=== PATIENT | male | born 1950 | race Caucasian/White ===

== ENCOUNTER 2017-06-27 17:39 | Emergency (ER) | payer MEDICARE, MEDICAID ==
[2017-06-27 18:46] LABS: #Basophils 0.1 thou/uL (0.0-0.2); #Eosinphils 0.2 thou/uL (0.0-0.7); #Lymphocytes 1.9 thou/uL (1.20-3.40); #Monocytes 0.7 thou/uL (0.11-0.59); #Neutrophils 3.7 thou/uL (1.40-6.50); %Basophils 0.8 % (0.0-1.0); %Eosinophils 2.8 % (0.0-10.0); %Lymphocytes 28.7 % (21.0-51.0); %Monocytes 10.8 % (0.0-10.0); %Neutrophils 56.8 % (42.0-75.0); Hemoglobin 15.3 g/dL (14.0-18.0); Mean Corpuscular HGB CONC 33.8 g/dL (32.0-36.0); Mean Corpuscular Hemoglobin 33.2 pg (27.0-31.0); Mean Corpuscular Volume 98.1 fl (80.0-94.0); Mean Platelet Volume 6.4 fL (7.4-10.4); Platelet Count 265 thou/uL (130-400); RBC Distribution Width 12.5 % (11.5-14.5); Red Blood Cell (RBC) Count 4.62 mill/uL (4.70-6.10); White Blood Cell (WBC) Count 6.5 thou/uL (4.8-10.8)
[2017-06-27 19:13] LABS: CKMB 1.6 ng/mL (0-6.6); Troponin I Less than 0.010 ng/mL (< 0.028)
[2017-06-27 19:14] LABS: ALT (SGPT) 22 U/L (8-55); AST (SGOT) 34 U/L (5-34); Albumin 4.3 g/dL (3.4-4.8); Alkaline Phosphatase 82 U/L (40-150); Anion Gap 18 mmol/L (10-20); BUN (Urea Nitrogen) 15 mg/dL (8.4-25.7); Bilirubin, Total 0.6 mg/dL (0.2-1.2); CK (CPK) 100 U/L (30-200); Calc. Creatinine Clearance 0 mL/min (70-130); Calcium 9.7 mg/dL (7.8-10.44); Carbon Dioxide 20 mmol/L (23-31); Chloride 105 mmol/L (98-107); Estimated GFR-MDRD 88; Globulin 3.9 g/dL (2.4-3.5); Glucose 88 mg/dL (80-115); Lipase 31 U/L (8-78); Potassium 4.5 mmol/L (3.5-5.1); Protein, Total 8.2 g/dL (5.8-8.1); Sodium 138 mmol/L (136-145)
--- NOTE | 2017-06-27 20:17 | RAD ---
PA AND LATERAL VIEWS OF CHEST 06/27/17 HISTORY: Chest pain. FINDINGS: Comparison made to exam of 10/21/13. The heart size is normal. The lungs are expanded. No focal areas of consolidation, pneumothorax or p leural effusions are seen. There are mild degenerative changes of the spine. IMPRESSION: No radiographic evidence of acute cardiopulmonary process. POS: [facility]
[2017-06-27] MEDS ORDERED: Water For Inject, Bacteriostat 30 ML ONE (20:37)
[2017-06-27] MEDS ORDERED: methylPREDNISolone Sod Succ/PF 125 MG/2 ML VIAL ONE (20:37)
[2017-06-27 22:04] LABS: Troponin I Less than 0.010 ng/mL (< 0.028)
--- NOTE | 2017-07-16 22:41 | EKG ---
Test Reason : Blood Pressure : / mmHG Vent. Rate : 067 BPM Atrial Rate : 067 BPM P-R Int : 154 ms QRS Dur : 086 ms QT Int : 402 ms P-R-T Axes : -20 054 044 degrees QTc Int : 424 ms Normal sinus rhythm Possible Lateral infarct , age undetermined Abnormal ECG Confirmed by JOHNNY EVANS ([id number]), sound editor JOAN SANTIAGO ([id number]) on 07/16/2017 10:40:48 PM Referred By: Confirmed By:JOHNNY EVANS
== END 2017-06-28 00:18 | disposition home or self-care (01) ==
LOC: ERS 17:39
DX: J44.1 Chronic obstructive pulmonary disease with (acute) exacerbation (principal); I25.2 Old myocardial infarction; E78.5 Hyperlipidemia, unspecified; I11.0 Hypertensive heart disease with heart failure; I50.9 Heart failure, unspecified; K21.9 Gastro-esophageal reflux disease without esophagitis; M19.90 Unspecified osteoarthritis, unspecified site; F41.9 Anxiety disorder, unspecified; F17.290 Nicotine dependence, other tobacco product, uncomplicated; Z71.6 Tobacco abuse counseling; Z86.73 Personal history of transient ischemic attack (TIA), and cerebral infarction without residual deficits; Z79.82 Long term (current) use of aspirin; Z79.02 Long term (current) use of antithrombotics/antiplatelets; Z79.899 Other long term (current) drug therapy
CPT/HCPCS: 36415; 71046; 80053; 82550; 82553; 83690; 83880; 84484; 85025; 93005; 96374; 99406; J2930; J7620

== ENCOUNTER 2017-07-20 16:51 | Emergency (ER) | payer MEDICARE, MEDICAID ==
--- NOTE | 2017-07-20 17:25 | CT ---
CT HEAD NONCONTRAST 07/20/17 HISTORY: Altered mental status. COMPARISON: 11/18/16. FINDINGS: There is no evidence of acute intracranial hemorrhage or infarct. The ventricles appear normal in siz e, shape, and position. There is no mass effect or shift of midline structures. The visualized parana masoud sinuses remain well aerated. IMPRESSION: No acute intracranial abnormalities are demonstrated on noncontrast CT head. [facility] 1703 hours. Code CR POS: [facility]
[2017-07-20 17:38] LABS: #Eosinphils 0.2 thou/uL (0.0-0.7); #Lymphocytes 1.6 thou/uL (1.20-3.40); #Monocytes 0.7 thou/uL (0.11-0.59); #Neutrophils 3.6 thou/uL (1.40-6.50); %Basophils 0.8 % (0.0-1.0); %Eosinophils 2.6 % (0.0-10.0); %Lymphocytes 26.5 % (21.0-51.0); %Monocytes 11.7 % (0.0-10.0); %Neutrophils 58.3 % (42.0-75.0); Hemoglobin 15.4 g/dL (14.0-18.0); Mean Corpuscular HGB CONC 34.4 g/dL (32.0-36.0); Mean Corpuscular Hemoglobin 33.7 pg (27.0-31.0); Mean Platelet Volume 6.6 fL (7.4-10.4); Platelet Count 283 thou/uL (130-400); RBC Distribution Width 12.8 % (11.5-14.5); Red Blood Cell (RBC) Count 4.55 mill/uL (4.70-6.10); White Blood Cell (WBC) Count 6.2 thou/uL (4.8-10.8)
[2017-07-20 17:45] LABS: INR-International Normal Ratio 1.1; PTT 27.5 SEC (22.9-36.1); Prothrombin Time 13.9 SEC (12.0-14.7)
[2017-07-20 18:01] LABS: ALT (SGPT) 17 U/L (8-55); AST (SGOT) 17 U/L (5-34); Albumin 4.2 g/dL (3.4-4.8); Alkaline Phosphatase 87 U/L (40-150); Anion Gap 13 mmol/L (10-20); BUN (Urea Nitrogen) 15 mg/dL (8.4-25.7); Bilirubin, Total 0.6 mg/dL (0.2-1.2); CK (CPK) 85 U/L (30-200); Calc. Creatinine Clearance 0 mL/min (70-130); Calcium 9.5 mg/dL (7.8-10.44); Carbon Dioxide 25 mmol/L (23-31); Chloride 103 mmol/L (98-107); Estimated GFR-MDRD 73; Globulin 3.2 g/dL (2.4-3.5); Glucose 93 mg/dL (80-115); Potassium 4.5 mmol/L (3.5-5.1); Protein, Total 7.4 g/dL (5.8-8.1); Sodium 136 mmol/L (136-145)
[2017-07-20 18:04] LABS: CKMB 1.6 ng/mL (0-6.6); Troponin I Less than 0.010 ng/mL (< 0.028)
--- NOTE | 2017-07-20 18:10 | CT ---
CT ANGIO OF HEAD AND NECK AND CT PERFUSION STUDY PERFORMED WITH INTRAVENOUS CONTRAST ENHANCEMENT WITH 3D RECONSTRUCTIONS: 07/20/17 HISTORY: Left sided tingling in arm and leg. Slurred speech. History of TIA. COMPARISON: CT done earlier today as well as a CT of the chest performed 07/11/13. There is some right apical pleural and parenchymal scarring which has a slightly nodular appearance b ut is felt to be fairly stable as compared to the prior exam. Thyroid gland is normal in appearance. There is no significant jugular chain adenopathy. Focal cord r egion appears unremarkable. Parapharyngeal spaces are clear. Parotid and submandibular gland regions appear unremarkable. Angiographic portion of this examination yielded a good study. There is a separate origin of the left common carotid artery from the aortic arch. The vertebral arteries are codominant. The origin of the right vertebral artery is obscured by overlying venous contamination. There could be some mild narro wing near the origin. There is some calcification seen in both vertebral arteries and the right verte bral becomes small as it forms the basilar artery. On the right side, there is moderate plaque formation of the origin of the internal carotid artery bu t I see no signs of any significant stenosis. The left shows mild calcified plaque formation again wi thout any significant stenosis. CT ANGIO OF BRAIN PERFORMED WITH INTRAVENOUS CONTRAST WITH 3D RECONSTRUCTIONS: The anterior and middle cerebral arteries and their branches appear symmetric. I do not see any signs of any intraluminal thrombus. No aneurysm or vascular malformation. CT PERFUSION STUDY: No signs of ischemia or stroke. IMPRESSION: 1. Moderate plaque formation at the origin of both internal carotid arteries, more prominent on the right. 2. No ischemia or infarct seen on perfusion sequence. 3. Findings telephoned to Dr. oCnnor at 1750 hours. POS: [facility]
--- NOTE | 2017-07-21 14:57 | CT ---
CT ANGIO OF HEAD AND NECK AND CT PERFUSION STUDY PERFORMED WITH INTRAVENOUS CONTRAST ENHANCEMENT WITH 3D RECONSTRUCTIONS: 07/20/17 HISTORY: Left sided tingling in arm and leg. Slurred speech. History of TIA. COMPARISON: CT done earlier today as well as a CT of the chest performed 07/11/13. There is some right apical pleural and parenchymal scarring which has a slightly nodular appearance b ut is felt to be fairly stable as compared to the prior exam. Thyroid gland is normal in appearance. There is no significant jugular chain adenopathy. Focal cord r egion appears unremarkable. Parapharyngeal spaces are clear. Parotid and submandibular gland regions appear unremarkable. Angiographic portion of this examination yielded a good study. There is a separate origin of the left common carotid artery from the aortic arch. The vertebral arteries are codominant. The origin of the right vertebral artery is obscured by overlying venous contamination. There could be some mild narro wing near the origin. There is some calcification seen in both vertebral arteries and the right verte bral becomes small as it forms the basilar artery. On the right side, there is moderate plaque formation of the origin of the internal carotid artery bu t I see no signs of any significant stenosis. The left shows mild calcified plaque formation again wi thout any significant stenosis. CT ANGIO OF BRAIN PERFORMED WITH INTRAVENOUS CONTRAST WITH 3D RECONSTRUCTIONS: The anterior and middle cerebral arteries and their branches appear symmetric. I do not see any signs of any intraluminal thrombus. No aneurysm or vascular malformation. CT PERFUSION STUDY: No signs of ischemia or stroke. IMPRESSION: 1. Moderate plaque formation at the origin of both internal carotid arteries, more prominent on the right. 2.No ischemia or infarct seen on perfusion sequence. Findings telephoned to Dr. Connor at 1750 hours.
== END 2017-07-20 19:20 | disposition home or self-care (01) ==
LOC: ERS 16:51
DX: R53.1 Weakness (principal); I25.2 Old myocardial infarction; E78.5 Hyperlipidemia, unspecified; Z86.73 Personal history of transient ischemic attack (TIA), and cerebral infarction without residual deficits; K21.9 Gastro-esophageal reflux disease without esophagitis; I11.0 Hypertensive heart disease with heart failure; I50.9 Heart failure, unspecified; F41.9 Anxiety disorder, unspecified; F17.210 Nicotine dependence, cigarettes, uncomplicated; Z79.899 Other long term (current) drug therapy
CPT/HCPCS: 0042T; 70450; 70496; 70498; 80053; 82550; 82553; 83880; 84484; 85025; 85610; 85730; 93005; 94760; 99285

== ENCOUNTER 2017-11-01 22:53 | Emergency (ER) | payer MEDICARE, MEDICAID ==
[~2017-11-01 22:53] MED LIST: ISOVUE-370 76%-LOCM 1 ML ONE
--- NOTE | 2017-11-01 23:09 | CT ---
CT OF THE BRAIN WITHOUT CONTRAST 11/01/17 HISTORY: Left sided weakness. COMPARISON: CT brain 07/20/17. FINDINGS: No acute territorial infarct or hemorrhage. No midline shift or mass effect. Ventricular size and ext ra-axial CSF spaces are normal. Prior left maxillary sinus fracture with plate and screw fixation. The paranasal sinuses and mastoids otherwise clear. IMPRESSION: No acute intracranial abnormality. Code CR - Dr. Marc, 11 p.m. POS: [facility]
[2017-11-01 23:20] LABS: #Basophils 0.1 thou/uL (0.0-0.2); #Eosinphils 0.1 thou/uL (0.0-0.7); #Lymphocytes 1.5 thou/uL (1.20-3.40); #Monocytes 0.6 thou/uL (0.11-0.59); #Neutrophils 3.4 thou/uL (1.40-6.50); %Basophils 0.9 % (0.0-1.0); %Lymphocytes 26.5 % (21.0-51.0); %Monocytes 10.7 % (0.0-10.0); %Neutrophils 59.8 % (42.0-75.0); Hemoglobin 13.5 g/dL (14.0-18.0); Mean Corpuscular HGB CONC 34.4 g/dL (32.0-36.0); Mean Corpuscular Hemoglobin 33.2 pg (27.0-31.0); Mean Corpuscular Volume 96.7 fl (80.0-94.0); Mean Platelet Volume 6.5 fL (7.4-10.4); Platelet Count 238 thou/uL (130-400); RBC Distribution Width 11.9 % (11.5-14.5); Red Blood Cell (RBC) Count 4.05 mill/uL (4.70-6.10); White Blood Cell (WBC) Count 5.7 thou/uL (4.8-10.8)
[2017-11-01 23:27] LABS: INR-International Normal Ratio 1.1; PTT 27.1 SEC (22.9-36.1); Prothrombin Time 14.7 SEC (12.0-14.7)
[2017-11-01 23:36] LABS: CKMB 1.1 ng/mL (0-6.6); Troponin I Less than 0.010 ng/mL (< 0.028)
[2017-11-01 23:37] LABS: ALT (SGPT) 17 U/L (8-55); AST (SGOT) 15 U/L (5-34); Albumin 3.7 g/dL (3.4-4.8); Alkaline Phosphatase 76 U/L (40-150); Anion Gap 5 mmol/L (10-20); BUN (Urea Nitrogen) 13 mg/dL (8.4-25.7); Bilirubin, Total 0.3 mg/dL (0.2-1.2); Calc. Creatinine Clearance 0 mL/min (70-130); Calcium 8.7 mg/dL (7.8-10.44); Carbon Dioxide 27 mmol/L (23-31); Chloride 107 mmol/L (98-107); Estimated GFR-MDRD 74; Globulin 2.5 g/dL (2.4-3.5); Glucose 97 mg/dL (80-115); Potassium 3.9 mmol/L (3.5-5.1); Protein, Total 6.2 g/dL (5.8-8.1); Sodium 135 mmol/L (136-145)
--- NOTE | 2017-11-02 10:08 | CT ---
PRELIMINARY REPORT/[facility]/EMERGENTY AFTER-HOURS PROCEDURE Addendum created by Mesfin Gilliam MD on 11/02/2017 12:48 AM Central Time ([place] & [place]) THIS REPORT CONT AINS FINDINGS THAT MAY BE CRITICAL TO PATIENT CARE. The findings were verbally communicated via telep melody conference with Dr. Rodrigues at 12:47 AM CDT on 11/02/2017. The findings were acknowledged and und erstood. Initial Report created on 11/02/2017 12:36 AM Central Time ([place] & [place]) CT Angiography Head With Intravenous Contrast CLINICAL HISTORY: 67 years old, male; Signs and symptoms; Weakness; Patient HX: stroke alert last seen normal 2230, pt complains of left sided weakness TECHNIQUE: Axial computed tomographic angiography images of the head with intravenous contrast using CT angiogra phy protocol. MIP reconstructed images were created and reviewed. COMPARISON: No relevant prior studies available. FINDINGS: Right internal carotid artery: No acute findings. Intracranial segment is patent with no significant stenosis. No aneurysm. Right anterior cerebral artery: Unremarkable. No occlusion or significant stenosis. No aneurysm. Right middle cerebral artery: Unremarkable. No occlusion or significant stenosis. No aneurysm. Right posterior cerebral artery: Unremarkable. No occlusion or significant stenosis. No aneurysm. Right vertebral artery: Unremarkable as visualized. Left internal carotid artery: No acute findings. Intracranial segment is patent with no significant s tenosis. No aneurysm. Left anterior cerebral artery: Unremarkable. No occlusion or significant stenosis. No aneurysm. Left middle cerebral artery: Unremarkable. No occlusion or significant stenosis. No aneurysm. Left posterior cerebral artery: Unremarkable. No occlusion or significant stenosis. No aneurysm. Left vertebral artery: Unremarkable as visualized. Basilar artery: Unremarkable. No occlusion or significant stenosis. No aneurysm. IMPRESSION: No evidence of focal high-grade stenosis or intraluminal filling defect. CT Angiography Neck With Intravenous Contrast CLINICAL HISTORY: 67 years old, male; Signs and symptoms; Weakness; Patient HX: stroke alert last seen normal 2230, pt complains of left sided weakness TECHNIQUE: Axial computed tomographic angiography images of the neck with intravenous contrast using CT angiogra phy protocol. COMPARISON: No relevant prior studies available. FINDINGS: VASCULATURE: Right common carotid artery: Unremarkable. No significant stenosis. No dissection or occlusion. Right internal carotid artery: Atherosclerotic plaque in the right carotid bulb with less than 50% st enosis. No dissection or occlusion. Right external carotid artery: Unremarkable. No occlusion. Right vertebral artery: Unremarkable. No significant stenosis. No dissection or occlusion. Left common carotid artery: Unremarkable. No significant stenosis. No dissection or occlusion. Left internal carotid artery: Atherosclerotic plaque in the left carotid bulb with less than 50% sten osis. No dissection or occlusion. Left external carotid artery: Unremarkable. No occlusion. Left vertebral artery: Unremarkable. No significant stenosis. No dissection or occlusion. Other vasculature: Atherosclerotic calcification of the aorta. NECK: Bones/joints: Degenerative changes in the spine. No acute fracture. No dislocation. Soft tissues: Unremarkable as visualized. No mass. CAROTID STENOSIS REFERENCE USING NASCET CRITERIA: % ICA stenosis = (1 - narrowest ICA diameter/diameter of distal cervical ICA) x 100. Mild - <50% stenosis. Moderate - 50-69% stenosis. Severe - 70-94% stenosis. Near occlusion - 95-99% stenosis. Occluded - 100% stenosis. IMPRESSION: No evidence of focal high-grade stenosis or intraluminal filling defect. Thank you for allowing us to participate in the care of your patient. Dictated and Authenticated by: Mesfin Gilliam MD 11/02/2017 12:36 AM Central Time ([place] & [place]) FINAL REPORT CTA CAROTIDS: Final report. Preliminary exam was performed by [facility]. Two-D and 3D reconstructed images were performed on an independent 3D work station after administrati on of IV contrast. I concur with the dictation from [facility]. Some atherosclerotic plaque is seen in the right and left proximal ICAs resulting in approximately 50% right ICA and approximately 40-50% left ICA st enosis. More distally, the internal carotid arteries are patent. No evidence of significant intracr anial occlusion seen. ANGELA, MCA, and BELT BACK OPERATOR vessels are patent. There does appear to be some atheroscle rotic plaque focally in the distal vertebral arteries. IMPRESSION: 1. Moderate bilateral ICA origin stenosis without evidence of significant intracranial occlusive dis ease seen. 2. Areas of nodular spiculated density seen in the right upper lobe. This may represent possible ri ght upper lobe lesion. Correlate with dedicated CT chest for further characterization and followup. POS: [facility]
--- NOTE | 2017-11-05 15:23 | EKG ---
Test Reason : Blood Pressure : / mmHG Vent. Rate : 085 BPM Atrial Rate : 085 BPM P-R Int : 148 ms QRS Dur : 084 ms QT Int : 372 ms P-R-T Axes : 002 071 056 degrees QTc Int : 442 ms Normal sinus rhythm Possible Lateral infarct , age undetermined Abnormal ECG Confirmed by XAVIER SEN, BARRON Kearney ([id number]), video effects editor ESTEFANIA VELASCO ([id number]) on 11/05/2017 3:22:49 PM Referred By: Confirmed By:BARRON PARK MD
== END 2017-11-02 | disposition home or self-care (01) ==
LOC: ERS 22:53
DX: R07.9 Chest pain, unspecified (principal); R53.1 Weakness; I25.2 Old myocardial infarction; E78.5 Hyperlipidemia, unspecified; I11.0 Hypertensive heart disease with heart failure; I50.9 Heart failure, unspecified; K21.9 Gastro-esophageal reflux disease without esophagitis; J44.9 Chronic obstructive pulmonary disease, unspecified; F41.9 Anxiety disorder, unspecified; F17.290 Nicotine dependence, other tobacco product, uncomplicated; Z79.899 Other long term (current) drug therapy; Z79.82 Long term (current) use of aspirin; Z86.73 Personal history of transient ischemic attack (TIA), and cerebral infarction without residual deficits
CPT/HCPCS: 36416; 70450; 70496; 70498; 80053; 82553; 84484; 85025; 85610; 85730; 93005; 94760

== ENCOUNTER 2018-04-08 14:57 | Emergency (ER) | payer MEDICARE, MEDICAID ==
--- NOTE | 2018-04-08 15:28 | RAD ---
CHEST 1 VIEW: HISTORY: Pain. COMPARISON: 03/02/2017. FINDINGS: Atherosclerosis of the aorta. Normal cardiac silhouette. Pulmonary vessels and hilum are normal. C ostophrenic angles are clear. NO masses or consolidation. No pneumothorax or osseous abnormalities. IMPRESSION: 1. No acute cardiopulmonary process. 2. Atherosclerosis. POS: [facility]
[2018-04-08 15:31] LABS: #Basophils 0.1 thou/uL (0.0-0.2); #Eosinphils 0.2 thou/uL (0.0-0.7); #Lymphocytes 1.7 thou/uL (1.20-3.40); #Monocytes 0.7 thou/uL (0.11-0.59); #Neutrophils 2.7 thou/uL (1.40-6.50); %Basophils 1.4 % (0.0-1.0); %Eosinophils 3.2 % (0.0-10.0); %Lymphocytes 31.5 % (21.0-51.0); %Monocytes 12.4 % (0.0-10.0); %Neutrophils 51.5 % (42.0-75.0); Hemoglobin 15.4 g/dL (14.0-18.0); Mean Corpuscular HGB CONC 33.5 g/dL (32.0-36.0); Mean Corpuscular Hemoglobin 32.4 pg (27.0-31.0); Mean Corpuscular Volume 96.7 fL (78.0-98.0); Mean Platelet Volume 6.4 fL (7.4-10.4); Platelet Count 278 thou/uL (130-400); RBC Distribution Width 12.1 % (11.5-14.5); Red Blood Cell (RBC) Count 4.76 mill/uL (4.70-6.10); White Blood Cell (WBC) Count 5.2 thou/uL (4.8-10.8)
[2018-04-08 15:54] LABS: ALT (SGPT) 14 U/L (8-55); AST (SGOT) 16 U/L (5-34); Albumin 4.4 g/dL (3.4-4.8); Alkaline Phosphatase 77 U/L (40-150); Anion Gap 13 mmol/L (10-20); BUN (Urea Nitrogen) 12 mg/dL (8.4-25.7); Bilirubin, Total 0.7 mg/dL (0.2-1.2); CK (CPK) 74 U/L (30-200); Calc. Creatinine Clearance 0 mL/min (70-130); Calcium 9.5 mg/dL (7.8-10.44); Carbon Dioxide 24 mmol/L (23-31); Chloride 102 mmol/L (98-107); Estimated GFR-MDRD 76; Globulin 3.3 g/dL (2.4-3.5); Glucose 113 mg/dL (80-115); Potassium 4.3 mmol/L (3.5-5.1); Protein, Total 7.7 g/dL (5.8-8.1); Sodium 135 mmol/L (136-145)
[2018-04-08 15:59] LABS: CKMB 1.2 ng/mL (0-6.6); Troponin I Less than 0.010 ng/mL (< 0.028)
[2018-04-08] MEDS ORDERED: methylPREDNISolone Sod Succ/PF 125 MG/2 ML VIAL ONE (16:00)
== END 2018-04-08 17:18 | disposition home or self-care (01) ==
LOC: ERS 14:57
DX: J44.1 Chronic obstructive pulmonary disease with (acute) exacerbation (principal); I25.2 Old myocardial infarction; E78.5 Hyperlipidemia, unspecified; Z86.73 Personal history of transient ischemic attack (TIA), and cerebral infarction without residual deficits; K21.9 Gastro-esophageal reflux disease without esophagitis; I11.0 Hypertensive heart disease with heart failure; I50.9 Heart failure, unspecified; F41.9 Anxiety disorder, unspecified; F17.210 Nicotine dependence, cigarettes, uncomplicated; Z79.899 Other long term (current) drug therapy; Z79.82 Long term (current) use of aspirin
CPT/HCPCS: 71045; 80053; 82553; 83880; 84484; 85025; 87804; 93005; 94640; 96374; J2930; J7620

== ENCOUNTER 2018-04-09 00:14 | Emergency (ER) | payer MEDICARE, MEDICAID ==
[2018-04-09 01:13] LABS: #Lymphocytes 0.5 thou/uL (1.20-3.40); %Eosinophils 0.3 % (0.0-10.0); %Lymphocytes 10.8 % (21.0-51.0); %Monocytes 0.7 % (0.0-10.0); %Neutrophils 88.2 % (42.0-75.0); Hemoglobin 14.5 g/dL (14.0-18.0); Mean Corpuscular HGB CONC 33.6 g/dL (32.0-36.0); Mean Corpuscular Hemoglobin 32.5 pg (27.0-31.0); Mean Corpuscular Volume 96.6 fL (78.0-98.0); Mean Platelet Volume 6.5 fL (7.4-10.4); Platelet Count 279 thou/uL (130-400); Red Blood Cell (RBC) Count 4.46 mill/uL (4.70-6.10); White Blood Cell (WBC) Count 4.5 thou/uL (4.8-10.8)
[2018-04-09 01:32] LABS: ALT (SGPT) 15 U/L (8-55); AST (SGOT) 15 U/L (5-34); Albumin 4.4 g/dL (3.4-4.8); Alkaline Phosphatase 69 U/L (40-150); Anion Gap 15 mmol/L (10-20); BUN (Urea Nitrogen) 17 mg/dL (8.4-25.7); Bilirubin, Total 0.4 mg/dL (0.2-1.2); Calc. Creatinine Clearance 0 mL/min (70-130); Calcium 9.9 mg/dL (7.8-10.44); Carbon Dioxide 23 mmol/L (23-31); Chloride 104 mmol/L (98-107); Estimated GFR-MDRD 71; Globulin 3.4 g/dL (2.4-3.5); Glucose 175 mg/dL (80-115); Lipase 29 U/L (8-78); Magnesium 2.4 mg/dL (1.6-2.6); Potassium 4.7 mmol/L (3.5-5.1); Protein, Total 7.8 g/dL (5.8-8.1); Sodium 137 mmol/L (136-145)
[2018-04-09 01:35] LABS: Troponin I Less than 0.010 ng/mL (< 0.028)
== END 2018-04-09 02:22 | disposition home or self-care (01) ==
LOC: ERS 00:14
DX: R00.2 Palpitations (principal); E78.5 Hyperlipidemia, unspecified; I25.2 Old myocardial infarction; I11.0 Hypertensive heart disease with heart failure; I50.9 Heart failure, unspecified; J44.9 Chronic obstructive pulmonary disease, unspecified; F41.9 Anxiety disorder, unspecified; F17.210 Nicotine dependence, cigarettes, uncomplicated; Z79.82 Long term (current) use of aspirin; Z79.899 Other long term (current) drug therapy
CPT/HCPCS: 36415; 80053; 82553; 83690; 83735; 84484; 85025; 93005

== ENCOUNTER 2018-04-16 19:19 | Emergency (ER) | payer MEDICARE, MEDICAID ==
[2018-04-16 20:14] LABS: #Basophils 0.1 thou/uL (0.0-0.2); #Eosinphils 0.2 thou/uL (0.0-0.7); #Lymphocytes 2.3 thou/uL (1.20-3.40); #Monocytes 0.8 thou/uL (0.11-0.59); #Neutrophils 6.1 thou/uL (1.40-6.50); %Basophils 0.9 % (0.0-1.0); %Eosinophils 2.5 % (0.0-10.0); %Lymphocytes 24.4 % (21.0-51.0); %Neutrophils 64.2 % (42.0-75.0); Hemoglobin 15.2 g/dL (14.0-18.0); Mean Corpuscular Hemoglobin 32.9 pg (27.0-31.0); Mean Platelet Volume 6.4 fL (7.4-10.4); Platelet Count 284 thou/uL (130-400); RBC Distribution Width 12.4 % (11.5-14.5); Red Blood Cell (RBC) Count 4.62 mill/uL (4.70-6.10); White Blood Cell (WBC) Count 9.5 thou/uL (4.8-10.8)
--- NOTE | 2018-04-16 20:25 | RAD ---
CHEST ONE VIEW: History: Dyspnea. Comparison: 04-08-18 FINDINGS: Cardiac silhouette is magnified by projection. Calcified granulomata are consistent with healed granu lomatous disease. Mediastinum is midline with aortic calcification. No lobar consolidation or evidenc e of pneumothorax. IMPRESSION: Atherosclerosis. No active cardiopulmonary abnormalities are otherwise demonstrated. POS: [facility]
[2018-04-16 20:32] LABS: ALT (SGPT) 14 U/L (8-55); AST (SGOT) 16 U/L (5-34); Albumin 4.2 g/dL (3.4-4.8); Alkaline Phosphatase 69 U/L (40-150); Anion Gap 13 mmol/L (10-20); BUN (Urea Nitrogen) 18 mg/dL (8.4-25.7); Bilirubin, Total 0.3 mg/dL (0.2-1.2); Calc. Creatinine Clearance 0 mL/min (70-130); Calcium 9.4 mg/dL (7.8-10.44); Carbon Dioxide 25 mmol/L (23-31); Chloride 104 mmol/L (98-107); Estimated GFR-MDRD 79; Globulin 3.3 g/dL (2.4-3.5); Glucose 100 mg/dL (80-115); Potassium 4.1 mmol/L (3.5-5.1); Protein, Total 7.5 g/dL (5.8-8.1); Sodium 138 mmol/L (136-145)
[2018-04-16 20:36] LABS: CKMB 1.4 ng/mL (0-6.6); Troponin I Less than 0.010 ng/mL (< 0.028)
[2018-04-16] MEDS ORDERED: Dexamethasone 10 MG/ML VIAL ONE (20:51)
--- NOTE | 2018-04-22 23:07 | EKG ---
Test Reason : Blood Pressure : / mmHG Vent. Rate : 065 BPM Atrial Rate : 065 BPM P-R Int : 154 ms QRS Dur : 092 ms QT Int : 402 ms P-R-T Axes : 093 066 048 degrees QTc Int : 418 ms Normal sinus rhythm Normal ECG Confirmed by ALEKSANDR JOSEPH ([id number]), primer expeditor and drier JOAN SANTIAGO ([id number]) on 04/22/2018 11:07:01 PM Referred By: Confirmed By:ALEKSANDR JOSEPH
== END 2018-04-16 21:01 | disposition home or self-care (01) ==
LOC: ERS 19:19
DX: I11.0 Hypertensive heart disease with heart failure (principal); I50.9 Heart failure, unspecified; R05 Cough; E78.5 Hyperlipidemia, unspecified; F41.9 Anxiety disorder, unspecified; K21.9 Gastro-esophageal reflux disease without esophagitis; J44.9 Chronic obstructive pulmonary disease, unspecified; Z86.73 Personal history of transient ischemic attack (TIA), and cerebral infarction without residual deficits; Z87.891 Personal history of nicotine dependence; Z79.82 Long term (current) use of aspirin
CPT/HCPCS: 71045; 80053; 82553; 84484; 85025; 85379; 93005; 96374; J1100

== ENCOUNTER 2018-07-21 16:26 | Emergency (ER) | payer MEDICARE, MEDICAID ==
[2018-07-21 16:40] LABS: #Basophils 0.1 thou/uL (0.0-0.2); #Eosinphils 0.1 thou/uL (0.0-0.7); #Lymphocytes 1.9 thou/uL (1.20-3.40); #Monocytes 0.6 thou/uL (0.11-0.59); #Neutrophils 3.6 thou/uL (1.40-6.50); %Eosinophils 2.1 % (0.0-10.0); %Lymphocytes 30.3 % (21.0-51.0); %Monocytes 9.6 % (0.0-10.0); %Neutrophils 57.1 % (42.0-75.0); Mean Corpuscular HGB CONC 33.2 g/dL (32.0-36.0); Mean Corpuscular Hemoglobin 32.2 pg (27.0-31.0); Mean Corpuscular Volume 97.1 fL (78.0-98.0); Mean Platelet Volume 6.5 fL (7.4-10.4); Platelet Count 256 thou/uL (130-400); RBC Distribution Width 11.9 % (11.5-14.5); Red Blood Cell (RBC) Count 4.36 mill/uL (4.70-6.10); White Blood Cell (WBC) Count 6.3 thou/uL (4.8-10.8)
--- NOTE | 2018-07-21 16:45 | CT ---
NONCONTRAST CT HEAD: Date: 07/21/18 HISTORY: Level I stroke alert. Left-sided weakness. COMPARISON: 11/01/17. FINDINGS: There is no evidence of a hemorrhage, acute infarction, mass effect, or midline shift. Ventricular sy stem is normal in size, shape, and position. Postsurgical changes of the inferior left orbital rim and anterior wall left maxillary antrum are aga in noted. No calvarial fracture is seen. Visualized paranasal sinuses and mastoid air cells are clear . Vascular calcifications again seen in the carotid siphons and distal vertebral arteries. IMPRESSION: No acute intracranial abnormality is demonstrated. Above findings discussed with Dr. Neri in the emergency department on 07/21/18 at 1636 hours. CODE CR. POS: [facility]
[2018-07-21 16:48] LABS: INR-International Normal Ratio 1.1
[2018-07-21 16:57] LABS: ALT (SGPT) 15 U/L (8-55); AST (SGOT) 16 U/L (5-34); Alkaline Phosphatase 72 U/L (40-150); Anion Gap 14 mmol/L (10-20); BUN (Urea Nitrogen) 11 mg/dL (8.4-25.7); Bilirubin, Total 0.4 mg/dL (0.2-1.2); CK (CPK) 142 U/L (30-200); Calc. Creatinine Clearance 0 mL/min (70-130); Calcium 8.8 mg/dL (7.8-10.44); Carbon Dioxide 20 mmol/L (23-31); Chloride 106 mmol/L (98-107); Estimated GFR-MDRD 72; Globulin 2.7 g/dL (2.4-3.5); Glucose 120 mg/dL (80-115); Potassium 3.9 mmol/L (3.5-5.1); Protein, Total 6.7 g/dL (5.8-8.1); Sodium 136 mmol/L (136-145)
== END 2018-07-21 17:50 | disposition left against medical advice (07) ==
LOC: ERS 16:26
DX: G45.9 Transient cerebral ischemic attack, unspecified (principal); R20.2 Paresthesia of skin; R53.1 Weakness; E78.5 Hyperlipidemia, unspecified; F17.210 Nicotine dependence, cigarettes, uncomplicated; K21.9 Gastro-esophageal reflux disease without esophagitis; Z86.73 Personal history of transient ischemic attack (TIA), and cerebral infarction without residual deficits; Z79.899 Other long term (current) drug therapy; Z79.82 Long term (current) use of aspirin
CPT/HCPCS: 36416; 70450; 80053; 82550; 84484; 85025; 85610; 85730; 93005; 94760

== ENCOUNTER 2018-10-08 17:47 | Observation (INO) | payer MEDICARE, MEDICAID ==
[2018-10-08 18:10] LABS: #Eosinphils 0.1 thou/uL (0.0-0.7); #Lymphocytes 1.8 thou/uL (1.20-3.40); #Monocytes 0.6 thou/uL (0.11-0.59); #Neutrophils 4.1 thou/uL (1.40-6.50); %Basophils 0.5 % (0.0-1.0); %Lymphocytes 27.1 % (21.0-51.0); %Monocytes 8.6 % (0.0-10.0); %Neutrophils 62.8 % (42.0-75.0); Hemoglobin 14.4 g/dL (14.0-18.0); Mean Corpuscular HGB CONC 34.6 g/dL (32.0-36.0); Mean Corpuscular Hemoglobin 32.8 pg (27.0-31.0); Mean Corpuscular Volume 94.8 fL (78.0-98.0); Mean Platelet Volume 6.4 fL (7.4-10.4); Platelet Count 273 thou/uL (130-400); Red Blood Cell (RBC) Count 4.39 mill/uL (4.70-6.10); White Blood Cell (WBC) Count 6.5 thou/uL (4.8-10.8)
[2018-10-08 18:25] LABS: ALT (SGPT) 14 U/L (8-55); AST (SGOT) 17 U/L (5-34); Albumin 4.2 g/dL (3.4-4.8); Alkaline Phosphatase 87 U/L (40-150); Anion Gap 14 mmol/L (10-20); BUN (Urea Nitrogen) 14 mg/dL (8.4-25.7); Bilirubin, Total 0.5 mg/dL (0.2-1.2); CK (CPK) 85 U/L (30-200); Calc. Creatinine Clearance 0 mL/min (70-130); Calcium 9.6 mg/dL (7.8-10.44); Carbon Dioxide 23 mmol/L (23-31); Chloride 105 mmol/L (98-107); Estimated GFR-MDRD 78; Globulin 3.1 g/dL (2.4-3.5); Glucose 96 mg/dL (80-115); Protein, Total 7.3 g/dL (5.8-8.1); Sodium 138 mmol/L (136-145)
--- NOTE | 2018-10-08 18:35 | RAD ---
PORTABLE AP CHEST X-RAY 10/08/18 HISTORY: Chest pain. COMPARISON: 04/16/18. FINDINGS: The cardiac silhouette and pulmonary vasculature are within normal limits. The lungs remain clear. Va scular calcifications seen in the thoracic aorta. There has been no interval change from prior study. IMPRESSION: No acute cardiopulmonary process. POS: [facility]
[2018-10-08] MEDS ORDERED: Fentanyl 100 MCG/2 ML VIAL ONE (18:41)
[2018-10-08] MEDS ORDERED: Nitroglycerin 2% Ointment 1 INCH/1 GM Packet ONE (18:41)
[2018-10-08] MEDS ORDERED: Ondansetron ODT 4 MG TAB SL PRN (19:38)
[2018-10-08] MEDS ORDERED: Acetaminophen 325 MG TAB PO PRN ×2 (19:38→21:11)
[2018-10-08] MEDS ORDERED: Ondansetron PF 4 MG/2 ML Vial IVP PRN (19:38)
[2018-10-08 19:41] VITALS: BMI 29.6
[2018-10-08] MEDS ORDERED: Acetaminophen/Codeine 30-300mg Tablet PO PRN (21:08)
[2018-10-08] MEDS ORDERED: Nitroglycerin 0.4 MG TAB (25 Tab Bottle) SL PRN (21:11)
[2018-10-08] MEDS ORDERED: Amlodipine 10 MG TAB PO SCH (21:15)
[2018-10-08] MEDS ORDERED: Zolpidem Tartrate 5 MG TAB PO SCH (21:15)
[2018-10-08] MEDS ORDERED: Metoprolol Tartrate 50 MG TAB PO SCH (21:15)
[2018-10-08] MEDS ORDERED: Atorvastatin Calcium 20 MG TAB PO SCH (21:15)
[2018-10-08 21:27] LABS: Troponin I Less than 0.010 ng/mL (< 0.028)
[2018-10-09 01:20] LABS: Troponin I Less than 0.010 ng/mL (< 0.028)
[2018-10-09] MEDS ORDERED: Stress 600 With Zinc 1 TAB PO SCH (09:00)
[2018-10-09] MEDS ORDERED: Clopidogrel Bisulfate 75 MG TAB PO SCH (09:00)
[2018-10-09] MEDS ORDERED: Metoprolol Tartrate 50 MG TAB PO SCH (09:00)
--- NOTE | 2018-10-09 10:23 | NM ---
CARDIAC SPECT: HISTORY: A 68-year-old male with chest pain, coronary artery disease, stroke, COPD, hypertension, dy slipidemia, and smoker. TECHNIQUE: A myocardial perfusion scan is performed using the single-isotope 1-day protocol with Technetium 99m sestamibi. Eleven mCi were injected intravenously for the rest exam followed by 33 mCi for the stres s study. Pharmacologic stress with LexiScan was monitored and interpreted by Verna Angel, nurse practi tioner. FINDINGS: Fairly homogeneous tracer distribution is seen in the myocardial segments on stress and rest images w ithout fixed or reversible defects. GATED SPECT LVEF: 74%. WALL MOTION EXAM: Normal. IMPRESSION: Normal myocardial perfusion scan. POS: [facility]
[2018-10-09 15:59] VITALS: BP 163/80; TEMP 98.2
[2018-10-09] MEDS ORDERED: Regadenoson 0.4 MG/5 ML SYRINGE ONE (17:47)
[2018-10-09] MEDS ORDERED: Zolpidem Tartrate 5 MG TAB PO SCH (21:00)
[2018-10-09] MEDS ORDERED: Atorvastatin Calcium 20 MG TAB PO SCH (21:00)
[2018-10-09] MEDS ORDERED: Aspirin 325 MG TAB PO SCH (21:00)
[2018-10-09] MEDS ORDERED: Amlodipine 10 MG TAB PO SCH (21:00)
--- NOTE | 2018-10-10 07:15 | HP ---
CHIEF COMPLAINT: Chest pain. HISTORY OF PRESENT ILLNESS: Mr. Lopes is a 68-year-old male with past medical history of hypertension, hyperlipidemia, came because of chest pain which woke him up. He says it is more like a pressure in the retrosternal area and nonradiating, associated with some shortness of breath and lightheadedness. No diaphoresis. No nausea or vomiting. The patient took full dose aspirin and nitroglycerin at home and drove to the hospital. He also tried some antacid without relief. The patient was evaluated in the ER and given nitroglycerin which did not relieve his symptoms much. He is being admitted for further evaluation and management. PAST MEDICAL HISTORY: 1. Hypertension. 2. Hyperlipidemia. 3. Chronic back pain. 4. Anxiety disorder. 5. Insomnia. 6. Gastroesophageal reflux disease. 7. COPD. 8. History of hepatitis C. PAST SURGICAL HISTORY: Nothing significant. CURRENT MEDICATIONS: The patient is on: 1. Tylenol #3 p.r.n. 2. Amitriptyline 75 mg daily. 3. Amlodipine 10 mg daily. 4. Aspirin 325 mg daily. 5. Lipitor 20 mg daily. 6. Symbicort 160/4.5 two puffs q.i.d. 7. DuoNeb t.i.d. p.r.n. 8. Vitamin D 2000 units daily. 9. Plavix 75 mg daily. 10. Metoprolol 50 b.i.d. 11. Multivitamin daily. 12. Protonix 40 mg daily. 13. Ambien 5 mg at bedtime p.r.n. 14. Lunesta 3 mg at bedtime. ALLERGIES: DOXYCYCLINE. FAMILY HISTORY: Nothing contributory. SOCIAL HISTORY: He lives with his family. Smokes one pack a day. REVIEW OF SYSTEMS: Unremarkable except for chest pain. PHYSICAL EXAMINATION: GENERAL: The patient is alert, awake, oriented x3. VITAL SIGNS: Temp 98, pulse 74, respirations 20, blood pressure 140/70. HEENT: Head is normocephalic and atraumatic. Pupils are equal and reactive. Nasopharynx is pale and dry. Hard and soft palate, no lesions. SKIN: Turgor decreased. NECK: Supple. No JVD. LUNGS: Bilateral air entry. No rales or rhonchi. HEART: S1 and S2 regular. ABDOMEN: Soft. No distention. No tenderness. Normal bowel sounds. CENTRAL NERVOUS SYSTEM: No focal deficit. LABORATORY DATA: CBC shows WBC 6.5, hemoglobin 14, hematocrit 41, platelets 273. Metabolic panel; sodium 138, potassium 4, chloride 108, carbon dioxide 23, creatinine 0.9, glucose 96. Troponin I less than 0.010. EKG shows normal sinus rhythm, no acute ST-T changes seen. Chest x-ray negative. ASSESSMENT: 1. Chest pain, rule out myocardial infarction. 2. Hypertension. 3. Hyperlipidemia. 4. Chronic back pain. 5. Insomnia. PLAN: 1. Vital signs q.4 hours. 2. Activity as tolerated. 3. Allergies: Doxycycline. 4. Hep-Lock. 5. Troponin I q.8 hours x2. 6. Will obtain adenosine Cardiolite stress test. 7. We will continue his home medications. 8. Aspirin daily. Job ID: [id number]
== END 2018-10-09 18:27 | disposition home or self-care (01) ==
LOC: ERS 17:47 → 2SW 19:28
PROVIDERS: ADMIT Internal Medicine; ATTEND Internal Medicine
DX: R07.2 Precordial pain (principal); I10 Essential (primary) hypertension; E78.5 Hyperlipidemia, unspecified; G89.29 Other chronic pain; M54.9 Dorsalgia, unspecified; F41.9 Anxiety disorder, unspecified; G47.00 Insomnia, unspecified; K21.9 Gastro-esophageal reflux disease without esophagitis; J44.9 Chronic obstructive pulmonary disease, unspecified; F17.210 Nicotine dependence, cigarettes, uncomplicated; Z79.51 Long term (current) use of inhaled steroids; Z79.02 Long term (current) use of antithrombotics/antiplatelets; Z79.82 Long term (current) use of aspirin; Z79.899 Other long term (current) drug therapy; Z88.5 Allergy status to narcotic agent; Z88.1 Allergy status to other antibiotic agents
CPT/HCPCS: 71045; 78452; 80053; 82550; 84484 ×3; 85025; 93005; 93017; 94640 ×2; 94760; 96374; 99285; A9500; G0378 ×3; 36415; J2785; J3010; J7620

== ENCOUNTER 2019-02-26 22:08 | Emergency (ER) | payer MEDICARE, MEDICAID ==
[2019-02-26 22:31] LABS: #Eosinphils 0.2 thou/uL (0.0-0.7); #Monocytes 0.5 thou/uL (0.11-0.59); #Neutrophils 2.9 thou/uL (1.40-6.50); %Basophils 0.6 % (0.0-1.0); %Eosinophils 3.2 % (0.0-10.0); %Lymphocytes 35.7 % (21.0-51.0); %Monocytes 8.5 % (0.0-10.0); Hemoglobin 15.4 g/dL (14.0-18.0); Mean Corpuscular Hemoglobin 32.8 pg (27.0-31.0); Mean Corpuscular Volume 93.8 fL (78.0-98.0); Mean Platelet Volume 6.6 fL (7.4-10.4); Platelet Count 251 thou/uL (130-400); RBC Distribution Width 12.5 % (11.5-14.5); White Blood Cell (WBC) Count 5.6 thou/uL (4.8-10.8)
--- NOTE | 2019-02-26 22:51 | RAD ---
RADIOGRAPH CHEST 1 VIEW: DATE: 02/26/2019 HISTORY: 68-year-old male with acute chest pain FINDINGS: There are no airspace densities, pulmonary edema, pneumothorax, or cardiomegaly. The lateral costophr enic angles are sharp. IMPRESSION: No acute cardiopulmonary findings.
[2019-02-26 22:54] LABS: ALT (SGPT) 23 U/L (8-55); AST (SGOT) 19 U/L (5-34); Albumin 4.4 g/dL (3.4-4.8); Alkaline Phosphatase 87 U/L (40-150); Anion Gap 14 mmol/L (10-20); BUN (Urea Nitrogen) 15 mg/dL (8.4-25.7); Bilirubin, Total 0.3 mg/dL (0.2-1.2); CK (CPK) 61 U/L (30-200); Calc. Creatinine Clearance 0 mL/min (70-130); Calcium 9.3 mg/dL (7.8-10.44); Carbon Dioxide 25 mmol/L (23-31); Chloride 105 mmol/L (98-107); Estimated GFR-MDRD 70; Globulin 3.4 g/dL (2.4-3.5); Glucose 103 mg/dL (80-115); Lipase 43 U/L (8-78); Potassium 4.3 mmol/L (3.5-5.1); Protein, Total 7.8 g/dL (5.8-8.1); Sodium 140 mmol/L (136-145)
[2019-02-27] MEDS ORDERED: Orphenadrine Citrate 60 MG/2 ML VIAL IM SCH (00:15)
--- NOTE | 2019-03-03 12:31 | EKG ---
Test Reason : Blood Pressure : / mmHG Vent. Rate : 082 BPM Atrial Rate : 082 BPM P-R Int : 158 ms QRS Dur : 084 ms QT Int : 364 ms P-R-T Axes : 065 069 060 degrees QTc Int : 425 ms Normal sinus rhythm Normal ECG Confirmed by CATHIE BETANCOURT M.D. ([id number]), editorial assistant ESTEFANIA VELASCO ([id number]) on 03/03/2019 12:30:57 PM Referred By: Confirmed By:CATHIE BETANCOURT M.D.
== END 2019-02-27 00:42 | disposition left against medical advice (07) ==
LOC: ERS 22:08
DX: R07.9 Chest pain, unspecified (principal); R20.0 Anesthesia of skin; I11.0 Hypertensive heart disease with heart failure; I50.9 Heart failure, unspecified; E78.5 Hyperlipidemia, unspecified; E78.00 Pure hypercholesterolemia, unspecified; F41.9 Anxiety disorder, unspecified; I25.2 Old myocardial infarction; J44.9 Chronic obstructive pulmonary disease, unspecified; K21.9 Gastro-esophageal reflux disease without esophagitis; M19.90 Unspecified osteoarthritis, unspecified site; I45.81 Long QT syndrome; F17.290 Nicotine dependence, other tobacco product, uncomplicated; Z86.73 Personal history of transient ischemic attack (TIA), and cerebral infarction without residual deficits; Z71.6 Tobacco abuse counseling; Z86.19 Personal history of other infectious and parasitic diseases; Z79.82 Long term (current) use of aspirin; Z79.899 Other long term (current) drug therapy
CPT/HCPCS: 71045; 80053; 82550; 83690; 84484; 85025; 93005; J2360

== ENCOUNTER 2019-05-26 20:56 | Observation (INO) | payer MEDICARE, MEDICAID ==
[2019-05-26 21:21] LABS: #Basophils 0.1 thou/uL (0.0-0.2); #Eosinphils 0.2 thou/uL (0.0-0.7); #Lymphocytes 1.7 thou/uL (1.20-3.40); #Monocytes 0.7 thou/uL (0.11-0.59); #Neutrophils 3.8 thou/uL (1.40-6.50); %Basophils 1.3 % (0.0-1.0); %Eosinophils 3.2 % (0.0-10.0); %Lymphocytes 26.3 % (21.0-51.0); %Monocytes 10.4 % (0.0-10.0); %Neutrophils 58.8 % (42.0-75.0); Hemoglobin 16.1 g/dL (14.0-18.0); Mean Corpuscular HGB CONC 34.8 g/dL (32.0-36.0); Mean Corpuscular Hemoglobin 33.1 pg (27.0-31.0); Mean Corpuscular Volume 95.2 fL (78.0-98.0); Mean Platelet Volume 6.8 fL (7.4-10.4); Platelet Count 287 thou/uL (130-400); RBC Distribution Width 12.1 % (11.5-14.5); Red Blood Cell (RBC) Count 4.86 mill/uL (4.70-6.10); White Blood Cell (WBC) Count 6.5 thou/uL (4.8-10.8)
--- NOTE | 2019-05-26 21:22 | CT ---
CT head noncontrast HISTORY: Altered mental status. Left-sided numbness. COMPARISON: 07/21/2018. FINDINGS: There is no evidence of acute intracranial hemorrhage or infarct. The ventricles appear nor mal in size, shape and position. There is no mass effect or shift of midline structures. Visualized paranasal sinuses remain well-aerated. IMPRESSION: No acute intracranial abnormalities are demonstrated. Findings were called to Dr. Giles in the emergency department at 2116 hours. Code CR.
[2019-05-26 21:27] LABS: INR-International Normal Ratio 0.9; PTT 26.8 SEC (22.9-36.1); Prothrombin Time 12.6 SEC (12.0-14.7)
[2019-05-26 21:32] LABS: ALT (SGPT) 22 U/L (8-55); AST (SGOT) 25 U/L (5-34); Albumin 4.3 g/dL (3.4-4.8); Alkaline Phosphatase 97 U/L (40-110); Anion Gap 16 mmol/L (10-20); BUN (Urea Nitrogen) 12 mg/dL (8.4-25.7); Bilirubin, Total 0.4 mg/dL (0.2-1.2); Calc. Creatinine Clearance 0 mL/min (70-130); Carbon Dioxide 20 mmol/L (23-31); Chloride 106 mmol/L (98-107); Estimated GFR-MDRD 76; Globulin 3.5 g/dL (2.4-3.5); Glucose 101 mg/dL (80-115); Potassium 4.5 mmol/L (3.5-5.1); Protein, Total 7.8 g/dL (5.8-8.1); Sodium 137 mmol/L (136-145)
--- NOTE | 2019-05-26 22:29 | RAD ---
Chest one view HISTORY: Chest pain. COMPARISON: 02/26/2019. FINDINGS: Cardiac silhouette is magnified by projection. Pulmonary vasculature is unremarkable. Media stinum is midline with aortic calcification. No lobar consolidation or evidence of pneumothorax. security monitor leads overlie the chest. IMPRESSION: Atherosclerosis. No active cardiopulmonary abnormalities are otherwise demonstrated.
[2019-05-26] MEDS ORDERED: Aspirin Chewable 81 MG TAB ONE (22:30)
[2019-05-27 01:19] LABS: Troponin I Less than 0.010 ng/mL (< 0.028)
[2019-05-27 06:16] LABS: Troponin I 0.015 ng/mL (< 0.028)
[2019-05-27] MEDS ORDERED: Ondansetron PF 4 MG/2 ML Vial IVP PRN (06:51)
[2019-05-27] MEDS ORDERED: Ondansetron ODT 4 MG TAB PO PRN (06:51)
[2019-05-27] MEDS ORDERED: Sodium Chloride 0.9% 1,000 ML IV SCH (07:00)
[2019-05-27 09:37] VITALS: BMI 30.2
--- NOTE | 2019-05-27 12:08 | MRI ---
EXAM: MRI of the brain without contrast HISTORY: Slurred speech COMPARISON: 11/19/2016 TECHNIQUE: Multiplanar multisequence MR images were obtained of the brain without IV contrast. FINDINGS: The brain demonstrates normal signal intensity on all obtained sequences. No restricted diffusion. No hydronephrosis. No extra-axial fluid collection or intracranial hemorrhage. The expected flow voids are present. Corpus callosum, pituitary, and craniocervical junction are within normal limits. The calvarium and overlying soft tissues are unremarkable. Mucosal thickening seen in the right maxillary sinus. The other paranasal sinuses and mastoid air jackie ls are well aerated. IMPRESSION: No evidence of acute intracranial abnormality.
[2019-05-27] MEDS ORDERED: Acetaminophen/Codeine 30-300mg Tablet PO PRN (14:19)
[2019-05-27] MEDS ORDERED: Nitroglycerin 0.4 MG TAB (25 Tab Bottle) SL PRN (14:29)
[2019-05-27] MEDS: Metoprolol Tartrate 50 MG TAB PO SCH (20:39)
[2019-05-27] MEDS ORDERED: Amlodipine 10 MG TAB PO SCH (21:00)
[2019-05-27] MEDS ORDERED: Zolpidem Tartrate 5 MG TAB PO SCH (21:00)
[2019-05-27] MEDS ORDERED: Atorvastatin Calcium 20 MG TAB PO SCH (21:00)
[2019-05-27] MEDS ORDERED: Aspirin 325 MG TAB PO SCH (21:00)
--- NOTE | 2019-05-28 07:57 | HP ---
CHIEF COMPLAINT: Left-sided numbness, weakness, and chest tightness. HISTORY OF PRESENT ILLNESS: Mr. Lopes is a 69-year-old male with past medical history of hypertension, hyperlipidemia, and history of TIA, came because of these symptoms started yesterday. The patient says the chest pain is retrosternal tightness. No real pain. Not associated with any shortness of breath. He has some dizziness and feeling numbness in the left side with weakness on the left side, able to ambulate. Because of these weakness, he decided to come to the hospital. In the ER, the patient was evaluated, and the patient was found to have some kind of weakness on the left side in arm and leg. CT scan of the brain was done which was unremarkable. Initial cardiac enzymes are normal, so the patient admits no further evaluation and management. PAST MEDICAL HISTORY: 1. Hypertension. 2. Hyperlipidemia. 3. Anxiety disorder. 4. Chronic pain. 5. History of hepatitis C. 6. COPD. 7. Gastroesophageal reflux disease. 8. Insomnia. PAST SURGICAL HISTORY: Nothing significant. CURRENT MEDICATIONS: The patient is on, 1. Tylenol No.3 one q.i.d. p.r.n. 2. Amitriptyline 75 mg nightly. 3. Amlodipine 10 mg daily. 4. Aspirin 325 mg daily. 5. Lipitor 20 mg daily. 6. Vitamin D 2000 units daily. 7. Plavix 75 mg daily. 8. Lunesta 3 mg nightly. 9. DuoNeb q.i.d. p.r.n. 10. Metoprolol 50 b.i.d. 11. Multivitamin daily. 12. Nitroglycerin p.r.n. 13. Protonix 40 mg daily. ALLERGIES: DOXYCYCLINE. FAMILY HISTORY: Nothing contributory. SOCIAL HISTORY: He lives with family. No history of alcohol intake. Smokes one pack a day. REVIEW OF SYSTEMS: CARDIOVASCULAR: Has chest tightness. No shortness of breath. RESPIRATORY: No fever or cough. GASTROINTESTINAL: No nausea, vomiting, or abdominal pain. CENTRAL NERVOUS SYSTEM: The patient has dizziness as well as left-sided weakness. PHYSICAL EXAMINATION: GENERAL: The patient is alert, awake, and oriented x3. VITAL SIGNS: Temperature 98, pulse 75, respiratory rate 20, blood pressure 120/90. HEENT: Head is normocephalic and atraumatic. Pupils are equal and reactive. Nasopharynx is pale and dry. NECK: Supple. No JVD. LUNGS: Bilateral air entry present. No rales. No rhonchi. HEART: S1 and S2, regular. No murmur. ABDOMEN: Soft. No distention. No tenderness. Normal bowel sounds. RECTAL: Deferred. CENTRAL NERVOUS SYSTEM: The patient is alert, awake, and oriented x3. Motor system, power 5/5 in right upper and lower extremities, 4/5 in left upper and lower extremities. Deep tendon is 2+ bilaterally. Plantars downgoing. Sensory is grossly intact. LABORATORY DATA: CBC shows WBC 6.5 hemoglobin 16, hematocrit 46, and platelets 287. Prothrombin time 12, INR 0.9. Metabolic panel; sodium 137, potassium 4.2, chloride 106, CO2 of 20, BUN 12, creatinine 0.9, glucose 101. Troponin less than 0.010. DIAGNOSTIC STUDIES: Chest x-ray negative. CT scan of the brain unremarkable. EKG shows normal sinus rhythm, no acute ST-T changes seen. ASSESSMENT: 1. Left-sided numbness, weakness, rule out cerebrovascular accident. 2. Chest tightness, rule out myocardial infarction. 3. Dizziness. 4. Hypertension. 5. Hyperlipidemia. 6. Chronic obstructive pulmonary disease. 7. Chronic pain. 8. Anxiety disorder. PLAN: 1. Vital signs q.4 hours. 2. Activity as tolerated. 3. Allergies: Doxycycline. 4. Hep-Lock. 5. Diet, cardiac. 6. Troponin I q.6 hours x2. 7. Continue home medications. 8. MRI of the brain. 9. Neurology consult. Job ID: [id number]
[2019-05-28] MEDS ORDERED: Clopidogrel Bisulfate 75 MG TAB PO SCH (09:00)
[2019-05-28] MEDS ORDERED: Stress 600 With Zinc 1 TAB PO SCH (09:00)
[2019-05-28] MEDS: Metoprolol Tartrate 50 MG TAB PO SCH (09:32)
[2019-05-28 15:32] VITALS: BP 124/80; TEMP 97.5
--- NOTE | 2019-05-29 13:54 | DIS ---
DATE OF ADMISSION: 05/26/2019 DATE OF DISCHARGE: 05/28/2019 ADMITTING DIAGNOSES: 1. Left-sided numbness, weakness, rule out cerebrovascular accident. 2. Chest tightness, rule out myocardial infarction. 3. Dizziness. 4. Hypertension. 5. Hyperlipidemia. 6. Chronic obstructive pulmonary disease. 7. Chronic pain. 8. Anxiety disorder. FINAL DIAGNOSES: 1. Left-sided numbness, resolved. No evidence of cerebrovascular accident. MRI of the brain was negative. Chest x-ray, no evidence of acute myocardial infarction. 2. Hypertension. 3. Anxiety disorder. 4. Chronic pain. 5. Hyperlipidemia. 6. Chronic obstructive pulmonary disease. 7. Dizziness, resolved. BRIEF SUMMARY OF HOSPITAL COURSE: Mr. Lopes is a 69-year-old male admitted because of dizziness and some numbness on the left side. The patient admitted to rule out CVA. He also had some chest tightness, admitted to rule out myocardial infarction. MRI of the brain was done. It was unremarkable. The patient did not have any more chest pain in the hospital. Cardiac enzymes were within normal. His dizziness also resolved with medications. In view of improvement, the patient is being discharged. DISCHARGE PHYSICAL EXAMINATION: VITAL SIGNS: At the time of discharge, he was stable, his vital signs stable. LUNGS: Clear. HEART: Sounds regular. ABDOMEN: Soft and nontender. Bowel sounds present. DISCHARGE MEDICATIONS: Include 1. Lipitor 20 mg at bedtime. 2. Aspirin 325 mg daily. 3. Metoprolol 50 b.i.d. 4. Nitroglycerin p.r.n. 5. Amlodipine 10 mg daily. 6. Plavix 75 mg daily. 7. DuoNeb q.i.d. p.r.n. 8. Amitriptyline 75 mg at bedtime. 9. Protonix 40 mg daily. 10. Tylenol with Codeine b.i.d. p.r.n. 11. Lunesta 3 mg at bedtime. 12. Vitamin D 2000 units daily. 13. Multivitamin daily. The patient will come for followup in next week. Job ID: [id number]
== END 2019-05-28 17:24 | disposition home or self-care (01) ==
LOC: ERS 20:56 → ERHOLD 22:35 → 2SW 05-27 06:35
PROVIDERS: ADMIT Internal Medicine; ATTEND Internal Medicine
DX: R20.0 Anesthesia of skin (principal); R07.9 Chest pain, unspecified; R42 Dizziness and giddiness; R53.1 Weakness; I10 Essential (primary) hypertension; F41.9 Anxiety disorder, unspecified; G89.29 Other chronic pain; E78.5 Hyperlipidemia, unspecified; K21.9 Gastro-esophageal reflux disease without esophagitis; G47.00 Insomnia, unspecified; J44.9 Chronic obstructive pulmonary disease, unspecified; Z79.02 Long term (current) use of antithrombotics/antiplatelets; Z79.82 Long term (current) use of aspirin; Z79.899 Other long term (current) drug therapy; Z86.19 Personal history of other infectious and parasitic diseases; Z86.73 Personal history of transient ischemic attack (TIA), and cerebral infarction without residual deficits; Z88.1 Allergy status to other antibiotic agents; Z88.5 Allergy status to narcotic agent
CPT/HCPCS: 36415; 70450; 70551; 71045; 80053; 82550; 83880; 84484; 85025; 85610; 85730; 93005; G0378

== ENCOUNTER 2019-10-02 16:16 | Inpatient (IN) | payer MEDICARE, MEDICAID ==
[2019-10-02 16:47] LABS: #Basophils 0.1 thou/uL (0.0-0.2); #Eosinphils 0.1 thou/uL (0.0-0.7); #Lymphocytes 1.4 thou/uL (1.20-3.40); #Monocytes 0.6 thou/uL (0.11-0.59); #Neutrophils 4.4 thou/uL (1.40-6.50); %Eosinophils 1.9 % (0.0-10.0); %Lymphocytes 21.5 % (21.0-51.0); %Monocytes 8.5 % (0.0-10.0); %Neutrophils 67.1 % (42.0-75.0); Mean Corpuscular HGB CONC 33.3 g/dL (32.0-36.0); Mean Corpuscular Hemoglobin 32.1 pg (27.0-31.0); Mean Corpuscular Volume 96.7 fL (78.0-98.0); Mean Platelet Volume 6.6 fL (7.4-10.4); Platelet Count 276 thou/uL (130-400); RBC Distribution Width 12.3 % (11.5-14.5); Red Blood Cell (RBC) Count 4.97 mill/uL (4.70-6.10); White Blood Cell (WBC) Count 6.6 thou/uL (4.8-10.8)
--- NOTE | 2019-10-02 16:58 | RAD ---
PORTABLE CHEST: 10/02/19 PROVIDED CLINICAL HISTORY: Shortness of breath and chest tightness. FINDINGS: Comparison 05/26/19. Cardiac and mediastinal silhouette is unchanged in appearance. Vascular calcification involves the ao rtic arch. No focal consolidation, pleural fluid, or pneumothorax apparent. IMPRESSION: No evidence for an acute cardiopulmonary process. POS: BOY
[2019-10-02 17:16] LABS: ALT (SGPT) 17 U/L (8-55); AST (SGOT) 15 U/L (5-34); Albumin 4.5 g/dL (3.4-4.8); Alkaline Phosphatase 92 U/L (40-110); Anion Gap 14 mmol/L (10-20); BUN (Urea Nitrogen) 11 mg/dL (8.4-25.7); Bilirubin, Total 0.6 mg/dL (0.2-1.2); Calc. Creatinine Clearance 0 mL/min (70-130); Calcium 9.7 mg/dL (7.8-10.44); Carbon Dioxide 24 mmol/L (23-31); Chloride 102 mmol/L (98-107); Estimated GFR-MDRD 68; Globulin 3.4 g/dL (2.4-3.5); Glucose 98 mg/dL (80-115); Potassium 4.2 mmol/L (3.5-5.1); Protein, Total 7.9 g/dL (5.8-8.1); Sodium 136 mmol/L (136-145)
--- NOTE | 2019-10-02 17:58 | CT ---
CT BRAIN 10/02/19 PROVIDED CLINICAL HISTORY: Tingling in hands and feet. FINDINGS: Comparison 05/26/19. The ventricular system appears normal in size and morphology. There is no evidence for intracranial h emorrhage or mass effect. The extracranial soft tissues and osseous structures demonstrate an unremar kable CT appearance. IMPRESSION: No evidence for intracranial hemorrhage or mass effect. POS: BOY
[2019-10-02] MEDS ORDERED: Guaifenesin DM 100-10/5 ML UDCUP PO PRN (19:55)
[2019-10-02] MEDS ORDERED: Acetaminophen 325 MG TAB PO PRN (19:55)
[2019-10-02] MEDS ORDERED: Aspirin 325 mg Enteric Coated Tablet PO SCH (20:15)
[2019-10-02] MEDS ORDERED: Aspirin 325 MG TAB PO SCH (20:15)
--- NOTE | 2019-10-02 20:16 | PDOC.HHP ---
Hospitalist HPI - History of Present Illness Chest Pain History of Present Illness: PCP: Dr. Adan The patient is a 69/m with PMH significant for [place] (1999), HTN, HLD, CHF, CVA ( 2012, tpa) w/ left sided weakness, COPD, that presents to the ER for the above complaint. The patient reports developing chest pain about 2 weeks ago. Describes as generalized, across the chest, aching/dull, 3/10, exacerbated with exertion, relieved with rest. Reports that over the past 2-3 days, the pain has become more frequent and intense. He is unable to perform chores around the house, such as standing on a step stool to paint. He says that he develops chest pain, becomes fatigued and sob within a few minutes of painting. Denies any light headedness, nausea or vomiting. Denies focal weakness. To relieve his symptoms, he lays down in bed. Also reports having intermittent heart palpitations and SOB when he lays down to sleep, particularly when he lays on his left side. This has forced him to sleep on his back, which is difficult because of his osteoarthritis. Denies recent weight gain, PND or swelling to lower extremities. Reports mild wheezing, stating that he is "always wheezing." Reports chronic, non productive cough. Denies fever or chills. He had cardiac catheterization in [address] Cartwright, denies any stents and has not followed up with cardiology since 2012. ED Course: EKG NSR with no ST or T wave changes trop < 0.010 BNP 10.8 CXR negative for acute cardiopulmonary process CMP and CBC unremarkable Patient took his ASA 324mg and plavix this morning. Hospitalist ROS - Review of Systems Constitutional: denies: fever, chills, sweats Eyes: denies: pain, vision change, conjunctivae inflammation, eyelid inflammation, redness, other ENT: denies: ear pain, ear discharge, nose pain, nose discharge, nose congestion , mouth pain, mouth swelling, throat pain, throat swelling, other Respiratory: reports: cough (chronic), dry, shortness of breath, SOB with excertion, wheezing (mild, chronic). denies: hemoptysis Cardiovascular: reports: chest pain, palpitations. denies: orthopnea, paroxysmal noc. 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-) Living Situation: With Family Occupation: lives in [place] with brother, disabled Activity level: independent ambulation - Exam General Appearance: NAD, awake alert Eye: anicteric sclera ENT: normocephalic atraumatic, moist mucosa Neck: supple, no JVD, no thyromegaly Heart: RRR, no murmur, no gallops, no rubs, normal peripheral pulses Respiratory: CTAB, no wheezes, no rales, no tachypnea, rhonchi Gastrointestinal: soft, non-tender, normal bowel sounds, no guarding, no rigidity Extremities: no cyanosis Extremities - other findings: trace edema BLE Skin: no rashes Neurological: no new deficit Psychiatric: normal affect, A&O x 3 Hospitalist Results - Labs Result Diagrams: 10/02/19 16:41 10/02/19 16:41 Lab results: WBC 6.6 thou/uL (4.8-10.8) 10/02/19 16:41 Hgb 16.0 g/dL (14.0-18.0) 10/02/19 16:41 Hct 48.0 % (42.0-52.0) 10/02/19 16:41 MCV 96.7 fL (78.0-98.0) 10/02/19 16:41 Plt Count 276 thou/uL (130-400) 10/02/19 16:41 Neutrophils % 67.1 % (42.0-75.0) 10/02/19 16:41 Sodium 136 mmol/L (136-145) 10/02/19 16:41 Potassium 4.2 mmol/L (3.5-5.1) 10/02/19 16:41 Chloride 102 mmol/L (98-107) 10/02/19 16:41 Carbon Dioxide 24 mmol/L (23-31) 10/02/19 16:41 BUN 11 mg/dL (8.4-25.7) 10/02/19 16:41 Creatinine 1.08 mg/dL (0.7-1.3) 10/02/19 16:41 Glucose 98 mg/dL (80-115) 10/02/19 16:41 Calcium 9.7 mg/dL (7.8-10.44) 10/02/19 16:41 Total Bilirubin 0.6 mg/dL (0.2-1.2) 10/02/19 16:41 AST 15 U/L (5-34) 10/02/19 16:41 ALT 17 U/L (8-55) 10/02/19 16:41 Alkaline Phosphatase 92 U/L (40-110) 10/02/19 16:41 Troponin I Less than 0.010 ng/mL (< 0.028) 10/02/19 16:41 B-Natriuretic Peptide 10.8 pg/mL (0-100) 10/02/19 16:41 Serum Total Protein 7.9 g/dL (5.8-8.1) 10/02/19 16:41 Albumin 4.5 g/dL (3.4-4.8) 10/02/19 16:41 - EKG Interpretation EKG: NSR, no ST elevations - Radiology Interpretation Chest x-ray Status: report reviewed by me CT scan - head Status: report reviewed by me Hospitalist H&P A/P - Problem (1) Chest pain Code(s): R07.9 - CHEST PAIN, UNSPECIFIED Status: Acute Assessment and Plan: Admit to telemetry, observation status Expected length of stay less than 2 midnights Extensive cardiovascular history, HEART SCORE 6 EKG NSR, trop negative, BNP unremarkable Trend troponins NM pharm cardiac stress test Consult Cardiology npo after midnight Continue ASA and plavix Nitro-paste Restart home med antihypertensives Check TSH and mag, FLP, UDS Recheck BMP and CBC in am (2) HTN (hypertension) Code(s): I10 - ESSENTIAL (PRIMARY) HYPERTENSION Status: Chronic Assessment and Plan: VS stable Restart Metroprolol tartrate 50mg BID Restart Amlodipine 10mg daily (3) HLD (hyperlipidemia) Code(s): E78.5 - HYPERLIPIDEMIA, UNSPECIFIED Status: Chronic Assessment and Plan: Restart atorvastatin 20mg q hs Check FLP (4) Tobacco abuse Code(s): Z72.0 - TOBACCO USE Status: Chronic Assessment and Plan: Smokes 2-3 cigars daily Unwilling to quit Counseling for tobacco cessation (5) GERD (gastroesophageal reflux disease) Code(s): K21.9 - GASTRO-ESOPHAGEAL REFLUX DISEASE WITHOUT ESOPHAGITIS Status: Chronic Assessment and Plan: Restart protonix 40mg q hs home medication (6) COPD (chronic obstructive pulmonary disease) Status: Chronic Assessment and Plan: stable at this time DuoNebs prn - Plan Plan: consult walking program SCDs DVT prophylaxis Protonix GI prophylaxis Full Code HIREN Lopes at [phone] Asher
[2019-10-02 20:51] LABS: Troponin I Less than 0.010 ng/mL (< 0.028)
[2019-10-02] MEDS ORDERED: Famotidine/PF 20 mg/2ml Vial SLOW IVP SCH (21:00)
[2019-10-02] MEDS ORDERED: Famotidine 20 MG TAB PO SCH (21:00)
[2019-10-02 23:05] VITALS: BMI 29.7
[2019-10-02 23:39] LABS: Troponin I 0.017 ng/mL (< 0.028)
[2019-10-02] MEDS: Atorvastatin Calcium 20 MG TAB PO SCH (23:40)
[2019-10-02] MEDS: Zolpidem Tartrate 5 MG TAB PO SCH (23:40)
[2019-10-02] MEDS: Metoprolol Tartrate 50 MG TAB PO SCH (23:40)
[2019-10-02] MEDS: Amlodipine 10 MG TAB PO SCH (23:40)
[2019-10-02] MEDS: Sodium Chloride 0.9% 1,000 ML IV SCH (23:47)
[2019-10-02] MEDS: Nitroglycerin 2% Ointment 1 INCH/1 GM Packet TOP SCH (23:50)
[2019-10-03] MEDS: Nitroglycerin 0.4 MG TAB (25 Tab Bottle) PO PRN ×3 (01:09→01:26)
[2019-10-03 01:31] LABS: Barbiturates Screen Not Detected (NotDetected); Medtox Reader # READER 1; Methadone Not Detected (NotDetected); Tricyclic Screen Detected (NotDetected)
[2019-10-03 01:32] LABS: Amphetamine Not Detected (NotDetected); Benzodiazepine Screen Not Detected (NotDetected); Cocaine Metabolite Screen Not Detected (NotDetected); Medtox Control Line Valid? VALID (VALID); Methamphetamine Not Detected (NotDetected); Opiate Screen Not Detected (NotDetected); Oxycodone Screen Not Detected (NotDetected); Phencyclidine (PCP) Not Detected (NotDetected); THC/Cannabinoid Screen Not Detected (NotDetected)
[2019-10-03 05:36] LABS: #Basophils 0.1 thou/uL (0.0-0.2); #Eosinphils 0.2 thou/uL (0.0-0.7); #Lymphocytes 2.2 thou/uL (1.20-3.40); #Monocytes 0.8 thou/uL (0.11-0.59); #Neutrophils 3.4 thou/uL (1.40-6.50); %Eosinophils 2.7 % (0.0-10.0); %Lymphocytes 32.6 % (21.0-51.0); %Monocytes 11.4 % (0.0-10.0); %Neutrophils 52.2 % (42.0-75.0); Hemoglobin 14.2 g/dL (14.0-18.0); Mean Corpuscular HGB CONC 33.8 g/dL (32.0-36.0); Mean Corpuscular Hemoglobin 32.7 pg (27.0-31.0); Mean Corpuscular Volume 96.5 fL (78.0-98.0); Mean Platelet Volume 6.9 fL (7.4-10.4); Platelet Count 264 thou/uL (130-400); RBC Distribution Width 11.9 % (11.5-14.5); Red Blood Cell (RBC) Count 4.35 mill/uL (4.70-6.10); White Blood Cell (WBC) Count 6.6 thou/uL (4.8-10.8)
[2019-10-03 06:00] LABS: Anion Gap 12 mmol/L (10-20); BUN (Urea Nitrogen) 12 mg/dL (8.4-25.7); Calc. Creatinine Clearance 211 mL/min (70-130); Calcium 9.1 mg/dL (7.8-10.44); Carbon Dioxide 27 mmol/L (23-31); Chloride 104 mmol/L (98-107); Cholesterol 131 mg/dl (< 200 Desired); Estimated GFR-MDRD 71; Glucose 88 mg/dL (80-115); HDL Cholesterol 26 mg/dL (>60 Neg Risk); LDL Cholesterol, Calculated 49 mg/dL; Potassium 4.3 mmol/L (3.5-5.1); Sodium 139 mmol/L (136-145); Triglycerides 279 mg/dL (Less than 150)
[2019-10-03] MEDS: Nitroglycerin 2% Ointment 1 INCH/1 GM Packet TOP SCH ×3 (07:53→21:24)
[2019-10-03] MEDS ORDERED: Aspirin 325 MG TAB PO SCH (09:00)
[2019-10-03] MEDS ORDERED: Clopidogrel Bisulfate 75 MG TAB PO SCH (09:00)
[2019-10-03 09:45] LABS: Troponin I Less than 0.010 ng/mL (< 0.028)
[2019-10-03] MEDS: Clopidogrel Bisulfate 75 MG TAB PO SCH (10:41)
[2019-10-03] MEDS: Aspirin 325 mg Enteric Coated Tablet PO SCH (10:41)
[2019-10-03] MEDS: Metoprolol Tartrate 50 MG TAB PO SCH ×2 (10:41→21:24)
--- NOTE | 2019-10-03 11:00 | NM ---
EXAM: NM Cardiac Stress W EF WF PROVIDED CLINICAL HISTORY: Chest pain COMPARISON: None FINDINGS: There is normal uptake and excretion of radiotracer throughout the left ventricular myocardium on the stress acquisition. No reversible defects are seen between the stress and resting acquisitions. Gated images demonstrate normal ventricular wall motion and wall thickening. Calculated left ventricu lar ejection fraction is 74%. There is elevation of the transient ischemic dilatation ratio which is 1.25 with normal being 1.22 or less. IMPRESSION: 1. Normal myocardial perfusion study without evidence of a reversible defect seen to suggest ischemia . 2. Elevation of the transient ischemic dilatation ratio which is 1.25. 3. Normal LVEF of 74%
[2019-10-03] MEDS ORDERED: Regadenoson 0.4 MG/5 ML SYRINGE ONE (11:33)
[2019-10-03] MEDS ORDERED: Communication Order-Pharmacy FS SCH (12:15)
--- NOTE | 2019-10-03 14:16 | PDOC.HOSPP ---
- Subjective Encounter Date: 10/03/19 Encounter Time: 14:14 Subjective: Mr. Lopes was seen today in follow-up of chest pain. He says he continues to have a little pressure in his chest. It is a little better than before. - Objective Vital Signs & Weight: Vital Signs (12 hours) Temp Pulse Resp BP BP BP BP 10/03/19 11:24 97.5 F L 65 16 113/74 10/03/19 10:21 91/64 113/74 119/68 10/03/19 07:54 10/03/19 07:52 98.3 F 66 20 112/71 10/03/19 04:08 97.8 F 67 16 112/64 Pulse Ox 10/03/19 11:24 96 10/03/19 10:21 10/03/19 07:54 97 10/03/19 07:52 98 10/03/19 04:08 97 Weight Weight 220 lb 1.6 oz I&O: 10/02/19 10/03/19 10/04/19 06:59 06:59 06:59 Intake Total 240 525 Output Total 500 400 Balance -260 125 Result Diagrams: 10/03/19 04:52 10/03/19 04:52 Hospitalist ROS - Medication Medications: Active Medications Generic Name Dose Route Start Last Admin Trade Name Freq PRN Reason Stop Dose Admin Amitriptyline HCl 75 mg 10/02/19 21:00 10/02/19 23:39 Elavil PO 75 mg HS MANDO Administration Amlodipine Besylate 10 mg 10/02/19 21:00 10/02/19 23:40 Norvasc PO 10 mg HS MANDO Administration Aspirin 325 mg 10/03/19 09:00 10/03/19 10:41 Ecotrin PO 325 mg DAILY MANDO Administration Atorvastatin Calcium 20 mg 10/02/19 21:00 10/02/19 23:40 Lipitor PO 20 mg HS MANDO Administration Clopidogrel Bisulfate 75 mg 10/03/19 09:00 10/03/19 10:41 Plavix PO 75 mg DAILY MANDO Administration Sodium Chloride 1,000 mls @ 75 mls/hr 10/02/19 23:59 10/02/19 23:47 Normal Saline 0.9% IV 1,000 mls .[id number] MANDO Administration Metoprolol Tartrate 50 mg 10/02/19 21:00 10/03/19 10:41 Lopressor PO 50 mg BID MANDO Administration Nitroglycerin 0.5 inch 10/02/19 22:00 10/03/19 07:53 Nitro-Bid 2% Ointment TOP Not Given Q8HR MANDO Nitroglycerin 0.4 mg 10/02/19 19:53 10/03/19 01:26 Nitrostat PO 0.4 mg Q5MIN PRN Administration Chest Pain Pantoprazole Sodium 40 mg 10/02/19 21:00 10/02/19 23:40 Protonix PO 40 mg HS MANDO Administration Zolpidem Tartrate 5 mg 10/02/19 21:00 10/02/19 23:40 Ambien PO 5 mg HS MANDO Administration - Exam Eye: PERRL Heart: RRR, no murmur, no gallops, no rubs, normal peripheral pulses Respiratory: CTAB, no wheezes, no rales, no ronchi, normal chest expansion Gastrointestinal: soft, non-tender, non-distended, normal bowel sounds, no palpable masses Extremities: no cyanosis, no clubbing, no edema Hosp A/P (1) Unstable angina Status: Acute (2) COPD (chronic obstructive pulmonary disease) Status: Chronic (3) HLD (hyperlipidemia) Code(s): E78.5 - HYPERLIPIDEMIA, UNSPECIFIED Status: Chronic (4) HTN (hypertension) Code(s): I10 - ESSENTIAL (PRIMARY) HYPERTENSION Status: Chronic (5) Tobacco abuse Code(s): Z72.0 - TOBACCO USE Status: Chronic - Plan * Unstable Angina- patient's chest p[ain has improved, but still present. His stress test was negative, however, he has significant risk factors for CAD, and the description of his pain is concerning. He has been evaluated by Cardiology and the plan is for cardiac cath tomorrow. * HTN- blood pressure is low normal * COPD- stable * Tobacco abuse- discussed the need to stop * further recommendation depend on cath findings
--- NOTE | 2019-10-03 14:42 | EKG ---
Test Reason : STAT Blood Pressure : / mmHG Vent. Rate : 081 BPM Atrial Rate : 081 BPM P-R Int : 158 ms QRS Dur : 082 ms QT Int : 380 ms P-R-T Axes : 041 066 058 degrees QTc Int : 441 ms Normal sinus rhythm Septal infarct , age undetermined cannot be excluded Abnormal ECG Confirmed by PILO WASHINGTON ([id number]) on 10/03/2019 2:42:38 PM Referred By: LÁZARO Confirmed By:PILO WASHINGTON
[2019-10-03] MEDS: Sodium Chloride 0.9% 1,000 ML IV SCH (15:41)
--- NOTE | 2019-10-03 19:17 | CON ---
DATE OF CONSULTATION: 10/03/2019 INDICATION FOR CONSULTATION: A 69-year-old patient with complaints of chest pain. He also has a history of coronary artery disease. He underwent cardiac catheterization in [address] Cartwright. At that time, he was felt to have noncardiac chest pain. He had minimal coronary artery disease. However, the following is what was noted; left main was 20%, left anterior descending artery was 20%, in the proximal mid areas, diagonal was 50% stenosis, left circumflex was 30% stenosis, right coronary artery was 20% to 30%. Ejection fraction at that time was 50% to 55%. He also has a long history of COPD. He says he has a history of in the past of tuberculosis and has been having increasing problems with chest discomfort and fatigue with increasing his heart rate. He says he has tachycardia with minimal exertion. He also has significant COPD and significant expiratory wheezing. He has had inhalers, which he only uses on a p.r.n. basis. He smoked cigarettes for many years, stopped about 3 years ago, but now continues to smoke cigars. He presented to the hospital saying he was lightheaded, dizzy, having increased heart rate and chest pain. Sometimes he has had the pain radiated to both arms. He also had some peripheral neuropathy involving the lower extremities. At this time, he does not have any significant chest pain. His EKG was unremarkable. His cardiac enzymes are negative for myocardial infarction. He did undergo stress test this morning, which showed no evidence of reversible ischemia. However, TID ratio was slightly elevated at 1.25, which would not be significantly unusual for a nuclear study of this sort. However, he is concerned that he may have a problem with his heart and since he has known coronary artery disease and slight elevation of his mild transient ischemic dilatation based on his symptoms, his history, and known coronary artery disease, it may be best to proceed with cardiac catheterization to rule out evidence of underlying significant coronary artery disease. PAST MEDICAL HISTORY: Significant for COPD, coronary artery disease. He has a history of TB apparently. He has emphysema according to him. He also has a history of myocardial infarction he said in 1999, but did not have any indication of why he had an IA with minimal coronary artery disease. He has a history of hypercholesterolemia. He also had a possible CVA in 2012. He has some left-sided weakness. He has gastroesophageal reflux disease. He has a history of hepatitis C. He has osteoarthritis. He has had a cholecystectomy. He has had bilateral cataract surgery with removals. He has had a tonsillectomy. He has had one of the testicles removed due to some type of cyst. He also has anxiety. He has insomnia. FAMILY HISTORY: Unremarkable for any early coronary artery disease. SOCIAL HISTORY: He lives with one of his brothers. He has occasional alcohol use. He continues to smoke cigars and just stopped smoking a couple of years ago. REVIEW OF SYSTEMS: He mainly complained of the discomfort and peripheral neuropathy as noted above. He has had no significant nausea, vomiting, or diarrhea. He has some shortness of breath and uses inhaler when necessary. He complained of the lightheadedness, but he denied any nausea or vomiting. He denied any urinary complaints. He has had no seizures or syncope. ALLERGIES: HE IS ALLERGIC TO DOXYCYCLINE AND HE SAYS HE IS ALLERGIC TO MORPHINE. MEDICATIONS: Include; 1. Amlodipine 10 mg a day. 2. Aspirin 325 mg a day. 3. Nitroglycerin p.r.n. 4. Atorvastatin 20 mg a day. 5. Metoprolol 50 mg b.i.d. 6. Amitriptyline 100 mg, actually he is taking 75 mg once a day. 7. Tylenol with codeine 300/30 one tablet b.i.d. 8. Eszopiclone 3 mg once at night. 9. Plavix 75 mg a day. 10. Pantoprazole 40 mg once a day. 11. Vitamin D3. 12. Vitamin B complex once a day. PHYSICAL EXAMINATION: GENERAL: Reveals a middle-aged gentleman, who is in no acute distress at this time. He is actually pain-free when I saw him. HEENT: Shows the head to be normocephalic and atraumatic. Carotid pulses are present. I did not hear any significant bruits. CHEST: Had diffuse coarse wheezing throughout all lung kim. CARDIOVASCULAR: Reveals a regular rate and rhythm. I did not hear any significant murmurs, heaves, thrills, bruits, or rubs. ABDOMEN: Shows mild obesity with positive bowel sounds. No organomegaly or masses are noted. Femoral pulses are present. Pedal pulses are present. He has mild varicose veins, but these do not appear to be significant. SKIN: Warm and dry. NEUROLOGICAL: He appears to be grossly intact. I do not see any gross focal motor deficits. LABORATORY DATA: Shows a WBC of 6.4, hemoglobin was 14, hematocrit was 42, platelet count was 261,000. His BNP was only 10.8. Sodium was 139, potassium 4.3, BUN was 12, creatinine 1.04. Blood sugar was 88. His triglycerides were 279, LDL was 49. Cardiac enzymes negative for myocardial infarction. The stress test did show elevation of the TID ratio of 1.5 with normal ejection fraction. No evidence of ischemia. His EKG shows decreased R-wave progression in V1 and V2, but otherwise no significant abnormalities were noted. IMPRESSION: 1. Elderly gentleman with known coronary artery disease, who continues to have episodes of chest pain, sometimes radiating to the arm with elevated TID ratio. Given his history with the elevated TID ratio despite no evidence of reversible ischemia, but a history of coronary artery disease, especially involving left main stenosis in the past, it probably would be best served by undergoing a repeat cardiac catheterization as a definitive tool to evaluate his coronary artery status. 2. History of chronic obstructive pulmonary disease with emphysema and also bronchitis in the past with some history of possible tuberculosis. I believe he has been seen by Dr. Tenorio in the past and should he need to have further evaluation from a pulmonary standpoint, then he would be able to discuss this with Dr. Tenorio. 3. History of continued tobacco abuse. I have suggested he stop smoking altogether. 4. History of hypertension. This is under relatively good control at this time. 5. Dyslipidemia. He will continue taking his present medications. I will discuss with him about cardiac catheterization to see whether or not we can perform this today or either tomorrow, so hopefully he can expedite his discharge from the hospital. Thank you very much for the consultation and further recommendations will depend on the results of the cardiac catheterization. Job ID: [id number]
[2019-10-03] MEDS: Zolpidem Tartrate 5 MG TAB PO SCH (21:24)
[2019-10-03] MEDS: Amlodipine 10 MG TAB PO SCH (21:24)
[2019-10-03] MEDS: Atorvastatin Calcium 20 MG TAB PO SCH (21:24)
[2019-10-04] MEDS: Nitroglycerin 2% Ointment 1 INCH/1 GM Packet TOP SCH ×3 (05:22→21:38)
[2019-10-04] MEDS: Clopidogrel Bisulfate 75 MG TAB PO SCH (05:22)
[2019-10-04] MEDS: Metoprolol Tartrate 50 MG TAB PO SCH ×2 (05:22→21:31)
[2019-10-04] MEDS: Aspirin 325 mg Enteric Coated Tablet PO SCH (05:23)
[2019-10-04] MEDS: Sodium Chloride 0.9% 1,000 ML IV SCH ×3 (06:29→21:39)
[2019-10-04] MEDS ORDERED: Iopamidol 370 76% 50 ML VIAL FS ONE (08:47)
[2019-10-04] MEDS ORDERED: Iopamidol 370 76% 100 ML VIAL ONE (08:47)
[2019-10-04] MEDS ORDERED: Nitroglycerin 100MG/250ML BOT 250 ML ONE (09:34)
[2019-10-04] MEDS ORDERED: Verapamil 5 MG/2 ML VIAL ONE (09:34)
[2019-10-04] MEDS ORDERED: Heparin 10,000 UNITS/1 ML VIAL ONE (09:34)
[2019-10-04] MEDS ORDERED: Nitroglycerin 0.4 MG TAB (25 Tab Bottle) SL PRN (11:14)
[2019-10-04] MEDS ORDERED: Sodium Chloride 0.9% 200 ML IV PRN (11:14)
[2019-10-04] MEDS ORDERED: Acetaminophen/Codeine 30-300mg Tablet PO PRN ×2 (11:14)
--- NOTE | 2019-10-04 14:48 | CON ---
DATE OF CONSULTATION: HISTORY OF PRESENT ILLNESS: A 69-year-old gentleman who has been seen before in the office. He has a longstanding history of tobacco abuse. In fact, he was still smoking until recently, states he is now smoking 3 cigars a day, presented with intermittent chest pain of several weeks' duration. He tells me his primary care physician has moved to [place] now. Prior to the chest pain 2 weeks ago, he was walking up to a block he said without getting markedly short of breath. HOME MEDICATIONS: Include: 1. Tylenol No. 3. 2. Norvasc 10. 3. Amitriptyline 75. 4. Aspirin. 5. Plavix 75. 6. Lipitor 20. 7. Lopressor 50 twice a day. 8. Combivent inhaler. 9. Protonix. 10. Nitroglycerin. ALLERGIES: HE HAS ALLERGY TO DOXYCYCLINE AND MORPHINE. PAST MEDICAL HISTORY: Otherwise, pertinent for COPD, coronary artery disease, hypertension, and anxiety. PAST SURGICAL HISTORY: His previous surgeries otherwise included previous catheterization facial surgery, tonsils, cholecystectomy, prostate surgery, and cataract surgery. SOCIAL HISTORY: As noted. Drinks occasionally. Former drug abuser. He is a construction electrician. Denies any asbestos exposure. PHYSICAL EXAMINATION: VITAL SIGNS: Temperature 97, pulse 72, respirations 17, saturations are 93% on room air, blood pressure 130/87. CHEST: Decreased breath sounds. Prolonged expiration. Minimal wheezing. CARDIAC: Normal S1 and S2. No gallops. ABDOMEN: No masses. DIAGNOSTIC STUDIES: His chest x-ray on admission shows mild hyperinflation. I do not see any acute infiltrates or masses. LABORATORY DATA: White count 6, H and H 14 and 42, platelet count is normal. Chemistry was unremarkable. ASSESSMENT: 1. Status post cardiac catheterization with apparently significant coronary artery disease. Please review cardiology note. 2. Chronic obstructive pulmonary disease. 3. Tobacco abuse. 4. Anxiety. PLAN: We will schedule neb treatment, Claire has been added will hopefully try and wean as soon as possible. We will follow while in the hospital. Consultation note, 70 minutes, 50% direct patient care. Job ID: [id number]
--- NOTE | 2019-10-04 16:24 | PDOC.HOSPP ---
- Subjective Encounter Date: 10/04/19 Encounter Time: 16:20 Subjective: Mr. Lopes was seen today in follow-up of CAD and unstable angina. He does not have any new complaints. - Objective Vital Signs & Weight: Vital Signs (12 hours) Temp Pulse Resp BP BP Pulse Ox 10/04/19 14:23 78 16 97 10/04/19 10:50 97.9 F 72 17 138/87 93 L 10/04/19 08:07 97.6 F 67 18 112/73 96 Weight Weight 217 lb I&O: 10/03/19 10/04/19 10/05/19 06:59 06:59 06:59 Intake Total 240 2624 300 Output Total 500 1490 555 Balance -260 1134 -255 Result Diagrams: 10/03/19 04:52 10/03/19 04:52 Hospitalist ROS - Medication Medications: Active Medications Generic Name Dose Route Start Last Admin Trade Name Freq PRN Reason Stop Dose Admin Albuterol/Ipratropium 3 ml 10/04/19 19:00 10/04/19 14:23 Duoneb NEB 3 ml [id number] MANDO Administration Amitriptyline HCl 75 mg 10/02/19 21:00 10/03/19 21:24 Elavil PO 75 mg HS MANDO Administration Amlodipine Besylate 10 mg 10/02/19 21:00 10/03/19 21:24 Norvasc PO 10 mg HS MANDO Administration Aspirin 325 mg 10/03/19 09:00 10/04/19 05:23 Ecotrin PO 325 mg DAILY MANDO Administration Atorvastatin Calcium 20 mg 10/02/19 21:00 10/03/19 21:24 Lipitor PO 20 mg HS MANDO Administration Sodium Chloride 1,000 mls @ 75 mls/hr 10/02/19 23:59 10/04/19 08:09 Normal Saline 0.9% IV 1,000 mls .[id number] MANDO Administration Metoprolol Tartrate 50 mg 10/02/19 21:00 10/04/19 05:22 Lopressor PO 50 mg BID MANDO Administration Nitroglycerin 0.5 inch 10/02/19 22:00 10/04/19 05:22 Nitro-Bid 2% Ointment TOP Not Given Q8HR MANDO Nitroglycerin 0.4 mg 10/02/19 19:53 10/03/19 01:26 Nitrostat PO 0.4 mg Q5MIN PRN Administration Chest Pain Pantoprazole Sodium 40 mg 10/02/19 21:00 10/03/19 21:24 Protonix PO 40 mg HS MANDO Administration Zolpidem Tartrate 5 mg 10/02/19 21:00 10/03/19 21:24 Ambien PO 5 mg HS MANDO Administration - Exam Eye: PERRL Heart: RRR, no murmur, no gallops, no rubs, normal peripheral pulses Respiratory: no wheezes, no rales, no ronchi, wheezes (+ bilateral wheezing) Gastrointestinal: soft, non-tender, non-distended, normal bowel sounds, no palpable masses Extremities: no cyanosis, no clubbing, no edema Hosp A/P (1) Unstable angina Status: Acute (2) COPD (chronic obstructive pulmonary disease) Status: Chronic (3) HLD (hyperlipidemia) Code(s): E78.5 - HYPERLIPIDEMIA, UNSPECIFIED Status: Chronic (4) HTN (hypertension) Code(s): I10 - ESSENTIAL (PRIMARY) HYPERTENSION Status: Chronic (5) Tobacco abuse Code(s): Z72.0 - TOBACCO USE Status: Chronic - Plan * Unstable Angina-he is s/p cardiac cath. He was found to have significant multi -vessel CAD, including the LAD. He will be evaluated by CV Surgery for CABG * HTN- blood pressure is low normal * COPD- stable- Pulmonary following * Tobacco abuse- discussed tobacco abuse, plus medication options to help him quit. He is interested i the nicotrol inhaler
[2019-10-04] MEDS: Mometasone 200 MCG/Formoterol 5 MCG 120 PUFF INHALER INH SCH (19:05)
--- NOTE | 2019-10-04 20:06 | CON ---
DATE OF CONSULTATION: HISTORY OF PRESENT ILLNESS: This is a 69-year-old gentleman who noticed for the last week or 2 could not do any of his housework because he could not breathe and he would feel like his chest had a squeezing pressure as well as his heart racing. He previously had cardiac catheterization, but did not have significant coronary disease. He was admitted to the hospital, where his chest x-ray shows some diaphragmatic flattening, consistent with COPD. His laboratory values included a triglyceride of 279 and cholesterol of 131, and normal troponin levels. His BNP was not elevated. Hemoglobin was 14 g. He underwent a nuclear stress test, which showed normal myocardial perfusion with no reversible defects, normal left ventricular systolic function. However, his TDI was elevated at 1.25 with normal being 1.22 or less. Because of his history of mild coronary disease, his compelling symptoms in his TDI abnormality, he underwent cardiac catheterization today by Dr. Mix, where he was found to have a proximal circumflex stenosis in the 80% to 90% range. His left main was difficult to visualize, however, she felt that there was at least a 50% stenosis here and his right coronary artery had diffuse [id number] plaquing. Cardiac echo has not been done. PAST MEDICAL HISTORY: Significant for hypertension and dyslipidemia, both of which have been treated. He also has a history of COPD and has seen Dr. Tenorio in the past. He has a history of hepatitis C, treated with interferon, followed by Dr. Marquez, but not in several years. PAST SURGICAL HISTORY: Includes: 1. Cholecystectomy. 2. Cataracts. 3. Tonsillectomy. 4. Prostate surgery by Dr. Pantoja. SOCIAL HISTORY: The patient lives with his brother currently. He has a history of smoking heavily in the last 2 years. He has weaned himself off cigarettes and smokes cigars. REVIEW OF SYSTEMS: Most significant for the dyspnea and chest tightness. He also has arthritic pains in his knees. He also carries a diagnosis of reflux with occasional heartburn. PHYSICAL EXAMINATION: GENERAL: He is an alert and cooperative gentleman, in no distress, although he does say he is short of breath with talking. VITAL SIGNS: His height is 5 feet 11 inches. His weight is 217 pounds. His blood pressure has been running 110 to 140 recently with a heart rate in the 70s. NECK: No carotid bruits. LUNGS: He has no wheezes at this time. CARDIAC: Rhythm is regular with no murmurs. ABDOMEN: Obese and nontender. I did not appreciate an aneurysm. EXTREMITIES: He has strong posterior tibial pulses bilaterally with no peripheral edema. NEUROLOGIC: Not remarkable. ASSESSMENT AND PLAN: At this time, the patient has some left main, difficult to quantify with a high-grade circumflex lesion and symptoms suggestive of angina. He also has symptoms of dyspnea that may be related to pulmonary disease, and I think pulmonary function by Dr. Tenorio would be helpful to give us an idea of the severity of this and the risk of coronary artery bypass grafting based on his pulmonary function. I will also obtain an echo. We will stop his Plavix in anticipation that surgical intervention may be considered in the next couple of weeks. Job ID: [id number]
[2019-10-04] MEDS: Amlodipine 10 MG TAB PO SCH (21:32)
[2019-10-04] MEDS: Zolpidem Tartrate 5 MG TAB PO SCH (21:32)
[2019-10-04] MEDS: Atorvastatin Calcium 20 MG TAB PO SCH (21:32)
--- NOTE | 2019-10-04 21:50 | PDOC.CPN ---
- Subjective Date: 10/04/19 Time: 09:00 - Review of Systems General: reports: fever/chills, night sweats Respiratory: reports: shortness of breath Cardiovascular: reports: chest pain Gastrointestinal: reports: nausea, vomiting, abd pain Musculoskeletal: reports: swelling Neurological: reports: syncope - Objective Allergies/Adverse Reactions: Allergies Allergy/AdvReac Type Severity Reaction Status Date / Time doxycycline Allergy Mild Verified 09/07/19 22:31 morphine AdvReac Intermediate Verified 10/02/19 22:53 Visit Medications: Current Medications Acetaminophen (Tylenol) 650 mg PO Q4H PRN PRN Reason: Headache/Fever/Mild Pain (1-3) Acetaminophen/Codeine Phosphate (Tylenol #3) 1 tab PO Q4H PRN PRN Reason: Mild Pain (1-3) Acetaminophen/Codeine Phosphate (Tylenol #3) 2 tab PO Q4H PRN PRN Reason: Moderate Pain (4-6) Albuterol/Ipratropium (Duoneb) 3 ml NEB [id number] [facility] Last Admin: 10/04/19 19:04 Dose: 3 ml Amitriptyline HCl (Elavil) 75 mg PO HS [facility] Last Admin: 10/04/19 21:31 Dose: 75 mg Amlodipine Besylate (Norvasc) 10 mg PO HS [facility] Last Admin: 10/04/19 21:32 Dose: 10 mg Aspirin (Ecotrin) 81 mg PO DAILY [facility] Atorvastatin Calcium (Lipitor) 20 mg PO HS [facility] Last Admin: 10/04/19 21:32 Dose: 20 mg Guaifenesin/Dextromethorphan (Robitussin Dm) 15 ml PO Q4H PRN PRN Reason: Cough Sodium Chloride (Normal Saline 0.9%) 1,000 mls @ 75 mls/hr IV .[id number] [facility] Last Admin: 10/04/19 21:39 Dose: 1,000 mls Sodium Chloride (Normal Saline 0.9%) 200 mls @ 0 mls/hr IV PRN PRN PRN Reason: SBP < 90 Metoprolol Tartrate (Lopressor) 50 mg PO BID [facility] Last Admin: 10/04/19 21:31 Dose: 50 mg Mometasone Furoate/Formoterol Fumar (Dulera 200 Mcg/5 Mcg Inhaler) 2 puff INH BID-RT [facility] Last Admin: 10/04/19 19:05 Dose: 2 puff Nitroglycerin (Nitro-Bid 2% Ointment) 0.5 inch TOP Q8HR [facility] Last Admin: 10/04/19 21:38 Dose: Not Given Nitroglycerin (Nitrostat) 0.4 mg PO Q5MIN PRN PRN Reason: Chest Pain Last Admin: 10/03/19 01:26 Dose: 0.4 mg Nitroglycerin (Nitrostat) 0.4 mg SL Q5MIN PRN PRN Reason: Chest Pain Pantoprazole Sodium (Protonix) 40 mg PO [facility] Last Admin: 10/04/19 21:31 Dose: 40 mg Sodium Chloride (Flush - Normal Saline) 10 ml IVF PRN PRN PRN Reason: Saline Flush Zolpidem Tartrate (Ambien) 5 mg PO [facility] Last Admin: 10/04/19 21:32 Dose: 5 mg Vital Signs & Weight: Vital Signs Temp Pulse Resp BP Pulse Ox 10/04/19 19:04 70 14 96 10/04/19 15:50 98.2 F 71 21 H 107/57 L 95 10/04/19 14:23 78 16 97 10/04/19 10:50 97.9 F 72 17 138/87 93 L Weight 217 lb - Quality Measures CV meds: Beta Stacie: Yes, Statin: Yes - Physical Exam HEENT: normocephaly Neck: no JVD/HJR Cardiac: no murmur, regular rate, regular rhythm Lungs: wheezes Neuro: grossly intact Abdomen: unremarkable Extremities: no edema Musculoskeletal: normal range of motion - Labs Result Diagrams: 10/03/19 04:52 10/03/19 04:52 Troponin/CKMB Troponin I Less than 0.010 ng/mL (< 0.028) 10/03/19 04:52 - Telemetry Sinus rhythms and dysrhythmias: sinus rhythm - Assessment/Plan Assessment/Plan: 1. Chest pain, elevated TID, no ischemia on stress test. Hx. of CAD. Plan for cardiac cath today. 2. COPD. Still wheezing. Long hx. of tobacco abuse. 3. CAD. Cath several years ago with mild VAD. Cath today to re-evaluate..
[2019-10-05] MEDS: Nitroglycerin 2% Ointment 1 INCH/1 GM Packet TOP SCH ×3 (05:13→23:11)
[2019-10-05] MEDS: Mometasone 200 MCG/Formoterol 5 MCG 120 PUFF INHALER INH SCH ×2 (06:51→18:32)
[2019-10-05] MEDS: Aspirin 81 mg Enteric Coated Tablet PO SCH (08:16)
[2019-10-05] MEDS: Metoprolol Tartrate 50 MG TAB PO SCH (08:16)
--- NOTE | 2019-10-05 10:13 | PRG ---
DATE OF SERVICE: 10/05/2019 SUBJECTIVE: This morning, he said he is better. He is less short of breath. OBJECTIVE: VITAL SIGNS: Temperature 97, pulse 60, respirations 20, saturations are 98% on room air, and blood pressure 138/80. CHEST: Decreased breath sounds, no wheezing. CARDIAC: Normal S1 and S2. No gallops. ABDOMEN: No masses. ASSESSMENT: 1. Chronic obstructive pulmonary disease, stable. 2. Coronary artery disease. PLAN: I reviewed my office records. He was seen about five years ago. At that time, his pulmonary function test showed mild disease. Unfortunately, because of the recent for coronavirus infection, unable to get a PFT. We will discuss with Dr. Selby. Job ID: [id number]
--- NOTE | 2019-10-05 12:39 | PDOC.CPN ---
- Subjective Date: 10/05/19 Time: 08:30 Interval history: The pt seen and examined. No overnight events. No cardiac complaints. - Objective Allergies/Adverse Reactions: Allergies Allergy/AdvReac Type Severity Reaction Status Date / Time doxycycline Allergy Mild Verified 09/07/19 22:31 morphine AdvReac Intermediate Verified 10/02/19 22:53 Visit Medications: Current Medications Acetaminophen (Tylenol) 650 mg PO Q4H PRN PRN Reason: Headache/Fever/Mild Pain (1-3) Acetaminophen/Codeine Phosphate (Tylenol #3) 1 tab PO Q4H PRN PRN Reason: Mild Pain (1-3) Acetaminophen/Codeine Phosphate (Tylenol #3) 2 tab PO Q4H PRN PRN Reason: Moderate Pain (4-6) Albuterol/Ipratropium (Duoneb) 3 ml NEB [id number] [facility] Last Admin: 10/05/19 06:50 Dose: 3 ml Amitriptyline HCl (Elavil) 75 mg PO HS [facility] Last Admin: 10/04/19 21:31 Dose: 75 mg Amlodipine Besylate (Norvasc) 10 mg PO HS [facility] Last Admin: 10/04/19 21:32 Dose: 10 mg Aspirin (Ecotrin) 81 mg PO DAILY [facility] Last Admin: 10/05/19 08:16 Dose: 81 mg Atorvastatin Calcium (Lipitor) 20 mg PO HS [facility] Last Admin: 10/04/19 21:32 Dose: 20 mg Guaifenesin/Dextromethorphan (Robitussin Dm) 15 ml PO Q4H PRN PRN Reason: Cough Sodium Chloride (Normal Saline 0.9%) 1,000 mls @ 75 mls/hr IV .[id number] [facility] Last Admin: 10/04/19 21:39 Dose: 1,000 mls Sodium Chloride (Normal Saline 0.9%) 200 mls @ 0 mls/hr IV PRN PRN PRN Reason: SBP < 90 Metoprolol Tartrate (Lopressor) 50 mg PO BID [facility] Last Admin: 10/05/19 08:16 Dose: 50 mg Mometasone Furoate/Formoterol Fumar (Dulera 200 Mcg/5 Mcg Inhaler) 2 puff INH BID-RT [facility] Last Admin: 10/05/19 06:51 Dose: 2 puff Nitroglycerin (Nitro-Bid 2% Ointment) 0.5 inch TOP Q8HR [facility] Last Admin: 10/05/19 05:13 Dose: Not Given Nitroglycerin (Nitrostat) 0.4 mg SL Q5MIN PRN PRN Reason: Chest Pain Pantoprazole Sodium (Protonix) 40 mg PO [facility] Last Admin: 10/04/19 21:31 Dose: 40 mg Sodium Chloride (Flush - Normal Saline) 10 ml IVF PRN PRN PRN Reason: Saline Flush Zolpidem Tartrate (Ambien) 5 mg PO [facility] Last Admin: 10/04/19 21:32 Dose: 5 mg Vital Signs & Weight: Vital Signs Temp Pulse Resp BP BP Pulse Ox 10/05/19 11:58 98.2 F 73 18 146/79 H 98 10/05/19 07:28 97.8 F 76 20 135/80 96 10/05/19 06:50 71 16 94 L 10/05/19 03:47 97.9 F 73 23 H 122/73 96 10/05/19 01:02 71 14 93 L Weight 223 lb 9.6 oz - Quality Measures CV meds: Beta Stacie: Yes, MARGUERITE/ARB: Yes, Statin: Yes - Physical Exam General: alert & oriented x3 HEENT: mucus membranes moist Neck: supple neck Cardiac: regular rate and rhythm, S1/S2 Lungs: decreased breath sounds, wheezes Neuro: cranial nerve 2-12 intact Abdomen: unremarkable - Labs Result Diagrams: 10/03/19 04:52 10/03/19 04:52 Troponin/CKMB Troponin I Less than 0.010 ng/mL (< 0.028) 10/03/19 04:52 - Telemetry Sinus rhythms and dysrhythmias: sinus rhythm - Assessment/Plan Assessment/Plan: 1. CAD with s/p LHC on 10/04/2019 with 50% stenosis in LMCA, 30% in mid LAD, and 90% in prox Lx Cx - Plavix is on hold by Dr Selby; 2. COPD - stable with RA; Long hx. of tobacco abuse. Unable to have PFT due to COVID 19 pandemics; Managed by Dr Tenorio 3. HTN - stable; will change BBlocker to Coreg 12.5mg BID from Metoprolol 50mg BID due to hx of COPD; Will stop Norvasc 10mg qd and change to Losartan 50mg qd (may increase to total 100mg/day) for hx of CAD and grade I dd; 4. HLD - on Statin 5. Tobacco abuse - the pt is willing to start smoking cessation MAR reviewed * Echo on 10/05/2019 with EF 55-60 %, grade I dd, mod LAE, mild MR and TR Pt. seen and eval. by me. I agre with the A/P by the [employer]AM[employer]. Appreciate input from Dr. Selby and Jona. Chest: expiratory wheezing, RRR, No edema. Plan for CABG next week probably. sade
--- NOTE | 2019-10-05 13:43 | PRG ---
DATE OF SERVICE: 10/05/2019 SUBJECTIVE: A 69-year-old male with coronary artery disease, congestive heart failure, hypertension, and COPD, presented to the hospital with chest discomfort on September. The patient was evaluated by Cardiology, Dr. Mix. Cardiac catheterization was performed on September that showed multivessel coronary artery disease. The patient is currently being evaluated for coronary artery bypass grafting. His echocardiogram showed ejection fraction of 60% to 65% with grade 1 of 3 diastolic dysfunction. At this time, the patient denies any chest pain, palpitations, nausea, or vomiting. REVIEW OF SYSTEMS: As discussed above. CURRENT MEDICATIONS: Reviewed. The patient is on, 1. IV fluids. 2. Nitroglycerin patch. 3. Amitriptyline. 4. Amlodipine. 5. Aspirin. 6. Lipitor. 7. Carvedilol. 8. DuoNebs. 9. Losartan. 10. Protonix. Telemetry monitoring by my review showed sinus rhythm. PHYSICAL EXAMINATION: VITAL SIGNS: Temperature 98.2, pulse 73, blood pressure 146/79, and O2 saturation 98% on room air. GENERAL: A 69-year-old male, in no apparent distress. LUNGS: Clear to auscultation bilaterally. HEART: S1 and S2 present. Regular. ABDOMEN: Soft. Bowel sounds present. EXTREMITIES: No edema or calf tenderness. LABORATORY FINDINGS: CBC on 02 October showed WBC 6.6 with hemoglobin 14.2 with sodium of 139 and creatinine 1.04. Troponins negative. Fasting lipid showed triglycerides 279, cholesterol 131, LDL of 49, HDL of 26, and TSH 1.5. Echocardiogram as discussed above. IMPRESSION: 1. Chest discomfort/unstable angina. 2. Multivessel coronary artery disease. 3. Chronic obstructive pulmonary disease. 4. Hypertension. 5. Dyslipidemia. 6. Tobacco dependence. 7. Gastroesophageal reflux disease. 8. Chronic kidney disease, stage 2. 9. Obesity with a BMI of 31.2. PLAN: Plavix has been discontinued. We will continue aspirin. We will discontinue IV fluids. We will continue nitroglycerin patch. The patient is currently being evaluated for coronary artery bypass grafting. Bedside PFTs will be obtained. We will continue beta-blockers and statins. Continue nebulizer treatment. Losartan was started today. We will check labs in a.m. Job ID: [id number]
[2019-10-05] MEDS: Carvedilol 6.25 MG TAB PO SCH (16:19)
[2019-10-05] MEDS: Zolpidem Tartrate 5 MG TAB PO SCH (21:38)
[2019-10-05] MEDS: Atorvastatin Calcium 20 MG TAB PO SCH (21:39)
[2019-10-05] MEDS: Losartan 25 MG TAB PO SCH (21:39)
[2019-10-06] MEDS: Nitroglycerin 2% Ointment 1 INCH/1 GM Packet TOP SCH ×3 (05:40→20:53)
[2019-10-06 05:41] LABS: #Basophils 0.1 thou/uL (0.0-0.2); #Eosinphils 0.3 thou/uL (0.0-0.7); #Lymphocytes 1.4 thou/uL (1.20-3.40); #Monocytes 0.5 thou/uL (0.11-0.59); #Neutrophils 4.3 thou/uL (1.40-6.50); %Basophils 1.2 % (0.0-1.0); %Eosinophils 4.1 % (0.0-10.0); %Lymphocytes 21.5 % (21.0-51.0); %Monocytes 7.5 % (0.0-10.0); %Neutrophils 65.6 % (42.0-75.0); Hemoglobin 14.3 g/dL (14.0-18.0); Mean Corpuscular HGB CONC 32.7 g/dL (32.0-36.0); Mean Corpuscular Hemoglobin 31.5 pg (27.0-31.0); Mean Corpuscular Volume 96.3 fL (78.0-98.0); Mean Platelet Volume 7.1 fL (7.4-10.4); Platelet Count 248 thou/uL (130-400); RBC Distribution Width 11.9 % (11.5-14.5); Red Blood Cell (RBC) Count 4.54 mill/uL (4.70-6.10); White Blood Cell (WBC) Count 6.5 thou/uL (4.8-10.8)
[2019-10-06 05:58] LABS: Anion Gap 14 mmol/L (10-20); BUN (Urea Nitrogen) 12 mg/dL (8.4-25.7); Calc. Creatinine Clearance 114 mL/min (70-130); Calcium 9.5 mg/dL (7.8-10.44); Carbon Dioxide 24 mmol/L (23-31); Chloride 105 mmol/L (98-107); Estimated GFR-MDRD 85; Glucose 150 mg/dL (80-115); Magnesium 2.1 mg/dL (1.6-2.6); Potassium 3.9 mmol/L (3.5-5.1); Sodium 139 mmol/L (136-145)
[2019-10-06] MEDS: Mometasone 200 MCG/Formoterol 5 MCG 120 PUFF INHALER INH SCH ×2 (06:40→18:42)
[2019-10-06] MEDS: Carvedilol 6.25 MG TAB PO SCH ×2 (08:27→16:48)
[2019-10-06] MEDS: Aspirin 81 mg Enteric Coated Tablet PO SCH (08:27)
--- NOTE | 2019-10-06 13:46 | PDOC.HOSPP ---
- Subjective Encounter Date: 10/06/19 Encounter Time: 13:30 Subjective: Patient seen and examined for CAD. No new CP. No new complaints. No overnight events - Objective Vital Signs & Weight: Vital Signs (12 hours) Temp Pulse Resp BP BP BP Pulse Ox 10/06/19 12:29 72 12 10/06/19 11:28 98.1 F 84 12 122/73 96 10/06/19 08:27 127/75 10/06/19 07:20 97.7 F 86 18 127/75 96 10/06/19 06:40 76 12 10/06/19 04:00 97.7 F 81 16 131/74 94 L Weight Weight 220 lb 3.2 oz I&O: 10/05/19 10/06/19 10/07/19 06:59 06:59 06:59 Intake Total 300 1963 Output Total 1010 9831 Balance -710 -262 Result Diagrams: 10/06/19 05:00 10/06/19 05:00 EKG Reviewed by me: Yes (Tele SR) Hospitalist ROS - Review of Systems Respiratory: denies: cough, dry, shortness of breath, hemoptysis, SOB with excertion, pleuritic pain, sputum, wheezing, other Gastrointestinal: denies: nausea, vomiting, abdominal pain, diarrhea, constipation, melena, hematochezia, other - Medication Medications: Active Medications Generic Name Dose Route Start Last Admin Trade Name Freq PRN Reason Stop Dose Admin Albuterol/Ipratropium 3 ml 10/04/19 19:00 10/06/19 12:29 Duoneb NEB 3 ml [id number] MANDO Administration Amitriptyline HCl 75 mg 10/02/19 21:00 10/05/19 21:38 Elavil PO 75 mg HS MANDO Administration Aspirin 81 mg 10/05/19 09:00 10/06/19 08:27 Ecotrin PO 81 mg DAILY MANDO Administration Atorvastatin Calcium 20 mg 10/02/19 21:00 10/05/19 21:39 Lipitor PO 20 mg HS MANDO Administration Carvedilol 12.5 mg 10/05/19 17:00 10/06/19 08:27 Coreg PO 12.5 mg BID-WM MANDO Administration Losartan Potassium 50 mg 10/05/19 21:00 10/05/19 21:39 Cozaar PO 50 mg HS MANDO Administration Mometasone Furoate/Formoterol Fumar 2 puff 10/04/19 18:30 10/06/19 06:40 Dulera 200 Mcg/5 Mcg Inhaler INH 2 puff BID-RT MANDO Administration Pantoprazole Sodium 40 mg 10/02/19 21:00 10/05/19 21:39 Protonix PO 40 mg HS MANDO Administration Zolpidem Tartrate 5 mg 10/02/19 21:00 10/05/19 21:38 Ambien PO 5 mg HS MANDO Administration - Exam General Appearance: NAD Heart: RRR, no gallops Respiratory: no wheezes, no ronchi Gastrointestinal: soft, non-tender, normal bowel sounds Extremities: no cyanosis Neurological: no new deficit Hosp A/P - Plan DVT proph w/SCDs 1. Chest discomfort/unstable angina. 2. Multivessel coronary artery disease. 3. Chronic obstructive pulmonary disease. 4. Hypertension. 5. Dyslipidemia. 6. Tobacco dependence. Counselled. 7. Gastroesophageal reflux disease. 8. Chronic kidney disease, stage 2. 9. Obesity with a BMI of 31.2. 10. Chronic diastolic HF PLAN: Cont ASA NTG dose increased Cont Coreg/Losartan Cont Statins Cardio/CV following Cont Nebs
--- NOTE | 2019-10-06 14:02 | PRG ---
DATE OF SERVICE: 10/06/2019 SUBJECTIVE: The patient is doing well. He is awaiting bypass surgery on Tuesday or Tuesday. OBJECTIVE: VITAL SIGNS: Temperature 98.1, pulse 72, respirations 12, O2 saturation 96% on room air, and blood pressure 122/73. HEENT: Clear. NECK: No adenopathy or JVD. LUNGS: No wheezing or rhonchi. CARDIAC: S1 and S2. Regular. ABDOMEN: Soft. EXTREMITIES: No edema. LABORATORY DATA: White blood cell count 6.5, hematocrit 43.7, and platelet count 248. Sodium 139, potassium 3.9, BUN 12, creatinine 0.8, and glucose 150. ASSESSMENT: 1. Stable chronic obstructive pulmonary disease. 2. Coronary artery disease. PLAN: We will follow perioperatively after his bypass surgery next week. Dr. Tenorio will recheck the patient on Tuesday. Job ID: [id number]
[2019-10-06] MEDS: Zolpidem Tartrate 5 MG TAB PO SCH (20:53)
[2019-10-06] MEDS: Losartan 25 MG TAB PO SCH (20:53)
[2019-10-06] MEDS: Atorvastatin Calcium 20 MG TAB PO SCH (20:53)
[2019-10-07] MEDS: Nitroglycerin 2% Ointment 1 INCH/1 GM Packet TOP SCH ×3 (05:39→23:05)
[2019-10-07] MEDS: Mometasone 200 MCG/Formoterol 5 MCG 120 PUFF INHALER INH SCH ×2 (06:57→20:05)
[2019-10-07] MEDS: Aspirin 81 mg Enteric Coated Tablet PO SCH (09:08)
[2019-10-07] MEDS: Carvedilol 6.25 MG TAB PO SCH ×2 (09:08→17:44)
--- NOTE | 2019-10-07 14:52 | PDOC.HOSPP ---
- Subjective Encounter Date: 10/07/19 Encounter Time: 14:15 Subjective: Patient seen and examined for CP. Feeling better. Some lightheadedness intermittently. No new complaints. No overnight events - Objective Vital Signs & Weight: Vital Signs (12 hours) Temp Pulse Resp BP Pulse Ox 10/07/19 12:21 72 12 10/07/19 08:00 97.9 F 77 17 110/59 L 94 L 10/07/19 06:57 76 12 10/07/19 03:12 97.8 F 71 17 126/65 94 L Weight Weight 220 lb 1.6 oz I&O: 10/06/19 10/07/19 10/08/19 06:59 06:59 06:59 Intake Total 1963 1999 Output Total 2224 2099 Balance -262 -100 Result Diagrams: 10/06/19 05:00 10/06/19 05:00 EKG Reviewed by me: Yes (Tele SR) Hospitalist ROS - Review of Systems Respiratory: denies: cough, dry, shortness of breath, hemoptysis, SOB with excertion, pleuritic pain, sputum, wheezing, other Gastrointestinal: denies: nausea, vomiting, abdominal pain, diarrhea, constipation, melena, hematochezia, other - Medication Medications: Active Medications Generic Name Dose Route Start Last Admin Trade Name Freq PRN Reason Stop Dose Admin Albuterol/Ipratropium 3 ml 10/04/19 19:00 10/07/19 12:21 Duoneb NEB 3 ml [id number] MANDO Administration Amitriptyline HCl 75 mg 10/02/19 21:00 10/06/19 20:53 Elavil PO 75 mg HS MANDO Administration Aspirin 81 mg 10/05/19 09:00 10/07/19 09:08 Ecotrin PO 81 mg DAILY MANDO Administration Atorvastatin Calcium 20 mg 10/02/19 21:00 10/06/19 20:53 Lipitor PO 20 mg HS MANDO Administration Carvedilol 12.5 mg 10/05/19 17:00 10/07/19 09:08 Coreg PO 12.5 mg BID-WM MANDO Administration Losartan Potassium 50 mg 10/05/19 21:00 10/06/19 20:53 Cozaar PO 50 mg HS MANDO Administration Mometasone Furoate/Formoterol Fumar 2 puff 10/04/19 18:30 10/07/19 06:57 Dulera 200 Mcg/5 Mcg Inhaler INH 2 puff BID-RT MANDO Administration Nitroglycerin 1 inch 10/06/19 14:00 10/07/19 05:39 Nitro-Bid 2% Ointment TOP 1 inch Q8HR MANDO Administration Pantoprazole Sodium 40 mg 10/02/19 21:00 10/06/19 20:53 Protonix PO 40 mg HS MANDO Administration Sodium Chloride 10 ml 10/02/19 19:53 10/06/19 20:53 Flush - Normal Saline IVF 10 ml PRN PRN Administration Saline Flush Zolpidem Tartrate 5 mg 10/02/19 21:00 10/06/19 20:53 Ambien PO 5 mg HS MANDO Administration - Exam General Appearance: NAD Heart: no gallops, no rubs Respiratory: no wheezes, no rales Gastrointestinal: non-tender, non-distended, normal bowel sounds Extremities: no cyanosis Neurological: no new deficit Hosp A/P - Plan DVT proph w/SCDs 1. CP/unstable angina. 2. Multivessel CAD 3. COPD. 4. Hypertension. 5. Dyslipidemia. 6. Tobacco dependence. 7. GERD. 8. CKD 2. 9. Obesity with a BMI of 31.2. 10. Chronic diastolic HF PLAN: Cont ASA/Coreg/Losartan/Statins Cont NTG paste Cont Nebs Cont to monitor
[2019-10-07] MEDS: Losartan 25 MG TAB PO SCH (19:49)
[2019-10-07] MEDS: Atorvastatin Calcium 20 MG TAB PO SCH (19:49)
[2019-10-07] MEDS: Zolpidem Tartrate 5 MG TAB PO SCH (19:49)
[2019-10-08] MEDS: Nitroglycerin 2% Ointment 1 INCH/1 GM Packet TOP SCH ×2 (04:34→15:14)
[2019-10-08] MEDS: Mometasone 200 MCG/Formoterol 5 MCG 120 PUFF INHALER INH SCH (07:05)
[2019-10-08] MEDS: Aspirin 81 mg Enteric Coated Tablet PO SCH (08:42)
[2019-10-08] MEDS: Carvedilol 6.25 MG TAB PO SCH (08:42)
--- NOTE | 2019-10-08 10:09 | PRG ---
DATE OF SERVICE: 10/08/2019 SUBJECTIVE: This morning, he is better, less short of breath. OBJECTIVE: VITAL SIGNS: Temperature 98, pulse 108, blood pressure 129/93, sats 90% on room air. CHEST: No wheezing or crackles. CARDIAC: Normal S1, S2. No gallops. ABDOMEN: No masses. His pulmonary function test shows only mild COPD. ASSESSMENT: 1. Coronary artery disease. 2. Mild chronic obstructive pulmonary disease. 3. Former smoker. The patient tolerated general anesthesia. Continue present treatment. DISPOSITION: As per Cardiology. Job ID: [id number]
[2019-10-08 12:18] VITALS: BP 123/77; TEMP 98
--- NOTE | 2019-10-08 14:01 | PDOC.CPN ---
- Subjective Date: 10/08/19 Time: 14:01 Interval history: The pt seen and examined. No overnight events. No cardiac complaints. - Objective Allergies/Adverse Reactions: Allergies Allergy/AdvReac Type Severity Reaction Status Date / Time doxycycline Allergy Mild Verified 09/07/19 22:31 morphine AdvReac Intermediate Verified 10/02/19 22:53 Visit Medications: Current Medications Acetaminophen (Tylenol) 650 mg PO Q4H PRN PRN Reason: Headache/Fever/Mild Pain (1-3) Acetaminophen/Codeine Phosphate (Tylenol #3) 1 tab PO Q4H PRN PRN Reason: Mild Pain (1-3) Acetaminophen/Codeine Phosphate (Tylenol #3) 2 tab PO Q4H PRN PRN Reason: Moderate Pain (4-6) Albuterol/Ipratropium (Duoneb) 3 ml NEB [id number] [facility] Last Admin: 10/08/19 13:12 Dose: 3 ml Albuterol/Ipratropium (Duoneb) 3 ml NEB [id number] PRN PRN Reason: SOB &/or Wheezing Amitriptyline HCl (Elavil) 75 mg PO [facility] Last Admin: 10/07/19 19:49 Dose: 75 mg Aspirin (Ecotrin) 81 mg PO DAILY [facility] Last Admin: 10/08/19 08:42 Dose: 81 mg Atorvastatin Calcium (Lipitor) 20 mg PO [facility] Last Admin: 10/07/19 19:49 Dose: 20 mg Carvedilol (Coreg) 12.5 mg PO BID-[facility] Last Admin: 10/08/19 08:42 Dose: 12.5 mg Guaifenesin/Dextromethorphan (Robitussin Dm) 15 ml PO Q4H PRN PRN Reason: Cough Sodium Chloride (Normal Saline 0.9%) 200 mls @ 0 mls/hr IV PRN PRN PRN Reason: SBP < 90 Isosorbide Mononitrate (Imdur) 30 mg PO DAILY [facility] Losartan Potassium (Cozaar) 25 mg PO DAILY [facility] Mometasone Furoate/Formoterol Fumar (Dulera 200 Mcg/5 Mcg Inhaler) 2 puff INH BID-RT [facility] Last Admin: 10/08/19 07:05 Dose: 2 puff Nitroglycerin (Nitrostat) 0.4 mg SL Q5MIN PRN PRN Reason: Chest Pain Nitroglycerin (Nitro-Bid 2% Ointment) 1 inch TOP Q8HR [facility] Last Admin: 10/08/19 04:34 Dose: Not Given Pantoprazole Sodium (Protonix) 40 mg PO [facility] Last Admin: 10/07/19 19:49 Dose: 40 mg Sodium Chloride (Flush - Normal Saline) 10 ml IVF PRN PRN PRN Reason: Saline Flush Last Admin: 10/06/19 20:53 Dose: 10 ml Zolpidem Tartrate (Ambien) 5 mg PO [facility] Last Admin: 10/07/19 19:49 Dose: 5 mg Vital Signs & Weight: Vital Signs Temp Pulse Resp BP BP BP BP 10/08/19 13:12 80 16 10/08/19 11:30 98.0 F 78 16 123/77 10/08/19 08:42 129/93 H 10/08/19 08:15 10/08/19 08:14 98.2 F 92 16 129/93 H 10/08/19 07:48 98.2 F 92 16 129/93 H 10/08/19 07:05 10/08/19 07:04 83 16 10/08/19 03:42 98.3 F 87 16 147/78 H Pulse Ox 10/08/19 13:12 95 10/08/19 11:30 93 L 10/08/19 08:42 10/08/19 08:15 97 10/08/19 08:14 97 10/08/19 07:48 97 10/08/19 07:05 94 L 10/08/19 07:04 94 L 10/08/19 03:42 94 L Weight 222 lb 3.2 oz - Quality Measures CV meds: Beta Stacie: Yes, MARGUERITE/ARB: Yes, Statin: Yes - Physical Exam General: alert & oriented x3 HEENT: mucus membranes moist Neck: supple neck Cardiac: regular rate and rhythm, S1/S2 Lungs: clear to auscultation Neuro: cranial nerve 2-12 intact Extremities: no cyanosis, no edema Musculoskeletal: no pain - Labs Result Diagrams: 10/06/19 05:00 10/06/19 05:00 Troponin/CKMB Troponin I Less than 0.010 ng/mL (< 0.028) 10/03/19 04:52 - Telemetry Sinus rhythms and dysrhythmias: sinus rhythm - Assessment/Plan Assessment/Plan: 1. CAD with s/p C on 10/04/2019 with 50% stenosis in LMCA, 30% in mid LAD, and 90% in prox Lx Cx - Plavix is on hold by Dr Selby; plan for CABG on Tuesday. Will be on Imdur 30mg qd 2. COPD - stable with RA; Long hx. of tobacco abuse. Unable to have PFT due to COVID 19 pandemics; Managed by Dr Tenorio 3. HTN - stable; on Coreg 12.5mg BID and Losartan 50mg qd which will be decreased to 25mg qd and will start Imdur 30mg qd for BP and CP management 4. HLD - on Statin 5. Tobacco abuse - the pt is willing to start smoking cessation MAR reviewed * Echo on 10/05/2019 with EF 55-60 %, grade I dd, mod LAE, mild MR and TR * From Cardiac standpoint, the pt is stable to d/c home. Plan for CABG on Tuesday by Dr Selby. Pt. seen and eval. by me. I agree with the A/P by the DRIVER MANAGER. He is stable for d/c and CABG can be arranged as an outpt per dr. Selby's schedule.. Chest; expiratory wheezing. RRR. No edema.
--- NOTE | 2019-10-08 17:52 | DIS ---
DATE OF ADMISSION: 10/03/2019 DATE OF DISCHARGE: 10/08/2019 DISCHARGE DISPOSITION: Home. FOLLOWUP: 1. The patient will follow up with primary care physician, Dr. Adan in 1 week. 2. The patient will undergo coronary artery bypass grafting on September,. DISCHARGE MEDICATIONS: 1. Aspirin 81 mg daily. 2. Carvedilol 12.5 mg b.i.d. 3. Imdur 30 mg daily. 4. Losartan 25 mg daily. 5. Protonix 40 mg daily. 6. Sublingual nitroglycerin as needed. 7. Combivent as needed. 8. Multivitamin 1 tablet daily. 9. Eszopiclone 3 mg at bedtime. 10. Vitamin D3 2000 units daily. 11. Lipitor 20 mg at bedtime. 12. Elavil 75 mg at bedtime. 13. Tylenol No. 3 as needed. The patient was seen on the day of discharge. Denies any new complaints. No chest pain, shortness of breath, or palpitations reported. INPATIENT PULPWOOD CONTRACTOR: Cardiology, Dr. Mix. Pulmonary, Dr. Tenorio. Cardiovascular, Dr. Selby. INPATIENT PROCEDURES: 1. On September,, the patient underwent cardiac catheterization that showed multivessel disease. He had 50% stenosis in the left main coronary artery, 30% in the mid LAD, 90% in the proximal circumflex. The RCA had diffuse plaque. 2. Echocardiogram showed ejection fraction of 60% to 65% with grade 1 of 3 diastolic dysfunction, mild mitral regurgitation, mild tricuspid regurgitation. 3. CT scan of the brain on admission was negative for acute findings. BRIEF HOSPITAL COURSE: The patient is a 69-year-old male with coronary artery disease, congestive heart failure, COPD, and hypertension, presented to the emergency room with chest discomfort on September,. Please refer to the history and physical for further details. The patient was admitted to the hospital with a diagnosis of chest discomfort consistent with unstable angina. He underwent cardiac catheterization as discussed above. Plavix has been discontinued. He was evaluated by Cardiovascular as well as Pulmonary, Dr. Tenorio due to history of COPD. He will undergo coronary artery bypass grafting on 09 October. His medications have been optimized. He has been cleared by Cardiology for discharge. FINAL DIAGNOSES: 1. Chest discomfort/unstable angina. 2. Multivessel coronary artery disease. 3. Chronic obstructive pulmonary disease. 4. Hypertension. 5. Dyslipidemia. 6. Tobacco dependence. The patient was counseled. 7. Gastroesophageal reflux disease. 8. Chronic kidney disease, stage 2. 9. Obesity with BMI 31. 10. Chronic diastolic heart failure. 11. Mild tricuspid regurgitation. SIGNIFICANT LABORATORY DATA: 1. Fasting lipid showed triglyceride 279 with cholesterol 131, LDL of 49, HDL 26. 2. TSH was 1.5. 3. Troponins were negative. Job ID: [id number]
[2019-10-09] MEDS ORDERED: Losartan 25 MG TAB PO SCH (09:00)
== END 2019-10-08 15:55 | disposition home or self-care (01) | DRG 287 ==
LOC: ERS 16:16 → 2SE 18:56 → OBSVTOIN 10-03 13:31 → 2NO 10-03 20:10
PROVIDERS: ADMIT Internal Medicine; ATTEND Internal Medicine
PROC: 4A023N7 Measurement of Cardiac Sampling and Pressure, Left Heart, Percutaneous Approach (ICD-10-PCS; principal; 2019-10-04)
PROC: B205YZZ Plain Radiography of Left Heart using Other Contrast (ICD-10-PCS; 2019-10-04)
DX: I25.110 Atherosclerotic heart disease of native coronary artery with unstable angina pectoris (principal); I69.354 Hemiplegia and hemiparesis following cerebral infarction affecting left non-dominant side; I50.32 Chronic diastolic (congestive) heart failure; I13.0 Hypertensive heart and chronic kidney disease with heart failure and stage 1 through stage 4 chronic kidney disease, or unspecified chronic kidney disease; F17.210 Nicotine dependence, cigarettes, uncomplicated; K21.9 Gastro-esophageal reflux disease without esophagitis; J43.9 Emphysema, unspecified; M19.90 Unspecified osteoarthritis, unspecified site; E78.5 Hyperlipidemia, unspecified; E78.00 Pure hypercholesterolemia, unspecified; F41.9 Anxiety disorder, unspecified; N18.2 Chronic kidney disease, stage 2 (mild); I07.1 Rheumatic tricuspid insufficiency; E66.9 Obesity, unspecified; Z68.32 Body mass index [BMI] 32.0-32.9, adult; I25.2 Old myocardial infarction; Z90.49 Acquired absence of other specified parts of digestive tract
CPT/HCPCS: 36415; 70450; 71045; 78452; 80048; 80053; 80061; 80306; 83735; 83880; 84443; 84484; 85025; 93005; 93010; 93017; 93306; 93458; 94010; 94640; 94760; A9500; C1769; J1644; J2785; J7620; Q9967

== ENCOUNTER 2019-10-10 05:52 | Inpatient (IN) | payer MEDICARE, MEDICAID ==
[2019-10-10] MEDS ORDERED: Albumin 5% 0 ML ONE (06:31)
[2019-10-10] MEDS ORDERED: Heparin 10,000 UNITS/1 ML VIAL 30,000 UNITS in Sodium Chloride 0.9% 1,000 ML FS SCH (07:00)
[2019-10-10] MEDS ORDERED: Fentanyl 250 MCG/5 ML VIAL ONE (07:31)
[2019-10-10] MEDS ORDERED: Midazolam HCl 5 mg/5 ml Vial ONE (07:31)
[2019-10-10] MEDS ORDERED: Phenylephrine 10 MG/ML VIAL ONE (09:15)
[2019-10-10] MEDS ORDERED: PHENYLEPHRINE-NS 100 MCG/ML 10 ML SYRINGE ONE ×2 (09:15→09:53)
[2019-10-10] MEDS ORDERED: Magnesium Sulfate 1 GM/2 ML VIAL ONE (09:53)
[2019-10-10] MEDS ORDERED: EPHEDRINE 25 MG/5 ML SYRINGE ONE (09:53)
[2019-10-10] MEDS ORDERED: Lidocaine 2% PF 5 ML VIAL ONE (09:53)
[2019-10-10] MEDS ORDERED: Heparin 30,000 units/30 ml VIAL ONE (09:53)
[2019-10-10] MEDS ORDERED: Sodium Bicarb 50 MEQ/50 ML Abboject 8.4% SYRINGE ONE (09:53)
[2019-10-10] MEDS ORDERED: Thrombin 5000 UNITS/5 ML VIAL ONE (09:53)
[2019-10-10] MEDS ORDERED: Calcium Chloride 1 GM/10 ML Abboject SYRINGE ONE (09:53)
[2019-10-10] MEDS ORDERED: Vecuronium 10 MG VIAL ONE (09:53)
[2019-10-10] MEDS ORDERED: Norepinephrine 4 MG/4 ML VIAL ONE (09:53)
[2019-10-10] MEDS ORDERED: Rocuronium Bromide 10 MG/ML (10ML VIAL) ONE (09:53)
[2019-10-10] MEDS ORDERED: Aminocaproic Acid 5 GM/20 ML VIAL ONE (09:53)
[2019-10-10] MEDS ORDERED: Cardioplegic Soln 1,000 ML BAG ONE (09:53)
[2019-10-10] MEDS ORDERED: Papaverine 60 MG/2 ML VIAL ONE (09:53)
[2019-10-10] MEDS ORDERED: Protamine Sulfate 50 MG/5 ML VIAL ONE (09:53)
[2019-10-10] MEDS ORDERED: Heparin 5,000 UNITS/ML VIAL ONE (09:53)
[2019-10-10] MEDS ORDERED: PROPOFOL 200 MG/20 ML VIAL ONE (09:53)
[2019-10-10] MEDS ORDERED: Potassium Chloride 60 MEQ/30 ML VIAL ONE (09:53)
[2019-10-10] MEDS ORDERED: Norepinephrine 8 MG/0.9% NS 250 ML IVPB PRN (11:59)
[2019-10-10] MEDS ORDERED: Guaifenesin DM 100-10/5 ML UDCUP PO PRN (11:59)
[2019-10-10] MEDS ORDERED: Fentanyl 100 MCG/2 ML VIAL SLOW IVP PRN (11:59)
[2019-10-10] MEDS ORDERED: niCARdipine 25 MG in Sodium Chloride 0.9% 250 ML 250 ML IVPB PRN (11:59)
[2019-10-10] MEDS ORDERED: Bisacodyl 5 MG TAB PO PRN (11:59)
[2019-10-10] MEDS ORDERED: Promethazine HCl 25 MG/ML VIAL IM PRN (11:59)
[2019-10-10] MEDS ORDERED: Post-Op Insulin Drip Protocol IVPB ONE (11:59)
[2019-10-10] MEDS ORDERED: Potassium Chloride 20 MEQ/100 ML PREMIX BAG IVPB PRN (11:59)
[2019-10-10] MEDS ORDERED: hydrALAZINE 20 MG/ML VIAL SLOW IVP PRN (11:59)
[2019-10-10] MEDS ORDERED: Nitroglycerin 50 MG/250 ML BOT 250 ML IVPB PRN (11:59)
[2019-10-10] MEDS ORDERED: Acetaminophen 325 MG TAB PO PRN (11:59)
[2019-10-10] MEDS ORDERED: Hetastarch 6% 500 ML 500 ML IVPB PRN (11:59)
[2019-10-10] MEDS ORDERED: Mag-Al 1200 mg/1200 mg/30 ML UDCUP PO PRN (11:59)
[2019-10-10] MEDS ORDERED: HYDROcodone/Acetaminophen 5/325 mg Tablet PO PRN (11:59)
[2019-10-10] MEDS ORDERED: Ondansetron PF 4 MG/2 ML Vial IVP PRN (11:59)
[2019-10-10] MEDS ORDERED: Morphine 2 MG/ML SYRINGE SLOW IVP PRN (11:59)
[2019-10-10] MEDS ORDERED: Bisacodyl 10 MG SUPP PR PRN (11:59)
[2019-10-10] MEDS ORDERED: DOPamine 400 MG/D5W 250 ML 250 ML IVPB PRN (11:59)
[2019-10-10] MEDS ORDERED: Magnesium 2 GM/50 ML 2 GM in Premix Bag 1 BAG IVPB SCH (12:00)
[2019-10-10] MEDS ORDERED: Dextrose 50% Abboject 50 ML SYRINGE SLOW IVP PRN (12:22)
[2019-10-10] MEDS ORDERED: Insulin Regular 300 UNITS/3 ML VIAL SC PRN (12:22)
[2019-10-10] MEDS ORDERED: Dextrose 5% in Water 1,000 ML IV PRN (12:22)
[2019-10-10] MEDS ORDERED: HUMULIN R 100 UNITS in Sodium Chloride 0.9% 100 ML IVPB SCH (12:22)
[2019-10-10] MEDS: Lactated Ringer's 1,000 ML IV SCH (12:26)
[2019-10-10] MEDS: Fentanyl 100 MCG/2 ML VIAL SLOW IVP PRN ×2 (12:37→20:52)
[2019-10-10] MEDS: Ketorolac Tromethamine 30 MG/ML VIAL IVP SCH ×3 (12:40→23:16)
--- NOTE | 2019-10-10 12:45 | RAD ---
EXAM: CHEST ONE VIEW HISTORY: Post open heart surgery. COMPARISON: 10/02/2019 FINDINGS: Interval postsurgical changes related to CABG are now seen. Endotracheal tube is noted in place with the tip overlying the T4 vertebral body and above the level of the nanda. Right subclavian central venous catheter is noted in place with tip overlying the region of the cavoatrial junction. Mediastin al drain and left-sided thoracostomy tube are noted in place. There is mild increase in pulmonary vasculature. No pneumothorax or pleural effusion is seen. Mild atelectasis left lung base. No parench ymal consolidation is seen. No other interval change. IMPRESSION: 1. Postsurgical changes related to CABG with lines and tubes in place as described above. 2. Pulmonary vascular congestion.
[2019-10-10 12:46] LABS: #Eosinphils 0.1 thou/uL (0.0-0.7); #Lymphocytes 1.1 thou/uL (1.20-3.40); #Monocytes 0.7 thou/uL (0.11-0.59); #Neutrophils 13.9 thou/uL (1.40-6.50); %Basophils 0.2 % (0.0-1.0); %Eosinophils 0.7 % (0.0-10.0); %Lymphocytes 7.1 % (21.0-51.0); %Monocytes 4.3 % (0.0-10.0); %Neutrophils 87.7 % (42.0-75.0); Mean Corpuscular HGB CONC 33.1 g/dL (32.0-36.0); Mean Corpuscular Hemoglobin 32.3 pg (27.0-31.0); Mean Corpuscular Volume 97.6 fL (78.0-98.0); Mean Platelet Volume 7.1 fL (7.4-10.4); Platelet Count 214 thou/uL (130-400); Red Blood Cell (RBC) Count 4.33 mill/uL (4.70-6.10); White Blood Cell (WBC) Count 15.8 thou/uL (4.8-10.8)
--- NOTE | 2019-10-10 12:51 | OP ---
DATE OF PROCEDURE: 10/10/2019 PREOPERATIVE DIAGNOSIS: Coronary artery disease. POSTOPERATIVE DIAGNOSIS: Coronary artery disease with some bladder neck contracture. PROCEDURES PERFORMED: Ureteroscopy with placement of Hamilton catheter and then coronary artery bypass graft x3, left internal mammary artery large vessel to a 2 mm LAD, saphenous vein good quality to a 1.5 mm distal OM and a 1.5 to 2 mm proximal PDA. GRAIN TRIMMER: Azalia. TRANSFUSION: None. DESCRIPTION OF PROCEDURE: After adequate anesthesia had been obtained, attempts of placement of the Hamilton catheter were unsuccessful. Urologist was contacted. However, the patient was requiring significant vasopressor support, and after a good bit, it was felt that we needed to proceed, and at that point, I placed a flexible cystoscope into the urethra and advanced it. The patient had some scarring, narrowing, and tortuosity of the proximal urethra. The scope was inserted into the bladder, and a wire was placed, and then a Councill tip catheter was placed. Following this, there was clear urine. The patient was then prepped and draped, and after this, the left greater saphenous vein was harvested using an endovascular technique by Dr. Vieyra while I performed a median sternotomy. Left internal mammary artery was harvested entering the left pleura apically. Mammary was divided after heparinization, treated with papaverine. The thymus gland was in the way of visualizing the aorta and this was then removed, allowing the mammary to just run over the medial aspect of the lung. Aorta and right atrium were cannulated, and cardiopulmonary bypass was begun. Vessels were inspected for grafting, the aorta was crossclamped, and a liter of cold blood cardioplegia was given through the aortic root. There may have been some mild aortic insufficiency in the valve. The distal anastomosis was then completed, following which the cross-clamp was removed and 2 proximal anastomoses were performed on the aortic root. These were marked with rings, and after inspection of distal anastomosis, the patient was weaned from cardiopulmonary bypass. Cannula was removed and protamine was given systemically. Following repairing of the aortic cannulation site with an additional 4-0 Prolene suture, mediastinal and left pleural drains were placed. The sternum was reapproximated with combination of #7 wire and zip ties x3 with vancomycin paste and platelet rich blood placed in the sternal edges. Subcutaneous tissue and skin were closed in layers, and the patient is to be taken to the ICU in guarded condition. Job ID: [id number]
[2019-10-10 12:52] LABS: INR-International Normal Ratio 1.2; Prothrombin Time 15.5 SEC (12.0-14.7)
[2019-10-10 13:03] LABS: Anion Gap 10 mmol/L (10-20); BUN (Urea Nitrogen) 17 mg/dL (8.4-25.7); Calc. Creatinine Clearance 120 mL/min (70-130); Calcium 7.8 mg/dL (7.8-10.44); Carbon Dioxide 24 mmol/L (23-31); Chloride 110 mmol/L (98-107); Estimated GFR-MDRD Greater than 90; Glucose 167 mg/dL (80-115); Potassium 5.1 mmol/L (3.5-5.1); Sodium 139 mmol/L (136-145)
[2019-10-10 13:17] LABS: Base Excess (BEa) -6.5 mEq/L (-2.0 to +3.0); CO2 Tension 49.7 mmHg (35.0-45.0); Calcium, Ionized 1.09 mmol/L (1.12-1.30); Carboxyhemoglobin (COHb) 1.8 gm% (0.0-3.0); Hemoglobin (Hb) 13.6 g/dL (14.0-18.0); O2 Tension (PaO2) 87.5 mmHg (> 80.0)
[2019-10-10 13:46] LABS: pH, Arterial 7.24 (7.35-7.45)
[2019-10-10 13:47] LABS: ALV-art Gradient 206.875 (0-20); Puncture Site ALINE
[2019-10-10] MEDS ORDERED: Sodium Bicarb 50 MEQ/50 ML Abboject 8.4% SYRINGE IVP SCH (14:15)
--- NOTE | 2019-10-10 14:16 | PRG ---
DATE OF SERVICE: 10/10/2019 SUBJECTIVE: Status post CABG. The patient is well known to me, recently discharged from the hospital. Coronary artery disease. His PFT showed mild COPD. He is a former smoker. He did get better on inhaled bronchodilator therapy. OBJECTIVE: VITAL SIGNS: Pulse 71, blood pressure 118/71, sats 100%, respiratory rate 18. GENERAL: Postop, he is complaining of pain. He remains intubated. CHEST: Decreased breath sounds. No wheezing. CARDIAC: Normal S1, S2. No gallops. ABDOMEN: No masses. DATA: X-ray is normal. Labs unremarkable. IMPRESSION: 1. Status post coronary artery bypass grafting. 2. Mild chronic obstructive pulmonary disease. PLAN: Continue neb treatments, wean per protocol, will follow early ambulation. Job ID: [id number]
[2019-10-10] MEDS: CEFAZOLIN 2 GM in Premix Bag 1 BAG IVPB SCH ×2 (14:29→21:12)
[2019-10-10] MEDS ORDERED: Norepinephrine 8 MG in Dextrose 5% in Water 242 ML IVPB PRN (14:30)
[2019-10-10 17:29] LABS: Hemoglobin 12.7 g/dL (14.0-18.0)
[2019-10-10 17:49] LABS: Potassium 4.1 mmol/L (3.5-5.1)
[2019-10-10] MEDS ORDERED: Famotidine/PF 20 mg/2ml Vial SLOW IVP SCH (21:00)
[2019-10-10] MEDS ORDERED: Amitriptyline HCl 100 MG TAB PO SCH (21:00)
[2019-10-10] MEDS: Atorvastatin Calcium 20 MG TAB PO SCH (21:00)
[2019-10-11] MEDS: Fentanyl 100 MCG/2 ML VIAL SLOW IVP PRN ×5 (01:59→20:20)
[2019-10-11] MEDS: Lactated Ringer's 1,000 ML IV SCH (02:02)
[2019-10-11 05:03] LABS: #Lymphocytes 1.4 thou/uL (1.20-3.40); #Neutrophils 6.9 thou/uL (1.40-6.50); %Basophils 0.5 % (0.0-1.0); %Eosinophils 0.2 % (0.0-10.0); %Monocytes 10.6 % (0.0-10.0); %Neutrophils 73.8 % (42.0-75.0); Hemoglobin 11.9 g/dL (14.0-18.0); Mean Corpuscular HGB CONC 33.1 g/dL (32.0-36.0); Mean Corpuscular Hemoglobin 32.3 pg (27.0-31.0); Mean Corpuscular Volume 97.5 fL (78.0-98.0); Mean Platelet Volume 7.1 fL (7.4-10.4); Platelet Count 186 thou/uL (130-400); Red Blood Cell (RBC) Count 3.68 mill/uL (4.70-6.10); White Blood Cell (WBC) Count 9.4 thou/uL (4.8-10.8)
[2019-10-11] MEDS: CEFAZOLIN 2 GM in Premix Bag 1 BAG IVPB SCH (05:19)
[2019-10-11] MEDS: Ketorolac Tromethamine 30 MG/ML VIAL IVP SCH ×4 (05:19→23:36)
[2019-10-11 05:26] LABS: Anion Gap 11 mmol/L (10-20); BUN (Urea Nitrogen) 15 mg/dL (8.4-25.7); Calc. Creatinine Clearance 141 mL/min (70-130); Calcium 7.7 mg/dL (7.8-10.44); Carbon Dioxide 23 mmol/L (23-31); Chloride 108 mmol/L (98-107); Estimated GFR-MDRD Greater than 90; Glucose 97 mg/dL (80-115); Potassium 3.8 mmol/L (3.5-5.1); Sodium 138 mmol/L (136-145)
[2019-10-11 05:31] VITALS: BMI 29.8
--- NOTE | 2019-10-11 06:59 | EKG ---
Test Reason : POST CABG Blood Pressure : / mmHG Vent. Rate : 078 BPM Atrial Rate : 078 BPM P-R Int : 168 ms QRS Dur : 088 ms QT Int : 400 ms P-R-T Axes : 056 078 066 degrees QTc Int : 456 ms Normal sinus rhythm Normal ECG When compared with ECG of 03-OCT-2019 01:18, Criteria for Septal infarct are no longer Present Confirmed by DR. Juan Antonio GALICIA ([id number]) on 10/11/2019 6:58:41 AM Referred By: MALATHI Confirmed By:DR. Juan Antonio GALICIA
[2019-10-11] MEDS ORDERED: Mag-Al 1200 mg/1200 mg/30 ML UDCUP PO PRN (07:47)
[2019-10-11] MEDS ORDERED: Bisacodyl 10 MG SUPP PR PRN (07:47)
[2019-10-11] MEDS ORDERED: Zolpidem Tartrate 5 MG TAB PO PRN (07:47)
[2019-10-11] MEDS ORDERED: Bisacodyl 5 MG TAB PO PRN (07:47)
[2019-10-11] MEDS ORDERED: Mineral Oil ENEMA PR PRN (07:47)
[2019-10-11] MEDS ORDERED: Guaifenesin DM 100-10/5 ML UDCUP PO PRN (07:47)
[2019-10-11] MEDS ORDERED: Nitroglycerin 0.4 MG TAB (25 Tab Bottle) SL PRN (07:47)
[2019-10-11] MEDS ORDERED: Acetaminophen 325 MG TAB PO PRN (07:47)
--- NOTE | 2019-10-11 07:52 | RAD ---
PORTABLE CHEST: DATE: 10/11/2019. PROVIDED CLINICAL HISTORY: Post open heart. FINDINGS: Comparison 10/10/2019. Interval extubation. Pulmonary vasculature is now within normal limits. Adolfo tional significant interval change with respect to the prior examination is not apparent. IMPRESSION: As above. POS: BOY
--- NOTE | 2019-10-11 08:09 | PRG ---
DATE OF SERVICE: 10/11/2019 Overnight, he was extubated. He has remained stable with a heart rate of about 95, a blood pressure of 120. Urine output has been good. Chest tube total is about 550 cc and thin fluid. Complains only of a midsternal chest pain. Laboratory values were adequate. Lungs are clear to auscultation. Plan at this time is to transfer to the floor and begin low-dose beta alexandra. Job ID: [id number] [facility]
[2019-10-11] MEDS: Metoprolol Tartrate 25 MG TAB PO SCH ×2 (08:24→20:21)
[2019-10-11] MEDS: HYDROcodone/Acetaminophen 5/325 mg Tablet PO PRN ×2 (08:26→19:34)
[2019-10-11] MEDS: Famotidine 20 MG TAB PO SCH ×2 (08:26→20:21)
[2019-10-11] MEDS: Aspirin 325 mg Enteric Coated Tablet PO SCH (08:28)
--- NOTE | 2019-10-11 08:41 | PDOC.CPN ---
- Subjective Date: 10/11/19 Time: 08:30 Interval history: The pt seen and examined. No overnight events. No cardiac complaints. He was already up to chair this AM without any cardiac complaints. - Objective Allergies/Adverse Reactions: Allergies Allergy/AdvReac Type Severity Reaction Status Date / Time doxycycline Allergy Mild itching Verified 10/09/19 09:58 and burning morphine AdvReac Intermediate tachycardia, Verified 10/09/19 09:58 redness to injection site Visit Medications: Current Medications Acetaminophen (Tylenol) 650 mg PO Q6H PRN PRN Reason: Headache/Fever or Pain Hydrocodone Bitart/Acetaminophen ([place] 5/325) 1 tab PO Q4H PRN PRN Reason: Moderate Pain (4-6) Hydrocodone Bitart/Acetaminophen ([place] 5/325) 2 tab PO Q4H PRN PRN Reason: Severe Pain (7-10) Last Admin: 10/11/19 08:26 Dose: 2 tab Al Hydroxide/Mg Hydroxide (Maalox) 30 ml PO Q4H PRN PRN Reason: Indigestion Albuterol/Ipratropium (Duoneb) 3 ml NEB [id number] PRN PRN Reason: Respiratory Distress Aspirin (Ecotrin) 325 mg PO DAILY [facility] Last Admin: 10/11/19 08:28 Dose: 325 mg Atorvastatin Calcium (Lipitor) 20 mg PO HS [facility] Last Admin: 10/10/19 21:00 Dose: 20 mg Bisacodyl (Dulcolax) 10 mg PO Q12H PRN PRN Reason: Constipation Bisacodyl (Dulcolax) 10 mg MD Q12H PRN PRN Reason: Constipation Famotidine (Pepcid) 20 mg PO BID [facility] Last Admin: 10/11/19 08:26 Dose: 20 mg Fentanyl (Sublimaze) 50 mcg SLOW IVP Q2H PRN PRN Reason: Severe Pain (7-10) Stop: 10/12/19 11:52 Last Admin: 10/11/19 01:59 Dose: 50 mcg Furosemide (Lasix) 40 mg PO DAILY [facility] Guaifenesin/Dextromethorphan (Robitussin Dm) 15 ml PO Q4H PRN PRN Reason: Cough Ketorolac Tromethamine (Toradol) 15 mg IVP Q6HR [facility] Stop: 04/25/20 12:01 Last Admin: 10/11/19 05:19 Dose: 15 mg Metoprolol Tartrate (Lopressor) 12.5 mg PO BID [facility] Last Admin: 10/11/19 08:24 Dose: 12.5 mg Mineral Oil (Fleet Mineral Oil) 133 ml MD DAILYPRN PRN PRN Reason: Constipation Mometasone Furoate/Formoterol Fumar (Dulera 200 Mcg/5 Mcg Inhaler) 2 puff INH BID-RT [facility] Nitroglycerin (Nitrostat) 0.4 mg SL Q5MIN PRN PRN Reason: Chest Pain Ondansetron HCl (Zofran) 4 mg IVP Q6H PRN PRN Reason: Nausea/Vomiting Pneumococcal 13-Valent Conj Vacc (Prevnar) 0.5 ml IM .ONCE ONE Stop: 10/11/19 09:01 Last Admin: 10/11/19 08:28 Dose: Not Given Potassium Chloride (Klor-Con 10) 10 meq PO QAM-WM [facility] Zolpidem Tartrate (Ambien) 5 mg PO HSPRN PRN PRN Reason: Insomnia Vital Signs & Weight: Vital Signs Temp Pulse Resp Pulse Ox 10/11/19 07:19 92 21 H 99 10/11/19 05:00 99 F 10/11/19 04:00 99 10/11/19 01:00 99.1 F 10/10/19 23:34 95 10/10/19 23:24 91 L 10/10/19 23:15 98 20 95 10/10/19 22:00 98.5 F Weight 220 lb 7.396 oz - Physical Exam General: alert & oriented x3 HEENT: mucus membranes moist Neck: supple neck Cardiac: regular rate and rhythm, S1/S2 Lungs: decreased breath sounds, wheezes Neuro: cranial nerve 2-12 intact Abdomen: unremarkable - Labs Result Diagrams: 10/11/19 04:00 10/11/19 04:00 - Telemetry Sinus rhythms and dysrhythmias: sinus rhythm - Assessment/Plan Assessment/Plan: 1. CAD with s/p CABG on 10/10/2019 with AWHL-LAD, SVG- distal OM and SVG-prox PAD - On Metoprolol 12.5mg BID, ASA 325mg qd, and Lipitor 2. HTN - stable 3. COPD 4. HLD - on Statin 5. Tobacco abuse - per the pt, he quit since last admission MAR reviewed Pt. seen and eval. by me. I agre with the A/P by the BUYER LIAISON. He is wheezing but this is chronic. On the admission last week the nebulizer treatments help. Pulmonology saw at that time. Resume neb. treatments as needed. He does not complain of SOB this AM. RRR, No edema. bilateral wheezing. Chest tubes still in. Continue present treatment. sade
[2019-10-11] MEDS ORDERED: Polyethylene Glycol 3350 17 GM Packet PO SCH (09:00)
[2019-10-11] MEDS ORDERED: Aspirin 325 MG TAB PO SCH (09:00)
[2019-10-11] MEDS ORDERED: Prevnar 13-Val Conj/PF 0.5 ML SYRINGE IM ONE (09:00)
--- NOTE | 2019-10-11 09:06 | PRG ---
DATE OF SERVICE: 10/11/2019 SUBJECTIVE: Aden Lopes is extubated, doing well. Less pain, less shortness of breath. OBJECTIVE: VITAL SIGNS: Temperature 99, respiratory rate 16 pulse 76, blood pressure 120/86. CHEST: Minimal rhonchi. CARDIAC: Normal S1, S2. No gallop. ABDOMEN: No masses. LABORATORY DATA: Unremarkable. Lytes are normal. X-ray shows no acute infiltrates. IMPRESSION: Chronic obstructive pulmonary disease status post coronary artery bypass graft. PLAN: Continue present treatment, PT, supportive care. We will follow. Job ID: [id number] [facility]
[2019-10-11] MEDS: Sodium Chloride 0.9% 10 ML ONE ×2 (11:03→15:19)
[2019-10-11] MEDS ORDERED: Sodium Chloride 0.9% 10 ML ONE (17:56)
[2019-10-11] MEDS: Mometasone 200 MCG/Formoterol 5 MCG 120 PUFF INHALER INH SCH (18:23)
[2019-10-11] MEDS: Atorvastatin Calcium 20 MG TAB PO SCH (20:21)
[2019-10-12] MEDS: Fentanyl 100 MCG/2 ML VIAL SLOW IVP PRN ×2 (02:19→08:08)
[2019-10-12] MEDS: Ketorolac Tromethamine 30 MG/ML VIAL IVP SCH ×3 (05:37→18:14)
[2019-10-12] MEDS: HYDROcodone/Acetaminophen 5/325 mg Tablet PO PRN ×2 (05:38→16:19)
[2019-10-12] MEDS: Mometasone 200 MCG/Formoterol 5 MCG 120 PUFF INHALER INH SCH ×2 (07:07→18:29)
[2019-10-12] MEDS: Potassium Chloride 10 MEQ TAB PO SCH (08:14)
[2019-10-12] MEDS: Famotidine 20 MG TAB PO SCH ×2 (08:14→21:20)
[2019-10-12] MEDS: Furosemide 40 MG TAB PO SCH (08:14)
[2019-10-12] MEDS: Aspirin 325 mg Enteric Coated Tablet PO SCH (08:14)
[2019-10-12] MEDS: Carvedilol 6.25 MG TAB PO SCH ×2 (08:14→16:20)
--- NOTE | 2019-10-12 10:16 | PRG ---
DATE OF SERVICE: 10/12/2019 SUBJECTIVE: This morning, he is doing well except for some weakness. No shortness of breath. No cough. No chest pain. OBJECTIVE: VITAL SIGNS: Temperature 98, pulse 99, saturations 90% on room air, blood pressure 113/73. CHEST: No wheezing or crackles. CARDIAC: Normal S1 and S2. No gallops. ABDOMEN: No mass. Abdomen is soft. ASSESSMENT AND PLAN: 1. Chronic obstructive pulmonary disease, stable. 2. Status post coronary artery bypass graft, stable. 3. Disposition as per Surgery. Continue PT. Supportive Care. We will follow. Job ID: [id number]
--- NOTE | 2019-10-12 12:44 | PDOC.CPN ---
- Subjective Date: 10/12/19 Time: 08:30 Interval history: The pt seen and examined. No overnight events. No cardiac complaints. He has walked around the floor without any cardiac complaints yesterday. - Objective Allergies/Adverse Reactions: Allergies Allergy/AdvReac Type Severity Reaction Status Date / Time doxycycline Allergy Mild itching Verified 10/09/19 09:58 and burning morphine AdvReac Intermediate tachycardia, Verified 10/09/19 09:58 redness to injection site Visit Medications: Current Medications Acetaminophen (Tylenol) 650 mg PO Q6H PRN PRN Reason: Headache/Fever or Pain Hydrocodone Bitart/Acetaminophen ([place] 5/325) 1 tab PO Q4H PRN PRN Reason: Moderate Pain (4-6) Hydrocodone Bitart/Acetaminophen ([place] 5/325) 2 tab PO Q4H PRN PRN Reason: Severe Pain (7-10) Last Admin: 10/12/19 05:38 Dose: 2 tab Al Hydroxide/Mg Hydroxide (Maalox) 30 ml PO Q4H PRN PRN Reason: Indigestion Albuterol/Ipratropium (Duoneb) 3 ml NEB [id number] PRN PRN Reason: Respiratory Distress Aspirin (Ecotrin) 325 mg PO DAILY [facility] Last Admin: 10/12/19 08:14 Dose: 325 mg Atorvastatin Calcium (Lipitor) 20 mg PO [facility] Last Admin: 10/11/19 20:21 Dose: 20 mg Bisacodyl (Dulcolax) 10 mg PO Q12H PRN PRN Reason: Constipation Bisacodyl (Dulcolax) 10 mg NC Q12H PRN PRN Reason: Constipation Carvedilol (Coreg) 6.25 mg PO BID-[facility] Last Admin: 10/12/19 08:14 Dose: 6.25 mg Famotidine (Pepcid) 20 mg PO BID [facility] Last Admin: 10/12/19 08:14 Dose: 20 mg Furosemide (Lasix) 40 mg PO DAILY [facility] Last Admin: 10/12/19 08:14 Dose: 40 mg Guaifenesin/Dextromethorphan (Robitussin Dm) 15 ml PO Q4H PRN PRN Reason: Cough Ketorolac Tromethamine (Toradol) 15 mg IVP Q6HR [facility] Stop: 10/13/19 12:01 Last Admin: 10/12/19 12:19 Dose: 15 mg Mineral Oil (Fleet Mineral Oil) 133 ml NC DAILYPRN PRN PRN Reason: Constipation Mometasone Furoate/Formoterol Fumar (Dulera 200 Mcg/5 Mcg Inhaler) 2 puff INH BID-RT [facility] Last Admin: 10/12/19 07:07 Dose: 2 puff Nitroglycerin (Nitrostat) 0.4 mg SL Q5MIN PRN PRN Reason: Chest Pain Ondansetron HCl (Zofran) 4 mg IVP Q6H PRN PRN Reason: Nausea/Vomiting Potassium Chloride (Klor-Con 10) 10 meq PO QAM-WM [facility] Last Admin: 10/12/19 08:14 Dose: 10 meq Zolpidem Tartrate (Ambien) 5 mg PO HSPRN PRN PRN Reason: Insomnia Last Admin: 10/11/19 20:21 Dose: 5 mg Vital Signs & Weight: Vital Signs Temp Pulse Pulse Pulse Resp BP BP 10/12/19 12:07 84 85 119/70 113/69 10/12/19 08:36 95 91 131/73 113/73 10/12/19 07:30 98.2 F 99 18 10/12/19 07:07 99 16 10/12/19 03:13 98.3 F 99 22 H BP Pulse Ox Pulse Ox Pulse Ox 10/12/19 12:07 96 96 10/12/19 08:36 96 93 L 10/12/19 07:30 122/80 93 L 10/12/19 07:07 10/12/19 03:13 142/78 H 91 L Weight 223 lb 8 oz - Physical Exam General: alert & oriented x3 HEENT: mucus membranes moist Neck: supple neck Cardiac: regular rate and rhythm, S1/S2 Lungs: wheezes Abdomen: unremarkable Extremities: no edema Musculoskeletal: normal range of motion - Labs Result Diagrams: 10/11/19 04:00 10/11/19 04:00 - Telemetry Sinus rhythms and dysrhythmias: sinus rhythm - Assessment/Plan Assessment/Plan: 1. CAD with s/p CABG on 10/10/2019 with WAHL-LAD, SVG- distal OM and SVG-prox PAD - On Coreg 6.25mg BID, ASA 325mg qd, and Lipitor 2. HTN - stable 3. COPD 4. HLD - on Statin 5. Tobacco abuse - per the pt, he quit since last admission MAR
[2019-10-12] MEDS: Atorvastatin Calcium 20 MG TAB PO SCH (21:20)
[2019-10-13] MEDS: Ketorolac Tromethamine 30 MG/ML VIAL IVP SCH ×3 (00:33→12:00)
[2019-10-13] MEDS: Mometasone 200 MCG/Formoterol 5 MCG 120 PUFF INHALER INH SCH ×2 (06:50→19:05)
[2019-10-13] MEDS: Potassium Chloride 10 MEQ TAB PO SCH (09:00)
[2019-10-13] MEDS: Furosemide 40 MG TAB PO SCH (09:00)
[2019-10-13] MEDS: Carvedilol 6.25 MG TAB PO SCH ×2 (09:00→16:27)
[2019-10-13] MEDS: HYDROcodone/Acetaminophen 5/325 mg Tablet PO PRN ×3 (09:02→20:10)
[2019-10-13] MEDS: Aspirin 325 mg Enteric Coated Tablet PO SCH (09:02)
[2019-10-13] MEDS: Famotidine 20 MG TAB PO SCH ×2 (09:02→20:10)
[2019-10-13] MEDS: Losartan 25 MG TAB PO SCH (09:07)
[2019-10-13] MEDS ORDERED: Carvedilol 6.25 MG TAB PO SCH ×3 (09:30→17:00)
--- NOTE | 2019-10-13 11:48 | PRG ---
DATE OF SERVICE: 10/13/2019 SUBJECTIVE: A 69-year-old gentleman. This morning, he is awake, alert, and responsive. No distress. OBJECTIVE: VITAL SIGNS: Temperature is 97, pulse , respiratory rate 18, saturations on room air, and blood pressure 119/72. CHEST: No wheezing or crackles. CARDIAC: Normal S1 and S2. No gallops. ABDOMEN: No masses. ASSESSMENT: Chronic obstructive pulmonary disease, status post coronary artery bypass grafting, stable. PLAN: Pulmonary silver, hopefully disposition in the next 48 hours to home. Continue Claire. Job ID: [id number]
--- NOTE | 2019-10-13 13:59 | PDOC.CPN ---
- Subjective Date: 10/13/19 Time: 14:01 Interval history: The pt seen and examined. No overnight events. No cardiac complaints. - Objective Allergies/Adverse Reactions: Allergies Allergy/AdvReac Type Severity Reaction Status Date / Time doxycycline Allergy Mild itching Verified 10/09/19 09:58 and burning morphine AdvReac Intermediate tachycardia, Verified 10/09/19 09:58 redness to injection site Visit Medications: Current Medications Acetaminophen (Tylenol) 650 mg PO Q6H PRN PRN Reason: Headache/Fever or Pain Hydrocodone Bitart/Acetaminophen ([place] 5/325) 1 tab PO Q4H PRN PRN Reason: Moderate Pain (4-6) Hydrocodone Bitart/Acetaminophen ([place] 5/325) 2 tab PO Q4H PRN PRN Reason: Severe Pain (7-10) Last Admin: 10/13/19 09:02 Dose: 2 tab Al Hydroxide/Mg Hydroxide (Maalox) 30 ml PO Q4H PRN PRN Reason: Indigestion Albuterol/Ipratropium (Duoneb) 3 ml NEB [id number] PRN PRN Reason: Respiratory Distress Aspirin (Ecotrin) 325 mg PO DAILY [facility] Last Admin: 10/13/19 09:02 Dose: 325 mg Atorvastatin Calcium (Lipitor) 20 mg PO [facility] Last Admin: 10/12/19 21:20 Dose: 20 mg Bisacodyl (Dulcolax) 10 mg PO Q12H PRN PRN Reason: Constipation Bisacodyl (Dulcolax) 10 mg WA Q12H PRN PRN Reason: Constipation [facility] Famotidine (Pepcid) 20 mg PO BID [facility] Last Admin: 10/13/19 09:02 Dose: 20 mg Furosemide (Lasix) 40 mg PO DAILY [facility] Last Admin: 10/13/19 09:00 Dose: 40 mg Guaifenesin/Dextromethorphan (Robitussin Dm) 15 ml PO Q4H PRN PRN Reason: Cough Losartan Potassium (Cozaar) 25 mg PO DAILY [facility] Last Admin: 10/13/19 09:07 Dose: 25 mg Mineral Oil (Fleet Mineral Oil) 133 ml WA DAILYPRN PRN PRN Reason: Constipation Mometasone Furoate/Formoterol Fumar (Dulera 200 Mcg/5 Mcg Inhaler) 2 puff INH BID-RT [facility] Last Admin: 10/13/19 06:50 Dose: 2 puff Nitroglycerin (Nitrostat) 0.4 mg SL Q5MIN PRN PRN Reason: Chest Pain Ondansetron HCl (Zofran) 4 mg IVP Q6H PRN PRN Reason: Nausea/Vomiting Potassium Chloride (Klor-Con 10) 10 meq PO QAM-WM [facility] Last Admin: 10/13/19 09:00 Dose: 10 meq Zolpidem Tartrate (Ambien) 5 mg PO HSPRN PRN PRN Reason: Insomnia Last Admin: 10/11/19 20:21 Dose: 5 mg Vital Signs & Weight: Vital Signs Temp Pulse Pulse Pulse Resp BP BP 10/13/19 11:55 97.9 F 82 16 10/13/19 11:13 97 77 137/74 10/13/19 09:46 132/76 10/13/19 09:00 119/72 10/13/19 07:10 97.9 F 84 18 10/13/19 06:50 87 16 10/13/19 04:00 97.8 F 87 18 BP BP Pulse Ox Pulse Ox Pulse Ox 10/13/19 11:55 118/72 94 L 10/13/19 11:13 123/68 97 95 10/13/19 09:46 10/13/19 09:00 10/13/19 07:10 119/72 94 L 10/13/19 06:50 10/13/19 04:00 156/88 H 94 L Weight 229 lb 6.4 oz - Physical Exam General: alert & oriented x3 HEENT: mucus membranes moist Neck: supple neck Cardiac: regular rate and rhythm, S1/S2 Lungs: clear to auscultation Neuro: cranial nerve 2-12 intact - Labs Result Diagrams: 10/11/19 04:00 10/11/19 04:00 - Telemetry Sinus rhythms and dysrhythmias: sinus rhythm - Assessment/Plan Assessment/Plan: 1. CAD with s/p CABG on 10/10/2019 with WAHL-LAD, SVG- distal OM and SVG-prox PAD - On Coreg 12.5mg BID, Losartan 25mg qd, ASA 325mg qd, and Lipitor 2. HTN - stable 3. COPD - stable with RA 4. HLD - on Statin 5. Tobacco abuse - per the pt, he quit since last admission MAR reviewed Pt.doing well postop.No complaints.Ambulating without problems.I agree with the A/P by the [facility] [employer] ADVISOR.Chest:late expiratory wheezes.RRR.No edema.
[2019-10-13] MEDS: Atorvastatin Calcium 20 MG TAB PO SCH (20:10)
[2019-10-14] MEDS: HYDROcodone/Acetaminophen 5/325 mg Tablet PO PRN ×2 (03:00→09:04)
[2019-10-14] MEDS: Mometasone 200 MCG/Formoterol 5 MCG 120 PUFF INHALER INH SCH (06:59)
[2019-10-14] MEDS: Potassium Chloride 10 MEQ TAB PO SCH (09:03)
[2019-10-14] MEDS: Carvedilol 6.25 MG TAB PO SCH (09:03)
[2019-10-14] MEDS: Losartan 25 MG TAB PO SCH (09:03)
[2019-10-14] MEDS: Aspirin 325 mg Enteric Coated Tablet PO SCH (09:04)
[2019-10-14] MEDS: Furosemide 40 MG TAB PO SCH (09:04)
[2019-10-14] MEDS: Famotidine 20 MG TAB PO SCH (09:04)
--- NOTE | 2019-10-14 12:00 | PRG ---
DATE OF SERVICE: 10/14/2019 SUBJECTIVE: This morning, he desires to go home. He denies any shortness of breath, coughing, or wheezing. OBJECTIVE: VITAL SIGNS: Temperature is 97, pulse room air, blood pressure 130/76. CHEST: No wheezing, crackles. CARDIAC: Normal S1, S2. No gallops. ABDOMEN: No mass. ASSESSMENT: Chronic obstructive pulmonary disease, stable, coronary artery disease, coronary artery bypass grafting. He has a Combivent inhaler at home which he will use. He will call me in the office at any time he needs additional medication. Job ID: [id number]
[2019-10-14 13:14] VITALS: BP 124/80; TEMP 97.7
--- NOTE | 2019-10-14 14:47 | PDOC.CPN ---
- Subjective Date: 10/14/19 Time: 14:48 Interval history: The pt seen and examined. No overnight events. No cardiac complaints. - Objective Allergies/Adverse Reactions: Allergies Allergy/AdvReac Type Severity Reaction Status Date / Time doxycycline Allergy Mild itching Verified 10/09/19 09:58 and burning morphine AdvReac Intermediate tachycardia, Verified 10/09/19 09:58 redness to injection site Vital Signs & Weight: Vital Signs Temp Pulse Resp BP BP Pulse Ox 10/14/19 11:37 97.7 F 81 16 124/80 95 10/14/19 07:55 97.8 F 79 16 130/76 96 10/14/19 06:59 86 16 10/14/19 03:01 97.7 F 87 20 134/84 97 Weight 230 lb 12.8 oz - Physical Exam General: alert & oriented x3 HEENT: mucus membranes moist Neck: supple neck Cardiac: regular rate and rhythm, S1/S2 Lungs: clear to auscultation Neuro: cranial nerve 2-12 intact Extremities: no cyanosis Musculoskeletal: normal range of motion - Labs Result Diagrams: 10/11/19 04:00 10/11/19 04:00 - Telemetry Sinus rhythms and dysrhythmias: sinus rhythm - Assessment/Plan Assessment/Plan: 1. CAD with s/p CABG on 10/10/2019 with WAHL-LAD, SVG- distal OM and SVG-prox PAD - On Coreg 12.5mg BID, Losartan 25mg qd, ASA 325mg qd, and Lipitor 2. HTN - stable 3. COPD - stable with RA 4. HLD - on Statin 5. Tobacco abuse - per the pt, he quit since last admission MAR reviewed * The pt will f/u with Dr Mix' office in 2 wks.
--- NOTE | 2019-10-15 07:46 | DIS ---
DATE OF ADMISSION: 10/10/2019 DATE OF DISCHARGE: 10/14/2019 HOSPITAL COURSE: The patient was admitted following a recent hospitalization with cardiac catheterization to be admitted for coronary artery bypass grafting, which was carried out on 10/09. He underwent 3-vessel grafting to the LAD, OM, and PDA. He also underwent cystoscopy for placement of a [place] catheter. Postoperatively, he did well and will be discharged home on his admitting medicines, except for his long-acting nitroglycerin, which has been stopped. He will receive a prescription for [place] and discharge and followup instructions have been given. Job ID: [id number]
== END 2019-10-14 14:10 | disposition home or self-care (01) | DRG 236 ==
LOC: SURG A 06:00 → CCU 09:40 → 2NO 10-11 10:13
PROVIDERS: ADMIT Thoracic Surgery (Cardiothoracic Vascular Surgery); ATTEND Thoracic Surgery (Cardiothoracic Vascular Surgery)
PROC: 02100Z9 Bypass Coronary Artery, One Artery from Left Internal Mammary, Open Approach (ICD-10-PCS; principal; 2019-10-10)
PROC: 021109W Bypass Coronary Artery, Two Arteries from Aorta with Autologous Venous Tissue, Open Approach (ICD-10-PCS; 2019-10-10)
PROC: 06BQ4ZZ Excision of Left Saphenous Vein, Percutaneous Endoscopic Approach (ICD-10-PCS; 2019-10-10)
PROC: 0T9D8ZZ Drainage of Urethra, Via Natural or Artificial Opening Endoscopic (ICD-10-PCS; 2019-10-10)
PROC: 5A1221Z Performance of Cardiac Output, Continuous (ICD-10-PCS; 2019-10-10)
DX: I25.110 Atherosclerotic heart disease of native coronary artery with unstable angina pectoris (principal); N13.8 Other obstructive and reflux uropathy; K21.9 Gastro-esophageal reflux disease without esophagitis; J44.9 Chronic obstructive pulmonary disease, unspecified; E78.5 Hyperlipidemia, unspecified; I11.0 Hypertensive heart disease with heart failure; I50.9 Heart failure, unspecified; B19.20 Unspecified viral hepatitis C without hepatic coma; M06.9 Rheumatoid arthritis, unspecified; N40.1 Benign prostatic hyperplasia with lower urinary tract symptoms; M19.90 Unspecified osteoarthritis, unspecified site; Z86.73 Personal history of transient ischemic attack (TIA), and cerebral infarction without residual deficits; I25.2 Old myocardial infarction; Z87.891 Personal history of nicotine dependence; Z90.49 Acquired absence of other specified parts of digestive tract; Z98.42 Cataract extraction status, left eye; Z98.41 Cataract extraction status, right eye
CPT/HCPCS: 36415; 36416; 36430; 71045; 80048; 82805; 85025; 85610; 85730; 86850; 86900; 86901; 93005; 93010; 93798; 94002; 94150; 94640; J0690; J1642; J1644; J1815; J1885; J2001; J2250; J2370; J2440; J2704; J2720; J3010; J3370; J3475; J3480; J3490; J7070; J7620; P9045; S0017; S0028

== ENCOUNTER 2019-11-11 22:27 | Emergency (ER) | payer MEDICARE, MEDICAID ==
[2019-11-11 22:48] LABS: #Basophils 0.1 thou/uL (0.0-0.2); #Eosinphils 0.9 thou/uL (0.0-0.7); #Lymphocytes 1.8 thou/uL (1.20-3.40); #Monocytes 0.6 thou/uL (0.11-0.59); #Neutrophils 4.3 thou/uL (1.40-6.50); %Eosinophils 11.6 % (0.0-10.0); %Lymphocytes 23.6 % (21.0-51.0); %Neutrophils 55.8 % (42.0-75.0); Hemoglobin 13.5 g/dL (14.0-18.0); Mean Corpuscular HGB CONC 32.8 g/dL (32.0-36.0); Mean Corpuscular Volume 94.5 fL (78.0-98.0); Mean Platelet Volume 6.4 fL (7.4-10.4); Platelet Count 343 thou/uL (130-400); RBC Distribution Width 12.9 % (11.5-14.5); Red Blood Cell (RBC) Count 4.36 mill/uL (4.70-6.10); White Blood Cell (WBC) Count 7.7 thou/uL (4.8-10.8)
[2019-11-11 23:10] LABS: ALT (SGPT) 12 U/L (8-55); AST (SGOT) 15 U/L (5-34); Albumin 4.2 g/dL (3.4-4.8); Alkaline Phosphatase 116 U/L (40-110); Anion Gap 14 mmol/L (10-20); BUN (Urea Nitrogen) 12 mg/dL (8.4-25.7); Bilirubin, Total 0.5 mg/dL (0.2-1.2); Calc. Creatinine Clearance 0 mL/min (70-130); Calcium 9.1 mg/dL (7.8-10.44); Carbon Dioxide 23 mmol/L (23-31); Chloride 104 mmol/L (98-107); Estimated GFR-MDRD 73; Globulin 3.3 g/dL (2.4-3.5); Glucose 108 mg/dL (80-115); Potassium 4.3 mmol/L (3.5-5.1); Protein, Total 7.5 g/dL (5.8-8.1); Sodium 137 mmol/L (136-145)
[2019-11-12] MEDS ORDERED: Ketorolac Tromethamine 30 MG/ML VIAL ONE (02:00)
--- NOTE | 2019-11-12 08:08 | RAD ---
CHEST 1 VIEW: HISTORY: Chest pain. COMPARISON: Radiograph 10/11/2019. FINDINGS: Multiple midline sternotomy wires. There is scarring throughout the lungs. No pneumothorax. No eff usion. No confluent airspace consolidation. IMPRESSION: Chronic findings. No acute intrathoracic abnormality. POS: HOME
== END 2019-11-12 02:47 | disposition home or self-care (01) ==
LOC: ERS 22:27
DX: R07.9 Chest pain, unspecified (principal); R06.2 Wheezing; I25.10 Atherosclerotic heart disease of native coronary artery without angina pectoris; E78.5 Hyperlipidemia, unspecified; E78.00 Pure hypercholesterolemia, unspecified; M19.90 Unspecified osteoarthritis, unspecified site; J44.9 Chronic obstructive pulmonary disease, unspecified; I10 Essential (primary) hypertension; F17.290 Nicotine dependence, other tobacco product, uncomplicated
CPT/HCPCS: 36415; 71045; 80053; 84484; 85025; 93005; 96374; J1885; J7620

== ENCOUNTER 2020-01-10 04:30 | Observation (INO) | payer MEDICARE, MEDICAID, OTHER ==
[2020-01-10 04:48] LABS: #Basophils 0.1 thou/uL (0.0-0.2); #Eosinphils 0.2 thou/uL (0.0-0.7); #Lymphocytes 1.8 thou/uL (1.20-3.40); #Monocytes 0.6 thou/uL (0.11-0.59); #Neutrophils 4.5 thou/uL (1.40-6.50); %Eosinophils 3.1 % (0.0-10.0); %Lymphocytes 24.8 % (21.0-51.0); %Monocytes 8.3 % (0.0-10.0); %Neutrophils 62.9 % (42.0-75.0); Hemoglobin 13.6 g/dL (14.0-18.0); Mean Corpuscular HGB CONC 31.3 g/dL (32.0-36.0); Mean Corpuscular Hemoglobin 28.1 pg (27.0-31.0); Mean Corpuscular Volume 89.5 fL (78.0-98.0); Mean Platelet Volume 6.6 fL (7.4-10.4); Platelet Count 321 thou/uL (130-400); RBC Distribution Width 15.8 % (11.5-14.5); Red Blood Cell (RBC) Count 4.85 mill/uL (4.70-6.10); White Blood Cell (WBC) Count 7.1 thou/uL (4.8-10.8)
[2020-01-10] MEDS ORDERED: Fentanyl 100 MCG/2 ML VIAL ONE (04:52)
[2020-01-10] MEDS ORDERED: Ondansetron PF 4 MG/2 ML Vial ONE (04:52)
[2020-01-10 05:12] LABS: ALT (SGPT) 15 U/L (8-55); AST (SGOT) 15 U/L (5-34); Albumin 4.2 g/dL (3.4-4.8); Alkaline Phosphatase 86 U/L (40-110); Anion Gap 12 mmol/L (10-20); BUN (Urea Nitrogen) 17 mg/dL (8.4-25.7); Bilirubin, Total 0.3 mg/dL (0.2-1.2); Calc. Creatinine Clearance 0 mL/min (70-130); Calcium 9.2 mg/dL (7.8-10.44); Carbon Dioxide 26 mmol/L (23-31); Chloride 103 mmol/L (98-107); Estimated GFR-MDRD 62; Globulin 3.4 g/dL (2.4-3.5); Glucose 128 mg/dL (80-115); Potassium 3.9 mmol/L (3.5-5.1); Protein, Total 7.6 g/dL (5.8-8.1); Sodium 137 mmol/L (136-145)
[2020-01-10] MEDS ORDERED: Nitroglycerin 50 MG/250 ML BOT 250 ML ONE (05:14)
[2020-01-10] MEDS ORDERED: Nitroglycerin 2% Ointment 1 INCH/1 GM Packet ONE (06:57)
--- NOTE | 2020-01-10 07:39 | RAD ---
EXAM: Single view of the chest HISTORY: Chest pain COMPARISON: 11/11/2019 FINDINGS: Single view of the chest shows a normal sized cardiomediastinal silhouette. The patient is status post sternotomy. There is no evidence of consolidation, mass, or pleural effusion. The bones are unremarkable IMPRESSION: No evidence of acute cardiopulmonary disease
[2020-01-10 08:05] LABS: Troponin I 0.013 ng/mL (< 0.028)
[2020-01-10] MEDS ORDERED: Senokot S 8.6-50 MG TAB PO PRN (11:25)
[2020-01-10] MEDS ORDERED: Guaifenesin DM 100-10/5 ML UDCUP PO PRN (11:25)
[2020-01-10] MEDS ORDERED: Bisacodyl 10 MG SUPP PR PRN (11:25)
[2020-01-10] MEDS ORDERED: Acetaminophen 325 MG TAB PO PRN (11:25)
[2020-01-10] MEDS ORDERED: Calcium Carbonate 500 MG ChewTAB PO PRN (11:25)
[2020-01-10] MEDS ORDERED: Ondansetron PF 4 MG/2 ML Vial IVP PRN (11:25)
[2020-01-10 14:17] VITALS: BMI 30.4
--- NOTE | 2020-01-10 15:49 | HP ---
REASON FOR ADMISSION: Hypertensive urgency with chest pain. HISTORY OF PRESENT ILLNESS: The patient gives history of waking up around 3:00 in the morning with complaints of chest tightness. He checked his blood pressure and systolic pressure was more than 190. He also developed some tingling sensation all over. He has had off and on some sharp pain in his left side of his chest, which would last for a few seconds and would go away. The patient finally took 3 sublingual nitroglycerins and got some relief. He finally called EMS. He also took a tablet of clonidine, which he takes on a p.r.n. basis if his blood pressure is more than 160 at home. The patient states he is compliant with his medications, but not so much with diet as such. He has had recent CABG done on 09 of October for three-vessel disease by Dr. Selby. No complaints of cough or expectoration. No complaints of fever or exposure to COVID. There are no complaints of generalized body aches as such. 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 CURRENT MEDICATIONS: The patient states he takes, 1. Atorvastatin 20 mg p.o. at bedtime. 2. Aspirin 81 mg p.o. daily. 3. Losartan 50 mg p.o. daily. 4. Pantoprazole 40 mg daily. 5. Amitriptyline 75 mg p.o. at bedtime. 6. Atorvastatin 20 mg p.o. at bedtime. 7. Clonidine 0.1 mg p.o. twice daily p.r.n. for systolic blood pressure more than 160. 8. Metoprolol tartrate 100 mg twice daily. 9. Norvasc 5 mg daily. ALLERGIES: DOXYCYCLINE, MORPHINE. PERSONAL HISTORY: The patient continues to smoke 2 to 3 cigars a day. Does not abuse alcohol or drugs. Lives with his brother. He ambulates by himself. FAMILY HISTORY: Both parents at the age of 83. Mother had history of lymphoma and congestive heart failure. Father had history of dementia. CODE STATUS: Full. Power of attorney lawyer is his brother. REVIEW OF SYSTEMS: CONSTITUTIONAL: Negative for weight loss or gain, ability to conduct usual activities. SKIN: Negative for rash, itching. EYES: Negative for double vision, pain. ENT/MOUTH: Negative for nose bleeding, neck stiffness, pain, tenderness. CARDIOVASCULAR: Negative for palpitations, dyspnea on exertion, orthopnea. RESPIRATORY: Negative for shortness of breath, wheezing, cough, hemoptysis, fever or night sweats. GASTROINTESTINAL: Negative for poor appetite, abdominal pain, heartburn, nausea, vomiting, constipation, or diarrhea. GENITOURINARY: Negative for urgency, frequency, dysuria, nocturia. MUSCULOSKELETAL: Negative for pain, swelling. NEUROLOGIC/PSYCHIATRIC: Negative for anxiety, depression. ALLERGY/IMMUNOLOGIC: Negative for skin rash, bleeding tendency. PHYSICAL EXAMINATION: GENERAL: The patient is a 69-year-old male, who is currently not in any acute distress. VITAL SIGNS: Blood pressure 136/90, pulse 74 per minute, respiratory rate 16 per minute, temperature 98.3 degrees Fahrenheit, saturating 96% on room air. NECK: Supple. No elevated JVD. HEENT: Eyes; extraocular muscles intact. Pupils are reacting to light. Oral cavity, mucous membranes are dry. No exudates or congestion. CARDIOVASCULAR SYSTEM: S1 and S2 heard. Regular rhythm. RESPIRATORY SYSTEM: No wheezes or rales. There is rhonchi plus bilaterally. ABDOMEN: Soft. Bowel sounds heard. No tenderness, rigidity, or guarding. EXTREMITIES: 1+ peripheral edema. No calf tenderness. VASCULAR SYSTEM: Peripheral pulses are 1+ bilaterally. No ischemic ulcerations or gangrene. CENTRAL NERVOUS SYSTEM: No gross focal motor deficits noted. The patient is alert, awake, and oriented well. PSYCHIATRIC: The patient's mood is euthymic. No hallucinations or delusions. LABORATORY DATA: White count of 7, H and H 13 and 43, platelet count is 321, MCV is 89 with 62% neutrophils. Electrolytes are stable. BUN 17, creatinine 1.1, serum glucose 128. Liver enzymes within normal limits. Troponin I x3 is negative. Albumin is 4.2. Chest x-ray done shows no acute cardiopulmonary abnormalities. EKG done shows normal sinus rhythm at 71 beats per minute. No gross ST-T wave changes. CLINICAL IMPRESSION AND PLAN: The patient will be under observation for chest pain with hypertensive urgency at home. The patient is known to be compliant with medication, but not so much with his diet. He was counseled regarding the same. We will place him on Lasix in addition to home doses of metoprolol and Cozaar. He was also counseled with regard to complete cessation of tobacco products. We will also follow up his COVID-19 PCR results. He is currently chest pain free and hemodynamically stable. Job ID: [id number]
[2020-01-10] MEDS: Metoprolol Tartrate 100 MG TAB PO SCH (20:12)
[2020-01-10] MEDS: Famotidine 20 MG TAB PO SCH (20:12)
[2020-01-10] MEDS ORDERED: Atorvastatin Calcium 20 MG TAB PO SCH (21:00)
[2020-01-10] MEDS ORDERED: Zolpidem Tartrate 5 MG TAB PO SCH (21:00)
[2020-01-11 04:32] LABS: #Eosinphils 0.3 thou/uL (0.0-0.7); #Lymphocytes 1.4 thou/uL (1.20-3.40); #Monocytes 0.5 thou/uL (0.11-0.59); #Neutrophils 3.8 thou/uL (1.40-6.50); %Basophils 0.5 % (0.0-1.0); %Eosinophils 4.4 % (0.0-10.0); %Lymphocytes 22.8 % (21.0-51.0); %Monocytes 8.6 % (0.0-10.0); %Neutrophils 63.7 % (42.0-75.0); Hemoglobin 14.1 g/dL (14.0-18.0); Mean Corpuscular HGB CONC 32.7 g/dL (32.0-36.0); Mean Corpuscular Hemoglobin 29.8 pg (27.0-31.0); Mean Platelet Volume 6.7 fL (7.4-10.4); Platelet Count 275 thou/uL (130-400); RBC Distribution Width 15.7 % (11.5-14.5); Red Blood Cell (RBC) Count 4.74 mill/uL (4.70-6.10)
[2020-01-11 04:53] LABS: Anion Gap 13 mmol/L (10-20); BUN (Urea Nitrogen) 14 mg/dL (8.4-25.7); Calc. Creatinine Clearance 136 mL/min (70-130); Calcium 8.9 mg/dL (7.8-10.44); Carbon Dioxide 22 mmol/L (23-31); Chloride 104 mmol/L (98-107); Estimated GFR-MDRD Greater than 90; Glucose 86 mg/dL (80-115); Potassium 4.1 mmol/L (3.5-5.1); Sodium 135 mmol/L (136-145)
[2020-01-11 07:56] VITALS: TEMP 97.8
[2020-01-11] MEDS ORDERED: Potassium Chloride 10 MEQ TAB PO SCH (08:00)
[2020-01-11] MEDS ORDERED: Aspirin 81 mg Enteric Coated Tablet PO SCH (09:00)
[2020-01-11] MEDS ORDERED: Losartan 25 MG TAB PO SCH (09:00)
[2020-01-11] MEDS ORDERED: Furosemide 40 MG TAB PO SCH (09:00)
[2020-01-11] MEDS: Famotidine 20 MG TAB PO SCH (09:11)
[2020-01-11] MEDS: Enoxaparin Sodium 40 MG/0.4 ML SYRINGE SC SCH ×2 (09:11→10:23)
[2020-01-11] MEDS: Metoprolol Tartrate 100 MG TAB PO SCH (09:18)
[2020-01-11 11:46] LABS: SARS-CoV-2 MS2 Positive; SARS-CoV-2 N Gene Negative; SARS-CoV-2 S Gene Negative; SARS-CoV-2 by NAA Not Detected (NotDetected); SARS-CoV-2 orf1ab Negative
[2020-01-11 12:08] VITALS: BP 140/84
--- NOTE | 2020-01-11 17:15 | DIS ---
DATE OF ADMISSION: 01/10/2020 DATE OF DISCHARGE: 01/11/2020 DISCHARGE DISPOSITION: Home. PRIMARY DISCHARGE DIAGNOSES: Chest pain, which is noncardiac; hypertensive urgency, resolved. SECONDARY DISCHARGE DIAGNOSES: History of coronary artery bypass grafting for three-vessel disease done on 10/10/2019, chronic obstructive pulmonary disease, hypertension, tobacco abuse, dyslipidemia, history of cerebrovascular accident with no residual paralysis. PROCEDURES DONE DURING HOSPITALIZATION: Chest x-ray done showed no acute cardiopulmonary disease. H and H 14 and 43, platelet count 275, white count of 6, MCV 91. Troponin x3 negative. BUN 14, creatinine 0.7. COVID-19 PCR was negative. DISCHARGE PLAN: The patient will check his blood pressure and pulse twice daily and record for 10 days to follow up with Dr. Coffman, his primary care physician. DISCHARGE MEDICATIONS: 1. Elavil 75 mg p.o. at bedtime. 2. Tylenol No.3 twice daily p.r.n. 3. Norvasc 5 mg daily. 4. Atorvastatin 20 mg p.o. at bedtime. 5. Vitamin D3 2000 units p.o. daily. 6. Vitamin B12 2500 mcg p.o. daily. 7. Cozaar 50 mg daily. 8. Protonix 40 mg p.o. at bedtime. 9. Aspirin 81 mg p.o. daily. 10. Lasix 40 mg p.o. daily. 11. K-Dur 10 mEq p.o. daily. 12. Metoprolol 50 mg twice daily. ALLERGIES: DOXYCYCLINE AND MORPHINE. BRIEF COURSE DURING HOSPITALIZATION: The patient initially got admitted with complaints of shortness of breath. He checked his blood pressure at home and his systolic blood pressure was more than 160. The patient was initially placed on nitroglycerin drip in ER. His nitroglycerin was tapered and discontinued in the ER itself. The patient said he was compliant with medications, but not so much with diet. He was counseled with regard to medication compliance and dietary compliance. He has had CABG done for three-vessel disease in September of this year. The patient remained hemodynamically stable. The patient was on metoprolol 100 mg twice daily, which was escalated from last 2 weeks. On telemetry, he was found to get bradycardic with heart rates dropping into 40s. In view of this, he has been asked to take metoprolol at 50 mg twice daily. Lasix 40 mg daily and K-Dur were added to his medication regimen. His hypertension is currently stable. He has remained hemodynamically stable ambulating and eating well prior to discharge. Please note I have seen and examined the patient on the day of discharge. Job ID: [id number]
== END 2020-01-11 12:48 | disposition home or self-care (01) ==
LOC: ERS 04:30 → ERHOLD 05:48 → INTOOBSV 05:48 → 2NO 14:32
PROVIDERS: ADMIT Family Medicine; ATTEND Family Medicine
DX: R07.89 Other chest pain (principal); I16.0 Hypertensive urgency; I10 Essential (primary) hypertension; I25.10 Atherosclerotic heart disease of native coronary artery without angina pectoris; J44.9 Chronic obstructive pulmonary disease, unspecified; F17.210 Nicotine dependence, cigarettes, uncomplicated; F17.290 Nicotine dependence, other tobacco product, uncomplicated; E78.5 Hyperlipidemia, unspecified; I25.2 Old myocardial infarction; K21.9 Gastro-esophageal reflux disease without esophagitis; R06.02 Shortness of breath; Z20.828 Contact with and (suspected) exposure to other viral communicable diseases; Z86.73 Personal history of transient ischemic attack (TIA), and cerebral infarction without residual deficits; Z79.82 Long term (current) use of aspirin; Z79.899 Other long term (current) drug therapy; Z88.1 Allergy status to other antibiotic agents; Z88.5 Allergy status to narcotic agent; Z95.1 Presence of aortocoronary bypass graft
CPT/HCPCS: 71045; 80048; 80053; 84484 ×2; 85025 ×2; 93005; 96365; 96366; 96375; 99285; G0378 ×3; U0003; 36415; 87635; J1650; J2405; J3010

== ENCOUNTER 2020-02-19 23:09 | Observation (INO) | payer MEDICARE, MEDICAID, OTHER ==
[~2020-02-19 23:09] MED LIST changes: -ISOVUE-370 76%-LOCM 1 ML ONE; +Iopamidol-370 76% 500 ML 1 ML ONE
--- NOTE | 2020-02-19 23:24 | CT ---
Exam: Head CT without contrast HISTORY: Stroke. Level 1. Left-sided deficit. Tingling. Worsening weakness. History of a left-sided w eakness. COMPARISON: 10/02/2019 FINDINGS: Hemorrhage: No intraparenchymal hemorrhage or extra-axial hematoma. Brain parenchyma: Cortical celeste-white matter differentiation is preserved. No mass effect or midline shift. Basilar cisterns are patent. Ventricular system: Ventricles and sulci are patent and symmetric. Calvarium: Intact. Sinuses and mastoid air cells: Adequate aeration of the sinuses. Previous internal fixation of a left maxillary fracture. IMPRESSION: 1. No acute intracranial process. 2. Results of study discussed with Dr. Du 02/19/2020 at 11:21 PM Code CR
[2020-02-19 23:34] LABS: #Basophils 0.1 thou/uL (0.0-0.2); #Eosinphils 0.2 thou/uL (0.0-0.7); #Lymphocytes 1.7 thou/uL (1.20-3.40); #Monocytes 0.6 thou/uL (0.11-0.59); #Neutrophils 4.5 thou/uL (1.40-6.50); %Basophils 1.1 % (0.0-1.0); %Eosinophils 2.4 % (0.0-10.0); %Lymphocytes 23.5 % (21.0-51.0); %Monocytes 8.4 % (0.0-10.0); %Neutrophils 64.6 % (42.0-75.0); Hemoglobin 15.1 g/dL (14.0-18.0); Mean Corpuscular HGB CONC 34.6 g/dL (32.0-36.0); Mean Corpuscular Volume 89.5 fL (78.0-98.0); Mean Platelet Volume 6.8 fL (7.4-10.4); Platelet Count 270 thou/uL (130-400); RBC Distribution Width 17.4 % (11.5-14.5); Red Blood Cell (RBC) Count 4.89 mill/uL (4.70-6.10)
[2020-02-19 23:41] LABS: INR-International Normal Ratio 1.1; PTT 28.7 sec (22.9-36.1); Prothrombin Time 13.9 sec (12.0-14.7)
[2020-02-19 23:46] LABS: ALT (SGPT) 13 U/L (8-55); AST (SGOT) 16 U/L (5-34); Albumin 4.3 g/dL (3.4-4.8); Alkaline Phosphatase 90 U/L (40-110); Anion Gap 17 mmol/L (10-20); BUN (Urea Nitrogen) 21 mg/dL (8.4-25.7); Bilirubin, Total 0.4 mg/dL (0.2-1.2); CK (CPK) 78 U/L (30-200); Calc. Creatinine Clearance 0 mL/min (70-130); Calcium 9.2 mg/dL (7.8-10.44); Carbon Dioxide 20 mmol/L (23-31); Chloride 105 mmol/L (98-107); Estimated GFR-MDRD 60; Globulin 3.2 g/dL (2.4-3.5); Glucose 102 mg/dL (80-115); Potassium 3.8 mmol/L (3.5-5.1); Protein, Total 7.5 g/dL (5.8-8.1); Sodium 138 mmol/L (136-145)
--- NOTE | 2020-02-20 00:37 | PDOC.HHP ---
Hospitalist HPI - History of Present Illness Left sided weakness History of Present Illness: PCP: Dr. Coffman The patient is a 69-year-old male with a past medical history significant for CVA (received TPA 2012 with left-sided residual deficit), CABG x3 (09/2019), CHF , COPD, HTN, HLD that presents to the ER for the above complaint. The patient reports having "numbness and tingling all over" for the past 24 hours. Reports this evening that his symptoms localized and intensified to the left side of his body at approximately 1930. States that his left leg began to feel "very heavy" and he had tingling on the left side of his face. His zrghdl-gd-yzu, who lives with him, noted slurring of speech. He denies any headache, vision changes, fever or neck stiffness. Denies any recent trauma or falls. Denies any associated chest pain, heart palpitations, lower extremity swelling. Denies shortness of breath or wheezing. Denies abdominal pain, nausea, vomiting , change in stools. Denies any urinary symptoms. He had a lofxkq-ml-gzw drive him to the ER in a personal vehicle. ED Course: On arrival, the patient presented with a normal blood pressure, normal pulse, normal respirations, afebrile. Patient NIH score 5. CT brain and CTA neck and head negative for any acute process. CMP and CBC unremarkable. Patient symptoms began to improve spontaneously. Therefore he was not a TPA candidate. VITAL SIGNS TueFeb 19, 2020 23:12 ANNIE Duran Victoria BP: 147/82, Pulse: 77, Resp: 20, Temp: 97.9 (Oral), Pain: 0, O2 sat: 97 on ( Room Air), Time: 02/19/2020 23:12. VITAL SIGNS TueFeb 19, 2020 23:54 ANNIE Burns Julia BP: 144/74, Pulse: 77, Resp: 20, Pain: 0, O2 sat: 96 on (Room Air), Time: 2019 23:54. Medication administration: None Hospitalist ROS - Review of Systems Constitutional: denies: fever, chills Respiratory: denies: cough, shortness of breath, hemoptysis Cardiovascular: denies: chest pain, palpitations, edema, light headedness Gastrointestinal: denies: nausea, vomiting, abdominal pain, diarrhea, constipation, melena, hematochezia Genitourinary: denies: dysuria, frequency Neurological: reports: weakness (Left-sided), numbness (Left-sided), change in speech. denies: confusion All other systems reviewed; all pertinent +/- noted in HPI/Subj - Medication Medications: cloNIDine HCl TueFeb 19, 2020 23:42 ANNIE Burns Julia tablet : Strength - 0.1 mg : ORAL Patient Dose: 0.1 mg Oral 2 times a day.for systolic >160. nitroglycerin sublingual TueFeb 19, 2020 23:42 ANNIE Burns Julia TABLET, SUBLINGUAL : Strength - 0.4 mg : SUBLINGUAL Patient Dose: 1 tab(s) Sublingual As Needed. atorvastatin TueFeb 19, 2020 23:42 ANNIE Burns Julia TABLET : Strength - 20 mg : ORAL Patient Dose: 20 mg Oral once a day (at bedtime). amitriptyline oral TueFeb 19, 2020 23:42 ANNIE Burns Julia TABLET : Strength - 100 mg : ORAL Patient Dose: 75 mg Oral once a day (at bedtime). eszopiclone TueFeb 19, 2020 23:42 ANNIE Burns Julia tablet : Strength - 3 mg : ORAL Patient Dose: 1 tab(s) Oral once a day (at bedtime). pantoprazole oral TueFeb 19, 2020 23:42 ANNIE Burns Julia tablet,delayed release (DR/EC) : Strength - 40 mg : ORAL Patient Dose: 1 tab(s) Oral once a day (at bedtime). losartan TueFeb 19, 2020 23:42 ANNIE Burns Julia tablet : Strength - 25 mg : ORAL Patient Dose: 50 mg Oral once a day. aspirin oral TueFeb 19, 2020 23:42 ANNIE Burns Julia tablet : Strength - 81 mg : ORAL Patient Dose: 81 mg Oral once a day. amLODIPine TueFeb 19, 2020 23:42 ANNIE Burns Julia tablet : Strength - 5 mg : ORAL Patient Dose: 5 mg Oral once a day (in the morning). metoprolol tartrate oral TueFeb 19, 2020 23:42 ANNEI Burns Julia tablet : Strength - 100 mg : ORAL Patient Dose: 100 mg Oral 2 times a day (before meals). acetaminophen-codeine TueFeb 19, 2020 23:42 ANNIE Burns Julia tablet : Strength - 300 mg-30 mg : ORAL Patient Dose: 1 tab(s) Oral every 12 hours PRN. Vitamin D3 TueFeb 19, 2020 23:43 ANNIE Burns Julia tablet : Strength - 5,000 unit : ORAL Patient Dose: 5000 units Oral once a day. Vitamin B-12 sublingual TueFeb 19, 2020 23:43 ANNIE Burns Julia tablet, sublingual : Strength - 2,500 mcg : SUBLINGUAL Patient Dose: 1 tab(s) Oral once a day Allergies: doxycycline hyclate, morphine (bulk) Hospitalist History - Past Medical History Source: patient, RN notes reviewed Hepatobiliary: reports: Hep A/B/C (Hep C) Musculoskeletal: reports: Osteoarthritis Other Medical History: MEDICAL HISTORY cardiac history, myocardial infarction, history of hyperlipidemia, CEREBELLAR INFARCTION-TIA, Notes: PT RECIEVED TPA IN 2012, , congestive heart failure, gastroesophageal reflux disease, Hepatitis C, treated "that's under control, I think.", , osteoarthritis, Past medical history includes neurological disease, ischemic cerebral vascular accident 02/2013, chronic obstructive pulmonary disease, cardiac history,long QT syndrome, medical history includes history of hypertension. MALE SURGICAL HISTORY HEART CATH, facial reconstruction 1999, Surgical history of tonsillectomy, Surgical history of cholecystectomy. testicle X1, prostate. Cataract surgery, bilaterally, CABG. PSYCHIATRIC HISTORY No previous psychiatric history. SOCIAL HISTORY Patient drinks socially, twice a month, Patient currently uses tobacco, smokes 3 cigars per day. Patient drinks socially, once a month, Patient currently uses tobacco, Smokes cigars, 2-3a day, Patient drinks socially, once a month, Patient is a former drug user, abused heroin, Drug history notes: "BACK IN 1960- 1970S",. FAMILY HISTORY Family history is non-contributory to this case. Family history is non- contributory to this case. - Past Surgical History Past Surgical History: reports: Cholecystectomy, Cataract Removal (bilateral), Tonsillectomy, Other (Heart cath [address] Cartwright Testicle removed secondary to cyst Prostate) - Social History Smoking Status: Current some day smoker (1/2 ppd) Alcohol: reports: Occassional Drugs: reports: Other (MJ and heroin in 1960s-1970s) Occupation: lives in [place] with brother, disabled - Exam General Appearance: NAD, awake alert Eye: PERRL, anicteric sclera ENT: normocephalic atraumatic, dry oral mucosa Neck: supple, symmetric Heart: RRR, no murmur, no gallops, no rubs, normal peripheral pulses Respiratory: CTAB, no wheezes, no rales, no ronchi, normal chest expansion, no tachypnea Gastrointestinal: soft, non-tender, normal bowel sounds, no bruit, no guarding, no rigidity, distended Extremities: no cyanosis, no edema Skin: no rashes Neurological: cranial nerve grossly intact Neurological - other findings: LUE/LLE numbness - baseline per patient; NIH 0, GCS 15 Musculoskeletal: normal tone, normal strength Psychiatric: normal affect, A&O x 3 Hospitalist Results - Labs Result Diagrams: 02/19/20 23:23 02/19/20 23:23 Lab results: WBC 7.0 thou/uL (4.8-10.8) 02/19/20 23:23 Hgb 15.1 g/dL (14.0-18.0) 02/19/20 23:23 Hct 43.7 % (42.0-52.0) 02/19/20 23:23 MCV 89.5 fL (78.0-98.0) 02/19/20 23:23 Plt Count 270 thou/uL (130-400) 02/19/20 23:23 Neutrophils % 64.6 % (42.0-75.0) 02/19/20 23:23 Sodium 138 mmol/L (136-145) 02/19/20 23:23 Potassium 3.8 mmol/L (3.5-5.1) 02/19/20 23:23 Chloride 105 mmol/L (98-107) 02/19/20 23:23 Carbon Dioxide 20 mmol/L (23-31) L 02/19/20 23:23 BUN 21 mg/dL (8.4-25.7) 02/19/20 23:23 Creatinine 1.21 mg/dL (0.7-1.3) 02/19/20 23:23 Glucose 102 mg/dL (80-115) 02/19/20 23:23 Calcium 9.2 mg/dL (7.8-10.44) 02/19/20 23:23 Total Bilirubin 0.4 mg/dL (0.2-1.2) 02/19/20 23:23 AST 16 U/L (5-34) 02/19/20 23:23 ALT 13 U/L (8-55) 02/19/20 23:23 Alkaline Phosphatase 90 U/L (40-110) 02/19/20 23:23 Creatine Kinase 78 U/L (30-200) 02/19/20 23:23 Troponin I Less than 0.010 ng/mL (< 0.028) 02/19/20 23:23 Serum Total Protein 7.5 g/dL (5.8-8.1) 02/19/20 23:23 Albumin 4.3 g/dL (3.4-4.8) 02/19/20 23:23 - Radiology Interpretation CT scan - head Status: report reviewed by me Other Status: report reviewed by me Additional Comment: CTA head and neck Hospitalist H&P A/P - Problem (1) TIA (transient ischemic attack) Code(s): G45.9 - TRANSIENT CEREBRAL ISCHEMIC ATTACK, UNSPECIFIED Status: Acute Assessment and Plan: Admit to stroke floor, observation status. Expected length of stay less than 2 midnights. Patient presented stable vital signs, NIH 5 (left-sided deficits). CT brain and CTA head/neck negative for acute process. Symptoms improved spontaneously, not a candidate for TPA. We will order MRI brain. Patient had recent echocardiogram in September 2019. Consult neurology and physical therapy. Give full dose aspirin. Check TSH and UA and get baseline CXR. Permissive hypertension and neuro checks. (2) S/P CABG x 3 Code(s): Z95.1 - PRESENCE OF AORTOCORONARY BYPASS GRAFT Status: Chronic Assessment and Plan: Had CABG with Dr. Selby in September 2019. Patient reports at that time his home dose of Plavix was discontinued. And he was started on a baby aspirin. (3) CHF (congestive heart failure) Code(s): I50.9 - HEART FAILURE, UNSPECIFIED Status: Chronic Assessment and Plan: Stable. Echocardiogram in September 2019 showed EF 55 to 60% with 1/3 diastolic dysfunction. We will restart patient's metoprolol home meds. (4) COPD (chronic obstructive pulmonary disease) Status: Chronic Assessment and Plan: Stable. Patient reports taking Combivent at home. Will restart home medication when reconciled by nursing. - Plan Plan: Consult PT. SCDs for DVT prophylaxis. Protonix for GI prophylaxis. Full code. Young ARAMBULA is his brother, Tone Lopes at [phone] Benavidez.
[2020-02-20] MEDS ORDERED: hydrALAZINE 20 MG/ML VIAL SLOW IVP PRN (01:37)
[2020-02-20] MEDS ORDERED: Labetalol HCl 100 MG/20 ML VIAL SLOW IVP PRN (01:37)
[2020-02-20] MEDS ORDERED: Acetaminophen 650 MG Suppository PR PRN (01:38)
[2020-02-20] MEDS ORDERED: Ondansetron PF 4 MG/2 ML Vial IVP PRN (01:38)
[2020-02-20] MEDS ORDERED: Ondansetron ODT 4 MG TAB PO PRN (01:38)
[2020-02-20] MEDS ORDERED: Calcium Carbonate 500 MG ChewTAB PO PRN (01:38)
[2020-02-20] MEDS ORDERED: Acetaminophen 325 MG TAB PO PRN (01:38)
[2020-02-20] MEDS ORDERED: Senokot S 8.6-50 MG TAB PO PRN (01:38)
[2020-02-20] MEDS ORDERED: Aspirin 325 mg Enteric Coated Tablet PO SCH (01:45)
[2020-02-20 02:00] LABS: Bacteria/HPF None Seen HPF (None Seen); Bilirubin Negative (Negative); Blood, Urine Negative (Negative); Clarity Clear (Clear); Glucose, Urine (Dipstick) Normal (Negative); Ketone, Urine Negative (Negative); Leukocyte Negative Leu/uL (Negative); Nitrite Negative (Negative); Protein, Urine (Dipstick) Negative (Neg-Trace); RBC/HPF None Seen HPF (0-3); Squamous Epithelial None Seen HPF (0-3); Urobilinogen Normal mg/dL (Less than 2); WBC/HPF 0-3 HPF (0-3); pH, Urine 6.5 (5.0-9.0)
[2020-02-20 02:45] VITALS: BMI 29.6
[2020-02-20 05:07] LABS: #Basophils 0.1 thou/uL (0.0-0.2); #Eosinphils 0.2 thou/uL (0.0-0.7); #Lymphocytes 1.5 thou/uL (1.20-3.40); #Monocytes 0.4 thou/uL (0.11-0.59); #Neutrophils 2.9 thou/uL (1.40-6.50); %Basophils 1.3 % (0.0-1.0); %Eosinophils 3.2 % (0.0-10.0); %Lymphocytes 29.9 % (21.0-51.0); %Monocytes 8.5 % (0.0-10.0); %Neutrophils 57.1 % (42.0-75.0); Hemoglobin 13.8 g/dL (14.0-18.0); Mean Corpuscular Hemoglobin 29.6 pg (27.0-31.0); Mean Corpuscular Volume 89.6 fL (78.0-98.0); Platelet Count 233 thou/uL (130-400); RBC Distribution Width 17.3 % (11.5-14.5); Red Blood Cell (RBC) Count 4.67 mill/uL (4.70-6.10); White Blood Cell (WBC) Count 5.2 thou/uL (4.8-10.8)
[2020-02-20 05:18] LABS: Anion Gap 14 mmol/L (10-20); BUN (Urea Nitrogen) 18 mg/dL (8.4-25.7); Calc. Creatinine Clearance 100 mL/min (70-130); Calcium 8.5 mg/dL (7.8-10.44); Carbon Dioxide 22 mmol/L (23-31); Cardiac Risk 4.1 (Less than 4.5); Chloride 106 mmol/L (98-107); Cholesterol 114 mg/dl (< 200 Desired); Estimated GFR-MDRD 75; Glucose 127 mg/dL (80-115); HDL Cholesterol 28 mg/dL (>60 Neg Risk); LDL Cholesterol, Calculated 37 mg/dL; Potassium 3.7 mmol/L (3.5-5.1); Sodium 138 mmol/L (136-145); Triglycerides 243 mg/dL (Less than 150)
--- NOTE | 2020-02-20 07:44 | RAD ---
EXAM: CHEST ONE VIEW HISTORY: Baseline evaluation. History of COPD. Patient admitted one day ago for left-sided weakness/stroke sym ptoms. COMPARISON: 01/10/2020 FINDINGS: Postoperative changes related to CABG are again noted. Cardiac silhouette and pulmonary vasculature a re within normal limits. Linear scarring is seen in the upper lung zones bilaterally. Minimal atelectasis at the left lung base. No consolidation or pleural fluid is seen. Vascular calcifications are again seen in the thoracic aorta. No significant interval change from prior study. IMPRESSION: No acute cardiopulmonary process.
[2020-02-20] MEDS ORDERED: Nitroglycerin 0.4 MG TAB 1 EACH SL PRN (08:50)
[2020-02-20] MEDS ORDERED: Acetaminophen/Codeine 30-300mg Tablet PO PRN (08:50)
[2020-02-20] MEDS ORDERED: Multivitamin W/ Minerals 1 TAB PO SCH (09:00)
[2020-02-20] MEDS ORDERED: Cyanocobalamin (Vitamin B-12) 1,000 MCG TAB PO SCH (09:00)
[2020-02-20] MEDS ORDERED: Metoprolol Tartrate 25 MG TAB PO SCH (09:00)
[2020-02-20] MEDS ORDERED: Pantoprazole 40 MG VIAL IVP SCH (09:00)
[2020-02-20] MEDS ORDERED: Cholecalciferol 1,000 UNITS (25 MCG) TAB PO SCH (09:00)
[2020-02-20] MEDS ORDERED: Aspirin 81 mg Enteric Coated Tablet PO SCH (09:00)
--- NOTE | 2020-02-20 09:46 | MRI ---
MRI BRAIN WITHOUT CONTRAST: HISTORY: Stroke versus transient ischemic attack. Left-sided weakness. COMPARISON: CT brain from prior day. FINDINGS: On the diffusion weighted sequence there are no abnormal foci diffusion restriction. This was confir med on the ADC map. On the susceptibility weighted imaging sequence, no abnormal foci of hemorrhage. The [place] of Willi s flow voids are maintained. The dural venous sinuses are patent. No midline shift. No mass effect . Mild micro intrahepatic changes. Globes are intact. Mucosal thickening of the left sphenoid sinus. The corpus callosum is normal. The marrow signal of the calvarium and clivus is maintained. IMPRESSION: 1. No acute hemorrhage or infarct. 2. Mild chronic microangiopathic changes. POS: AH
--- NOTE | 2020-02-20 10:00 | CT ---
EXAM: CT ANGIOGRAM OF THE HEAD AND NECK INDICATION: Stroke. Left-sided weakness. COMPARISON: 10/22/2017 TECHNIQUE: CT angiogram of the head and neck are performed in the axial plane. Three-dimensional refo rmatted images are submitted for interpretation. FINDINGS: CTA OF THE HEAD WITH AND WITHOUT CONTRAST: POSTCONTRAST CT OF BRAIN: Pathologic enhancement: No pathologic enhancement the brain. Postcontrast soft tissue neck CT: Aerodigestive tract:Patent. No mucosal abnormality. Midline fatty raphae of the tongue is preserved. Epiglottis has a normal caliber. Preepiglottic fat is preserved. Sinuses: Mild mucosal thickening of the paranasal sinuses. Orbits: Bilateral ocular lens implants are appropriately located. Both globes are intact. Retrobulbar fat is preserved. Symmetric attenuation of the optic nerves and ocular rectus muscles. Salivary glands:Symmetric attenuation Thyroid gland: Appropriate attenuation Lymph nodes: No evidence of lymphadenopathy by size criteria. Paraspinal muscles: Symmetric attenuation of the sternocleidomastoid muscles. Appropriate attenuation of the paraspinal muscles. Cervical spine:Vertebral body height is maintained. No fracture. Varying degrees of central canal dorian nosis and neural foraminal narrowing due to degenerative change.. Limited evaluation by technique. Upper mediastinum and lung apices: No acute abnormality. Stable chronic changes including scarring an d pleural thickening of the lung apices. CTA OF THE NECK WITH CONTRAST: Aorta: Appropriate enhancement and luminal diameter of the visualized aortic arch Right carotid artery: Appropriate enhancement and luminal diameter the origin the carotid artery, inn ominate artery, common carotid artery, carotid bifurcation and internal carotid artery. There is atherosclerosis in the carotid bifurcation and proximal internal carotid artery. No significant steno sis based upon NASCET criteria. Left carotid: Appropriate enhancement and luminal diameter of the origin of the left carotid artery, common carotid artery, carotid bifurcation and internal carotid artery. There is atherosclerosis in the left carotid bifurcation and proximal internal carotid artery. No significant stenosis based upon NASCET criteria. Subclavian arteries:Symmetric and patent Vertebral arteries:Patent throughout their course in the neck. Dominant left vertebral artery. CTA OF THE BRAIN: Intracranial internal carotid arteries:Appropriate enhancement and luminal diameter. Anterior circulation: Appropriate enhancement and luminal diameter of the A1 segment, proximal A2 seg ments, M1 segments and proximal MCA branches. Intracranial vertebral arteries: Atherosclerosis. Short segment severe narrowing of the distal intrac ranial right vertebral artery. Limited evaluation of bilateral PICA artery origins. Posterior circulation: Basilar artery has appropriate enhancement and luminal diameter. Bilateral pos terior cerebral arteries are patent. IMPRESSION: No hemodynamically significant stenosis, occlusion or aneurysmal formation. Results study discussed with Dr. Du 02/19/2020 at 11:41 PM Code CR Transcribed Date/Time: 02/20/2020 10:00 AM
[2020-02-20 11:26] VITALS: TEMP 97.5
[2020-02-20 12:57] LABS: SARS-CoV-2 MS2 Positive; SARS-CoV-2 N Gene Negative; SARS-CoV-2 S Gene Negative; SARS-CoV-2 by NAA Not Detected (NotDetected); SARS-CoV-2 orf1ab Negative
[2020-02-20 15:18] VITALS: BP 133/70
[2020-02-20] MEDS ORDERED: Albuterol Sulfate 1.25 MG/3 ML NEB NEB SCH (21:00)
[2020-02-20] MEDS ORDERED: Atorvastatin Calcium 20 MG TAB PO SCH (21:00)
[2020-02-20] MEDS ORDERED: Atorvastatin Calcium 40 MG TAB PO SCH (21:00)
[2020-02-20] MEDS ORDERED: Zolpidem Tartrate 5 MG TAB PO SCH (21:00)
--- NOTE | 2020-02-20 22:40 | CON ---
DATE OF CONSULTATION: 02/20/2020 CONSULTING PHYSICIAN: Hospitalist Service. IMPRESSION: 1. Transient ischemic attack. 2. Aspirin failure. PLAN: 1. Add Plavix. 2. Office followup. HISTORY OF PRESENT ILLNESS: Mr. Lopes is a 69-year-old male with a past history of hypertension, prior stroke, coronary artery disease, and hyperlipidemia. He presented with a left leg more than arm weakness. His symptoms resolved spontaneously. He was taking aspirin daily as well as a statin. He had a CT angiogram and CT of the brain, both of which were normal. His MRI did not reveal any evidence of an ischemic event. His lab work was all in normal range. His cholesterol ratio was 4.1. In 2013, he had a stroke on the same side that resulted in administration of tPA. He made a good recovery other than some residual numbness and slight heaviness in the left foot. ALLERGIES: DOXYCYCLINE, MORPHINE. MEDICATIONS: List was reviewed. SOCIAL HISTORY: He drinks occasionally. He smokes half pack of cigarettes per day. FAMILY HISTORY: Noncontributory. REVIEW OF SYSTEMS: Ten-system review of systems is otherwise negative. PHYSICAL EXAMINATION: VITAL SIGNS: Blood pressure 147/82, temperature 97.8, respirations 20, and pulse 77. HEENT: Pupils are equal and reactive. Conjunctivae clear. Oropharynx clear. NECK: Supple. No lymphadenopathy. EXTREMITIES: No cyanosis or edema. SKIN: Clear. ABDOMEN: Soft and nontender. NEUROLOGIC: Showed to be alert and appropriate. His speech is fluent and clear. His cranial nerve exam showed diminished light touch on the left lower face. Motor exam showed good aviation consultant strength bilaterally. There was no fix or drift. There was no dysmetria on pbbapq-vj-lzam testing. He can walk independently. LABORATORY DATA: EKG shows a sinus rhythm. SUMMARY: This is a 69-year-old man with a past history of stroke and recurrent TIA. I would add Plavix for the intermediate card tender. I would be happy to follow up with him in the outpatient setting as well. Job ID: [id number]
--- NOTE | 2020-02-21 04:03 | DIS ---
DATE OF ADMISSION: 02/20/2020 DATE OF DISCHARGE: 02/20/2020 HOSPITAL COURSE: Mr. Lopes is a 69-year-old male with medical history of CVA (tPA in 2013 with left-sided residual deficit), CABG x3, last one in September 2019, who presented with diffuse tingling, left-sided weakness, and plantar foot burning sensation. He was diagnosed with TIA and peripheral neuropathy. The patient's symptoms resolved promptly after admission. CT brain, CTA, and MRI brain did not show any acute infarcts. He was discharged home hemodynamically stable with complaints of plantar burning sensation that are chronic. PHYSICAL EXAMINATION: VITAL SIGNS: Blood pressure 133/70, pulse 77, respiratory rate 16, oxygen saturation 96% on room air, and temperature 97.5. GENERAL: Obese, lying comfortably in bed, awake and alert. HEENT: Normocephalic and atraumatic. CARDIAC: Regular rate and rhythm. No murmurs, gallops, or rubs. LUNGS: Clear to auscultation bilaterally. No wheezing, rales, or rhonchi. GI: Soft, nontender, and nondistended. Normal bowel sounds. NEUROLOGIC: Strength 5/5 throughout upper and lower extremities, hip and knee flexion and extension, dorsiflexion, and plantar flexion. No dysphagia, dysarthria, or diplopia. MEDICATION LIST: Modified medication, atorvastatin was increased from 20 mg p.o. daily to 80 mg p.o. daily. Discontinued medications, no discontinued medications. New medications, no new medications. Continued medications; 1. Albuterol. 2. Amitriptyline. 3. Aspirin. 4. Vitamin D. 5. Vitamin B12. 6. Eszopiclone. 7. Metoprolol tartrate. 8. Nitroglycerin sublingual p.r.n. chest pain. 9. Tylenol 3. 10. Amlodipine. 11. Losartan. 12. Pantoprazole. Job ID: [id number]
== END 2020-02-20 17:02 | disposition home or self-care (01) ==
LOC: ERS 23:09 → INTOOBSV 02-20 00:48 → 2SE 02-20 00:48
PROVIDERS: ADMIT Internal Medicine; ATTEND Internal Medicine
DX: G45.9 Transient cerebral ischemic attack, unspecified (principal); G62.9 Polyneuropathy, unspecified; I69.354 Hemiplegia and hemiparesis following cerebral infarction affecting left non-dominant side; I11.0 Hypertensive heart disease with heart failure; I50.9 Heart failure, unspecified; J44.9 Chronic obstructive pulmonary disease, unspecified; E78.5 Hyperlipidemia, unspecified; I25.2 Old myocardial infarction; K21.9 Gastro-esophageal reflux disease without esophagitis; M19.90 Unspecified osteoarthritis, unspecified site; F17.210 Nicotine dependence, cigarettes, uncomplicated; F17.290 Nicotine dependence, other tobacco product, uncomplicated; F11.11 Opioid abuse, in remission; I25.10 Atherosclerotic heart disease of native coronary artery without angina pectoris; Z79.82 Long term (current) use of aspirin; Z79.899 Other long term (current) drug therapy; Z88.1 Allergy status to other antibiotic agents; Z88.5 Allergy status to narcotic agent; Z95.1 Presence of aortocoronary bypass graft; Z20.828 Contact with and (suspected) exposure to other viral communicable diseases
CPT/HCPCS: 70450; 70496; 70498; 70551; 71045; 80048; 80053; 80061; 81001; 82550; 82962; 84443; 84484; 85025 ×2; 85610; 85730; 93005; 97139 ×2; 99285; U0003; 36415; 36416; 87635; C9113; G0378; Q9967

== ENCOUNTER 2020-03-26 13:28 | Outpatient (CLI) | payer MEDICARE, MEDICAID ==
--- NOTE | 2020-03-26 15:46 | CT ---
LOW DOSE CT SCAN OF THE CHEST WITHOUT IV CONTRAST FOR LUNG CANCER SCREENIN03/26/20 HISTORY: 69-year-old male who is a current smoker and has smoked on and off since age 18. Quit smoking for abo ut 15 years and started again in 2009. Patient has a history of COPD, tuberculosis, pneumonia or bron chitis and open heart surgery. FINDINGS: Comparison is made to the CT pulmonary angiogram of 07/11/13. Nodular scarring in the right lung apex is again seen. There are scattered calcified granulomas in th e lungs bilaterally. Emphysematous changes are again seen. There is a 7 mm solid peripheral nodule in the right lower lobe and 6 mm noncalcified solid nodules i n the left upper lobe. No pleural or pericardial effusions are seen. There are vascular calcifications without evidence of a neurysmal dilatation of the thoracic aorta. There are degenerative changes of the spine. Upper abdomi nal tomograms demonstrate changes of cholecystectomy. IMPRESSION: Lung RADS category 3 - likely benign findings. RECOMMENDATION: Follow-up LDCT of the chest is recommended in six months. POS: SYLVAIN
== END 2020-03-26 13:29 | disposition home or self-care (01) ==
LOC: BICCT 13:28
PROVIDERS: ATTEND Family Medicine
DX: Z12.2 Encounter for screening for malignant neoplasm of respiratory organs (principal); F17.210 Nicotine dependence, cigarettes, uncomplicated
CPT/HCPCS: G0297

== ENCOUNTER 2020-05-13 02:07 | Inpatient (IN) | payer MEDICARE, MEDICAID ==
[2020-05-13 02:45] LABS: #Eosinphils 0.1 thou/uL (0.0-0.7); #Lymphocytes 1.7 thou/uL (1.20-3.40); #Neutrophils 5.8 thou/uL (1.40-6.50); %Basophils 0.5 % (0.0-1.0); %Eosinophils 1.6 % (0.0-10.0); %Lymphocytes 19.3 % (21.0-51.0); %Monocytes 11.4 % (0.0-10.0); %Neutrophils 67.3 % (42.0-75.0); Mean Corpuscular HGB CONC 34.7 g/dL (32.0-36.0); Mean Corpuscular Hemoglobin 32.5 pg (27.0-31.0); Mean Corpuscular Volume 93.7 fL (78.0-98.0); Mean Platelet Volume 6.4 fL (7.4-10.4); Platelet Count 260 thou/uL (130-400); RBC Distribution Width 13.2 % (11.5-14.5); White Blood Cell (WBC) Count 8.7 thou/uL (4.8-10.8)
[2020-05-13] MEDS ORDERED: Ketorolac Tromethamine 30 MG/ML VIAL ONE (02:50)
[2020-05-13 03:06] LABS: ALT (SGPT) 15 U/L (8-55); AST (SGOT) 15 U/L (5-34); Alkaline Phosphatase 85 U/L (40-110); Anion Gap 15 mmol/L (10-20); BUN (Urea Nitrogen) 19 mg/dL (8.4-25.7); Bilirubin, Total 0.8 mg/dL (0.2-1.2); Calc. Creatinine Clearance 0 mL/min (70-130); Calcium 9.1 mg/dL (7.8-10.44); Carbon Dioxide 24 mmol/L (23-31); Chloride 101 mmol/L (98-107); Estimated GFR-MDRD 60; Globulin 3.4 g/dL (2.4-3.5); Glucose 101 mg/dL (80-115); Potassium 3.8 mmol/L (3.5-5.1); Protein, Total 7.4 g/dL (5.8-8.1); Sodium 136 mmol/L (136-145)
[2020-05-13] MEDS ORDERED: cefTRIAXone\\ROCEPHIN 1 GM VIAL ONE (04:26)
[2020-05-13] MEDS ORDERED: Azithromycin 250 MG TAB ONE (04:26)
[2020-05-13] MEDS ORDERED: Dexamethasone 10 MG/ML VIAL ONE (04:28)
[2020-05-13] MEDS ORDERED: Acetaminophen 325 MG TAB PO PRN (05:11)
[2020-05-13] MEDS ORDERED: Acetaminophen 650 MG Suppository PR PRN (05:11)
[2020-05-13] MEDS ORDERED: HYDROcodone/Acetaminophen 5/325 mg Tablet PO PRN (05:11)
--- NOTE | 2020-05-13 05:30 | PDOC.HHP ---
Hospitalist HPI - History of Present Illness chest pain History of Present Illness: Case of an 69y/o male with pmhx of cva, cad s/p cabg, chf, copd htn and hld who comes to hospital due to chest pain. patient refers he was on his usual state of health until today when he started with palpitations which accompanied by chest pain 7/10 substernal nonradiating and sob for which he came to hospital for evaluation. at ED patient was evaluated initial troponin was negative and ekg was nsr. patient was going to be discharge home and began again with palpitations with heart rate in the 120s with associated sob and chest pain for which hospitalist was called for further evaluation and management. patient stat es that he was recently started on lasix due to worsening sob when sleeping down but this event was different and was precipitated by his racing heart rate. patient denies any fever chills nausea vomiting cough. his sound effects technician id Dr Mix and patient is shedule for appointment next wk to get a new 2d echo. Hospitalist ROS - Review of Systems All other systems reviewed; all pertinent +/- noted in HPI/Subj Hospitalist History - Past Medical History Hepatobiliary: reports: Hep A/B/C (Hep C) Musculoskeletal: reports: Osteoarthritis - Past Surgical History Past Surgical History: reports: Cholecystectomy, Cataract Removal (bilateral), Tonsillectomy, Other (Heart cath [address] Cartwright Testicle removed madonna monsalve to cyst Prostate) - Social History Alcohol: reports: Occassional Drugs: reports: Other (MJ and heroin in 1960s-1970s) Occupation: lives in [place] with brother, disabled - Exam General Appearance: NAD, awake alert Eye: PERRL, anicteric sclera ENT: normocephalic atraumatic, no oropharyngeal lesions Neck: supple, symmetric, no JVD Heart: RRR, no murmur, no gallops, no rubs Respiratory: CTAB, no wheezes, no rales, no ronchi Gastrointestinal: soft, non-tender, non-distended, normal bowel sounds Extremities: no cyanosis, no clubbing, no edema Neurological: cranial nerve grossly intact, normal sensation to touch, no weakness Musculoskeletal: normal tone, normal strength, no muscle wasting Psychiatric: normal affect, normal behavior, A&O x 3 Hospitalist Results - Labs Result Diagrams: 05/13/20 02:35 05/13/20 02:35 Lab results: WBC 8.7 thou/uL (4.8-10.8) 05/13/20 02:35 Hgb 14.0 g/dL (14.0-18.0) 05/13/20 02:35 Hct 40.3 % (42.0-52.0) L 05/13/20 02:35 MCV 93.7 fL (78.0-98.0) 05/13/20 02:35 Plt Count 260 thou/uL (130-400) 05/13/20 02:35 Neutrophils % 67.3 % (42.0-75.0) 05/13/20 02:35 Sodium 136 mmol/L (136-145) 05/13/20 02:35 Potassium 3.8 mmol/L (3.5-5.1) 05/13/20 02:35 Chloride 101 mmol/L (98-107) 05/13/20 02:35 Carbon Dioxide 24 mmol/L (23-31) 05/13/20 02:35 BUN 19 mg/dL (8.4-25.7) 05/13/20 02:35 Creatinine 1.20 mg/dL (0.7-1.3) 05/13/20 02:35 Glucose 101 mg/dL (80-115) 05/13/20 02:35 Calcium 9.1 mg/dL (7.8-10.44) 05/13/20 02:35 Total Bilirubin 0.8 mg/dL (0.2-1.2) 05/13/20 02:35 AST 15 U/L (5-34) 05/13/20 02:35 ALT 15 U/L (8-55) 05/13/20 02:35 Alkaline Phosphatase 85 U/L (40-110) 05/13/20 02:35 Troponin I Less than 0.010 ng/mL (< 0.028) 05/13/20 02:35 B-Natriuretic Peptide 23.2 pg/mL (0-100) 05/13/20 02:35 Serum Total Protein 7.4 g/dL (5.8-8.1) 05/13/20 02:35 Albumin 4.0 g/dL (3.4-4.8) 05/13/20 02:35 Hospitalist H&P A/P - Problem (1) Chest pain Code(s): R07.9 - CHEST PAIN, UNSPECIFIED Status: Acute (2) History of CVA (cerebrovascular accident) Code(s): Z86.73 - PRSNL HX OF TIA (TIA), AND CEREB INFRC W/O RESID DEFICITS Status: Acute (3) CHF (congestive heart failure) Code(s): I50.9 - HEART FAILURE, UNSPECIFIED Status: Chronic (4) COPD (chronic obstructive pulmonary disease) Status: Chronic (5) HLD (hyperlipidemia) Code(s): E78.5 - HYPERLIPIDEMIA, UNSPECIFIED Status: Chronic (6) HTN (hypertension) Code(s): I10 - ESSENTIAL (PRIMARY) HYPERTENSION Status: Chronic - Plan Plan: case of an 69y/o male with the stated pmhx who presents with chest pain chest pain - ekg nsr - initial troponin negative, will trend - chest pain secondary to palpitations - does have a telemetry strip with multiple pvcs complexes of 3 which could be consider ventricular tachycardia - cardiology evaluation - 2d echo - telemetry monitoring - on optimal cad medication with beta alexandra acei statin and asa cva / chf / copd / htn / hld continue home meds for chronic conditions
[2020-05-13 06:45] LABS: Troponin I 0.021 ng/mL (< 0.028)
[2020-05-13 08:31] LABS: Troponin I 0.012 ng/mL (< 0.028)
--- NOTE | 2020-05-13 08:42 | RAD ---
PORTABLE CHEST: Date: 05/13/2020 HISTORY: Chest pain. FINDINGS: Lung kim are clear. Heart and mediastinum appear normal. Postop sternotomy changes are noted. No change from prior exam of 02/20/2020. IMPRESSION: No acute finding. POS: AGW
[2020-05-13] MEDS ORDERED: Aspirin Chewable 81 MG TAB ONE (08:48)
[2020-05-13] MEDS ORDERED: Enoxaparin Sodium 40 MG/0.4 ML SYRINGE ONE (08:48)
[2020-05-13] MEDS ORDERED: Furosemide 20 MG/2 ML VIAL ONE (08:48)
[2020-05-13] MEDS ORDERED: Furosemide 40 MG TAB ONE (08:51)
[2020-05-13] MEDS ORDERED: Metoprolol Tartrate 100 MG TAB PO SCH (09:00)
[2020-05-13] MEDS ORDERED: Atorvastatin Calcium 40 MG TAB PO SCH (09:00)
[2020-05-13] MEDS: Aspirin 81 mg Enteric Coated Tablet PO SCH (09:41)
[2020-05-13] MEDS: Enoxaparin Sodium 40 MG/0.4 ML SYRINGE SC SCH (09:41)
[2020-05-13] MEDS: Furosemide 20 MG TAB PO SCH ×2 (09:42→17:25)
[2020-05-13] MEDS: Losartan 25 MG TAB PO SCH (09:42)
--- NOTE | 2020-05-13 10:56 | PDOC.HOSPP ---
- Subjective Encounter Date: 05/13/20 Encounter Time: 10:55 Subjective: Mr. Lopes was seen today in follow-up of heart palpitations and chest pain. He says he feels short of breath, and has been feeling this way a few weeks now. It is worse when laying down. - Objective Result Diagrams: 05/13/20 02:35 05/13/20 02:35 Hospitalist ROS - Medication Medications: Active Medications Generic Name Dose Route Start Last Admin Trade Name Dilip PRN Reason Stop Dose Admin Aspirin 81 mg 05/13/20 09:00 05/13/20 09:41 Aspirin 81 Mg Enteric Coated Tablet PO 81 mg DAILY MANDO Administration Enoxaparin Sodium 40 mg 05/13/20 09:00 05/13/20 09:41 Enoxaparin Sodium 40 Mg/0.4 Ml Syringe SC 40 mg 0900 MANDO Administration Furosemide 20 mg 05/13/20 09:00 05/13/20 09:42 Furosemide 20 Mg Tab PO 20 mg 0900,1400 MANDO Administration Losartan Potassium 50 mg 05/13/20 09:00 05/13/20 09:42 Losartan 25 Mg Tab PO 50 mg DAILY MANDO Administration - Exam Eye: PERRL, anicteric sclera Neck: no JVD Heart: RRR, no murmur, no gallops, no rubs, normal peripheral pulses Respiratory: CTAB, no wheezes, no rales, no ronchi, normal chest expansion, no tachypnea, normal percussion Gastrointestinal: soft, normal bowel sounds, no palpable masses, no hepatomegaly, no guarding, no rigidity, distended (+ flank dullness, and possible shifting dullness as well) Extremities: no cyanosis, no clubbing, 1+ LE edema (+ ankle edema in both lower extremities) Hosp A/P (1) Chest pain Code(s): R07.9 - CHEST PAIN, UNSPECIFIED Status: Acute (2) Palpitations Code(s): R00.2 - PALPITATIONS Status: Acute (3) COPD (chronic obstructive pulmonary disease) Status: Chronic (4) HTN (hypertension) Code(s): I10 - ESSENTIAL (PRIMARY) HYPERTENSION Status: Chronic (5) S/P CABG x 3 Code(s): Z95.1 - PRESENCE OF AORTOCORONARY BYPASS GRAFT Status: Chronic (6) Tobacco abuse Code(s): Z72.0 - TOBACCO USE Status: Chronic - Plan * Chest pain and palpitations- Etiology is unclear- will await Echo, and Cardiology caonsult has been placed * Dyspnea- the patient offers symptoms which sound like heart failure, but his BNP is normal, and he did not have JVP on exam- he had possible ascites- this could be coming from his liver. Will check an abdominal ultrasound to help evaluate * CAD- - will await Cardiology evaluation * HTN- will need to reconcile and re-start his home medications' COPD- stable- reconcile and re-start home medications *
--- NOTE | 2020-05-13 11:26 | ULT ---
US Abdomen Limited: 05/13/2020 10:52 AM CLINICAL HISTORY: Abdominal distention. Evaluate for ascites.. STUDY: Limited four-quadrant ultrasound of abdomen. COMPARISON: None. FINDINGS: No significant fluid is seen in any of the 4 quadrants of the abdomen. IMPRESSION: No significant ascites
[2020-05-13 11:37] LABS: SARS-CoV-2 MS2 Positive; SARS-CoV-2 N Gene Negative; SARS-CoV-2 S Gene Negative; SARS-CoV-2 by NAA Not Detected (NotDetected); SARS-CoV-2 orf1ab Negative
[2020-05-13 16:44] VITALS: BMI 31.2
[2020-05-13] MEDS: Metoprolol Tartrate 50 MG TAB PO SCH (22:09)
[2020-05-13] MEDS: Atorvastatin Calcium 40 MG TAB PO SCH (22:09)
--- NOTE | 2020-05-14 01:30 | CON ---
DATE OF CONSULTATION: 05/13/2020 PRIMARY CUTTING TOOL SHARPENER: Dr. Harvinder Mix. REASON FOR CONSULTATION: Palpitations and chest discomfort. HISTORY OF PRESENT ILLNESS: Mr. Lopes is a delightful 69-year-old man who came to the hospital, mostly feeling of palpitations and some vague discomfort in his chest. He has a previous history of bypass surgery. MEDICATIONS: Please see nurses' notes. REVIEW OF SYSTEMS: CONSTITUTIONAL: No significant weight gain or loss. VISION: No changes. HEARING: No changes. PULMONARY: No cough or wheezing. GASTROINTESTINAL: No nausea, vomiting, or diarrhea. He had some abdominal distention. ALLERGIES: DOXYCYCLINE AND MORPHINE. PHYSICAL EXAMINATION: GENERAL: A 69-year-old gentleman, in no distress. VITAL SIGNS: Blood pressure 112/76, pulse 90, it is regular. LUNGS: Clear. CARDIAC: Normal S1, normal S2. ABDOMEN: Obese nontender. EXTREMITIES: No clubbing or cyanosis or edema. LABORATORY DATA: Troponin level 0.021. Serology was negative. EKG is sinus rhythm. No significant arrhythmias other than some PACs. He said at home, however, his heart rate got up to 130s. ASSESSMENT: 1. Previous bypass. 2. Vague discomfort in his chest. 3. Palpitations. PLAN: 1. Monitor. 2. Stress test will be done tomorrow. Job ID: [id number]
[2020-05-14 05:51] LABS: #Lymphocytes 0.9 thou/uL (1.20-3.40); #Monocytes 0.8 thou/uL (0.11-0.59); #Neutrophils 11.1 thou/uL (1.40-6.50); %Basophils 0.1 % (0.0-1.0); %Eosinophils 0.1 % (0.0-10.0); %Lymphocytes 7.1 % (21.0-51.0); %Neutrophils 86.8 % (42.0-75.0); Hemoglobin 14.1 g/dL (14.0-18.0); Mean Corpuscular HGB CONC 33.1 g/dL (32.0-36.0); Mean Corpuscular Hemoglobin 31.5 pg (27.0-31.0); Mean Corpuscular Volume 95.4 fL (78.0-98.0); Mean Platelet Volume 6.9 fL (7.4-10.4); Platelet Count 283 thou/uL (130-400); RBC Distribution Width 13.4 % (11.5-14.5); Red Blood Cell (RBC) Count 4.48 mill/uL (4.70-6.10); White Blood Cell (WBC) Count 12.8 thou/uL (4.8-10.8)
[2020-05-14 06:18] LABS: Anion Gap 17 mmol/L (10-20); BUN (Urea Nitrogen) 17 mg/dL (8.4-25.7); Calc. Creatinine Clearance 131 mL/min (70-130); Calcium 9.6 mg/dL (7.8-10.44); Carbon Dioxide 22 mmol/L (23-31); Chloride 104 mmol/L (98-107); Estimated GFR-MDRD Greater than 90; Glucose 121 mg/dL (80-115); Magnesium 1.9 mg/dL (1.6-2.6); Potassium 4.2 mmol/L (3.5-5.1); Sodium 139 mmol/L (136-145)
[2020-05-14] MEDS: Furosemide 20 MG TAB PO SCH ×2 (10:42→14:57)
[2020-05-14] MEDS: Enoxaparin Sodium 40 MG/0.4 ML SYRINGE SC SCH (10:42)
[2020-05-14] MEDS: Metoprolol Tartrate 50 MG TAB PO SCH ×2 (10:42→21:06)
[2020-05-14] MEDS: Aspirin 81 mg Enteric Coated Tablet PO SCH (10:42)
[2020-05-14] MEDS: Losartan 25 MG TAB PO SCH (10:42)
--- NOTE | 2020-05-14 10:46 | NM ---
Radionucleotide stress and rest myocardial perfusion scan with CT attenuation correction and SPECT im aging Left ventricular wall motion evaluation and ejection fraction HISTORY: Lexiscan protocol. There is heterogeneous uptake of radiotracer throughout the left ventricu lar myocardium. No focal perfusion defect or reversibility. QGS analysis of gated SPECT images shows diminished motion of the septum, consistent with prior CABG. Ejection fraction calculated at 77%. IMPRESSION : No evidence of ischemia. Normal LVEF.
--- NOTE | 2020-05-14 12:09 | PDOC.HOSPP ---
- Subjective Encounter Date: 05/14/20 Encounter Time: 12:08 Subjective: Mr. Lopes was seen today in follow-up of dyspnea, and swelling. He says he continues to feel some tightness in his chest. He also says he had some palpitations as well. - Objective Vital Signs & Weight: Vital Signs (12 hours) Temp Pulse Resp BP Pulse Ox 05/14/20 07:53 96 05/14/20 07:26 96 05/14/20 07:12 97.6 F 73 17 121/77 96 05/14/20 04:00 97.5 F L 89 18 127/93 H 95 Weight Weight 230 lb 3.2 oz Result Diagrams: 05/14/20 04:59 05/14/20 04:59 Hospitalist ROS - Medication Medications: Active Medications Generic Name Dose Route Start Last Admin Trade Name Freq PRN Reason Stop Dose Admin Aspirin 81 mg 05/13/20 09:00 05/14/20 10:42 Aspirin 81 Mg Enteric Coated Tablet PO 81 mg DAILY MANDO Administration Atorvastatin Calcium 80 mg 05/13/20 21:00 05/13/20 22:09 Atorvastatin Calcium 40 Mg Tab PO 80 mg HS MANDO Administration Enoxaparin Sodium 40 mg 05/13/20 09:00 05/14/20 10:42 Enoxaparin Sodium 40 Mg/0.4 Ml Syringe SC 40 mg 0900 MANDO Administration Furosemide 20 mg 05/13/20 09:00 05/14/20 10:42 Furosemide 20 Mg Tab PO 20 mg 0900,1400 MANDO Administration Losartan Potassium 50 mg 05/13/20 09:00 05/14/20 10:42 Losartan 25 Mg Tab PO 50 mg DAILY MANDO Administration Metoprolol Tartrate 50 mg 05/13/20 21:00 05/14/20 10:42 Metoprolol Tartrate 50 Mg Tab PO 50 mg BID MANDO Administration - Exam Eye: PERRL, anicteric sclera Heart: RRR, no murmur, no gallops, no rubs, normal peripheral pulses Respiratory: no rales, no ronchi, wheezes Gastrointestinal: soft, non-tender, non-distended, normal bowel sounds, no palpable masses, no hepatomegaly Extremities: no cyanosis, 1+ LE edema Hosp A/P (1) Chest pain Code(s): R07.9 - CHEST PAIN, UNSPECIFIED Status: Acute (2) Palpitations Code(s): R00.2 - PALPITATIONS Status: Acute (3) COPD (chronic obstructive pulmonary disease) Status: Chronic (4) HTN (hypertension) Code(s): I10 - ESSENTIAL (PRIMARY) HYPERTENSION Status: Chronic (5) S/P CABG x 3 Code(s): Z95.1 - PRESENCE OF AORTOCORONARY BYPASS GRAFT Status: Chronic (6) Tobacco abuse Code(s): Z72.0 - TOBACCO USE Status: Chronic - Plan * Chest pain and palpitations- Etiology is unclear- will await Echo, * Stress test was negative, and his EF on the stress test was 70% * I spoke with the patient about his symptoms and recommend an out patient sleep study * HTN- will need to reconcile and re-start his home medications * COPD- He may have a mild exacerbation,stable- Will give one dose of p.o. Prednisone, and continue Duonebs
[2020-05-14] MEDS ORDERED: Albuterol Sulfate 1.25 MG/3 ML NEB NEB PRN (12:12)
[2020-05-14] MEDS ORDERED: Acetaminophen/Codeine 30-300mg Tablet PO PRN (12:12)
[2020-05-14] MEDS ORDERED: predniSONE 20 MG TAB PO SCH (12:15)
--- NOTE | 2020-05-14 20:04 | PRG ---
DATE OF SERVICE: 05/14/2020 Mr. Lopes underwent stress testing today, it is unremarkable. Echocardiogram was also noted for ejection fraction of 55% to 60%. Aortic valve is sclerotic, but not stenotic. On the monitor, there were no significant arrhythmias stable cardiac status. The patient could be discharged home tomorrow to follow up with Dr. Mix as an outpatient. Job ID: [id number]
[2020-05-14] MEDS ORDERED: Zolpidem Tartrate 5 MG TAB PO SCH (21:00)
[2020-05-14] MEDS ORDERED: Amlodipine 10 MG TAB PO SCH (21:00)
[2020-05-14] MEDS: Atorvastatin Calcium 40 MG TAB PO SCH (21:05)
[2020-05-15] MEDS ORDERED: Clopidogrel Bisulfate 75 MG TAB PO SCH (09:00)
[2020-05-15] MEDS ORDERED: Cholecalciferol 1,000 UNITS (25 MCG) TAB PO SCH (09:00)
[2020-05-15] MEDS ORDERED: Cyanocobalamin (Vitamin B-12) 1,000 MCG TAB PO SCH (09:00)
[2020-05-15] MEDS ORDERED: Multivit, Therapeutic 1 TAB PO SCH (09:00)
[2020-05-15] MEDS: Enoxaparin Sodium 40 MG/0.4 ML SYRINGE SC SCH (09:43)
[2020-05-15] MEDS: Losartan 25 MG TAB PO SCH (09:44)
[2020-05-15] MEDS: Metoprolol Tartrate 50 MG TAB PO SCH (09:44)
[2020-05-15] MEDS: Aspirin 81 mg Enteric Coated Tablet PO SCH (09:44)
[2020-05-15] MEDS: Furosemide 20 MG TAB PO SCH (09:45)
--- NOTE | 2020-05-15 11:24 | PDOC.HOSPP ---
- Subjective Encounter Date: 05/15/20 Encounter Time: 11:22 Subjective: Mr. Lopes was seen today in follow-up of hest pain. He is feeling better. - Objective Vital Signs & Weight: Vital Signs (12 hours) Temp Pulse Resp BP Pulse Ox 05/15/20 09:50 16 95 05/15/20 08:22 91 L 05/15/20 08:00 95 05/15/20 07:57 97.6 F 68 16 129/83 91 L 05/15/20 03:22 97.8 F 64 16 118/73 99 Weight Weight 230 lb 3.2 oz I&O: 05/14/20 05/15/20 05/16/20 06:59 06:59 06:59 Intake Total 480 480 Output Total 600 Balance -120 480 Result Diagrams: 05/14/20 04:59 05/14/20 04:59 Hospitalist ROS - Medication Medications: Active Medications Generic Name Dose Route Start Last Admin Trade Name Freq PRN Reason Stop Dose Admin Albuterol/Ipratropium 3 ml 05/14/20 12:26 05/14/20 17:33 Ipratropium/Albuterol Sulfate 3 Ml Neb NEB 3 ml BIDPRN PRN Administration SOB &/or Wheezing Amitriptyline HCl 75 mg 05/14/20 21:00 05/14/20 21:05 Amitriptyline Hcl 75 Mg Tab PO 75 mg HS MANDO Administration Amlodipine Besylate 10 mg 05/14/20 21:00 05/14/20 21:06 Amlodipine 10 Mg Tab PO 10 mg HS MANDO Administration Aspirin 81 mg 05/13/20 09:00 05/15/20 09:44 Aspirin 81 Mg Enteric Coated Tablet PO 81 mg DAILY MANDO Administration Atorvastatin Calcium 80 mg 05/13/20 21:00 05/14/20 21:05 Atorvastatin Calcium 40 Mg Tab PO 80 mg HS MANDO Administration Cholecalciferol 5,000 units 05/15/20 09:00 05/15/20 09:47 Cholecalciferol 1,000 Units (25 Mcg) Tab PO 5,000 units DAILY MANDO Administration Clopidogrel Bisulfate 75 mg 05/15/20 09:00 05/15/20 09:46 Clopidogrel Bisulfate 75 Mg Tab PO 75 mg DAILY MANDO Administration Cyanocobalamin 2,500 mcg 05/15/20 09:00 05/15/20 09:45 Cyanocobalamin (Vitamin B-12) 1,000 Mcg Tab PO 2,500 mcg DAILY MANDO Administration Enoxaparin Sodium 40 mg 05/13/20 09:00 05/15/20 09:43 Enoxaparin Sodium 40 Mg/0.4 Ml Syringe SC 40 mg 0900 MANDO Administration Furosemide 20 mg 05/13/20 09:00 05/15/20 09:45 Furosemide 20 Mg Tab PO 20 mg 0900,1400 MANDO Administration Losartan Potassium 50 mg 05/13/20 09:00 05/15/20 09:44 Losartan 25 Mg Tab PO 50 mg DAILY MANDO Administration Metoprolol Tartrate 50 mg 05/13/20 21:00 05/15/20 09:44 Metoprolol Tartrate 50 Mg Tab PO 50 mg BID MANDO Administration Multivitamins 1 tab 05/15/20 09:00 05/15/20 09:45 Multivit, Therapeutic 1 Tab PO 1 tab DAILY MANDO Administration Pantoprazole Sodium 40 mg 05/14/20 21:00 05/14/20 21:06 Pantoprazole 40 Mg Tab PO 40 mg HS MANDO Administration Zolpidem Tartrate 5 mg 05/14/20 21:00 05/14/20 21:06 Zolpidem Tartrate 5 Mg Tab PO 5 mg HS MANDO Administration - Exam Eye: PERRL, anicteric sclera Heart: RRR, no murmur, no gallops, no rubs, normal peripheral pulses Respiratory: wheezes Gastrointestinal: soft, non-tender, non-distended, normal bowel sounds, no palpable masses, no hepatomegaly Extremities: no cyanosis, no edema Hosp A/P (1) Chest pain Code(s): R07.9 - CHEST PAIN, UNSPECIFIED Status: Acute (2) Palpitations Code(s): R00.2 - PALPITATIONS Status: Acute (3) COPD (chronic obstructive pulmonary disease) Status: Chronic (4) HTN (hypertension) Code(s): I10 - ESSENTIAL (PRIMARY) HYPERTENSION Status: Chronic (5) S/P CABG x 3 Code(s): Z95.1 - PRESENCE OF AORTOCORONARY BYPASS GRAFT Status: Chronic (6) Tobacco abuse Code(s): Z72.0 - TOBACCO USE Status: Chronic - Plan * Chest pain and palpitations- there was no significant ectopy seen on his rhythm strips * Chest tightness may be due to COPD * Stress test and echo reviewed * stable for discharge home.
[2020-05-15 12:13] VITALS: BP 129/85; TEMP 97.9
--- NOTE | 2020-05-15 17:20 | PDOC.DS.DS ---
Provider - Provider Date of Admission: 05/13/20 04:44 Date of Discharge: 05/15/20 Admitting Provider: Cem Rm Consultations: Cardiology Primary Care Physician: Ami Coffman MD Course - Hospital Course Hospital Course: Mr. Lopes is a 69 year old old male with a history of CAD, and CABG approximately a year ago. He presented to the the ER with complaints of chest pain as well as shortness of breath and palpitations. The full details of which are outlined in the history and physical. Some of his symptoms were suggestive of congestive heart failure. He described waking up in the middle of the night short of breath. He also was complaining of lower extremity edema. Given his history of previous coronary artery disease he was brought into the hospital and was ruled out. An echocardiogram was obtained and demonstrated a normal ejection fraction. There was no evidence of any significant valvular disease. He also complained of increasing abdominal girth and for this reason an abdominal ultrasound was ordered however there was no evidence of ascites. A stress test was ordered by the game operator on-call. And it was felt that if this stress test was negative that the patient could be discharged home. The stress test did in fact come back negative. Some of the patient's symptoms were consistent with obstructive sleep apnea. He described waking up gasping for air. And also stated that he noticed sometimes that his oxygen saturations would drop at night. We discussed this and have recommended that once he is discharged that he speak with his primary care physician with regards to obtaining an outpatient sleep study. He also was noted to have some wheezing on exam and has a history of COPD and it is possible that the tightness that he was feeling in his chest was related to a mild COPD exacerbation. For this reason the patient will be sent home on azithromycin as well as a short course of prednisone. And he has been instructed to follow-up with his primary care physician in 1 to 2 weeks. Procedures: Echocardiogram Stress Test Resuscitation Status: 05/13/20 05:11 Resuscitation Status Routine Resuscitation Status: FULL: Full Resuscitation - Labs Lab Results: 05/14/20 04:59 05/14/20 04:59 Abnormal Lab Results - Last 48 hrs 05/14/20 04:59: Carbon Dioxide 22 L 05/14/20 04:59: WBC 12.8 H, RBC 4.48 L, MCH 31.5 H, MPV 6.9 L, Neutrophils % 86.8 H, Lymphocytes % 7.1 L, Neutrophils # 11.1 H, Lymphocytes # 0.9 L, Monocytes # 0.8 H - Physical Exam Vitals: Vital Signs (12 hours) Temp Pulse Resp BP Pulse Ox 05/15/20 12:12 97.9 F 63 16 129/85 96 05/15/20 09:50 16 95 05/15/20 08:22 91 L 05/15/20 08:00 95 05/15/20 07:57 97.6 F 68 16 129/83 91 L Weight Weight 230 lb 3.2 oz Physical Exam: The patient was seen and examined on the day of discharge. Problem - Problem (1) Chest pain Code(s): R07.9 - CHEST PAIN, UNSPECIFIED Status: Acute (2) Palpitations Code(s): R00.2 - PALPITATIONS Status: Acute (3) COPD (chronic obstructive pulmonary disease) Status: Chronic (4) HTN (hypertension) Code(s): I10 - ESSENTIAL (PRIMARY) HYPERTENSION Status: Chronic (5) S/P CABG x 3 Code(s): Z95.1 - PRESENCE OF AORTOCORONARY BYPASS GRAFT Status: Chronic (6) Tobacco abuse Code(s): Z72.0 - TOBACCO USE Status: Chronic Plan - Discharge Medications Prescriptions: Azithromycin 250 mg PO ASDIR #6 tablet predniSONE 20 mg PO QAM-WM #4 tab Home Medications: Medication Instructions Recorded Confirmed Type Nitroglycerin [Nitrostat] 0.4 mg SL Q5MIN PRN 05/03/13 05/13/20 History Amitriptyline HCl [Elavil] 75 mg PO HS 04/06/14 05/13/20 History Pantoprazole [Protonix] 40 mg PO HS 09/30/14 05/13/20 History Acetaminophen With Codeine 1 tablet PO BID PRN 11/05/15 05/13/20 History [Tylenol with Codeine #3] Cholecalciferol (Vitamin D3) 5,000 unit PO DAILY 08/17/16 05/13/20 History [Vitamin D3] Eszopiclone 3 mg PO HS 08/17/16 05/13/20 History Aspirin [Ecotrin Low Strength] 81 mg PO DAILY tab 10/08/19 05/13/20 Rx Amlodipine [Norvasc] 10 mg PO HS 01/10/20 05/13/20 History Cyanocobalamin (Vitamin B-12) 2,500 mcg PO DAILY 01/10/20 05/13/20 History [Vitamin B12] Losartan Potassium [Cozaar] 50 mg PO BID 01/10/20 05/13/20 History Albuterol Sulfate [Albuterol 1.25 mg NEB PRN PRN 02/20/20 05/13/20 History Sulfate Neb] Atorvastatin Calcium 80 mg PO DAILY #120 tablet 02/20/20 05/13/20 Rx Metoprolol Tartrate [Lopressor] 50 mg PO BID 02/20/20 05/13/20 History Clopidogrel Bisulfate [Plavix] 75 mg PO DAILY 05/13/20 05/13/20 History Ipratropium/Albuterol Sulfate 2 puff PO BID PRN 05/13/20 05/13/20 History [Combivent Respimat] Multivitamin,Stress Formula 1 tablet PO DAILY 05/13/20 05/13/20 History [Stress Formula] Azithromycin 250 mg PO ASDIR #6 tablet 05/15/20 Rx predniSONE 20 mg PO QAM-WM #4 tab 05/15/20 Rx Allergies: doxycycline Allergy (Mild, Verified 05/13/20 17:10) itching and burning feet burned and itched per patient morphine Adverse Reaction (Intermediate, Verified 05/13/20 17:10) tachycardia, redness to injection site 2005 gallbaldder removed-MORPHINE GIVEN- HAD TACHYCARDIA, REDNESS TO AREA. per patient - Discharge Instructions Discharge Instructions:: Recommend Out Patient Sleep study Follow-up with your Primary Care Provider in 1-2 weeks Activity:: Activity as Tolerated Nourishment:: Heart Healthy Diet - Follow up Plan Referrals: Ami Coffman MD [Primary Care Provider] - Disposition: HOME Quality - Care Measures CORE MEASURES:: N/A
== END 2020-05-15 12:25 | disposition home or self-care (01) | DRG 191 ==
LOC: ERS 02:07 → ERHOLD 04:44 → 2SE 16:38
PROVIDERS: ADMIT Internal Medicine; ATTEND Internal Medicine
DX: J44.1 Chronic obstructive pulmonary disease with (acute) exacerbation (principal); I47.1 Supraventricular tachycardia; I25.10 Atherosclerotic heart disease of native coronary artery without angina pectoris; E78.5 Hyperlipidemia, unspecified; I11.0 Hypertensive heart disease with heart failure; Z20.828 Contact with and (suspected) exposure to other viral communicable diseases; R00.2 Palpitations; M19.90 Unspecified osteoarthritis, unspecified site; I50.9 Heart failure, unspecified; G47.33 Obstructive sleep apnea (adult) (pediatric); I35.8 Other nonrheumatic aortic valve disorders; Z95.1 Presence of aortocoronary bypass graft; Z86.73 Personal history of transient ischemic attack (TIA), and cerebral infarction without residual deficits; Z90.49 Acquired absence of other specified parts of digestive tract; Z90.89 Acquired absence of other organs; Z88.1 Allergy status to other antibiotic agents
CPT/HCPCS: 36415; 71045; 76705; 78452; 80048; 80053; 83735; 83880; 84443; 84484; 85025; 87635; 93005; 93017; 93306; 94640; 94760; A9500; J0696; J1100; J1650; J1885; J1940; J7512; J7620; U0003

== ENCOUNTER 2020-07-01 17:02 | Emergency (ER) | payer MEDICARE, MEDICAID ==
--- NOTE | 2020-07-01 17:50 | RAD ---
Portable frontal chest radiograph: 07/01/2020 COMPARISON: 05/13/2020 HISTORY: Chest pain, lightheaded FINDINGS: Stable midline sternotomy wires and atherosclerotic calcification of the aortic arch. Stabl e increased linear interstitial density with pulmonary hyperinflation. No focal consolidation or alveolar edema. IMPRESSION: Stable appearance of the chest as above.
[2020-07-01 17:53] LABS: #Basophils 0.1 thou/uL (0.0-0.2); #Eosinphils 0.2 thou/uL (0.0-0.7); #Lymphocytes 1.5 thou/uL (1.20-3.40); #Monocytes 0.5 thou/uL (0.11-0.59); #Neutrophils 3.2 thou/uL (1.40-6.50); %Basophils 1.7 % (0.0-1.0); %Eosinophils 2.9 % (0.0-10.0); %Lymphocytes 27.2 % (21.0-51.0); %Monocytes 9.1 % (0.0-10.0); %Neutrophils 59.1 % (42.0-75.0); Hemoglobin 14.8 g/dL (14.0-18.0); Mean Corpuscular HGB CONC 34.5 g/dL (32.0-36.0); Mean Corpuscular Volume 95.5 fL (78.0-98.0); Mean Platelet Volume 6.9 fL (7.4-10.4); Platelet Count 277 thou/uL (130-400); RBC Distribution Width 12.5 % (11.5-14.5); Red Blood Cell (RBC) Count 4.48 mill/uL (4.70-6.10); White Blood Cell (WBC) Count 5.3 thou/uL (4.8-10.8)
[2020-07-01 18:21] LABS: ALT (SGPT) 17 U/L (8-55); AST (SGOT) 17 U/L (5-34); Albumin 4.3 g/dL (3.4-4.8); Alkaline Phosphatase 84 U/L (40-110); Anion Gap 13 mmol/L (10-20); BUN (Urea Nitrogen) 16 mg/dL (8.4-25.7); Bilirubin, Total 0.4 mg/dL (0.2-1.2); Calc. Creatinine Clearance 0 mL/min (70-130); Carbon Dioxide 26 mmol/L (23-31); Chloride 102 mmol/L (98-107); Globulin 3.1 g/dL (2.4-3.5); Glucose 108 mg/dL (80-115); Lipase 43 U/L (8-78); Potassium 4.1 mmol/L (3.5-5.1); Protein, Total 7.4 g/dL (5.8-8.1); Sodium 137 mmol/L (136-145)
[2020-07-01] MEDS ORDERED: Aspirin Chewable 81 MG TAB ONE (18:34)
[2020-07-01] MEDS ORDERED: Albuterol 200 PUFF (6.7GM INHALER) ONE (19:03)
[2020-07-01 20:23] LABS: Troponin I Less than 0.010 ng/mL (< 0.028)
[2020-07-01] MEDS ORDERED: Lidocaine Viscous Sol 2% 15 ml UD Cup ONE (22:03)
[2020-07-01] MEDS ORDERED: Mag-Al 1200 mg/1200 mg/30 ML UDCUP ONE (22:03)
--- NOTE | 2020-07-05 10:20 | EKG ---
Test Reason : CP Blood Pressure : / mmHG Vent. Rate : 065 BPM Atrial Rate : 065 BPM P-R Int : 160 ms QRS Dur : 084 ms QT Int : 392 ms P-R-T Axes : 054 064 071 degrees QTc Int : 407 ms Normal sinus rhythm Normal ECG Confirmed by TONY OBANDO ([id number]), pictures editor ESTEFANIA VELASCO ([id number]) on 07/05/2020 10:19:54 AM Referred By: Confirmed By:TONY Llanes
== END 2020-07-01 22:00 | disposition home or self-care (01) ==
LOC: ERS 17:02
DX: R07.89 Other chest pain (principal); Z79.899 Other long term (current) drug therapy; Z79.82 Long term (current) use of aspirin; I25.2 Old myocardial infarction; E78.5 Hyperlipidemia, unspecified; I50.9 Heart failure, unspecified; K21.9 Gastro-esophageal reflux disease without esophagitis; M19.90 Unspecified osteoarthritis, unspecified site; I10 Essential (primary) hypertension; F17.290 Nicotine dependence, other tobacco product, uncomplicated; F17.210 Nicotine dependence, cigarettes, uncomplicated
CPT/HCPCS: 36415; 71045; 80053; 83690; 83880; 84484; 85025; 93005; 94760

== ENCOUNTER 2020-07-07 21:42 | Observation (INO) | payer MEDICARE, MEDICAID ==
[2020-07-07 22:09] LABS: #Basophils 0.1 thou/uL (0.0-0.2); #Eosinphils 0.1 thou/uL (0.0-0.7); #Lymphocytes 1.8 thou/uL (1.20-3.40); #Monocytes 0.8 thou/uL (0.11-0.59); #Neutrophils 3.7 thou/uL (1.40-6.50); %Basophils 1.3 % (0.0-1.0); %Eosinophils 2.1 % (0.0-10.0); %Lymphocytes 27.5 % (21.0-51.0); %Monocytes 12.2 % (0.0-10.0); Hemoglobin 13.7 g/dL (14.0-18.0); Mean Corpuscular HGB CONC 35.3 g/dL (32.0-36.0); Mean Corpuscular Hemoglobin 34.1 pg (27.0-31.0); Mean Corpuscular Volume 96.5 fL (78.0-98.0); Platelet Count 240 thou/uL (130-400); RBC Distribution Width 12.4 % (11.5-14.5); Red Blood Cell (RBC) Count 4.02 mill/uL (4.70-6.10); White Blood Cell (WBC) Count 6.5 thou/uL (4.8-10.8)
[2020-07-07 22:22] LABS: PTT 27.1 sec (22.9-36.1); Prothrombin Time 13.6 sec (12.0-14.7)
[2020-07-07 22:32] LABS: ALT (SGPT) 19 U/L (8-55); AST (SGOT) 23 U/L (5-34); Alkaline Phosphatase 83 U/L (40-110); Anion Gap 13 mmol/L (10-20); BUN (Urea Nitrogen) 19 mg/dL (8.4-25.7); Bilirubin, Total 0.4 mg/dL (0.2-1.2); Calc. Creatinine Clearance 0 mL/min (70-130); Calcium 8.4 mg/dL (7.8-10.44); Carbon Dioxide 24 mmol/L (23-31); Chloride 107 mmol/L (98-107); Globulin 3.1 g/dL (2.4-3.5); Glucose 119 mg/dL (80-115); Potassium 4.1 mmol/L (3.5-5.1); Protein, Total 7.1 g/dL (5.8-8.1); Sodium 140 mmol/L (136-145)
[2020-07-07] MEDS ORDERED: Aspirin Chewable 81 MG TAB ONE (23:15)
--- NOTE | 2020-07-07 23:17 | CT ---
CT BRAIN PERFORMED WITHOUT CONTRAST ENHANCEMENT: Date: 07/07/2020 HISTORY: Stroke alert. Left arm numbness. Slurred speech. COMPARISON: 02/19/2020 exam. FINDINGS: Ventricular and cisternal system is within normal limits. There are no signs of intracerebral hemorrh age or extra-axial fluid collections. No mass lesion or mass effect. The mastoid air cells are clear. Small air fluid level seen in the right maxillary sinus and minimal mucosal changes in the left sphe noid and bilateral ethmoid air cells. IMPRESSION: No acute intracranial abnormalities. Findings telephoned to Dr. Alcantar at 2203 hours. CODE CR. POS: OFF
--- NOTE | 2020-07-07 23:22 | RAD ---
PORTABLE CHEST: Date: 07/07/2020 HISTORY: Chest pain. COMPARISON: 07/01/2020 study. FINDINGS: Heart size within normal limits. Postop sternotomy changes are seen. Chronic lung changes are present without focal infiltrates. IMPRESSION: Chronic appearing lung change. POS: OFF
--- NOTE | 2020-07-07 23:27 | CT ---
CT ANGIO OF HEAD PERFORMED WITH IV CONTRAST ENHANCEMENT AND 3D RECONSTRUCTIONS: Date: 07/07/2020 HISTORY: Left arm numbness. History of stroke. COMPARISON: 02/19/2020 examination. FINDINGS: The lung apices are clear of infiltrates. Areas of nodular scarring in the right upper lobe are a sta ble finding. Thyroid gland region is unremarkable. No significant jugular chain adenopathy. Parotid a nd submandibular glands are unremarkable. The vertebral arteries show the left to be slightly larger than the right. There is calcification in both vertebral arteries. They do both make a contribution to the basilar artery. On the right side, the right common carotid artery is unremarkable. There is dense plaque formation a t the origin of the right internal carotid artery. There is approximately 50% narrowing by NASCET cri teria at the distal end of this area of calcified plaque. External carotid artery is unremarkable. On the left side, there is less pronounced plaque of the origin of the internal carotid artery and le ss than 50% narrowing by NASCET criteria. CT ANGIO OF HEAD PERFORMED WITH IV CONTRAST ENHANCEMENT WITH 3D RECONSTRUCTIONS: The vertebrobasilar system appears unremarkable. The anterior and middle cerebral arteries and their branches also are unremarkable. IMPRESSION: Moderate calcified plaque at the origin of both internal carotid arteries. No hemodynamically signifi cant stenosis by NASCET criteria. Findings telephoned to Dr. Alcantar at 2226 hours. CODE CR. POS: OFF
--- NOTE | 2020-07-08 00:06 | PDOC.HHP ---
Hospitalist HPI - History of Present Illness chest pain, Left sided weakness History of Present Illness: PCP: Dr. Coffman The patient is a 70-year-old male with a past medical history significant for CAD/SC, CHF, multiple TIAs, CVA (TPA 2012), COPD, RA/OA, and hepatitis C that presents to the emergency department for above complaint. The patient reports the development of substernal chest pain at approximately 7:00 this evening while sitting down at home, describes the pain as pressure, constant, exa cerbated relieved by nothing. Reports that his chest pain is totally different than previous heart attacks and acid reflux episodes. Reports that he had associated dizziness, describes as "felt like I was going to pass out". Denies of the room spinning. Reports that he checked his blood pressure and it was low, reporting 97/56. Upon recheck, it was elevated 169/88. He reports that he rechecked it several times and it would alternate between high and low readings. He reports that he checked it several times, both sitting down and standing up. Reports that he then developed left sided weakness and tingling approximately 2 hours after his initial symptoms and 1 hour prior to arrival in the emergency department. He reports that the left side of his face, left upper extremity and left leg were tingling and his left arm was very weak. He reports that his brother, who lives with him, came into check up on him. When his brother tapped his left foot, to ask how he was doing, the patient felt a sharp shooting pain that lasted 1 to 2 seconds. Then, his brother drove him to the emergency department for further evaluation. Patient denies any recent trauma or falls. He denies any sudden onset of headache, changes in speech or vision. He denies any heart palpitation or swelling to his lower extremities. He has a history of COPD, denying any increased shortness of breath, cough or wheezing. No increased sputum. He denies any abdominal pain, nausea, vomiting, diarrhea. No hematochezia/melena. Denies any dysuria or hematuria. Denies any fever or illness. ED Course: VITAL SIGNS TueJul 07, 2020 22:50 ANNIE Ziegler Taylor BP: 142/82, MAP: 102, Pulse: 76, Resp: 20, Temp: 98.3 (Oral), Pain: 7, O2 sat: 97 on (Room Air), Time: 07/07/2020 22:50. VITAL SIGNS TueJul 07, 2020 22:16 ANNIE Ziegler Taylor BP: 135/78, MAP: 97, Pulse: 84, Resp: 20 (Non-Labored), Pain: 6, O2 sat: 100 on (Room Air), Time: 07/07/2020 22:16. VITAL SIGNS TueJul 07, 2020 23:11 ANNIE Ziegler Taylor BP: 111/72, MAP: 85, Pulse: 74, Resp: 18, Pain: 7, O2 sat: 97 on (Room Air), Time: 07/07/2020 23:11. Medications: aspirin oral 243 mg Oral Given 23:18 07/07/2020 Hospitalist ROS - Review of Systems All other systems reviewed; all pertinent +/- noted in HPI/Subj - Medication Medications: nitroglycerin sublingual TABLET, SUBLINGUAL : Strength - 0.4 mg : SUBLINGUAL Patient Dose: 1 tab(s) Sublingual As Needed. atorvastatin TABLET : Strength - 20 mg : ORAL Patient Dose: 80 mg Oral once a day (at bedtime). amitriptyline oral TABLET : Strength - 100 mg : ORAL Patient Dose: 75 mg Oral once a day (at bedtime). eszopiclone tablet : Strength - 3 mg : ORAL Patient Dose: 1 tab(s) Oral once a day (at bedtime). pantoprazole oral tablet,delayed release (DR/EC) : Strength - 40 mg : ORAL Patient Dose: 1 tab(s) Oral once a day (at bedtime). losartan tablet : Strength - 25 mg : ORAL Patient Dose: 50 mg Oral once a day. aspirin oral tablet : Strength - 81 mg : ORAL Patient Dose: 81 mg Oral once a day. metoprolol tartrate oral tablet : Strength - 100 mg : ORAL Patient Dose: 100 mg Oral 2 times a day (before meals). Vitamin D3 tablet : Strength - 5,000 unit : ORAL Patient Dose: 5000 units Oral once a day. Stress Formula tablet tablet : ORAL Patient Dose: 1 tab(s) Oral once a day. clopidogrel tablet : Strength - 75 mg : ORAL Patient Dose: 75 mg Oral once a day. albuterol sulfate inhalation 90 mcg : Strength - HFA AEROSOL WITH ADAPTER (GM) : INHALATION Patient Dose: 1 puff(s) INHALATION every 4 hours prn Allergies: doxycycline hyclate, morphine (bulk) Hospitalist History - Past Medical History Source: patient, RN notes reviewed Cardiac: reports: CAD, CHF, HTN, Hyperlipidemia Pulmonary: reports: COPD SWIMMING [employer]ER: reports: CVA (Status post TPA 2012), TIA (Multiple) Gastrointestinal: reports: GERD Hepatobiliary: reports: Hep A/B/C (Hep C, treated) Musculoskeletal: reports: Osteoarthritis Rheumatologic: reports: Rheumatoid arthritis - Past Surgical History Past Surgical History: reports: Cholecystectomy, CABG (X3 (10/07)), Cataract Removal (bilateral), Tonsillectomy, Other (Heart cath [address] Cartrwight Testicle removed secondary to cyst Prostate) - Family History Family History: denies: cerebrovascular accident - Social History Smoking Status: Current every day smoker Tobacco Type: cigars (2 to 3 cigars/day) Alcohol: reports: Occassional Drugs: reports: Other (MJ and heroin in 1960s-1970s) Living Situation: With Family Occupation: lives in [place] with brother, disabled Activity level: independent ambulation - Exam General Appearance: NAD, awake alert. negative: ill appearing Eye: PERRL, anicteric sclera ENT: normocephalic atraumatic Neck: supple, no lymphadenopathy Heart: RRR, no murmur, no gallops, no rubs, normal peripheral pulses Respiratory: CTAB, no wheezes, no rales, no ronchi, normal chest expansion, no tachypnea Gastrointestinal: soft, non-tender, normal bowel sounds, no guarding, no rigidity, distended Gastrointestinal - other findings: No rebound Extremities: no cyanosis, no edema Skin: no rashes Neurological: cranial nerve grossly intact, no focal deficits Musculoskeletal: normal tone, normal strength Psychiatric: normal affect, A&O x 3 Hospitalist Results - Labs Result Diagrams: 07/08/20 03:43 07/07/20 21:57 Lab results: WBC 6.5 thou/uL (4.8-10.8) 07/07/20 21:57 Hgb 13.7 g/dL (14.0-18.0) L 07/07/20 21:57 Hct 38.8 % (42.0-52.0) L 07/07/20 21:57 MCV 96.5 fL (78.0-98.0) 07/07/20 21:57 Plt Count 240 thou/uL (130-400) 07/07/20 21:57 Neutrophils % 57.0 % (42.0-75.0) 07/07/20 21:57 Sodium 140 mmol/L (136-145) 07/07/20 21:57 Potassium 4.1 mmol/L (3.5-5.1) 07/07/20 21:57 Chloride 107 mmol/L (98-107) 07/07/20 21:57 Carbon Dioxide 24 mmol/L (23-31) 07/07/20 21:57 BUN 19 mg/dL (8.4-25.7) 07/07/20 21:57 Creatinine 1.32 mg/dL (0.7-1.3) H 07/07/20 21:57 Glucose 119 mg/dL (80-115) H 07/07/20 21:57 Lactic Acid 2.4 mmol/L (0.5-2.2) H 07/07/20 22:19 Calcium 8.4 mg/dL (7.8-10.44) 07/07/20 21:57 Total Bilirubin 0.4 mg/dL (0.2-1.2) 07/07/20 21:57 AST 23 U/L (5-34) 07/07/20 21:57 ALT 19 U/L (8-55) 07/07/20 21:57 Alkaline Phosphatase 83 U/L (40-110) 07/07/20 21:57 Troponin I Less than 0.010 ng/mL (< 0.028) 07/07/20 21:57 Serum Total Protein 7.1 g/dL (5.8-8.1) 07/07/20 21:57 Albumin 4.0 g/dL (3.4-4.8) 07/07/20 21:57 - EKG Interpretation EK lead EKG interpreted by Emergency Department Physician at time of study, 12 lead EKG shows normal sinus rhythm, Rate (beats per minute): 94, Interpretation :, Conduction normal, ST segments normal, T waves normal, [place] normal, Clinical impression:, No acute findings for ischemia at this - Radiology Interpretation CT scan - head Status: report reviewed by me Additional Comment: CT brain IMPRESSION: No acute intracranial abnormalities. CTA head and neck IMPRESSION: Moderate calcified plaque at the origin of both internal carotid arteries. No hemodynamically significant stenosis by NASCET criteria. Chest x-ray Status: report reviewed by me Additional Comment: IMPRESSION: Chronic appearing lung change. Hospitalist H&P A/P - Problem (1) TIA (transient ischemic attack) Status: Acute (2) Left-sided weakness Code(s): R53.1 - WEAKNESS Status: Acute (3) Chest pain Code(s): R07.9 - CHEST PAIN, UNSPECIFIED Status: Acute (4) Elevated lactic acid level Code(s): R79.89 - OTHER SPECIFIED ABNORMAL FINDINGS OF BLOOD CHEMISTRY Status: Acute (5) CAD (coronary artery disease) Code(s): I25.10 - ATHSCL HEART DISEASE OF [place] CORONARY ARTERY W/O ANG PCTRS Status: Chronic (6) CHF (congestive heart failure) Code(s): I50.9 - HEART FAILURE, UNSPECIFIED Status: Chronic (7) COPD (chronic obstructive pulmonary disease) Status: Chronic (8) Hepatitis C Code(s): B19.20 - UNSPECIFIED VIRAL HEPATITIS C WITHOUT HEPATIC COMA Status: Chronic - Plan Plan: Patient with history CAD and CVA presents for left-sided weakness/tingling and chest pain. Admit to stroke unit, observation status. #TIA Presented NIH 8, rapidly improved - Left weaker than right side. Upon my assessment, NIH 0. CT/CTA no acute process. Order MRI brain. 05/14echocardiogram Consult neurology and PT. Continue aspirin and Plavix. Continue high intensity statin. Check TSH, FLP, mag, UA, B12/folate. Neurochecks. Permissive hypertension. Orthostatic vital signs. #Left sided weakness Likely related to problem #1. #Chest pain Unstable angina? Status post CABG x3 (10/07) EKG no ST elevations, initial troponin negative Trend troponins, check BNP. Continue aspirin and statin. #Elevated lactic acid level Initial level 2.4 Repeat LA pending Give 500 mL normal saline x1 dose #CAD Status post CABG x3 (10/07) Restart home dose metoprolol, losartan, atorvastatin, Plavix, ASA #CHF Chronic, appears stable. Recent echo dated 05/14/2020. Check BNP. #COPD Chronic, appears stable. Restart home albuterol inhaler as needed. #Hepatitis C Chronic, treated. SCDs for DVT prophylaxis. Protonix for GI prophylaxis. CODE STATUS is full code. Discussed the case with attending physician, Dr. Gonzales, who agrees with plan of care.
[2020-07-08 00:58] LABS: Troponin I Less than 0.010 ng/mL (< 0.028)
[2020-07-08] MEDS ORDERED: hydrALAZINE 20 MG/ML VIAL SLOW IVP PRN (00:58)
[2020-07-08] MEDS ORDERED: Labetalol HCl 100 MG/20 ML VIAL SLOW IVP PRN (00:58)
[2020-07-08] MEDS ORDERED: Lidocaine 2% Viscous Solution 10 ML, Aluminum & Magnesium Hydroxide 30 ML SSW SCH (01:00)
[2020-07-08] MEDS ORDERED: Calcium Carbonate 500 MG ChewTAB PO PRN (01:04)
[2020-07-08] MEDS ORDERED: Bisacodyl 5 MG TAB PO PRN (01:04)
[2020-07-08] MEDS ORDERED: Acetaminophen 325 MG TAB PO PRN (01:04)
[2020-07-08] MEDS ORDERED: Senokot S 8.6-50 MG TAB PO PRN (01:04)
[2020-07-08] MEDS ORDERED: Ondansetron ODT 4 MG TAB PO PRN (01:04)
[2020-07-08] MEDS ORDERED: Ondansetron PF 4 MG/2 ML Vial IVP PRN (01:04)
[2020-07-08] MEDS ORDERED: Sodium Chloride 0.9% 500 ML IV SCH (01:15)
[2020-07-08 01:20] LABS: Lactic Acid 1.6 mmol/L (0.5-2.2)
[2020-07-08 01:28] VITALS: BMI 30.2
[2020-07-08] MEDS ORDERED: Mag-Al 1200 mg/1200 mg/30 ML UDCUP ONE (01:48)
[2020-07-08] MEDS ORDERED: Lidocaine Viscous Sol 2% 15 ml UD Cup ONE (01:48)
[2020-07-08 02:35] LABS: Magnesium 1.7 mg/dL (1.6-2.6)
[2020-07-08 02:41] LABS: Bacteria/HPF None Seen HPF (None Seen); Bilirubin Negative (Negative); Blood, Urine Negative (Negative); Clarity Clear (Clear); Glucose, Urine (Dipstick) Normal (Negative); Ketone, Urine Negative (Negative); Leukocyte Negative Leu/uL (Negative); Nitrite Negative (Negative); Protein, Urine (Dipstick) Negative (Neg-Trace); RBC/HPF 0-3 HPF (0-3); Specific Gravity, Urine 1.038 (1.002-1.036); Squamous Epithelial None Seen HPF (0-3); WBC/HPF 0-3 HPF (0-3); pH, Urine 7.5 (5.0-9.0)
[2020-07-08 03:55] LABS: #Basophils 0.1 thou/uL (0.0-0.2); #Eosinphils 0.2 thou/uL (0.0-0.7); #Lymphocytes 1.8 thou/uL (1.20-3.40); #Monocytes 0.7 thou/uL (0.11-0.59); #Neutrophils 3.3 thou/uL (1.40-6.50); %Basophils 0.9 % (0.0-1.0); %Eosinophils 2.8 % (0.0-10.0); %Monocytes 11.3 % (0.0-10.0); Hemoglobin 13.3 g/dL (14.0-18.0); Mean Corpuscular HGB CONC 34.9 g/dL (32.0-36.0); Mean Corpuscular Hemoglobin 33.2 pg (27.0-31.0); Mean Corpuscular Volume 95.1 fL (78.0-98.0); Mean Platelet Volume 7.4 fL (7.4-10.4); Platelet Count 222 thou/uL (130-400); RBC Distribution Width 12.6 % (11.5-14.5); White Blood Cell (WBC) Count 5.9 thou/uL (4.8-10.8)
[2020-07-08 04:15] LABS: Anion Gap 15 mmol/L (10-20); BUN (Urea Nitrogen) 18 mg/dL (8.4-25.7); Calc. Creatinine Clearance 96 mL/min (70-130); Calcium 8.5 mg/dL (7.8-10.44); Carbon Dioxide 21 mmol/L (23-31); Cardiac Risk 4.6 (Less than 4.5); Chloride 109 mmol/L (98-107); Cholesterol 129 mg/dl (< 200 Desired); Glucose 89 mg/dL (80-115); HDL Cholesterol 28 mg/dL (>60 Neg Risk); LDL Cholesterol, Calculated 48 mg/dL; Potassium 3.9 mmol/L (3.5-5.1); Sodium 141 mmol/L (136-145); Triglycerides 263 mg/dL (Less than 150)
[2020-07-08 04:19] LABS: Troponin I Less than 0.010 ng/mL (< 0.028)
[2020-07-08] MEDS ORDERED: Ibuprofen 200 MG TAB ONE (05:30)
[2020-07-08] MEDS ORDERED: Ibuprofen 600 MG TAB PO SCH (05:45)
[2020-07-08] MEDS ORDERED: Clopidogrel Bisulfate 75 MG TAB PO SCH (09:00)
[2020-07-08] MEDS ORDERED: Aspirin 81 mg Enteric Coated Tablet PO SCH (09:00)
[2020-07-08] MEDS ORDERED: Aspirin Chewable 81 MG TAB ONE (10:15)
[2020-07-08] MEDS ORDERED: Clopidogrel Bisulfate 75 MG TAB ONE (10:15)
--- NOTE | 2020-07-08 10:23 | MRI ---
MRI OF [place] WITHOUT CONTRAST: HISTORY: TIA, vertigo. Bilateral arm and hand weakness has resolved. COMPARISON: MRI brain of 02/20/2020. CORRELATION: CT brain of previous day. FINDINGS: No restricted diffusion is seen. No evidence of infarct, hemorrhage, midline shift, or abnormal extr aaxial fluid collection is noted. The ventricular size is appropriate and the basilar cisterns paten t. A few foci of T2 prolongation in the periventricular white matter consistent with mild chronic sm all vessel ischemic disease are again seen. No blood products are noted on the gradient sequences. There is mucosal disease in the paranasal sinuses. IMPRESSION: No evidence of acute intracranial process. POS: AH
--- NOTE | 2020-07-08 11:42 | PDOC.HOSPP ---
- Subjective Encounter Date: 07/08/20 Encounter Time: 11:40 Subjective: was seen today in follow-up of Left sided weakness. He says his symptoms have essentially resolved. He also noted some numbness and tingling in his left arm and leg as well. He also notes chronic joint pains. He says he has been told he has " bone on bone" in his neck - Objective Vital Signs & Weight: Vital Signs (12 hours) Temp Pulse Resp BP Pulse Ox 07/08/20 08:45 98 F 75 16 117/69 93 L 07/08/20 06:55 78 18 94 L 07/08/20 01:28 98.3 F 91 20 133/91 H 96 Weight Weight 229 lb 4.492 oz Result Diagrams: 07/08/20 03:43 07/08/20 03:43 Additional Labs: Accuchecks 07/07/20 21:50 POC Glucose 132 H Hospitalist ROS - Medication Medications: Active Medications Generic Name Dose Route Start Last Admin Trade Name Freq PRN Reason Stop Dose Admin Aspirin 81 mg 07/08/20 09:00 07/08/20 10:18 Aspirin 81 Mg Enteric Coated Tablet PO 81 mg DAILY MANDO Administration Clopidogrel Bisulfate 75 mg 07/08/20 09:00 07/08/20 10:18 Clopidogrel Bisulfate 75 Mg Tab PO 75 mg DAILY MANDO Administration - Exam Eye: PERRL, anicteric sclera Heart: RRR, no murmur, no gallops, no rubs, normal peripheral pulses Respiratory: CTAB, no wheezes, no rales, no ronchi, normal chest expansion, no tachypnea Gastrointestinal: soft, non-tender, non-distended, normal bowel sounds, no palpable masses, no hepatomegaly Extremities: no cyanosis, no edema Neurological: no new deficit Musculoskeletal: normal strength, no muscle wasting Hosp A/P (1) Left-sided weakness Code(s): R53.1 - WEAKNESS Status: Acute (2) COPD (chronic obstructive pulmonary disease) Status: Chronic (3) GERD (gastroesophageal reflux disease) Code(s): K21.9 - GASTRO-ESOPHAGEAL REFLUX DISEASE WITHOUT ESOPHAGITIS Status: Chronic (4) HLD (hyperlipidemia) Code(s): E78.5 - HYPERLIPIDEMIA, UNSPECIFIED Status: Chronic (5) HTN (hypertension) Code(s): I10 - ESSENTIAL (PRIMARY) HYPERTENSION Status: Chronic (6) S/P CABG x 3 Code(s): Z95.1 - PRESENCE OF AORTOCORONARY BYPASS GRAFT Status: Chronic (7) Tobacco abuse Code(s): Z72.0 - TOBACCO USE Status: Chronic - Plan * Left sided weakness- this may be TIA or could also be consistent with a cervical radiculopathy, given the numbness in the extremities as well as the weakness. MRI of the brain was negative for CVA- will defer to Neurology * Cerebral Vascular disease- the [id number] tells me this is chronic, and has been evaluated by Dr. Selby in the past. * HTN- will trend his blood pressures, and titrate his medications as needed * CAD- this appears to be stable clinically - reconcile and re-start his home medications.
[2020-07-08 14:19] LABS: SARS-CoV-2 PCR by NAA Not Detected (NotDetected)
--- NOTE | 2020-07-08 15:53 | CON ---
NEUROLOGY CONSULTATION DATE OF CONSULTATION: 07/08/2020 REASON FOR CONSULTATION: Left-sided weakness. HISTORY OF PRESENT ILLNESS: Mr. Lopes is a 70-year-old male with medical history significant for coronary artery disease, myocardial infarction, congestive heart failure, multiple TIAs, CVA, status post tPA in 2012, COPD, and hepatitis C, presented to the emergency room with left-sided weakness associated with chest pain. Per the patient, he developed substernal pain approximately 7:00 p.m. on 07/07/2019 when he was sitting at home, which was constant and different from his previous heart attacks and associated with dizziness as if he is going to pass out. The patient denies vertigo or room spinning in front of his eyes. He also developed weakness and tingling 2 hours after the chest pain and 1 hour prior to arrival to the emergency room. Per patient, he has left-sided paresthesias, left upper extremity and lower extremity tingling with weakness per brother who lives with him. He was dragging his left foot at that time, so decided to bring him to the emergency room for further evaluation. The patient denies nausea, vomiting, abdominal pain, recent illness or recent exposure to COVID, dysuria, hematuria, fever or illness. In the emergency room, the vital signs were blood pressure was 142/82, pulse 82, respiratory rate 18. He was given aspirin and admitted for further evaluation. REVIEW OF SYSTEMS: All systems reviewed and were negative except the pertinent positives and negatives mentioned in the HPI. HOME MEDICATIONS: 1. Sublingual nitroglycerin. 2. Atorvastatin. 3. Amitriptyline. 4. Eszopiclone. 5. Pantoprazole. 6. Losartan. 7. Aspirin. 8. Metoprolol tartrate. 9. Vitamin D3. 10. Stress formula tablet. 11. Plavix. 12. Albuterol. ALLERGIES: MORPHINE, DOXYCYCLINE. PAST MEDICAL HISTORY: Coronary artery disease; congestive heart failure; hypertension; hyperlipidemia; COPD; CVA; TIA; multiple GERD; hepatitis A, B, C; osteoarthritis; rheumatoid arthritis. PAST SURGICAL HISTORY: Cholecystectomy, CABG x3, cataract removal, tonsillectomy. FAMILY HISTORY: No significant family history of stroke or seizures. SOCIAL HISTORY: The patient is a current every day smoker, cigars, 2 to 3 cigars a day. Occasional alcohol. History of heroin abuse. Lives with brother, disabled, independent ambulation. Vital Signs & Weight: Vital Signs (12 hours) Temp Pulse Resp BP Pulse Ox 07/08/20 08:45 98 F 75 16 117/69 93 L 07/08/20 06:55 78 18 94 L 07/08/20 01:28 98.3 F 91 20 133/91 H 96 Weight Weight 229 lb 4.492 oz Additional Labs: Accuchecks 07/07/20 21:50 POC Glucose 132 H Active Medications Generic Name Dose Route Start Last Admin Trade Name Dilip PRN Reason Stop Dose Admin Aspirin 81 mg 07/08/20 09:00 07/08/20 10:18 Aspirin 81 Mg Enteric Coated Tablet PO 81 mg DAILY MANDO Administration Clopidogrel Bisulfate 75 mg 07/08/20 09:00 07/08/20 10:18 Clopidogrel Bisulfate 75 Mg Tab PO 75 mg DAILY MANDO Administration PHYSICAL EXAMINATION: Eye: PERRL, anicteric sclera Heart: RRR, no murmur, no gallops, no rubs, normal peripheral pulses Respiratory: CTAB, no wheezes, no rales, no ronchi, normal chest expansion, no tachypnea Gastrointestinal: soft, non-tender, non-distended, normal bowel sounds, no palpable masses, no hepatomegaly Extremities: no cyanosis, no edema Neurological: no new deficit Musculoskeletal: normal strength, no muscle wasting NEUROLOGIC: Mental status; the patient is alert and oriented to person, place, and time. Speech is clear. Cranial nerves 2 through 12 intact. Motor, muscle tone and bulk are normal. Strength, 5/5 bilaterally. Sensory, mild decrease to light touch in the left upper and lower extremity. Cerebellar, finger-nose testing intact. Gait deferred due to the patient's safety reason. DATA REVIEWED: I reviewed the labs which were significant for mild anemia. Hemoglobin of 13.3, hematocrit of 36, and hyperglycemia of 19. EKG showed normal sinus rhythm. Radiology test including CT scan showed no acute intracranial pathology. CTA of the head and neck showed moderate calcified plaque at the origin of both internal carotid arteries. No hemodynamically significant stenosis. Lab results: WBC 6.5 thou/uL (4.8-10.8) 07/07/20 21:57 Hgb 13.7 g/dL (14.0-18.0) L 07/07/20 21:57 Hct 38.8 % (42.0-52.0) L 07/07/20 21:57 MCV 96.5 fL (78.0-98.0) 07/07/20 21:57 Plt Count 240 thou/uL (130-400) 07/07/20 21:57 Neutrophils % 57.0 % (42.0-75.0) 07/07/20 21:57 Sodium 140 mmol/L (136-145) 07/07/20 21:57 Potassium 4.1 mmol/L (3.5-5.1) 07/07/20 21:57 Chloride 107 mmol/L (98-107) 07/07/20 21:57 Carbon Dioxide 24 mmol/L (23-31) 07/07/20 21:57 BUN 19 mg/dL (8.4-25.7) 07/07/20 21:57 Creatinine 1.32 mg/dL (0.7-1.3) H 07/07/20 21:57 Glucose 119 mg/dL (80-115) H 07/07/20 21:57 Lactic Acid 2.4 mmol/L (0.5-2.2) H 07/07/20 22:19 Calcium 8.4 mg/dL (7.8-10.44) 07/07/20 21:57 Total Bilirubin 0.4 mg/dL (0.2-1.2) 07/07/20 21:57 AST 23 U/L (5-34) 07/07/20 21:57 ALT 19 U/L (8-55) 07/07/20 21:57 Alkaline Phosphatase 83 U/L (40-110) 07/07/20 21:57 Troponin I Less than 0.010 ng/mL (< 0.028) 07/07/20 21:57 Serum Total Protein 7.1 g/dL (5.8-8.1) 07/07/20 21:57 Albumin 4.0 g/dL (3.4-4.8) 07/07/20 21:57 ASSESSMENT AND PLAN: (1) Left-sided weakness Code(s): R53.1 - WEAKNESS Status: Acute (2) COPD (chronic obstructive pulmonary disease) Status: Chronic (3) GERD (gastroesophageal reflux disease) Code(s): K21.9 - GASTRO-ESOPHAGEAL REFLUX DISEASE WITHOUT ESOPHAGITIS Status: Chronic (4) HLD (hyperlipidemia) Code(s): E78.5 - HYPERLIPIDEMIA, UNSPECIFIED Status: Chronic (5) HTN (hypertension) Code(s): I10 - ESSENTIAL (PRIMARY) HYPERTENSION Status: Chronic (6) S/P CABG x 3 Code(s): Z95.1 - PRESENCE OF AORTOCORONARY BYPASS GRAFT Status: Chronic (7) Tobacco abuse Code(s): Z72.0 - TOBACCO USE Status: Chronic Mr. Aden Lopes is a 70-year-old male, who presented with left-sided weakness and paresthesias, which were almost resolved. MRI of the brain reviewed which was negative for acute intracranial pathology. The patient does have a cervical disk disease, so consider MRI of the cervical spine. Neuro checks every 4 hours. Continue aspirin and Plavix for secondary stroke prevention. Continue high-intensity statin for secondary stroke prevention. Strict control of blood pressure and blood glucose. PT/OT/Speech. Telemetry to rule out arrhythmias. CT of the head and neck reviewed, which was negative for acute hemodynamically significant stenosis. Echocardiogram on 05/14 showed normal ejection fraction with no thrombus or PFO. Continue home medications. Continue medical management per primary team. Plan discussed in detail with the patient and the nursing staff. Since the patient is back to the baseline, the cervical spine MRI can be done as outpatient if cleared by Cardiology. We will continue to follow. Thank you for the consult. Job ID: [id number] NATHAN
[2020-07-08 16:11] VITALS: BP 140/77; TEMP 97.7
--- NOTE | 2020-07-08 18:09 | CON ---
DATE OF CONSULTATION: HISTORY OF PRESENT ILLNESS: This is a 70-year-old gentleman who I have been following since coronary artery bypass grafting about a year ago. He was noted to have some carotid artery disease documented by a carotid ultrasound as well as CT angiography both in the 50% range. The patient had previous admission for left-sided numbness with no obvious motor dysfunction and no documented stroke. He presented again on this particular admission with similar symptoms of left-sided numbness. MRI of the brain was negative. CT angiogram of the neck was reviewed by me and showed a probably 50% bilateral calcified stenosis. He has multiple cardiovascular risk factors including continued smoking of about 3 cigars a day, although he has not smoked cigarettes in many years. He has hypertension, dyslipidemia as well as coronary artery disease. He has a past medical history of arthritis. He has not been significantly evaluated for arthritis of his neck and shoulder, although it was suggested by Dr. Coffman that this might be a good idea. REVIEW OF SYSTEMS: At this time, on review of systems, the patient is leading a rather inactive lifestyle by his choice. He has no chest pain, although did have some chest pain prompting admission today, although it was not typical of his previous anginal symptoms. He has dyspnea on exertion and that is his main complaint besides arthritic aches and pains. He has nocturia x2. PAST SURGICAL HISTORY: Includes: 1. CABG. 2. Cystoscopy. 3. Prostate surgery. 4. Tonsillectomy. 5. Cataracts. 6. Cholecystectomy. PHYSICAL EXAMINATION: GENERAL: Today, he is a tall gentleman, in no distress. VITAL SIGNS: Blood pressure 140/90 and heart rate 70. NECK: No carotid bruits. LUNGS: Clear to auscultation. CARDIAC: Regular rate and rhythm. No murmurs. Sternum stable with one prominent zip tie. ABDOMEN: Soft and nontender. EXTREMITIES: No edema. PLAN: At this time, the patient is stable with asymptomatic carotid disease and will follow up with a yearly visits. Otherwise, he is on a good medical regimen. I have encouraged him again to get on a regular walking program, although this has not been successful in the past and he does not seem much more interested at this time. Job ID: [id number]
--- NOTE | 2020-07-08 19:11 | DIS ---
DATE OF ADMISSION: 07/07/2020 DATE OF DISCHARGE: 07/08/2020 DISCHARGE DISPOSITION: Home. DISCHARGE DIAGNOSES: 1. Left-sided weakness. 2. Possible cervical radiculopathy. 3. Hypertension. 4. Tobacco abuse. 5. Coronary artery disease. 6. History of transient ischemic attack. 7. History of cerebrovascular accident. 8. Hepatitis C. 9. Chronic obstructive pulmonary disease. DISCHARGE MEDICATIONS: Include; 1. Albuterol nebs p.r.n. 2. Combivent inhaler 2 puffs b.i.d. p.r.n. 3. Cozaar 100 mg p.o. daily. 4. Eszopiclone 3 mg p.o. at bedtime. 5. Lopressor 50 mg p.o. b.i.d. 6. Nitrostat 0.4 sublingual q.5 minutes as needed. 7. Amlodipine 10 mg daily. 8. Plavix 75 mg p.o. daily. 9. Protonix 40 mg p.o. daily. 10. Multivitamin one tablet p.o. daily. 11. Vitamin D3 of 5000 units p.o. daily. 12. Atorvastatin 80 mg daily. 13. Aspirin 81 mg daily. IMAGING: Done during the hospital stay, he had a CT scan of the brain, which was negative for any acute intracranial abnormalities. He also had an MRI of the brain showing no evidence of any intracranial process. CT angiogram of the neck and wiyot of [place], which was significant for some moderate calcified plaque at the origin of both internal carotid arteries, but no hemodynamically significant stenosis. CODE STATUS: Full code. ALLERGIES: TO DOXYCYCLINE AND MORPHINE. HOSPITAL COURSE: Mr. Lopes is a pleasant 70-year-old gentleman, who presented to the emergency room due to left-sided weakness. He said his whole left side just kind of gave out on him. He also noted some pain and numbness in that area as well. He presented to the emergency room, where there was concern that this could be a TIA. CT angiogram was done, which was negative for any flow-limiting disease. Also, CT scan of the brain was negative. During his evaluation in the emergency room, his symptoms resolved. He was seen by Neurology. MRI of the brain was done, which was negative. He had, had a recent echo in April of last year as well as a nuclear stress test, which were essentially unremarkable. It is felt that his symptoms are most consistent with a possible cervical radiculopathy. He is being discharged, but has been informed that he should talk to his primary care physician about getting an MRI of his cervical spine. Also recommend that he talk with Dr. Mix about possibly having an event monitor placed to see if he has any type of occult atrial fibrillation or flutter given his complaints of palpitations off and on. Otherwise, the patient was also instructed to discontinue tobacco use and is again being discharged today. Job ID: [id number]
[2020-07-08] MEDS ORDERED: Atorvastatin Calcium 40 MG TAB PO SCH ×2 (21:00)
[2020-07-12 17:19] LABS: EliA RAS New Method **** NEW METHOD ****
--- NOTE | 2020-07-30 13:12 | EKG ---
Test Reason : Blood Pressure : / mmHG Vent. Rate : 094 BPM Atrial Rate : 094 BPM P-R Int : 152 ms QRS Dur : 084 ms QT Int : 366 ms P-R-T Axes : 065 065 072 degrees QTc Int : 457 ms Normal sinus rhythm ST abnormality, possible digitalis effect Abnormal ECG Confirmed by YESSI HULL ([id number]), advertising editor ESTEFANIA VELASCO ([id number]) on 07/30/2020 1:11:58 PM Referred By: Confirmed By:YESSI Ornelas
== END 2020-07-08 19:14 | disposition home or self-care (01) ==
LOC: ERS 21:42 → ERHOLD 23:57 → 2NO 07-08 15:38
PROVIDERS: ADMIT Student in an Organized Health Care Education/Training Program; ATTEND Student in an Organized Health Care Education/Training Program
DX: R53.1 Weakness (principal); R07.89 Other chest pain; R79.89 Other specified abnormal findings of blood chemistry; I11.0 Hypertensive heart disease with heart failure; I50.9 Heart failure, unspecified; F17.290 Nicotine dependence, other tobacco product, uncomplicated; I25.10 Atherosclerotic heart disease of native coronary artery without angina pectoris; B18.2 Chronic viral hepatitis C; J44.9 Chronic obstructive pulmonary disease, unspecified; I25.2 Old myocardial infarction; M06.9 Rheumatoid arthritis, unspecified; E78.5 Hyperlipidemia, unspecified; M19.90 Unspecified osteoarthritis, unspecified site; K21.9 Gastro-esophageal reflux disease without esophagitis; M50.90 Cervical disc disorder, unspecified, unspecified cervical region; I65.23 Occlusion and stenosis of bilateral carotid arteries; Z86.73 Personal history of transient ischemic attack (TIA), and cerebral infarction without residual deficits; Z79.02 Long term (current) use of antithrombotics/antiplatelets; Z79.82 Long term (current) use of aspirin; Z79.899 Other long term (current) drug therapy; Z88.1 Allergy status to other antibiotic agents; Z88.5 Allergy status to narcotic agent; Z95.1 Presence of aortocoronary bypass graft; Z20.822 Contact with and (suspected) exposure to COVID-19
CPT/HCPCS: 70450; 70496; 70498; 70551; 71045; 80048; 80053; 80061; 81001; 82550; 82607; 82746; 82962; 83605 ×2; 83735; 83880; 84443; 84484 ×3; 85025 ×2; 85610; 85730; 86200; 93005; 94640; 99285; U0003; U0005; 36415; 36416; 87635; G0378; J7620; Q9967

== ENCOUNTER 2020-07-16 19:30 | Outpatient (CLI) | payer MEDICARE, MEDICAID | END 2020-07-16 19:31 | disposition home or self-care (01) | LOC: SLEEPLAB 19:30 | PROVIDERS: ATTEND Internal Medicine Pulmonary Disease | DX: G47.33 Obstructive sleep apnea (adult) (pediatric) (principal); R53.83 Other fatigue; E66.9 Obesity, unspecified; J44.9 Chronic obstructive pulmonary disease, unspecified; I11.0 Hypertensive heart disease with heart failure; I50.9 Heart failure, unspecified; G47.00 Insomnia, unspecified; I25.10 Atherosclerotic heart disease of native coronary artery without angina pectoris; G47.10 Hypersomnia, unspecified; R09.02 Hypoxemia; R06.83 Snoring; Z68.30 Body mass index [BMI] 30.0-30.9, adult | CPT/HCPCS: 95810 ==

== ENCOUNTER 2020-08-28 13:11 | Outpatient (CLI) | payer MEDICARE, MEDICAID | END 2020-08-28 13:12 | disposition home or self-care (01) | LOC: BICMRI 13:11 | PROVIDERS: ATTEND Family Medicine | DX: M50.30 Other cervical disc degeneration, unspecified cervical region (principal); M47.812 Spondylosis without myelopathy or radiculopathy, cervical region | CPT/HCPCS: 72141 ==

== ENCOUNTER 2020-10-19 20:44 | Observation (INO) | payer MEDICARE, MEDICAID ==
[2020-10-19 21:36] LABS: #Basophils 0.1 thou/uL (0.0-0.2); #Eosinphils 0.2 thou/uL (0.0-0.7); #Lymphocytes 1.4 thou/uL (1.20-3.40); #Monocytes 0.5 thou/uL (0.11-0.59); #Neutrophils 3.3 thou/uL (1.40-6.50); %Eosinophils 3.5 % (0.0-10.0); %Monocytes 9.7 % (0.0-10.0); %Neutrophils 60.9 % (42.0-75.0); Hemoglobin 13.5 g/dL (14.0-18.0); Mean Corpuscular HGB CONC 34.7 g/dL (32.0-36.0); Mean Corpuscular Hemoglobin 33.2 pg (27.0-31.0); Mean Corpuscular Volume 95.7 fL (78.0-98.0); Mean Platelet Volume 6.8 fL (7.4-10.4); Platelet Count 258 thou/uL (130-400); RBC Distribution Width 12.1 % (11.5-14.5); Red Blood Cell (RBC) Count 4.08 mill/uL (4.70-6.10); White Blood Cell (WBC) Count 5.5 thou/uL (4.8-10.8)
[2020-10-19 21:46] LABS: PTT 27.3 sec (22.9-36.1); Prothrombin Time 13.5 sec (12.0-14.7)
[2020-10-19 21:59] LABS: ALT (SGPT) 15 U/L (8-55); AST (SGOT) 19 U/L (5-34); Albumin 3.9 g/dL (3.4-4.8); Alkaline Phosphatase 73 U/L (40-110); Anion Gap 14 mmol/L (10-20); BUN (Urea Nitrogen) 12 mg/dL (8.4-25.7); Bilirubin, Total 0.3 mg/dL (0.2-1.2); Calc. Creatinine Clearance 0 mL/min (70-130); Calcium 9.1 mg/dL (7.8-10.44); Carbon Dioxide 21 mmol/L (23-31); Chloride 105 mmol/L (98-107); Globulin 3.3 g/dL (2.4-3.5); Glucose 96 mg/dL (80-115); Potassium 4.1 mmol/L (3.5-5.1); Protein, Total 7.2 g/dL (5.8-8.1); Sodium 136 mmol/L (136-145)
[2020-10-19] MEDS ORDERED: Ondansetron ODT 4 MG TAB SL PRN (23:45)
[2020-10-19] MEDS ORDERED: Ondansetron PF 4 MG/2 ML Vial IVP PRN (23:45)
[2020-10-20 01:16] VITALS: BMI 29.8
[2020-10-20] MEDS ORDERED: hydrALAZINE 20 MG/ML VIAL SLOW IVP PRN (04:18)
[2020-10-20 04:44] LABS: SARS-CoV-2 PCR by NAA Not Detected (NotDetected)
[2020-10-20] MEDS ORDERED: Aspirin 81 mg Enteric Coated Tablet PO SCH (09:00)
[2020-10-20 11:42] VITALS: BP 131/73; TEMP 97.7
== END 2020-10-20 15:12 | disposition home or self-care (01) ==
LOC: ERS 20:44 → 2SE 22:47
PROVIDERS: ADMIT Internal Medicine; ATTEND Emergency Medicine
DX: G45.9 Transient cerebral ischemic attack, unspecified (principal); I11.0 Hypertensive heart disease with heart failure; I50.32 Chronic diastolic (congestive) heart failure; I69.344 Monoplegia of lower limb following cerebral infarction affecting left non-dominant side; I25.10 Atherosclerotic heart disease of native coronary artery without angina pectoris; J44.9 Chronic obstructive pulmonary disease, unspecified; K21.9 Gastro-esophageal reflux disease without esophagitis; E78.5 Hyperlipidemia, unspecified; M06.9 Rheumatoid arthritis, unspecified; M19.90 Unspecified osteoarthritis, unspecified site; I45.81 Long QT syndrome; F17.290 Nicotine dependence, other tobacco product, uncomplicated; Z79.02 Long term (current) use of antithrombotics/antiplatelets; Z79.899 Other long term (current) drug therapy; Z88.1 Allergy status to other antibiotic agents; Z88.5 Allergy status to narcotic agent; Z95.1 Presence of aortocoronary bypass graft; Z20.822 Contact with and (suspected) exposure to COVID-19
CPT/HCPCS: 70450; 70551; 80053; 85025; 85610; 85730; 93005; 99285; G0378 ×3; U0003; U0005; 36415; 87635; J7620

== ENCOUNTER 2020-12-05 15:32 | Observation (INO) | payer MEDICARE, MEDICAID ==
[2020-12-05 16:19] LABS: #Basophils 0.1 thou/uL (0.0-0.2); #Eosinphils 0.2 thou/uL (0.0-0.7); #Lymphocytes 1.6 thou/uL (1.20-3.40); #Monocytes 0.6 thou/uL (0.11-0.59); #Neutrophils 4.1 thou/uL (1.40-6.50); %Basophils 0.9 % (0.0-1.0); %Lymphocytes 24.4 % (21.0-51.0); %Monocytes 9.7 % (0.0-10.0); Hemoglobin 13.8 g/dL (14.0-18.0); Mean Corpuscular HGB CONC 34.6 g/dL (32.0-36.0); Mean Corpuscular Hemoglobin 32.9 pg (27.0-31.0); Mean Platelet Volume 6.7 fL (7.4-10.4); Platelet Count 268 thou/uL (130-400); RBC Distribution Width 12.6 % (11.5-14.5); White Blood Cell (WBC) Count 6.6 thou/uL (4.8-10.8)
[2020-12-05 16:33] LABS: ALT (SGPT) 15 U/L (8-55); AST (SGOT) 16 U/L (5-34); Albumin 4.1 g/dL (3.4-4.8); Alkaline Phosphatase 76 U/L (40-110); Anion Gap 12 mmol/L (10-20); BUN (Urea Nitrogen) 18 mg/dL (8.4-25.7); Bilirubin, Total 0.7 mg/dL (0.2-1.2); Calc. Creatinine Clearance 0 mL/min (70-130); Calcium 9.1 mg/dL (7.8-10.44); Carbon Dioxide 22 mmol/L (23-31); Chloride 107 mmol/L (98-107); Globulin 2.9 g/dL (2.4-3.5); Glucose 106 mg/dL (80-115); Lipase 40 U/L (8-78); Potassium 4.2 mmol/L (3.5-5.1); Sodium 137 mmol/L (136-145)
[2020-12-05] MEDS ORDERED: Aspirin 325 MG TAB ONE (16:54)
[2020-12-05] MEDS ORDERED: Fentanyl 100 MCG/2 ML VIAL ONE (16:54)
[2020-12-05] MEDS ORDERED: Fentanyl 100 MCG/2 ML VIAL SLOW IVP PRN (19:36)
[2020-12-05 20:02] VITALS: BMI 30.8
[2020-12-05] MEDS ORDERED: Nitroglycerin 0.4 MG TAB (25 Tab Bottle) SL PRN (20:31)
[2020-12-05] MEDS ORDERED: Acetaminophen 325 MG TAB PO PRN (21:30)
[2020-12-05] MEDS ORDERED: Ondansetron PF 4 MG/2 ML Vial IVP PRN (21:30)
[2020-12-05] MEDS ORDERED: Guaifenesin DM 100-10/5 ML UDCUP PO PRN (21:30)
[2020-12-05] MEDS ORDERED: Labetalol HCl 100 MG/20 ML VIAL SLOW IVP PRN (21:30)
[2020-12-05] MEDS ORDERED: cloNIDine 0.1 MG TAB PO PRN (21:30)
[2020-12-05] MEDS ORDERED: Morphine 2 MG/ML VIAL SLOW IVP PRN (21:30)
[2020-12-05] MEDS ORDERED: Promethazine HCl 12.5 MG in Sodium Chloride 0.9% 50 ML IVPB PRN (21:30)
[2020-12-05] MEDS ORDERED: hydrALAZINE 20 MG/ML VIAL SLOW IVP PRN (21:30)
[2020-12-05] MEDS ORDERED: Electrolyte Replacement Protocol 1 EACH FS SCH (21:30)
[2020-12-05] MEDS ORDERED: HYDROcodone/Acetaminophen 10/325 mg Tablet PO PRN (21:40)
[2020-12-05] MEDS: Zolpidem Tartrate 5 MG TAB PO SCH (21:54)
[2020-12-05] MEDS: Amlodipine 10 MG TAB PO SCH (21:54)
[2020-12-05] MEDS: Atorvastatin Calcium 40 MG TAB PO SCH (21:54)
[2020-12-05] MEDS: Metoprolol Tartrate 50 MG TAB PO SCH (21:55)
[2020-12-05] MEDS: HYDROcodone/Acetaminophen 10/325 mg Tablet PO PRN (22:31)
[2020-12-06 05:17] LABS: #Eosinphils 0.2 thou/uL (0.0-0.7); #Lymphocytes 1.8 thou/uL (1.20-3.40); #Monocytes 0.5 thou/uL (0.11-0.59); #Neutrophils 2.3 thou/uL (1.40-6.50); %Basophils 0.8 % (0.0-1.0); %Eosinophils 5.1 % (0.0-10.0); %Lymphocytes 36.4 % (21.0-51.0); %Monocytes 10.6 % (0.0-10.0); %Neutrophils 47.1 % (42.0-75.0); Hemoglobin 13.5 g/dL (14.0-18.0); Mean Corpuscular HGB CONC 33.4 g/dL (32.0-36.0); Mean Corpuscular Volume 95.9 fL (78.0-98.0); Mean Platelet Volume 6.3 fL (7.4-10.4); Platelet Count 226 thou/uL (130-400); RBC Distribution Width 12.5 % (11.5-14.5); Red Blood Cell (RBC) Count 4.22 mill/uL (4.70-6.10); White Blood Cell (WBC) Count 4.8 thou/uL (4.8-10.8)
[2020-12-06 05:37] LABS: Anion Gap 10 mmol/L (10-20); BUN (Urea Nitrogen) 14 mg/dL (8.4-25.7); Calc. Creatinine Clearance 120 mL/min (70-130); Calcium 8.7 mg/dL (7.8-10.44); Carbon Dioxide 26 mmol/L (23-31); Chloride 106 mmol/L (98-107); Glucose 94 mg/dL (80-115); Magnesium 1.8 mg/dL (1.6-2.6); Potassium 4.1 mmol/L (3.5-5.1); Sodium 138 mmol/L (136-145)
[2020-12-06] MEDS ORDERED: Magnesium 2 GM/50 ML 2 GM in Premix Bag 1 BAG IVPB SCH (06:15)
[2020-12-06] MEDS: HYDROcodone/Acetaminophen 10/325 mg Tablet PO PRN ×3 (06:30→23:02)
[2020-12-06] MEDS: Aspirin 325 mg Enteric Coated Tablet PO SCH (08:40)
[2020-12-06] MEDS: Losartan 25 MG TAB PO SCH (08:41)
[2020-12-06] MEDS: Clopidogrel Bisulfate 75 MG TAB PO SCH (08:41)
[2020-12-06 08:55] LABS: Troponin I Less than 0.010 ng/mL (< 0.028)
[2020-12-06] MEDS ORDERED: HYDROcodone/Acetaminophen 10/325 mg Tablet PO PRN (09:00)
[2020-12-06] MEDS ORDERED: Regadenoson 0.4 MG/5 ML SYRINGE ONE (09:48)
[2020-12-06] MEDS: Metoprolol Tartrate 50 MG TAB PO SCH ×2 (15:27→20:33)
[2020-12-06] MEDS: Amlodipine 10 MG TAB PO SCH (20:33)
[2020-12-06] MEDS: Atorvastatin Calcium 40 MG TAB PO SCH (20:33)
[2020-12-06] MEDS ORDERED: Enoxaparin Sodium 40 MG/0.4 ML SYRINGE SC SCH (21:00)
[2020-12-06] MEDS: Zolpidem Tartrate 5 MG TAB PO SCH (23:02)
[2020-12-07] MEDS: Clopidogrel Bisulfate 75 MG TAB PO SCH (08:31)
[2020-12-07] MEDS: Aspirin 325 mg Enteric Coated Tablet PO SCH (08:31)
[2020-12-07] MEDS: Metoprolol Tartrate 50 MG TAB PO SCH (08:31)
[2020-12-07] MEDS: Losartan 25 MG TAB PO SCH (08:31)
[2020-12-07 13:01] VITALS: BP 115/79; TEMP 97.7
== END 2020-12-07 14:17 | disposition home or self-care (01) ==
LOC: ERS 15:32 → 2SW 18:38
PROVIDERS: ADMIT Internal Medicine; ATTEND Internal Medicine
DX: R07.9 Chest pain, unspecified (principal); I16.0 Hypertensive urgency; I11.0 Hypertensive heart disease with heart failure; I50.32 Chronic diastolic (congestive) heart failure; I25.2 Old myocardial infarction; I25.10 Atherosclerotic heart disease of native coronary artery without angina pectoris; G62.9 Polyneuropathy, unspecified; E78.5 Hyperlipidemia, unspecified; I48.91 Unspecified atrial fibrillation; K21.9 Gastro-esophageal reflux disease without esophagitis; M06.9 Rheumatoid arthritis, unspecified; J44.9 Chronic obstructive pulmonary disease, unspecified; F17.290 Nicotine dependence, other tobacco product, uncomplicated; B19.20 Unspecified viral hepatitis C without hepatic coma; I45.81 Long QT syndrome; Z79.02 Long term (current) use of antithrombotics/antiplatelets; Z79.899 Other long term (current) drug therapy; Z88.1 Allergy status to other antibiotic agents; Z88.5 Allergy status to narcotic agent; Z86.73 Personal history of transient ischemic attack (TIA), and cerebral infarction without residual deficits; Z95.1 Presence of aortocoronary bypass graft
CPT/HCPCS: 71045; 78452; 80048; 80053; 83690; 83735; 83880; 84484 ×2; 85025 ×2; 85379; 93005; 93017; 96374; 99285; A9500; 36415; 96365; 96372; 96375; G0378; J1650; J2785; J3010; J3475

== ENCOUNTER 2021-02-12 19:41 | Inpatient (IN) | payer MEDICARE, MEDICAID, OTHER ==
[2021-02-12] MEDS ORDERED: HYDROcodone/Acetaminophen 7.5/325 mg Tablet ONE (21:46)
[2021-02-12] MEDS ORDERED: Fentanyl 100 MCG/2 ML VIAL ONE (21:46)
[2021-02-12 21:53] LABS: #Eosinphils 0.2 thou/uL (0.0-0.7); #Lymphocytes 1.8 thou/uL (1.20-3.40); #Monocytes 0.8 thou/uL (0.11-0.59); #Neutrophils 4.9 thou/uL (1.40-6.50); %Basophils 0.6 % (0.0-1.0); %Eosinophils 2.2 % (0.0-10.0); %Lymphocytes 23.7 % (21.0-51.0); %Monocytes 10.7 % (0.0-10.0); %Neutrophils 62.8 % (42.0-75.0); Hemoglobin 14.1 g/dL (14.0-18.0); Mean Corpuscular HGB CONC 34.4 g/dL (32.0-36.0); Mean Corpuscular Hemoglobin 33.1 pg (27.0-31.0); Mean Corpuscular Volume 96.3 fL (78.0-98.0); Mean Platelet Volume 6.6 fL (7.4-10.4); Platelet Count 257 thou/uL (130-400); RBC Distribution Width 12.6 % (11.5-14.5); Red Blood Cell (RBC) Count 4.26 mill/uL (4.70-6.10); White Blood Cell (WBC) Count 7.7 thou/uL (4.8-10.8)
[2021-02-12] MEDS ORDERED: Milk Of Magnesia 30 ML UDCUP PO PRN (22:04)
[2021-02-12] MEDS ORDERED: Acetaminophen/Codeine 30-300mg Tablet PO PRN (22:04)
[2021-02-12] MEDS ORDERED: Acetaminophen 325 MG TAB PO PRN (22:04)
[2021-02-12] MEDS ORDERED: Morphine 2 MG/ML VIAL SLOW IVP PRN (22:04)
[2021-02-12 22:20] LABS: ALT (SGPT) 16 U/L (8-55); AST (SGOT) 17 U/L (5-34); Albumin 4.3 g/dL (3.4-4.8); Alkaline Phosphatase 74 U/L (40-110); Anion Gap 14 mmol/L (10-20); BUN (Urea Nitrogen) 17 mg/dL (8.4-25.7); Bilirubin, Total 0.6 mg/dL (0.2-1.2); Calc. Creatinine Clearance 0 mL/min (70-130); Calcium 9.3 mg/dL (7.8-10.44); Carbon Dioxide 22 mmol/L (23-31); Chloride 106 mmol/L (98-107); Globulin 3.4 g/dL (2.4-3.5); Glucose 86 mg/dL (80-115); Potassium 4.2 mmol/L (3.5-5.1); Protein, Total 7.7 g/dL (5.8-8.1); Sodium 138 mmol/L (136-145)
[2021-02-12 22:52] LABS: INR-International Normal Ratio 1.1; Prothrombin Time 13.8 sec (12.0-14.7)
[2021-02-13 01:01] VITALS: BMI 31.6
[2021-02-13] MEDS: HYDROcodone/Acetaminophen 7.5/325 mg Tablet PO PRN ×2 (01:47→18:43)
[2021-02-13 03:32] LABS: SARS-CoV-2 NAA Rapid Test Not Detected (NotDetected)
[2021-02-13] MEDS ORDERED: Thrombin 5000 UNITS/5 ML VIAL ONE (07:14)
[2021-02-13] MEDS ORDERED: Bacitracin Zinc Ointment 30 gm TUBE ONE (07:19)
[2021-02-13] MEDS ORDERED: ceFAZolin 2 GM/Dextrose 50 ML IVPB ONE (09:08)
[2021-02-13] MEDS ORDERED: Fentanyl 250 MCG/5 ML VIAL ONE (09:37)
[2021-02-13] MEDS ORDERED: Phenylephrine 10 MG/ML VIAL ONE ×3 (09:37→14:10)
[2021-02-13] MEDS ORDERED: Vecuronium 10 MG VIAL ONE (10:00)
[2021-02-13] MEDS ORDERED: Calcium Chloride 1 GM/10 ML Abboject SYRINGE ONE (10:00)
[2021-02-13] MEDS ORDERED: Ondansetron PF 4 MG/2 ML Vial ONE ×2 (10:00→12:06)
[2021-02-13] MEDS ORDERED: Esmolol 100 MG/10 ML VIAL ONE (10:00)
[2021-02-13] MEDS ORDERED: PROPOFOL 200 MG/20 ML VIAL ONE (10:00)
[2021-02-13] MEDS ORDERED: Glycopyrrolate 0.2 MG/ML 5 ML SYRINGE ONE (10:00)
[2021-02-13] MEDS ORDERED: PHENYLEPHRINE-NS 100 MCG/ML 10 ML SYRINGE ONE ×2 (10:00→11:34)
[2021-02-13] MEDS ORDERED: Rocuronium Bromide 10 MG/ML (10ML VIAL) ONE (10:00)
[2021-02-13] MEDS ORDERED: ePHEDrine 50 MG/ML VIAL ONE ×2 (10:00)
[2021-02-13] MEDS ORDERED: Lidocaine 1% PF 5 ML VIAL ONE ×2 (10:00→14:10)
[2021-02-13] MEDS ORDERED: Dexamethasone 20 MG/5 ML VIAL ONE (10:00)
[2021-02-13] MEDS ORDERED: Albuterol Sulfate HFA (OR ONLY) ONE (10:00)
[2021-02-13] MEDS ORDERED: Fentanyl 100 MCG/2 ML VIAL SLOW IVP PRN (10:55)
[2021-02-13] MEDS ORDERED: Albuterol Sulfate 1.25 MG/3 ML NEB NEB PRN (10:56)
[2021-02-13] MEDS ORDERED: Nitroglycerin 0.4 MG TAB (25 Tab Bottle) SL PRN (10:56)
[2021-02-13] MEDS ORDERED: hydrALAZINE 20 MG/ML VIAL SLOW IVP PRN (10:57)
[2021-02-13] MEDS ORDERED: Albumin 5% 500 ML ONE (11:26)
[2021-02-13] MEDS ORDERED: HYDROmorphone 2 MG/ML VIAL ONE (12:01)
[2021-02-13] MEDS ORDERED: SUGAMMADEX SODIUM 200 MG/2 ML VIAL ONE ×2 (12:19→14:40)
[2021-02-13] MEDS ORDERED: Furosemide 20 MG/2 ML VIAL ONE (15:22)
[2021-02-13] MEDS ORDERED: Sodium Chloride For Inhalation 0.9% 3 ML NEB ONE (15:30)
[2021-02-13] MEDS ORDERED: Racepinephrine 2.25% 0.5 ML NEB ONE (15:30)
[2021-02-13] MEDS ORDERED: Ondansetron PF 4 MG/2 ML Vial IVP PRN (15:40)
[2021-02-13] MEDS ORDERED: Promethazine HCl 12.5 MG in Sodium Chloride 0.9% 50 ML IVPB PRN (15:40)
[2021-02-13] MEDS ORDERED: HYDROmorphone 2 MG/ML VIAL SLOW IVP PRN (16:13)
[2021-02-13] MEDS ORDERED: Promethazine HCl 25 MG/ML VIAL IM PRN (16:13)
[2021-02-13] MEDS ORDERED: Promethazine HCl 25 MG/ML VIAL IVPB PRN (16:13)
[2021-02-13] MEDS ORDERED: Ondansetron HCl/PF 4 MG/2 ML Vial IVP PRN (16:13)
[2021-02-13] MEDS ORDERED: Adenosine 6 MG/2 ML VIAL ONE (16:49)
[2021-02-13] MEDS ORDERED: Metoprolol Tartrate 5 MG/5 ML VIAL ONE (16:49)
[2021-02-13] MEDS ORDERED: Metoprolol Tartrate 5 MG/5 ML VIAL IVP PRN (16:50)
[2021-02-13] MEDS: Gabapentin 100 MG CAP PO SCH ×2 (17:29→20:21)
[2021-02-13] MEDS: ceFAZolin 2 GM/Dextrose 50 ML 2 GM in Premix Bag 1 BAG IVPB SCH (17:56)
[2021-02-13] MEDS: Fentanyl 100 MCG/2 ML VIAL SLOW IVP PRN ×3 (18:28→23:07)
[2021-02-13] MEDS: Mometasone 100 MCG/PUFF (1 INHALER) INH SCH (18:48)
[2021-02-13] MEDS: Metoprolol Tartrate 100 MG TAB PO SCH (20:22)
[2021-02-13] MEDS: Atorvastatin Calcium 40 MG TAB PO SCH (20:22)
[2021-02-13] MEDS: Amlodipine 10 MG TAB PO SCH (20:23)
[2021-02-13] MEDS: Zolpidem Tartrate 5 MG TAB PO SCH (20:24)
[2021-02-14] MEDS: ceFAZolin 2 GM/Dextrose 50 ML 2 GM in Premix Bag 1 BAG IVPB SCH ×3 (01:55→17:19)
[2021-02-14] MEDS: Fentanyl 100 MCG/2 ML VIAL SLOW IVP PRN ×5 (01:56→20:56)
[2021-02-14] MEDS: Mag-Al 1200 mg/1200 mg/30 ML UDCUP PO PRN (02:10)
[2021-02-14] MEDS: Mometasone 100 MCG/PUFF (1 INHALER) INH SCH ×2 (07:00→18:58)
[2021-02-14] MEDS: Cyanocobalamin (Vitamin B-12) 1,000 MCG TAB PO SCH (08:37)
[2021-02-14] MEDS: Cholecalciferol 1,000 UNITS (25 MCG) TAB PO SCH (08:37)
[2021-02-14] MEDS: Stress 600 With Zinc 1 TAB PO SCH (08:38)
[2021-02-14] MEDS: Losartan 25 MG TAB PO SCH (08:38)
[2021-02-14] MEDS: Metoprolol Tartrate 100 MG TAB PO SCH ×2 (08:39→20:53)
[2021-02-14] MEDS: HYDROcodone/Acetaminophen 7.5/325 mg Tablet PO PRN ×3 (08:39→20:52)
[2021-02-14] MEDS: Gabapentin 100 MG CAP PO SCH ×3 (08:39→20:52)
[2021-02-14] MEDS ORDERED: Non-Formulary Item 1 EACH (Fluticasone/Umeclidin/Vilanter [Trelegy Ellipta 200-62.5-25] 1 IH SCH (09:00)
[2021-02-14] MEDS: tiZANidine HCl 4 MG TAB PO PRN ×2 (15:00→23:17)
[2021-02-14] MEDS: Amlodipine 10 MG TAB PO SCH (20:53)
[2021-02-14] MEDS: Tamsulosin HCl 0.4 MG CAP PO SCH (20:54)
[2021-02-14] MEDS: Zolpidem Tartrate 5 MG TAB PO SCH (20:54)
[2021-02-14] MEDS: Atorvastatin Calcium 40 MG TAB PO SCH (21:20)
[2021-02-15] MEDS: Fentanyl 100 MCG/2 ML VIAL SLOW IVP PRN ×6 (02:59→21:24)
[2021-02-15] MEDS: HYDROcodone/Acetaminophen 7.5/325 mg Tablet PO PRN ×3 (03:00→18:25)
[2021-02-15] MEDS: ceFAZolin 2 GM/Dextrose 50 ML 2 GM in Premix Bag 1 BAG IVPB SCH ×3 (03:05→16:42)
[2021-02-15] MEDS: Mometasone 100 MCG/PUFF (1 INHALER) INH SCH ×2 (07:40→20:12)
[2021-02-15] MEDS: Cyanocobalamin (Vitamin B-12) 1,000 MCG TAB PO SCH (08:55)
[2021-02-15] MEDS: Cholecalciferol 1,000 UNITS (25 MCG) TAB PO SCH (08:56)
[2021-02-15] MEDS: Losartan 25 MG TAB PO SCH (08:56)
[2021-02-15] MEDS: Gabapentin 100 MG CAP PO SCH ×3 (08:56→21:10)
[2021-02-15] MEDS: Stress 600 With Zinc 1 TAB PO SCH (08:56)
[2021-02-15] MEDS: Metoprolol Tartrate 100 MG TAB PO SCH ×2 (08:57→21:10)
[2021-02-15] MEDS ORDERED: Polyethylene Glycol 3350 17 GM Packet PO PRN (09:35)
[2021-02-15 10:23] LABS: Anion Gap 15 mmol/L (10-20); BUN (Urea Nitrogen) 11 mg/dL (8.4-25.7); Calc. Creatinine Clearance 123 mL/min (70-130); Calcium 9.3 mg/dL (7.8-10.44); Carbon Dioxide 20 mmol/L (23-31); Chloride 105 mmol/L (98-107); Glucose 131 mg/dL (80-115); Potassium 4.8 mmol/L (3.5-5.1); Sodium 135 mmol/L (136-145)
[2021-02-15] MEDS: Amlodipine 10 MG TAB PO SCH (21:09)
[2021-02-15] MEDS: Tamsulosin HCl 0.4 MG CAP PO SCH (21:09)
[2021-02-15] MEDS: Atorvastatin Calcium 40 MG TAB PO SCH (21:09)
[2021-02-15] MEDS: Zolpidem Tartrate 5 MG TAB PO SCH (21:09)
[2021-02-15] MEDS: Mag-Al 1200 mg/1200 mg/30 ML UDCUP PO PRN (21:24)
[2021-02-16] MEDS: HYDROcodone/Acetaminophen 7.5/325 mg Tablet PO PRN ×3 (00:13→14:53)
[2021-02-16] MEDS: Fentanyl 100 MCG/2 ML VIAL SLOW IVP PRN ×5 (01:28→21:43)
[2021-02-16] MEDS: ceFAZolin 2 GM/Dextrose 50 ML 2 GM in Premix Bag 1 BAG IVPB SCH ×3 (02:03→18:37)
[2021-02-16] MEDS: Mometasone 100 MCG/PUFF (1 INHALER) INH SCH ×2 (07:18→19:37)
[2021-02-16] MEDS: Cholecalciferol 1,000 UNITS (25 MCG) TAB PO SCH (09:35)
[2021-02-16] MEDS: Cyanocobalamin (Vitamin B-12) 1,000 MCG TAB PO SCH (09:35)
[2021-02-16] MEDS: Losartan 25 MG TAB PO SCH (09:36)
[2021-02-16] MEDS: Metoprolol Tartrate 100 MG TAB PO SCH ×2 (09:37→21:29)
[2021-02-16] MEDS: Gabapentin 100 MG CAP PO SCH ×3 (09:38→21:28)
[2021-02-16] MEDS: Stress 600 With Zinc 1 TAB PO SCH (09:40)
[2021-02-16] MEDS: Atorvastatin Calcium 40 MG TAB PO SCH (21:28)
[2021-02-16] MEDS: Tamsulosin HCl 0.4 MG CAP PO SCH (21:29)
[2021-02-16] MEDS: Amlodipine 10 MG TAB PO SCH (21:30)
[2021-02-16] MEDS: Zolpidem Tartrate 5 MG TAB PO SCH (21:30)
[2021-02-17] MEDS: Fentanyl 100 MCG/2 ML VIAL SLOW IVP PRN (05:33)
[2021-02-17] MEDS: ceFAZolin 2 GM/Dextrose 50 ML 2 GM in Premix Bag 1 BAG IVPB SCH ×2 (05:52→09:13)
[2021-02-17] MEDS: Cholecalciferol 1,000 UNITS (25 MCG) TAB PO SCH (09:10)
[2021-02-17] MEDS: Cyanocobalamin (Vitamin B-12) 1,000 MCG TAB PO SCH (09:10)
[2021-02-17] MEDS: Losartan 25 MG TAB PO SCH (09:11)
[2021-02-17] MEDS: Gabapentin 100 MG CAP PO SCH ×3 (09:11→20:54)
[2021-02-17] MEDS: Docusate 100 MG CAP PO PRN (09:11)
[2021-02-17] MEDS: Metoprolol Tartrate 100 MG TAB PO SCH ×2 (09:12→20:55)
[2021-02-17] MEDS: Stress 600 With Zinc 1 TAB PO SCH (09:12)
[2021-02-17] MEDS: HYDROcodone/Acetaminophen 7.5/325 mg Tablet PO PRN ×3 (09:24→21:00)
[2021-02-17] MEDS: tiZANidine HCl 4 MG TAB PO PRN (09:24)
[2021-02-17] MEDS: Mometasone 100 MCG/PUFF (1 INHALER) INH SCH ×2 (10:27→23:09)
[2021-02-17] MEDS: Amlodipine 10 MG TAB PO SCH (20:53)
[2021-02-17] MEDS: Atorvastatin Calcium 40 MG TAB PO SCH (20:54)
[2021-02-17] MEDS: Tamsulosin HCl 0.4 MG CAP PO SCH (20:56)
[2021-02-17] MEDS: Zolpidem Tartrate 5 MG TAB PO SCH (20:57)
[2021-02-18] MEDS: HYDROcodone/Acetaminophen 7.5/325 mg Tablet PO PRN ×2 (06:00→14:42)
[2021-02-18] MEDS: Mometasone 100 MCG/PUFF (1 INHALER) INH SCH ×2 (07:05→18:51)
[2021-02-18] MEDS: Cyanocobalamin (Vitamin B-12) 1,000 MCG TAB PO SCH (10:46)
[2021-02-18] MEDS: Gabapentin 100 MG CAP PO SCH ×2 (10:47→14:41)
[2021-02-18] MEDS: Losartan 25 MG TAB PO SCH (10:47)
[2021-02-18] MEDS: Metoprolol Tartrate 100 MG TAB PO SCH (10:50)
[2021-02-18] MEDS: Stress 600 With Zinc 1 TAB PO SCH (10:50)
[2021-02-18] MEDS: Cholecalciferol 1,000 UNITS (25 MCG) TAB PO SCH (11:07)
[2021-02-18] MEDS: Docusate 100 MG CAP PO PRN (11:08)
[2021-02-18] MEDS: tiZANidine HCl 4 MG TAB PO PRN (14:46)
[2021-02-18 16:15] VITALS: BP 154/97; TEMP 97.7
== END 2021-02-18 20:09 | disposition home or self-care (01) | DRG 454 ==
LOC: ERS 19:41 → SURG B 22:05
PROVIDERS: ADMIT Surgery; ATTEND Surgery
PROC: 0T9B70Z Drainage of Bladder with Drainage Device, Via Natural or Artificial Opening (ICD-10-PCS; principal; 2021-02-13)
PROC: 0RG20A0 Fusion of 2 or more Cervical Vertebral Joints with Interbody Fusion Device, Anterior Approach, Anterior Column, Open Approach (ICD-10-PCS; 2021-02-13)
PROC: 0RG20K1 Fusion of 2 or more Cervical Vertebral Joints with Nonautologous Tissue Substitute, Posterior Approach, Posterior Column, Open Approach (ICD-10-PCS; 2021-02-13)
PROC: 0RB30ZZ Excision of Cervical Vertebral Disc, Open Approach (ICD-10-PCS; 2021-02-13)
PROC: 01N10ZZ Release Cervical Nerve, Open Approach (ICD-10-PCS; 2021-02-13)
DX: M48.02 Spinal stenosis, cervical region (principal); N17.9 Acute kidney failure, unspecified; I50.32 Chronic diastolic (congestive) heart failure; M50.020 Cervical disc disorder with myelopathy, mid-cervical region, unspecified level; I25.10 Atherosclerotic heart disease of native coronary artery without angina pectoris; J44.9 Chronic obstructive pulmonary disease, unspecified; G47.33 Obstructive sleep apnea (adult) (pediatric); E78.5 Hyperlipidemia, unspecified; F41.9 Anxiety disorder, unspecified; I11.0 Hypertensive heart disease with heart failure; M54.12 Radiculopathy, cervical region; N35.919 Unspecified urethral stricture, male, unspecified site; K59.00 Constipation, unspecified; K21.9 Gastro-esophageal reflux disease without esophagitis; M19.90 Unspecified osteoarthritis, unspecified site; M06.9 Rheumatoid arthritis, unspecified; I48.91 Unspecified atrial fibrillation; Z95.1 Presence of aortocoronary bypass graft; Z88.8 Allergy status to other drugs, medicaments and biological substances; Z90.49 Acquired absence of other specified parts of digestive tract; Z86.73 Personal history of transient ischemic attack (TIA), and cerebral infarction without residual deficits
CPT/HCPCS: 0240U; 36415; 76000; 80048; 80053; 85025; 85610; 93005; 93970; 96374; C1713; C1768; C1776; J0153; J0360; J0690; J1100; J1170; J1940; J2370; J2405; J2704; J3010; J3370; J3490; J7620; P9045

== ENCOUNTER 2021-02-19 15:52 | Emergency (ER) | payer MEDICARE, MEDICAID ==
[2021-02-19 19:05] LABS: #Eosinphils 0.3 thou/uL (0.0-0.7); #Lymphocytes 1.2 thou/uL (1.20-3.40); #Monocytes 1.2 thou/uL (0.11-0.59); #Neutrophils 8.8 thou/uL (1.40-6.50); %Basophils 0.2 % (0.0-1.0); %Eosinophils 2.6 % (0.0-10.0); %Lymphocytes 10.7 % (21.0-51.0); %Monocytes 10.1 % (0.0-10.0); %Neutrophils 76.4 % (42.0-75.0); Hemoglobin 12.1 g/dL (14.0-18.0); Mean Corpuscular Volume 97.2 fL (78.0-98.0); Mean Platelet Volume 6.7 fL (7.4-10.4); Platelet Count 304 thou/uL (130-400); RBC Distribution Width 12.4 % (11.5-14.5); Red Blood Cell (RBC) Count 3.68 mill/uL (4.70-6.10); White Blood Cell (WBC) Count 11.5 thou/uL (4.8-10.8)
[2021-02-19] MEDS ORDERED: Ondansetron PF 4 MG/2 ML Vial ONE (19:08)
[2021-02-19] MEDS ORDERED: Fentanyl 100 MCG/2 ML VIAL ONE (19:08)
[2021-02-19 19:26] LABS: ALT (SGPT) 25 U/L (8-55); AST (SGOT) 25 U/L (5-34); Alkaline Phosphatase 91 U/L (40-110); Anion Gap 13 mmol/L (10-20); BUN (Urea Nitrogen) 13 mg/dL (8.4-25.7); Bilirubin, Total 1.2 mg/dL (0.2-1.2); Calc. Creatinine Clearance 0 mL/min (70-130); Carbon Dioxide 25 mmol/L (23-31); Chloride 103 mmol/L (98-107); Globulin 2.9 g/dL (2.4-3.5); Glucose 106 mg/dL (80-115); Potassium 4.5 mmol/L (3.5-5.1); Protein, Total 6.9 g/dL (5.8-8.1); Sodium 136 mmol/L (136-145)
[2021-02-19 19:53] LABS: Bacteria/HPF None Seen HPF (None Seen); Bilirubin Negative (Negative); Blood, Urine 3+ (Negative); Clarity Turbid (Clear); Glucose, Urine (Dipstick) Normal (Negative); Ketone, Urine Negative (Negative); Leukocyte 250 Leu/uL (Negative); Nitrite Negative (Negative); Protein, Urine (Dipstick) 100 mg/dL (Neg-Trace); RBC/HPF Greater than 50 HPF (0-3); Specific Gravity, Urine 1.028 (1.002-1.036); Squamous Epithelial 0-3 HPF (0-3); WBC/HPF Greater than 50 HPF (0-3)
[2021-02-19] MEDS ORDERED: cefTRIAXone\\ROCEPHIN 2 GM VIAL ONE (20:15)
== END 2021-02-19 21:04 | disposition home or self-care (01) ==
LOC: ERS 15:52
DX: N39.0 Urinary tract infection, site not specified (principal); I25.2 Old myocardial infarction; K21.9 Gastro-esophageal reflux disease without esophagitis; J44.9 Chronic obstructive pulmonary disease, unspecified; I11.0 Hypertensive heart disease with heart failure; I50.9 Heart failure, unspecified; I48.91 Unspecified atrial fibrillation; M19.90 Unspecified osteoarthritis, unspecified site; F17.210 Nicotine dependence, cigarettes, uncomplicated; Z86.73 Personal history of transient ischemic attack (TIA), and cerebral infarction without residual deficits
CPT/HCPCS: 36415; 80053; 81003; 81015; 82550; 85025; 87086; 96365; 96375; J0696; J2405; J3010

== ENCOUNTER 2021-02-20 16:14 | Emergency (ER) | payer MEDICARE, MEDICAID ==
[2021-02-20] MEDS ORDERED: HYDROcodone/Acetaminophen 5/325 mg Tablet ONE (17:42)
== END 2021-02-20 18:34 | disposition home or self-care (01) ==
LOC: ERS 16:14
DX: N39.0 Urinary tract infection, site not specified (principal); N32.89 Other specified disorders of bladder; E78.5 Hyperlipidemia, unspecified; I50.9 Heart failure, unspecified; K21.9 Gastro-esophageal reflux disease without esophagitis; M06.9 Rheumatoid arthritis, unspecified; M19.90 Unspecified osteoarthritis, unspecified site; I11.0 Hypertensive heart disease with heart failure; I48.91 Unspecified atrial fibrillation; J43.9 Emphysema, unspecified; Z87.891 Personal history of nicotine dependence
CPT/HCPCS: 99283

== ENCOUNTER 2021-03-27 13:31 | Outpatient (CLI) | payer MEDICARE, MEDICAID | END 2021-03-27 13:32 | disposition home or self-care (01) | LOC: BICRAD 13:31 | PROVIDERS: ATTEND Physician Assistant | DX: M47.12 Other spondylosis with myelopathy, cervical region (principal); M50.10 Cervical disc disorder with radiculopathy, unspecified cervical region; M50.00 Cervical disc disorder with myelopathy, unspecified cervical region; M47.22 Other spondylosis with radiculopathy, cervical region | CPT/HCPCS: 72040 ==

== ENCOUNTER 2021-04-30 10:25 | Outpatient (CLI) | payer MEDICARE, MEDICAID | END 2021-04-30 10:26 | disposition home or self-care (01) | LOC: BICCT 10:25 | PROVIDERS: ATTEND Internal Medicine Pulmonary Disease | DX: Z12.2 Encounter for screening for malignant neoplasm of respiratory organs (principal); F17.210 Nicotine dependence, cigarettes, uncomplicated | CPT/HCPCS: 71271 ==

== ENCOUNTER 2021-05-01 11:46 | Outpatient (CLI) | payer MEDICARE, MEDICAID | END 2021-05-01 11:47 | disposition home or self-care (01) | LOC: ULT 11:46 | PROVIDERS: ATTEND Family Medicine | DX: Z13.6 Encounter for screening for cardiovascular disorders (principal); Z00.00 Encounter for general adult medical examination without abnormal findings; Z12.5 Encounter for screening for malignant neoplasm of prostate; I10 Essential (primary) hypertension; I25.708 Atherosclerosis of coronary artery bypass graft(s), unspecified, with other forms of angina pectoris; R76.8 Other specified abnormal immunological findings in serum; Z79.899 Other long term (current) drug therapy | CPT/HCPCS: 76775; 80053; 80061; 85025; 86803; 87521; 87522; G0103; 36415 ==

== ENCOUNTER 2021-06-05 13:38 | Outpatient (CLI) | payer MEDICARE, MEDICAID ==
[~2021-06-05 13:38] MED LIST changes: +Iopamidol 370 76% 100 ML VIAL ONE; -Iopamidol-370 76% 500 ML 1 ML ONE
[2021-06-05 14:06] LABS: Estimated GFR-MDRD - POC Greater than 90
== END 2021-06-05 13:39 | disposition home or self-care (01) ==
LOC: BICCT 13:38
PROVIDERS: ATTEND Family Medicine
DX: R10.9 Unspecified abdominal pain (principal)
CPT/HCPCS: 74177; 82565; Q9967

== ENCOUNTER 2021-09-17 18:21 | Observation (INO) | payer MEDICARE, MEDICAID ==
[2021-09-17 19:39] LABS: #Basophils 0.1 thou/uL (0.0-0.2); #Eosinphils 0.2 thou/uL (0.0-0.7); #Lymphocytes 1.1 thou/uL (1.20-3.40); #Monocytes 0.6 thou/uL (0.11-0.59); #Neutrophils 3.1 thou/uL (1.40-6.50); %Basophils 1.6 % (0.0-1.0); %Eosinophils 3.4 % (0.0-10.0); %Lymphocytes 21.6 % (21.0-51.0); %Neutrophils 61.5 % (42.0-75.0); Hemoglobin 13.5 g/dL (14.0-18.0); Mean Corpuscular HGB CONC 32.9 g/dL (32.0-36.0); Mean Corpuscular Hemoglobin 30.9 pg (27.0-31.0); Mean Corpuscular Volume 93.8 fL (78.0-98.0); Mean Platelet Volume 6.5 fL (7.4-10.4); Platelet Count 264 thou/uL (130-400); RBC Distribution Width 14.1 % (11.5-14.5); Red Blood Cell (RBC) Count 4.37 mill/uL (4.70-6.10)
[2021-09-17 20:02] LABS: ALT (SGPT) 23 U/L (8-55); AST (SGOT) 20 U/L (5-34); Albumin 4.1 g/dL (3.4-4.8); Alkaline Phosphatase 85 U/L (40-110); Anion Gap 15 mmol/L (10-20); BUN (Urea Nitrogen) 17 mg/dL (8.4-25.7); Bilirubin, Total 0.5 mg/dL (0.2-1.2); Calc. Creatinine Clearance 0 mL/min (70-130); Carbon Dioxide 23 mmol/L (23-31); Chloride 102 mmol/L (98-107); Globulin 3.3 g/dL (2.4-3.5); Glucose 89 mg/dL (80-115); Potassium 4.4 mmol/L (3.5-5.1); Protein, Total 7.4 g/dL (5.8-8.1); Sodium 136 mmol/L (136-145)
[2021-09-17 23:03] VITALS: BMI 31.6
[2021-09-17] MEDS ORDERED: Ondansetron PF 4 MG/2 ML Vial IVP PRN (23:31)
[2021-09-17] MEDS ORDERED: Acetaminophen 325 MG TAB PO PRN (23:31)
[2021-09-17] MEDS ORDERED: Nitroglycerin 0.4 MG TAB (25 Tab Bottle) SL PRN (23:34)
[2021-09-17] MEDS ORDERED: hydrALAZINE 20 MG/ML VIAL SLOW IVP PRN (23:34)
[2021-09-17] MEDS ORDERED: Heparin 5,000 UNITS/ML VIAL SC SCH (23:45)
[2021-09-17] MEDS ORDERED: Nicotine 21 MG PATCH TD SCH (23:59)
[2021-09-18 00:02] LABS: Troponin I Less than 0.010 ng/mL (< 0.028)
[2021-09-18] MEDS ORDERED: Aspirin Chewable 81 MG TAB PO SCH (00:30)
[2021-09-18] MEDS ORDERED: Pantoprazole 40 MG VIAL IVP SCH ×2 (01:45→09:00)
[2021-09-18] MEDS ORDERED: methylPREDNISolone Sod Succ/PF 125 MG/2 ML VIAL IVP SCH (01:45)
[2021-09-18 02:05] LABS: Troponin I Less than 0.010 ng/mL (< 0.028)
[2021-09-18 04:30] LABS: #Eosinphils 0.1 thou/uL (0.0-0.7); #Lymphocytes 0.8 thou/uL (1.20-3.40); #Monocytes 0.3 thou/uL (0.11-0.59); #Neutrophils 3.9 thou/uL (1.40-6.50); %Basophils 0.7 % (0.0-1.0); %Eosinophils 2.2 % (0.0-10.0); %Lymphocytes 16.1 % (21.0-51.0); %Monocytes 6.5 % (0.0-10.0); %Neutrophils 74.5 % (42.0-75.0); Hemoglobin 13.6 g/dL (14.0-18.0); Mean Corpuscular HGB CONC 32.8 g/dL (32.0-36.0); Mean Corpuscular Hemoglobin 31.1 pg (27.0-31.0); Mean Corpuscular Volume 94.9 fL (78.0-98.0); Mean Platelet Volume 6.4 fL (7.4-10.4); Platelet Count 268 thou/uL (130-400); RBC Distribution Width 13.9 % (11.5-14.5); Red Blood Cell (RBC) Count 4.39 mill/uL (4.70-6.10); White Blood Cell (WBC) Count 5.2 thou/uL (4.8-10.8)
[2021-09-18 05:02] LABS: ALT (SGPT) 21 U/L (8-55); AST (SGOT) 19 U/L (5-34); Alkaline Phosphatase 86 U/L (40-110); Anion Gap 14 mmol/L (10-20); BUN (Urea Nitrogen) 18 mg/dL (8.4-25.7); Bilirubin, Total 0.5 mg/dL (0.2-1.2); Calc. Creatinine Clearance 93 mL/min (70-130); Carbon Dioxide 22 mmol/L (23-31); Cardiac Risk 5.7 (Less than 4.5); Chloride 105 mmol/L (98-107); Cholesterol 154 mg/dl (< 200 Desired); Globulin 3.6 g/dL (2.4-3.5); Glucose 137 mg/dL (80-115); HDL Cholesterol 27 mg/dL (>60 Neg Risk); Protein, Total 7.6 g/dL (5.8-8.1); Sodium 137 mmol/L (136-145); Triglycerides 495 mg/dL (Less than 150)
[2021-09-18 05:16] LABS: LDL Cholesterol, Calculated 28 mg/dL
[2021-09-18] MEDS ORDERED: Heparin 5,000 UNITS/ML VIAL SC SCH (09:00)
[2021-09-18] MEDS ORDERED: methylPREDNISolone Sod Succ 40 MG VIAL IVP SCH (09:00)
[2021-09-18] MEDS ORDERED: Regadenoson 0.4 MG/5 ML SYRINGE ONE (10:45)
[2021-09-18 11:54] VITALS: BP 125/64; TEMP 98
[2021-09-18 12:16] LABS: SARS-CoV-2 PCR by NAA Not Detected (NotDetected)
[2021-09-18] MEDS ORDERED: HYDROcodone/Acetaminophen 10/325 mg Tablet PO PRN (12:27)
== END 2021-09-18 14:53 | disposition home or self-care (01) ==
LOC: ERS 18:21 → 2SW 21:09
PROVIDERS: ADMIT Student in an Organized Health Care Education/Training Program; ATTEND Internal Medicine
DX: R07.89 Other chest pain (principal); J44.1 Chronic obstructive pulmonary disease with (acute) exacerbation; N17.9 Acute kidney failure, unspecified; I11.0 Hypertensive heart disease with heart failure; I50.9 Heart failure, unspecified; E78.5 Hyperlipidemia, unspecified; F17.290 Nicotine dependence, other tobacco product, uncomplicated; I25.10 Atherosclerotic heart disease of native coronary artery without angina pectoris; I48.91 Unspecified atrial fibrillation; K21.9 Gastro-esophageal reflux disease without esophagitis; Z86.73 Personal history of transient ischemic attack (TIA), and cerebral infarction without residual deficits; Z79.02 Long term (current) use of antithrombotics/antiplatelets; Z79.899 Other long term (current) drug therapy; Z88.1 Allergy status to other antibiotic agents; Z88.5 Allergy status to narcotic agent; Z95.1 Presence of aortocoronary bypass graft; Z20.822 Contact with and (suspected) exposure to COVID-19
CPT/HCPCS: 71045; 78452; 80053 ×2; 80061; 83880; 84484 ×3; 85025 ×2; 93005; 93017; 94640 ×2; 94760 ×2; 99285; A9500; U0003; U0005; 36415; 96372; 96374; 96375; 96376; C9113; G0378; J1644; J2785; J2920; J2930; J7620

== ENCOUNTER 2021-10-12 17:54 | Emergency (ER) | payer MEDICARE, OTHER ==
[2021-10-12 18:52] LABS: #Eosinphils 0.2 thou/uL (0.0-0.7); #Lymphocytes 1.2 thou/uL (1.20-3.40); #Monocytes 0.6 thou/uL (0.11-0.59); #Neutrophils 4.3 thou/uL (1.40-6.50); %Basophils 0.5 % (0.0-1.0); %Eosinophils 2.7 % (0.0-10.0); %Lymphocytes 18.7 % (21.0-51.0); %Neutrophils 68.1 % (42.0-75.0); Hemoglobin 14.6 g/dL (14.0-18.0); Mean Corpuscular HGB CONC 32.9 g/dL (32.0-36.0); Mean Corpuscular Hemoglobin 32.1 pg (27.0-31.0); Mean Corpuscular Volume 97.8 fL (78.0-98.0); Mean Platelet Volume 6.4 fL (7.4-10.4); Platelet Count 314 thou/uL (130-400); RBC Distribution Width 13.6 % (11.5-14.5); Red Blood Cell (RBC) Count 4.53 mill/uL (4.70-6.10); White Blood Cell (WBC) Count 6.3 thou/uL (4.8-10.8)
[2021-10-12 19:11] LABS: ALT (SGPT) 12 U/L (8-55); AST (SGOT) 12 U/L (5-34); Albumin 4.4 g/dL (3.4-4.8); Alkaline Phosphatase 102 U/L (40-110); Anion Gap 17 mmol/L (10-20); BUN (Urea Nitrogen) 10 mg/dL (8.4-25.7); Bilirubin, Total 0.4 mg/dL (0.2-1.2); Calc. Creatinine Clearance 0 mL/min (70-130); Calcium 9.3 mg/dL (7.8-10.44); Carbon Dioxide 23 mmol/L (23-31); Chloride 106 mmol/L (98-107); Glucose 96 mg/dL (80-115); Potassium 4.5 mmol/L (3.5-5.1); Protein, Total 7.4 g/dL (5.8-8.1); Sodium 141 mmol/L (136-145)
[2021-10-12] MEDS ORDERED: methylPREDNISolone Sod Succ/PF 125 MG/2 ML VIAL ONE (19:12)
[2021-10-12 20:03] LABS: Bacteria/HPF None Seen HPF (None Seen); Bilirubin Negative (Negative); Blood, Urine Negative (Negative); Clarity Clear (Clear); Glucose, Urine (Dipstick) Normal (Negative); Ketone, Urine Negative (Negative); Leukocyte 250 Leu/uL (Negative); Mucous/LPF Rare LPF (<2+); Nitrite Negative (Negative); Protein, Urine (Dipstick) 70 mg/dL (Neg-Trace); RBC/HPF None Seen HPF (0-3); Specific Gravity, Urine 1.025 (1.002-1.036); Squamous Epithelial None Seen HPF (0-3); Urobilinogen 6 mg/dL (Less than 2); pH, Urine 6.5 (5.0-9.0)
== END 2021-10-12 20:26 | disposition home or self-care (01) ==
LOC: ERS 17:54
DX: J44.1 Chronic obstructive pulmonary disease with (acute) exacerbation (principal); N39.0 Urinary tract infection, site not specified; I25.2 Old myocardial infarction; I11.0 Hypertensive heart disease with heart failure; I50.9 Heart failure, unspecified; I48.91 Unspecified atrial fibrillation; E78.5 Hyperlipidemia, unspecified; K21.9 Gastro-esophageal reflux disease without esophagitis; M06.9 Rheumatoid arthritis, unspecified; Z87.891 Personal history of nicotine dependence; Z86.73 Personal history of transient ischemic attack (TIA), and cerebral infarction without residual deficits
CPT/HCPCS: 36415; 71045; 80053; 81003; 81015; 83880; 84484; 85025; 93005; 96374; J2930; J7620

== ENCOUNTER 2021-11-27 08:19 | Outpatient (CLI) | payer MEDICARE, MEDICAID ==
[2021-11-27] MEDS ORDERED: Iopamidol-370 76% 500 ML 1 ML ONE (11:08)
== END 2021-11-27 08:20 | disposition home or self-care (01) ==
LOC: BICCT 08:19
PROVIDERS: ATTEND Student in an Organized Health Care Education/Training Program
DX: R49.0 Dysphonia (principal); R07.0 Pain in throat; J32.9 Chronic sinusitis, unspecified; Z98.890 Other specified postprocedural states; J34.2 Deviated nasal septum
CPT/HCPCS: 70491; 82565; Q9967

== ENCOUNTER 2022-01-29 00:25 | Inpatient (IN) | payer OTHER, MEDICAID ==
[2022-01-29] MEDS ORDERED: Albuterol Sulfate 2.5 mg/0.5 ml Neb ONE ×2 (00:48→01:19)
[2022-01-29] MEDS ORDERED: methylPREDNISolone Sod Succ/PF 125 MG/2 ML VIAL ONE ×2 (00:48→06:12)
[2022-01-29 01:23] LABS: #Eosinphils 0.2 thou/uL (0.0-0.7); #Lymphocytes 1.3 thou/uL (1.20-3.40); #Monocytes 0.5 thou/uL (0.11-0.59); #Neutrophils 3.1 thou/uL (1.40-6.50); %Basophils 0.3 % (0.0-1.0); %Eosinophils 3.1 % (0.0-10.0); %Monocytes 9.7 % (0.0-10.0); %Neutrophils 60.9 % (42.0-75.0); Hemoglobin 13.5 g/dL (14.0-18.0); Mean Corpuscular HGB CONC 34.5 g/dL (32.0-36.0); Mean Corpuscular Hemoglobin 32.7 pg (27.0-31.0); Mean Corpuscular Volume 94.7 fL (78.0-98.0); Platelet Count 267 thou/uL (130-400); RBC Distribution Width 13.3 % (11.5-14.5); Red Blood Cell (RBC) Count 4.14 mill/uL (4.70-6.10); White Blood Cell (WBC) Count 5.1 thou/uL (4.8-10.8)
[2022-01-29 01:44] LABS: ALT (SGPT) 15 U/L (8-55); AST (SGOT) 14 U/L (5-34); Albumin 4.1 g/dL (3.4-4.8); Alkaline Phosphatase 84 U/L (40-110); Anion Gap 13 mmol/L (10-20); BUN (Urea Nitrogen) 12 mg/dL (8.4-25.7); Bilirubin, Total 0.4 mg/dL (0.2-1.2); Calc. Creatinine Clearance 0 mL/min (70-130); Calcium 9.2 mg/dL (7.8-10.44); Carbon Dioxide 26 mmol/L (23-31); Chloride 102 mmol/L (98-107); Estimated GFR 93; Globulin 2.8 g/dL (2.4-3.5); Glucose 108 mg/dL (80-115); Potassium 4.1 mmol/L (3.5-5.1); Protein, Total 6.9 g/dL (5.8-8.1); Sodium 137 mmol/L (136-145)
[2022-01-29] MEDS ORDERED: Fentanyl 100 MCG/2 ML VIAL ONE (02:26)
[2022-01-29] MEDS ORDERED: Ondansetron PF 4 MG/2 ML Vial ONE (02:26)
[2022-01-29] MEDS ORDERED: Furosemide 20 MG/2 ML VIAL ONE ×2 (03:05→09:22)
[2022-01-29] MEDS ORDERED: Azithromycin 500 MG VIAL ONE (03:36)
[2022-01-29] MEDS ORDERED: hydrALAZINE 20 MG/ML VIAL SLOW IVP PRN (03:45)
[2022-01-29] MEDS ORDERED: Nitroglycerin 0.4 MG TAB (25 Tab Bottle) SL PRN ×2 (03:46→18:19)
[2022-01-29] MEDS ORDERED: Guaifenesin DM 100-10/5 ML UDCUP PO PRN (03:46)
[2022-01-29] MEDS ORDERED: Acetaminophen 325 MG TAB PO PRN (03:46)
[2022-01-29] MEDS ORDERED: Ondansetron PF 4 MG/2 ML Vial IVP PRN (03:46)
[2022-01-29] MEDS ORDERED: Azithromycin 250 MG TAB ONE (03:51)
[2022-01-29] MEDS ORDERED: Enoxaparin Sodium 40 MG/0.4 ML SYRINGE SC SCH (04:00)
[2022-01-29] MEDS ORDERED: methylPREDNISolone Sod Succ/PF 125 MG/2 ML VIAL IVP SCH (04:15)
[2022-01-29 04:20] LABS: #Lymphocytes 0.5 thou/uL (1.20-3.40); #Monocytes 0.1 thou/uL (0.11-0.59); #Neutrophils 6.7 thou/uL (1.40-6.50); %Eosinophils 0.3 % (0.0-10.0); %Lymphocytes 6.9 % (21.0-51.0); %Monocytes 1.9 % (0.0-10.0); %Neutrophils 90.9 % (42.0-75.0); Hemoglobin 13.8 g/dL (14.0-18.0); Mean Corpuscular HGB CONC 33.3 g/dL (32.0-36.0); Mean Corpuscular Hemoglobin 31.9 pg (27.0-31.0); Mean Corpuscular Volume 95.6 fL (78.0-98.0); Mean Platelet Volume 6.7 fL (7.4-10.4); Platelet Count 253 thou/uL (130-400); RBC Distribution Width 13.5 % (11.5-14.5); Red Blood Cell (RBC) Count 4.33 mill/uL (4.70-6.10); White Blood Cell (WBC) Count 7.3 thou/uL (4.8-10.8)
[2022-01-29 04:47] LABS: Troponin I Less than 0.010 ng/mL (< 0.028)
[2022-01-29 05:33] LABS: ALT (SGPT) 16 U/L (8-55); AST (SGOT) 18 U/L (5-34); Albumin 4.3 g/dL (3.4-4.8); Alkaline Phosphatase 91 U/L (40-110); Anion Gap 18 mmol/L (10-20); BUN (Urea Nitrogen) 13 mg/dL (8.4-25.7); Bilirubin, Total 0.4 mg/dL (0.2-1.2); Calc. Creatinine Clearance 0 mL/min (70-130); Calcium 9.1 mg/dL (7.8-10.44); Carbon Dioxide 23 mmol/L (23-31); Cardiac Risk 4.3 (Less than 4.5); Chloride 102 mmol/L (98-107); Cholesterol 130 mg/dl (< 200 Desired); Estimated GFR 76; Globulin 3.2 g/dL (2.4-3.5); Glucose 168 mg/dL (80-115); HDL Cholesterol 30 mg/dL (>60 Neg Risk); LDL Cholesterol, Calculated 60 mg/dL; Potassium 4.5 mmol/L (3.5-5.1); Protein, Total 7.5 g/dL (5.8-8.1); Sodium 138 mmol/L (136-145); Triglycerides 201 mg/dL (Less than 150)
[2022-01-29] MEDS ORDERED: Nitroglycerin 0.4 MG TAB 1 EACH ONE (06:04)
[2022-01-29 07:42] LABS: Troponin I Less than 0.010 ng/mL (< 0.028)
[2022-01-29 08:22] LABS: SARS-CoV-2 NAA Rapid Test Not Detected (NotDetected)
[2022-01-29] MEDS: Losartan 25 MG TAB PO SCH (09:00)
[2022-01-29] MEDS ORDERED: methylPREDNISolone Sod Succ 40 MG VIAL ONE (09:22)
[2022-01-29] MEDS ORDERED: Enoxaparin Sodium 40 MG/0.4 ML SYRINGE ONE (09:22)
[2022-01-29] MEDS ORDERED: Metoprolol Tartrate 50 MG TAB ONE (09:22)
[2022-01-29] MEDS ORDERED: Pantoprazole 40 MG VIAL ONE (09:22)
[2022-01-29] MEDS ORDERED: Clopidogrel Bisulfate 75 MG TAB ONE (09:22)
[2022-01-29] MEDS: Furosemide 20 MG/2 ML VIAL SLOW IVP SCH (09:34)
[2022-01-29] MEDS: Pantoprazole 40 MG VIAL IVP SCH (09:34)
[2022-01-29] MEDS: methylPREDNISolone Sod Succ 40 MG VIAL IVP SCH ×2 (09:34→21:46)
[2022-01-29] MEDS: Enoxaparin Sodium 40 MG/0.4 ML SYRINGE SC SCH (09:39)
[2022-01-29] MEDS: Clopidogrel Bisulfate 75 MG TAB PO SCH (10:00)
[2022-01-29] MEDS: Metoprolol Tartrate 50 MG TAB PO SCH ×2 (10:43→21:46)
[2022-01-29] MEDS ORDERED: Acetaminophen 325 MG TAB ONE (12:10)
[2022-01-29 13:11] VITALS: BMI 31.8
[2022-01-29] MEDS ORDERED: Furosemide 20 MG/2 ML VIAL SLOW IVP SCH (17:00)
[2022-01-29] MEDS ORDERED: Non-Formulary Item 1 EACH (Ipratropium/Albuterol Sulfate [Combivent Respimat] 120 PUFF In PO PRN (18:19)
[2022-01-29] MEDS: HYDROcodone/Acetaminophen 10/325 mg Tablet PO PRN (18:44)
[2022-01-29] MEDS: Atorvastatin Calcium 40 MG TAB PO SCH (21:45)
[2022-01-29] MEDS: Gabapentin 300 MG CAP PO SCH (21:46)
[2022-01-30] MEDS: Amlodipine 10 MG TAB PO SCH ×2 (00:18→21:24)
[2022-01-30] MEDS: HYDROcodone/Acetaminophen 10/325 mg Tablet PO PRN ×2 (03:15→20:21)
[2022-01-30 05:20] LABS: Anion Gap 16 mmol/L (10-20); BUN (Urea Nitrogen) 27 mg/dL (8.4-25.7); Calc. Creatinine Clearance 83 mL/min (70-130); Calcium 9.5 mg/dL (7.8-10.44); Carbon Dioxide 24 mmol/L (23-31); Chloride 100 mmol/L (98-107); Estimated GFR 63; Glucose 135 mg/dL (80-115); Potassium 4.3 mmol/L (3.5-5.1); Sodium 136 mmol/L (136-145)
[2022-01-30] MEDS: Empagliflozin 10 MG TAB PO SCH (06:18)
[2022-01-30] MEDS: Mometasone 100 MCG/PUFF (1 INHALER) INH SCH ×2 (06:38→18:52)
[2022-01-30] MEDS: Ascorbic Acid 500 mg Chewable Tablet PO SCH (09:36)
[2022-01-30] MEDS: Cholecalciferol 1,000 UNITS (25 MCG) TAB PO SCH (09:37)
[2022-01-30] MEDS: Enoxaparin Sodium 40 MG/0.4 ML SYRINGE SC SCH (09:37)
[2022-01-30] MEDS: Cyanocobalamin (Vitamin B-12) 1,000 MCG TAB PO SCH (09:37)
[2022-01-30] MEDS: Clopidogrel Bisulfate 75 MG TAB PO SCH (09:37)
[2022-01-30] MEDS: Aspirin 81 mg Enteric Coated Tablet PO SCH (09:37)
[2022-01-30] MEDS: Gabapentin 300 MG CAP PO SCH ×2 (09:38→20:20)
[2022-01-30] MEDS: Furosemide 20 MG/2 ML VIAL SLOW IVP SCH (09:38)
[2022-01-30] MEDS: Ubidecarenone 50 MG CAP PO SCH (09:38)
[2022-01-30] MEDS: Spironolactone 25 MG TAB PO SCH (09:38)
[2022-01-30] MEDS: Pantoprazole 40 MG VIAL IVP SCH (09:38)
[2022-01-30] MEDS: methylPREDNISolone Sod Succ 40 MG VIAL IVP SCH ×2 (09:39→20:21)
[2022-01-30] MEDS: cefTRIAXone\\ROCEPHIN 1 GM in Sodium Chloride 0.9% 100 ML IVPB SCH (10:31)
[2022-01-30] MEDS: Metoprolol Tartrate 50 MG TAB PO SCH (11:30)
[2022-01-30] MEDS: Losartan 25 MG TAB PO SCH (11:30)
[2022-01-30] MEDS: Azithromycin 500 MG in Sodium Chloride 0.9% 250 ML 250 ML IVPB SCH (11:31)
[2022-01-30] MEDS: Atorvastatin Calcium 40 MG TAB PO SCH (20:20)
[2022-01-31] MEDS: Empagliflozin 10 MG TAB PO SCH (06:05)
[2022-01-31] MEDS: Mometasone 100 MCG/PUFF (1 INHALER) INH SCH ×2 (07:12→18:26)
[2022-01-31] MEDS: HYDROcodone/Acetaminophen 10/325 mg Tablet PO PRN ×2 (08:27→20:40)
[2022-01-31] MEDS: Cyanocobalamin (Vitamin B-12) 1,000 MCG TAB PO SCH (08:29)
[2022-01-31] MEDS: Furosemide 20 MG/2 ML VIAL SLOW IVP SCH (08:29)
[2022-01-31] MEDS: methylPREDNISolone Sod Succ 40 MG VIAL IVP SCH ×2 (08:29→20:36)
[2022-01-31] MEDS: Ascorbic Acid 500 mg Chewable Tablet PO SCH (08:29)
[2022-01-31] MEDS: Enoxaparin Sodium 40 MG/0.4 ML SYRINGE SC SCH (08:29)
[2022-01-31] MEDS: Cholecalciferol 1,000 UNITS (25 MCG) TAB PO SCH (08:30)
[2022-01-31] MEDS: Gabapentin 300 MG CAP PO SCH ×2 (08:30→20:36)
[2022-01-31] MEDS: Ubidecarenone 50 MG CAP PO SCH ×2 (08:31→08:32)
[2022-01-31] MEDS: Spironolactone 25 MG TAB PO SCH (08:31)
[2022-01-31] MEDS: Aspirin 81 mg Enteric Coated Tablet PO SCH (08:32)
[2022-01-31] MEDS: Clopidogrel Bisulfate 75 MG TAB PO SCH (08:32)
[2022-01-31] MEDS: cefTRIAXone\\ROCEPHIN 1 GM in Sodium Chloride 0.9% 100 ML IVPB SCH (11:00)
[2022-01-31] MEDS: Azithromycin 500 MG in Sodium Chloride 0.9% 250 ML 250 ML IVPB SCH (11:01)
[2022-01-31] MEDS: Amlodipine 10 MG TAB PO SCH (20:35)
[2022-01-31] MEDS: Atorvastatin Calcium 40 MG TAB PO SCH (20:36)
[2022-01-31] MEDS: Metoprolol Tartrate 50 MG TAB PO SCH (20:37)
[2022-02-01 04:57] LABS: #Lymphocytes 0.6 thou/uL (1.20-3.40); #Monocytes 0.3 thou/uL (0.11-0.59); #Neutrophils 10.5 thou/uL (1.40-6.50); %Eosinophils 0.1 % (0.0-10.0); %Lymphocytes 5.3 % (21.0-51.0); %Monocytes 2.9 % (0.0-10.0); %Neutrophils 91.5 % (42.0-75.0); Hemoglobin 12.6 g/dL (14.0-18.0); Mean Corpuscular HGB CONC 31.8 g/dL (32.0-36.0); Mean Corpuscular Hemoglobin 30.8 pg (27.0-31.0); Mean Corpuscular Volume 96.9 fL (78.0-98.0); Mean Platelet Volume 6.8 fL (7.4-10.4); Platelet Count 266 thou/uL (130-400); RBC Distribution Width 13.9 % (11.5-14.5); Red Blood Cell (RBC) Count 4.07 mill/uL (4.70-6.10); White Blood Cell (WBC) Count 11.5 thou/uL (4.8-10.8)
[2022-02-01 05:20] LABS: Anion Gap 14 mmol/L (10-20); BUN (Urea Nitrogen) 26 mg/dL (8.4-25.7); Calc. Creatinine Clearance 96 mL/min (70-130); Calcium 9.4 mg/dL (7.8-10.44); Carbon Dioxide 26 mmol/L (23-31); Chloride 103 mmol/L (98-107); Estimated GFR 74; Glucose 145 mg/dL (80-115); Potassium 5.1 mmol/L (3.5-5.1); Sodium 138 mmol/L (136-145)
[2022-02-01] MEDS: Empagliflozin 10 MG TAB PO SCH (06:22)
[2022-02-01] MEDS: Mometasone 100 MCG/PUFF (1 INHALER) INH SCH (07:40)
[2022-02-01 07:55] VITALS: TEMP 97.7
[2022-02-01] MEDS: Ascorbic Acid 500 mg Chewable Tablet PO SCH (08:03)
[2022-02-01] MEDS: Gabapentin 300 MG CAP PO SCH (08:04)
[2022-02-01] MEDS: Metoprolol Tartrate 50 MG TAB PO SCH (08:04)
[2022-02-01] MEDS: Spironolactone 25 MG TAB PO SCH (08:04)
[2022-02-01] MEDS: Aspirin 81 mg Enteric Coated Tablet PO SCH (08:04)
[2022-02-01] MEDS: Cyanocobalamin (Vitamin B-12) 1,000 MCG TAB PO SCH (08:04)
[2022-02-01] MEDS: Cholecalciferol 1,000 UNITS (25 MCG) TAB PO SCH (08:05)
[2022-02-01] MEDS: HYDROcodone/Acetaminophen 10/325 mg Tablet PO PRN (08:05)
[2022-02-01] MEDS: Enoxaparin Sodium 40 MG/0.4 ML SYRINGE SC SCH (08:06)
[2022-02-01] MEDS: Furosemide 20 MG/2 ML VIAL SLOW IVP SCH (08:06)
[2022-02-01] MEDS: methylPREDNISolone Sod Succ 40 MG VIAL IVP SCH (08:06)
[2022-02-01] MEDS: Clopidogrel Bisulfate 75 MG TAB PO SCH (08:06)
[2022-02-01] MEDS ORDERED: Ubidecarenone 50 MG CAP PO SCH (09:00)
[2022-02-01] MEDS ORDERED: Azithromycin 250 MG TAB PO SCH (10:00)
[2022-02-01] MEDS: cefTRIAXone\\ROCEPHIN 1 GM in Sodium Chloride 0.9% 100 ML IVPB SCH (10:20)
[2022-02-01 11:26] VITALS: BP 118/79
== END 2022-02-01 15:43 | disposition home or self-care (01) | DRG 291 ==
LOC: ERS 00:25 → ERHOLD 03:08 → 2SW 12:51 → OBSVTOIN 01-31 13:07
PROVIDERS: ADMIT Internal Medicine; ATTEND Internal Medicine
DX: I11.0 Hypertensive heart disease with heart failure (principal); I50.33 Acute on chronic diastolic (congestive) heart failure; J96.01 Acute respiratory failure with hypoxia; J44.1 Chronic obstructive pulmonary disease with (acute) exacerbation; E78.5 Hyperlipidemia, unspecified; R91.1 Solitary pulmonary nodule; Z20.822 Contact with and (suspected) exposure to COVID-19; I25.10 Atherosclerotic heart disease of native coronary artery without angina pectoris; I95.9 Hypotension, unspecified; I48.91 Unspecified atrial fibrillation; M06.9 Rheumatoid arthritis, unspecified; I45.81 Long QT syndrome; Z96.1 Presence of intraocular lens; Z98.890 Other specified postprocedural states; Z98.49 Cataract extraction status, unspecified eye; Z95.1 Presence of aortocoronary bypass graft; Z88.6 Allergy status to analgesic agent; I25.2 Old myocardial infarction; Z86.73 Personal history of transient ischemic attack (TIA), and cerebral infarction without residual deficits; Z99.81 Dependence on supplemental oxygen; Z79.899 Other long term (current) drug therapy; Z79.02 Long term (current) use of antithrombotics/antiplatelets; Z90.49 Acquired absence of other specified parts of digestive tract; Z87.891 Personal history of nicotine dependence; Z88.1 Allergy status to other antibiotic agents
CPT/HCPCS: 36415; 71045; 80048; 80053; 80061; 83735; 83880; 84484; 85025; 93005; 93306; 94640; 96372; 96374; 96375; 96376; C9113; G0378; J0456; J0696; J1650; J1940; J2405; J2920; J2930; J3010; J3490; J7050; J7611; J7620; U0002

== ENCOUNTER 2022-03-16 11:05 | Outpatient (CLI) | payer OTHER | END 2022-03-16 11:06 | disposition home or self-care (01) | LOC: BICCT 11:05 | PROVIDERS: ATTEND Internal Medicine | DX: Z12.2 Encounter for screening for malignant neoplasm of respiratory organs (principal); F17.210 Nicotine dependence, cigarettes, uncomplicated; J44.9 Chronic obstructive pulmonary disease, unspecified | CPT/HCPCS: 71271 ==

== ENCOUNTER 2022-05-02 01:29 | Inpatient (IN) | payer OTHER, MEDICAID ==
[2022-05-02 02:03] LABS: #Basophils 0.1 thou/uL (0.0-0.2); #Eosinphils 0.2 thou/uL (0.0-0.7); #Lymphocytes 1.6 thou/uL (1.20-3.40); #Monocytes 0.8 thou/uL (0.11-0.59); #Neutrophils 4.4 thou/uL (1.40-6.50); %Basophils 0.9 % (0.0-1.0); %Eosinophils 2.2 % (0.0-10.0); %Monocytes 10.8 % (0.0-10.0); %Neutrophils 63.2 % (42.0-75.0); Hemoglobin 14.2 g/dL (14.0-18.0); Mean Platelet Volume 6.5 fL (7.4-10.4); Platelet Count 335 10x3/uL (130-400); RBC Distribution Width 13.3 % (11.5-14.5); Red Blood Cell (RBC) Count 4.43 mill/uL (4.70-6.10)
[2022-05-02 02:19] LABS: ALT (SGPT) 17 U/L (8-55); AST (SGOT) 15 U/L (5-34); Albumin 4.2 g/dL (3.4-4.8); Alkaline Phosphatase 96 U/L (40-110); Anion Gap 14 mmol/L (10-20); BUN (Urea Nitrogen) 21 mg/dL (8.4-25.7); Bilirubin, Total 0.6 mg/dL (0.2-1.2); Calc. Creatinine Clearance 0 mL/min (70-130); Calcium 9.5 mg/dL (7.8-10.44); Carbon Dioxide 24 mmol/L (23-31); Chloride 101 mmol/L (98-107); Estimated GFR 74; Globulin 3.3 g/dL (2.4-3.5); Glucose 101 mg/dL (80-115); Lipase 53 U/L (8-78); Protein, Total 7.5 g/dL (5.8-8.1); Sodium 135 mmol/L (136-145)
[2022-05-02] MEDS ORDERED: Mag-Al 1200 mg/1200 mg/30 ML UDCUP ONE (02:51)
[2022-05-02] MEDS ORDERED: Famotidine 20 MG TAB ONE (02:51)
[2022-05-02] MEDS ORDERED: Aspirin 325 MG TAB ONE (02:51)
[2022-05-02] MEDS ORDERED: FENTANYL 50 MCG/ML 1 ML VIAL ONE (04:18)
[2022-05-02] MEDS ORDERED: Nitroglycerin 0.4 MG TAB (25 Tab Bottle) SL PRN (04:30)
[2022-05-02 05:44] LABS: Troponin I 0.019 ng/mL (< 0.028)
[2022-05-02] MEDS ORDERED: Empagliflozin 10 MG TAB PO SCH (06:00)
[2022-05-02 07:00] VITALS: BMI 31.8
[2022-05-02 08:49] LABS: Troponin I 0.017 ng/mL (< 0.028)
[2022-05-02] MEDS ORDERED: Clopidogrel Bisulfate 75 MG TAB PO SCH (09:00)
[2022-05-02] MEDS: Enoxaparin Sodium 40 MG/0.4 ML SYRINGE SC SCH (09:04)
[2022-05-02] MEDS: Aspirin Chewable 81 MG TAB PO SCH (09:04)
[2022-05-02] MEDS: Furosemide 40 MG/4 ML VIAL SLOW IVP SCH (09:05)
[2022-05-02] MEDS: Metoprolol Tartrate 25 MG TAB PO SCH ×2 (09:05→20:55)
[2022-05-02] MEDS: HYDROcodone/Acetaminophen 5/325 mg Tablet PO PRN (11:09)
[2022-05-02] MEDS: Morphine 4 MG/ML VIAL SLOW IVP PRN ×2 (11:13→18:32)
[2022-05-02] MEDS: Gabapentin 300 MG CAP PO SCH (20:33)
[2022-05-02] MEDS: Atorvastatin Calcium 40 MG TAB PO SCH (20:34)
[2022-05-02] MEDS ORDERED: SUVOREXANT 15 MG PO SCH (21:00)
[2022-05-02] MEDS ORDERED: Zolpidem Tartrate 5 MG TAB PO SCH (22:45)
[2022-05-03] MEDS: Morphine 4 MG/ML VIAL SLOW IVP PRN ×4 (03:04→20:33)
[2022-05-03] MEDS ORDERED: Lidocaine 2% Viscous Solution 10 ML, Aluminum & Magnesium Hydroxide 30 ML SSW SCH (05:00)
[2022-05-03] MEDS: HYDROcodone/Acetaminophen 5/325 mg Tablet PO PRN ×2 (05:06→08:47)
[2022-05-03 05:27] LABS: #Eosinphils 0.1 thou/uL (0.0-0.7); #Lymphocytes 1.5 thou/uL (1.20-3.40); #Monocytes 0.7 thou/uL (0.11-0.59); #Neutrophils 2.9 thou/uL (1.40-6.50); %Basophils 0.2 % (0.0-1.0); %Eosinophils 2.8 % (0.0-10.0); %Lymphocytes 28.4 % (21.0-51.0); %Monocytes 13.2 % (0.0-10.0); %Neutrophils 55.4 % (42.0-75.0); Mean Corpuscular HGB CONC 32.1 g/dL (32.0-36.0); Mean Corpuscular Hemoglobin 31.8 pg (27.0-31.0); Mean Corpuscular Volume 99.2 fl (78.0-98.0); Mean Platelet Volume 6.6 fL (7.4-10.4); Platelet Count 274 10x3/uL (130-400); RBC Distribution Width 13.1 % (11.5-14.5); Red Blood Cell (RBC) Count 4.08 mill/uL (4.70-6.10); White Blood Cell (WBC) Count 5.3 10x3/uL (4.8-10.8)
[2022-05-03 05:51] LABS: Anion Gap 12 mmol/L (10-20); BUN (Urea Nitrogen) 21 mg/dL (8.4-25.7); Calc. Creatinine Clearance 102 mL/min (70-130); Calcium 9.1 mg/dL (7.8-10.44); Carbon Dioxide 27 mmol/L (23-31); Chloride 103 mmol/L (98-107); Cholesterol 111 mg/dl (< 200 Desired); Estimated GFR 80; Glucose 126 mg/dL (80-115); HDL Cholesterol 22 mg/dL (>60 Neg Risk); LDL Cholesterol, Calculated 31 mg/dL; Potassium 4.1 mmol/L (3.5-5.1); Sodium 138 mmol/L (136-145); Triglycerides 288 mg/dL (Less than 150)
[2022-05-03] MEDS: Mometasone 100 MCG/PUFF (1 INHALER) INH SCH ×2 (07:08→18:43)
[2022-05-03] MEDS: Enoxaparin Sodium 40 MG/0.4 ML SYRINGE SC SCH (08:44)
[2022-05-03] MEDS: Furosemide 40 MG/4 ML VIAL SLOW IVP SCH (08:45)
[2022-05-03] MEDS: Empagliflozin 10 MG TAB PO SCH (08:45)
[2022-05-03] MEDS: Metoprolol Tartrate 25 MG TAB PO SCH ×2 (08:45→20:33)
[2022-05-03] MEDS: Gabapentin 300 MG CAP PO SCH ×2 (08:46→20:31)
[2022-05-03] MEDS: Aspirin Chewable 81 MG TAB PO SCH (08:46)
[2022-05-03] MEDS: Clopidogrel Bisulfate 75 MG TAB PO SCH (08:48)
[2022-05-03] MEDS ORDERED: Non-Formulary Item 1 EACH (Fluticasone/Umeclidin/Vilanter [Trelegy Ellipta 200-62.5-25] 1 IH SCH (09:00)
[2022-05-03] MEDS: Lidocaine 2% Viscous Solution 10 ML, Aluminum & Magnesium Hydroxide 30 ML SSW PRN ×2 (11:13→23:30)
[2022-05-03] MEDS: methylPREDNISolone Sod Succ 40 MG VIAL IVP SCH ×2 (16:02→23:12)
[2022-05-03] MEDS: Atorvastatin Calcium 40 MG TAB PO SCH (20:32)
[2022-05-03] MEDS: Senokot S 8.6-50 MG TAB PO SCH (20:33)
[2022-05-03] MEDS: guaiFENesin ER 600 MG TAB PO SCH (20:33)
[2022-05-03] MEDS: Cefdinir 300 MG CAP PO SCH (20:33)
[2022-05-04] MEDS: Morphine 4 MG/ML VIAL SLOW IVP PRN ×4 (00:31→14:40)
[2022-05-04] MEDS: methylPREDNISolone Sod Succ 40 MG VIAL IVP SCH (06:05)
[2022-05-04 06:15] LABS: Anion Gap 16 mmol/L (10-20); BUN (Urea Nitrogen) 20 mg/dL (8.4-25.7); Calc. Creatinine Clearance 117 mL/min (70-130); Calcium 9.5 mg/dL (7.8-10.44); Carbon Dioxide 23 mmol/L (23-31); Chloride 101 mmol/L (98-107); Estimated GFR 92; Glucose 155 mg/dL (80-115); Magnesium 2.3 mg/dL (1.6-2.6); Potassium 4.9 mmol/L (3.5-5.1); Sodium 135 mmol/L (136-145)
[2022-05-04] MEDS: Mometasone 100 MCG/PUFF (1 INHALER) INH SCH (07:23)
[2022-05-04] MEDS ORDERED: predniSONE 20 MG TAB PO SCH (08:00)
[2022-05-04] MEDS ORDERED: Aspirin 81 mg Enteric Coated Tablet PO SCH (09:00)
[2022-05-04] MEDS: Cefdinir 300 MG CAP PO SCH (09:16)
[2022-05-04] MEDS: Furosemide 40 MG/4 ML VIAL SLOW IVP SCH (09:17)
[2022-05-04] MEDS: Empagliflozin 10 MG TAB PO SCH (09:17)
[2022-05-04] MEDS: Clopidogrel Bisulfate 75 MG TAB PO SCH (09:17)
[2022-05-04] MEDS: Gabapentin 300 MG CAP PO SCH (09:17)
[2022-05-04] MEDS: Metoprolol Tartrate 25 MG TAB PO SCH (09:19)
[2022-05-04] MEDS: guaiFENesin ER 600 MG TAB PO SCH (09:19)
[2022-05-04] MEDS: Senokot S 8.6-50 MG TAB PO SCH (09:19)
[2022-05-04 16:03] VITALS: BP 134/67; TEMP 98
== END 2022-05-04 17:13 | disposition home or self-care (01) | DRG 291 ==
LOC: ERS 01:29 → 2SW 04:25 → OBSVTOIN 05-04 09:16
PROVIDERS: ADMIT Internal Medicine; ATTEND Internal Medicine
DX: I13.0 Hypertensive heart and chronic kidney disease with heart failure and stage 1 through stage 4 chronic kidney disease, or unspecified chronic kidney disease (principal); I50.33 Acute on chronic diastolic (congestive) heart failure; J44.1 Chronic obstructive pulmonary disease with (acute) exacerbation; E87.1 Hypo-osmolality and hyponatremia; Z20.822 Contact with and (suspected) exposure to COVID-19; I25.10 Atherosclerotic heart disease of native coronary artery without angina pectoris; E78.00 Pure hypercholesterolemia, unspecified; E66.9 Obesity, unspecified; B19.20 Unspecified viral hepatitis C without hepatic coma; D53.9 Nutritional anemia, unspecified; K21.9 Gastro-esophageal reflux disease without esophagitis; N18.2 Chronic kidney disease, stage 2 (mild); E11.22 Type 2 diabetes mellitus with diabetic chronic kidney disease; F17.210 Nicotine dependence, cigarettes, uncomplicated; B18.2 Chronic viral hepatitis C; Z95.1 Presence of aortocoronary bypass graft; Z99.81 Dependence on supplemental oxygen; Z68.32 Body mass index [BMI] 32.0-32.9, adult; Z88.1 Allergy status to other antibiotic agents; Z88.5 Allergy status to narcotic agent; Z79.899 Other long term (current) drug therapy; Z79.82 Long term (current) use of aspirin; Z79.52 Long term (current) use of systemic steroids; Z90.89 Acquired absence of other organs
CPT/HCPCS: 36415; 71045; 80048; 80053; 80061; 83690; 83735; 83880; 84484; 85025; 93005; 93970; 94640; 94760; 96372; 96374; 96375; 96376; 97139; G0378; J1650; J1940; J2270; J2920; J3010; J7512; J7620; U0003; U0005

== ENCOUNTER 2022-05-26 17:53 | Emergency (ER) | payer OTHER, MEDICAID ==
[2022-05-26] MEDS ORDERED: Boostrix 0.5 ML (Tdap) VIAL (>/=7 yrs of age) ONE (18:19)
== END 2022-05-26 18:54 | disposition home or self-care (01) ==
LOC: ERS 17:53
DX: T20.34XA Burn of third degree of nose (septum), initial encounter (principal); E78.5 Hyperlipidemia, unspecified; K21.9 Gastro-esophageal reflux disease without esophagitis; J44.9 Chronic obstructive pulmonary disease, unspecified; I11.0 Hypertensive heart disease with heart failure; I50.9 Heart failure, unspecified; X08.8XXA Exposure to other specified smoke, fire and flames, initial encounter; Z87.891 Personal history of nicotine dependence; Z79.82 Long term (current) use of aspirin; Z79.899 Other long term (current) drug therapy; Z23 Encounter for immunization
CPT/HCPCS: 90471; 90715

== ENCOUNTER 2022-07-06 21:00 | Emergency (ER) | payer OTHER ==
[2022-07-06 21:36] LABS: #Eosinphils 0.2 thou/uL (0.0-0.7); #Lymphocytes 1.2 thou/uL (1.20-3.40); #Monocytes 0.5 thou/uL (0.11-0.59); #Neutrophils 4.5 thou/uL (1.40-6.50); %Basophils 0.3 % (0.0-1.0); %Eosinophils 2.6 % (0.0-10.0); %Monocytes 8.3 % (0.0-10.0); %Neutrophils 70.8 % (42.0-75.0); Mean Corpuscular HGB CONC 33.7 g/dL (32.0-36.0); Mean Corpuscular Hemoglobin 32.1 pg (27.0-31.0); Mean Corpuscular Volume 95.1 fl (78.0-98.0); Mean Platelet Volume 6.6 fL (7.4-10.4); Platelet Count 286 10x3/uL (130-400); RBC Distribution Width 12.9 % (11.5-14.5); Red Blood Cell (RBC) Count 4.36 mill/uL (4.70-6.10); White Blood Cell (WBC) Count 6.4 10x3/uL (4.8-10.8)
[2022-07-06 22:00] LABS: ALT (SGPT) 9 U/L (8-55); AST (SGOT) 13 U/L (5-34); Albumin 3.8 g/dL (3.4-4.8); Alkaline Phosphatase 85 U/L (40-110); Anion Gap 14 mmol/L (10-20); BUN (Urea Nitrogen) 16 mg/dL (8.4-25.7); Bilirubin, Total 0.3 mg/dL (0.2-1.2); Calc. Creatinine Clearance 0 mL/min (70-130); Calcium 8.9 mg/dL (7.8-10.44); Carbon Dioxide 24 mmol/L (23-31); Chloride 105 mmol/L (98-107); Estimated GFR 78; Globulin 3.1 g/dL (2.4-3.5); Glucose 108 mg/dL (83-110); Potassium 4.5 mmol/L (3.5-5.1); Protein, Total 6.9 g/dL (5.8-8.1); Sodium 138 mmol/L (136-145)
[2022-07-06] MEDS ORDERED: Ipratropium/Albuterol 3 ML NEB ONE (22:49)
== END 2022-07-06 23:50 | disposition home or self-care (01) ==
LOC: ERS 21:00
DX: R07.89 Other chest pain (principal); E78.5 Hyperlipidemia, unspecified; K21.9 Gastro-esophageal reflux disease without esophagitis; J44.9 Chronic obstructive pulmonary disease, unspecified; I11.0 Hypertensive heart disease with heart failure; I50.9 Heart failure, unspecified; Z87.891 Personal history of nicotine dependence
CPT/HCPCS: 36415; 71045; 80053; 83880; 84484; 85025; 93005; 94640; J7620

== ENCOUNTER 2022-07-07 03:33 | Emergency (ER) | payer OTHER | END 2022-07-07 07:48 | disposition left against medical advice (07) | LOC: ERS 03:33 | DX: Z53.29 Procedure and treatment not carried out because of patient's decision for other reasons (principal) | CPT/HCPCS: 93005 ==

== ENCOUNTER 2022-10-01 11:52 | Observation (INO) | payer OTHER, MEDICAID ==
[~2022-10-01 11:52] MED LIST changes: -Iopamidol 370 76% 100 ML VIAL ONE; +Iopamidol-370 76% 500 ML MDV (1 ML CHARGE) ONE
[2022-10-01 12:50] LABS: #Eosinphils 0.1 thou/uL (0.0-0.7); #Monocytes 0.7 thou/uL (0.11-0.59); #Neutrophils 4.4 thou/uL (1.40-6.50); %Basophils 0.6 % (0.0-1.0); %Eosinophils 2.3 % (0.0-10.0); %Lymphocytes 15.3 % (21.0-51.0); %Monocytes 11.3 % (0.0-10.0); %Neutrophils 70.5 % (42.0-75.0); Hemoglobin 15.5 g/dL (14.0-18.0); Mean Corpuscular HGB CONC 32.8 g/dL (32.0-36.0); Mean Corpuscular Hemoglobin 30.8 pg (27.0-31.0); Mean Corpuscular Volume 93.9 fl (78.0-98.0); Mean Platelet Volume 6.7 fL (7.4-10.4); Platelet Count 284 10x3/uL (130-400); RBC Distribution Width 13.8 % (11.5-14.5); Red Blood Cell (RBC) Count 5.05 mill/uL (4.70-6.10); White Blood Cell (WBC) Count 6.2 10x3/uL (4.8-10.8)
[2022-10-01 13:19] LABS: ALT (SGPT) 14 U/L (8-55); AST (SGOT) 14 U/L (5-34); Albumin 4.3 g/dL (3.4-4.8); Alkaline Phosphatase 93 U/L (40-110); Anion Gap 15 mmol/L (10-20); BUN (Urea Nitrogen) 13 mg/dL (8.4-25.7); Bilirubin, Total 0.3 mg/dL (0.2-1.2); Calc. Creatinine Clearance 0 mL/min (70-130); Calcium 9.4 mg/dL (7.8-10.44); Carbon Dioxide 23 mmol/L (23-31); Chloride 103 mmol/L (98-107); Estimated GFR 75; Globulin 3.3 g/dL (2.4-3.5); Glucose 108 mg/dL (83-110); Potassium 4.4 mmol/L (3.5-5.1); Protein, Total 7.6 g/dL (5.8-8.1); Sodium 137 mmol/L (136-145)
[2022-10-01] MEDS ORDERED: Aspirin Chewable 81 MG TAB ONE (14:57)
[2022-10-01] MEDS ORDERED: fentaNYL 50 mcg/mL 1 mL Vial ONE (15:01)
[2022-10-01] MEDS ORDERED: Morphine 4 MG/ML VIAL ONE (17:12)
[2022-10-01] MEDS ORDERED: Acetaminophen 650 MG Suppository PR PRN (17:56)
[2022-10-01] MEDS ORDERED: Albuterol 200 PUFF (6.7GM INHALER) INH PRN (18:14)
[2022-10-01] MEDS ORDERED: Ipratropium Bromide 2.5 ml Neb NEB PRN (18:14)
[2022-10-01] MEDS: HYDROcodone/Acetaminophen 5/325 mg Tablet PO PRN (19:57)
[2022-10-01] MEDS: Gabapentin 300 MG CAP PO SCH (19:57)
[2022-10-01] MEDS: Atorvastatin Calcium 40 MG TAB PO SCH (19:57)
[2022-10-01] MEDS: Amlodipine 10 MG TAB PO SCH (19:57)
[2022-10-01] MEDS: Heparin 5,000 UNITS/ML VIAL SC SCH (19:58)
[2022-10-01 20:19] VITALS: BMI 30.4
[2022-10-01] MEDS ORDERED: Melatonin 3 MG TAB PO PRN (22:05)
[2022-10-01] MEDS ORDERED: Morphine 2 MG/ML VIAL SLOW IVP SCH (22:30)
[2022-10-02] MEDS: HYDROcodone/Acetaminophen 5/325 mg Tablet PO PRN ×2 (02:00→18:05)
[2022-10-02 05:45] LABS: #Basophils 0.1 thou/uL (0.0-0.2); #Eosinphils 0.2 thou/uL (0.0-0.7); #Lymphocytes 1.4 thou/uL (1.20-3.40); #Monocytes 0.6 thou/uL (0.11-0.59); #Neutrophils 2.6 thou/uL (1.40-6.50); %Basophils 1.3 % (0.0-1.0); %Eosinophils 3.4 % (0.0-10.0); %Lymphocytes 28.8 % (21.0-51.0); %Monocytes 12.6 % (0.0-10.0); %Neutrophils 53.9 % (42.0-75.0); Hemoglobin 14.7 g/dL (14.0-18.0); Mean Corpuscular Hemoglobin 31.2 pg (27.0-31.0); Mean Corpuscular Volume 94.4 fl (78.0-98.0); Mean Platelet Volume 6.8 fL (7.4-10.4); Platelet Count 242 10x3/uL (130-400); RBC Distribution Width 13.7 % (11.5-14.5); Red Blood Cell (RBC) Count 4.73 mill/uL (4.70-6.10); White Blood Cell (WBC) Count 4.8 10x3/uL (4.8-10.8)
[2022-10-02 06:13] LABS: ALT (SGPT) 24 U/L (8-55); AST (SGOT) 25 U/L (5-34); Albumin 3.8 g/dL (3.4-4.8); Alkaline Phosphatase 98 U/L (40-110); Anion Gap 15 mmol/L (10-20); BUN (Urea Nitrogen) 16 mg/dL (8.4-25.7); Bilirubin, Total 0.4 mg/dL (0.2-1.2); Calc. Creatinine Clearance 111 mL/min (70-130); Calcium 9.1 mg/dL (7.8-10.44); Carbon Dioxide 23 mmol/L (23-31); Chloride 103 mmol/L (98-107); Estimated GFR 92; Globulin 3.3 g/dL (2.4-3.5); Glucose 93 mg/dL (83-110); Potassium 4.2 mmol/L (3.5-5.1); Protein, Total 7.1 g/dL (5.8-8.1); Sodium 137 mmol/L (136-145)
[2022-10-02] MEDS: Heparin 5,000 UNITS/ML VIAL SC SCH ×3 (08:51→20:28)
[2022-10-02] MEDS: Gabapentin 300 MG CAP PO SCH ×2 (08:51→20:28)
[2022-10-02] MEDS: Empagliflozin 10 MG TAB PO SCH (08:51)
[2022-10-02] MEDS: Clopidogrel Bisulfate 75 MG TAB PO SCH (08:51)
[2022-10-02] MEDS: Aspirin 81 mg Enteric Coated Tablet PO SCH (08:51)
[2022-10-02] MEDS: Losartan 25 MG TAB PO SCH (08:52)
[2022-10-02] MEDS: Atorvastatin Calcium 40 MG TAB PO SCH (20:28)
[2022-10-02] MEDS: Amlodipine 10 MG TAB PO SCH (20:28)
[2022-10-03] MEDS: HYDROcodone/Acetaminophen 5/325 mg Tablet PO PRN (07:46)
[2022-10-03] MEDS: Gabapentin 300 MG CAP PO SCH (07:47)
[2022-10-03] MEDS: Empagliflozin 10 MG TAB PO SCH (07:48)
[2022-10-03] MEDS: Losartan 25 MG TAB PO SCH (07:48)
[2022-10-03] MEDS: Clopidogrel Bisulfate 75 MG TAB PO SCH (07:48)
[2022-10-03] MEDS: Heparin 5,000 UNITS/ML VIAL SC SCH (08:01)
[2022-10-03] MEDS: Aspirin 81 mg Enteric Coated Tablet PO SCH (08:01)
[2022-10-03 08:49] VITALS: TEMP 97.6
[2022-10-03] MEDS ORDERED: Regadenoson 0.4 MG/5 ML SYRINGE ONE (10:48)
[2022-10-03 12:05] VITALS: BP 103/67
== END 2022-10-03 14:55 | disposition home or self-care (01) ==
LOC: ERS 11:52 → SUATTDRO 11:52 → 2SW 17:41
PROVIDERS: ADMIT Internal Medicine; ATTEND Internal Medicine
DX: R07.81 Pleurodynia (principal); I11.0 Hypertensive heart disease with heart failure; I50.32 Chronic diastolic (congestive) heart failure; I25.10 Atherosclerotic heart disease of native coronary artery without angina pectoris; E78.00 Pure hypercholesterolemia, unspecified; R91.8 Other nonspecific abnormal finding of lung field; J44.9 Chronic obstructive pulmonary disease, unspecified; K21.9 Gastro-esophageal reflux disease without esophagitis; I07.1 Rheumatic tricuspid insufficiency; Z86.73 Personal history of transient ischemic attack (TIA), and cerebral infarction without residual deficits; Z87.891 Personal history of nicotine dependence; Z79.02 Long term (current) use of antithrombotics/antiplatelets; Z79.82 Long term (current) use of aspirin; Z79.84 Long term (current) use of oral hypoglycemic drugs; Z79.899 Other long term (current) drug therapy; Z88.1 Allergy status to other antibiotic agents; Z95.1 Presence of aortocoronary bypass graft
CPT/HCPCS: 71045; 71275; 78452; 80053 ×2; 84484 ×2; 85025 ×2; 93005; 93017; 93306; 94760; 96374; 96375; 99285; A9500; J3010; 36415; 36416; 96372; 96376; G0378; J1644; J2270; J2272; J2785; Q9967

== ENCOUNTER 2022-10-25 17:02 | Emergency (ER) | payer OTHER, MEDICAID ==
[2022-10-25 17:40] LABS: #Eosinphils 0.2 thou/uL (0.0-0.7); #Monocytes 0.9 thou/uL (0.11-0.59); #Neutrophils 4.8 thou/uL (1.40-6.50); %Basophils 0.5 % (0.0-1.0); %Eosinophils 2.2 % (0.0-10.0); %Lymphocytes 18.9 % (21.0-51.0); %Monocytes 12.5 % (0.0-10.0); %Neutrophils 65.6 % (42.0-75.0); Hemoglobin 14.9 g/dL (14.0-18.0); Mean Corpuscular HGB CONC 32.3 g/dL (32.0-36.0); Mean Corpuscular Hemoglobin 29.3 pg (27.0-31.0); Mean Corpuscular Volume 90.9 fl (78.0-98.0); Platelet Count 276 10x3/uL (130-400); RBC Distribution Width 14.7 % (11.5-14.5); Red Blood Cell (RBC) Count 5.08 mill/uL (4.70-6.10); White Blood Cell (WBC) Count 7.3 10x3/uL (4.8-10.8)
[2022-10-25 17:59] LABS: INR-International Normal Ratio 1.1; Prothrombin Time 14.2 sec (12.0-14.7)
[2022-10-25 18:00] LABS: PTT 31.8 sec (22.9-36.1)
[2022-10-25 18:02] LABS: ALT (SGPT) 17 U/L (8-55); AST (SGOT) 15 U/L (5-34); Albumin 4.1 g/dL (3.4-4.8); Alkaline Phosphatase 92 U/L (40-110); Anion Gap 13 mmol/L (10-20); BUN (Urea Nitrogen) 13 mg/dL (8.4-25.7); Bilirubin, Total 0.5 mg/dL (0.2-1.2); Calc. Creatinine Clearance 0 mL/min (70-130); Calcium 9.3 mg/dL (7.8-10.44); Carbon Dioxide 23 mmol/L (23-31); Chloride 103 mmol/L (98-107); Estimated GFR 63; Globulin 3.4 g/dL (2.4-3.5); Glucose 89 mg/dL (83-110); Potassium 4.3 mmol/L (3.5-5.1); Protein, Total 7.5 g/dL (5.8-8.1); Sodium 135 mmol/L (136-145)
[2022-10-25 19:01] LABS: Bilirubin Negative (Negative); Blood, Urine Negative (Negative); Clarity Clear (Clear); Glucose, Urine (Dipstick) 300 mg/dL (Negative); Ketone, Urine Negative (Negative); Leukocyte Negative Leu/uL (Negative); Nitrite Negative (Negative); Protein, Urine (Dipstick) Negative (Neg-Trace); Specific Gravity, Urine 1.028 (1.002-1.036); Urobilinogen Normal mg/dL (Less than 2)
== END 2022-10-25 21:10 | disposition home or self-care (01) ==
LOC: ERS 17:02
DX: J44.1 Chronic obstructive pulmonary disease with (acute) exacerbation (principal); R53.1 Weakness; I10 Essential (primary) hypertension; Z79.82 Long term (current) use of aspirin; Z79.899 Other long term (current) drug therapy
CPT/HCPCS: 0042T; 70450; 70496; 70498; 71045; 80053; 81003; 82962; 84484; 85025; 85610; 85730; 93005; 94760; 99285; 36416; Q9967

== ENCOUNTER 2023-04-01 13:58 | Outpatient (CLI) | payer OTHER, MEDICAID | END 2023-04-01 13:59 | disposition home or self-care (01) | LOC: CT 13:58 | PROVIDERS: ATTEND Internal Medicine | DX: J44.9 Chronic obstructive pulmonary disease, unspecified (principal); R91.8 Other nonspecific abnormal finding of lung field | CPT/HCPCS: 71250 ==

== ENCOUNTER 2023-11-13 07:39 | Observation (INO) | payer OTHER, MEDICAID ==
[2023-11-13] MEDS ORDERED: Morphine 4 MG/ML VIAL ONE (08:14)
[2023-11-13] MEDS ORDERED: Ondansetron PF 4 MG/2 ML Vial ONE (08:14)
[2023-11-13] MEDS ORDERED: Nitroglycerin 2% Ointment 1 INCH/1 GM Packet ONE (08:14)
[2023-11-13 08:36] LABS: #Basophils 0.03 10x3/uL (0.0-0.2); %Basophils 0.3 % (0.0-1.0); %Eosinophils 1.6 % (0.0-10.0); %Lymphocytes 27.1 % (21.0-51.0); %Neutrophils 64.8 % (42.0-75.0); Hemoglobin 13.9 g/dL (14.0-18.0); Mean Corpuscular HGB CONC 33.1 g/dL (32.0-36.0); Mean Corpuscular Hemoglobin 31.6 pg (27.0-31.0); Mean Corpuscular Volume 95.5 fL (78.0-98.0); Mean Platelet Volume 9.3 fL (7.4-10.4); Platelet Count 221 10x3/uL (130-400); RBC Distribution Width 15.9 % (11.5-14.5)
[2023-11-13 08:56] LABS: Troponin I Less than 0.010 ng/mL (< 0.028)
[2023-11-13 09:01] LABS: ALT (SGPT) 16 U/L (8-55); AST (SGOT) 10 U/L (5-34); Albumin 3.5 g/dL (3.4-4.8); Alkaline Phosphatase 61 U/L (40-110); Anion Gap 13 mmol/L (10-20); BUN (Urea Nitrogen) 16 mg/dL (8.4-25.7); Bilirubin, Total 0.5 mg/dL (0.2-1.2); Calc. Creatinine Clearance 0 mL/min (70-130); Calcium 8.7 mg/dL (7.8-10.44); Carbon Dioxide 24 mmol/L (23-31); Chloride 107 mmol/L (98-107); Estimated GFR 96; Globulin 2.6 g/dL (2.4-3.5); Glucose 80 mg/dL (83-110); Magnesium 1.8 mg/dL (1.6-2.6); Potassium 3.9 mmol/L (3.5-5.1); Protein, Total 6.1 g/dL (5.8-8.1); Sodium 140 mmol/L (136-145)
[2023-11-13] MEDS ORDERED: Acetaminophen 325 MG TAB PO PRN (10:38)
[2023-11-13] MEDS ORDERED: Nitroglycerin 0.4 MG TAB (25 Tab Bottle) SL PRN (10:38)
[2023-11-13] MEDS ORDERED: Senokot S 8.6-50 MG TAB PO PRN (10:38)
[2023-11-13 12:05] LABS: Troponin I Less than 0.010 ng/mL (< 0.028)
[2023-11-13 14:17] LABS: Troponin I Less than 0.010 ng/mL (< 0.028)
[2023-11-13 20:01] VITALS: BMI 29.8
[2023-11-13] MEDS: Famotidine 20 MG TAB PO SCH (21:48)
[2023-11-13] MEDS: HYDROcodone/Acetaminophen 5/325 mg Tablet PO PRN (22:56)
[2023-11-13] MEDS: Ipratropium/Albuterol 3 ML NEB NEB PRN (23:25)
[2023-11-14] MEDS: Gabapentin 100 MG CAP PO SCH (09:00)
[2023-11-14] MEDS: Aspirin Chewable 81 MG TAB PO SCH (09:01)
[2023-11-14] MEDS: Clopidogrel Bisulfate 75 MG TAB PO SCH (09:01)
[2023-11-14] MEDS: Metoprolol Tartrate 50 MG TAB PO SCH (09:01)
[2023-11-14] MEDS: Losartan 25 MG TAB PO SCH (09:01)
[2023-11-14] MEDS: Enoxaparin 40 MG (0.4 mL) SYRINGE SC SCH (09:01)
[2023-11-14] MEDS: Ipratropium/Albuterol 3 ML NEB NEB SCH (13:44)
[2023-11-14 15:46] VITALS: BP 126/74; TEMP 97.7
[2023-11-14] MEDS ORDERED: Mometasone 100 MCG HFA INHALER (RT USE) INH SCH (18:30)
== END 2023-11-14 18:21 | disposition home or self-care (01) ==
LOC: ERS 07:39 → ERHOLD 10:22 → 2SE 12:51
PROVIDERS: ADMIT Family Medicine; ATTEND Internal Medicine
DX: R07.9 Chest pain, unspecified (principal); K21.9 Gastro-esophageal reflux disease without esophagitis; I11.0 Hypertensive heart disease with heart failure; I25.10 Atherosclerotic heart disease of native coronary artery without angina pectoris; I50.32 Chronic diastolic (congestive) heart failure; E78.5 Hyperlipidemia, unspecified; R91.1 Solitary pulmonary nodule; J44.9 Chronic obstructive pulmonary disease, unspecified; B19.20 Unspecified viral hepatitis C without hepatic coma; Z86.73 Personal history of transient ischemic attack (TIA), and cerebral infarction without residual deficits; F17.200 Nicotine dependence, unspecified, uncomplicated; Z99.81 Dependence on supplemental oxygen; Z88.1 Allergy status to other antibiotic agents; Z79.51 Long term (current) use of inhaled steroids; Z79.82 Long term (current) use of aspirin; Z79.899 Other long term (current) drug therapy; Z95.1 Presence of aortocoronary bypass graft
CPT/HCPCS: 36415; 71045; 80053; 83735; 83880; 84484; 85025; 93005; 94640; 94760; 96372; 96374; 96375; G0378; J1650; J2270; J2405; J7620

== ENCOUNTER 2024-04-25 12:59 | Outpatient (CLI) | payer MEDICARE, MEDICAID | END 2024-04-25 13:00 | disposition home or self-care (01) | LOC: BICCT 12:59 | PROVIDERS: ATTEND Internal Medicine | DX: J42 Unspecified chronic bronchitis (principal); J98.4 Other disorders of lung | CPT/HCPCS: 71250 ==

== ENCOUNTER 2025-04-25 20:12 | Emergency (ER) | payer MEDICAID, MEDICARE ==
[2025-04-25 21:02] LABS: ALT (SGPT) 19 U/L (Less than 45); AST (SGOT) 31 U/L (11-34); Albumin 4.0 g/dL (3.1-4.5); Alkaline Phosphatase 101 U/L (40-110); Anion Gap 19 mmol/L (10-20); BUN (Urea Nitrogen) 25 mg/dL (8.4-25.7); Bilirubin, Total 0.5 mg/dL (0.3-1.2); Calc. Creatinine Clearance 0 mL/min (70-130); Calcium 9.2 mg/dL (7.8-10.44); Carbon Dioxide 23 mmol/L (23-31); Chloride 101 mmol/L (98-107); Globulin 3.9 g/dL (2.4-3.5); Glucose 109 mg/dL (83-110); Potassium 4.2 mmol/L (3.5-5.1); Sodium 139 mmol/L (136-145)
[2025-04-25 21:20] LABS: #Basophils 0.04 10x3/uL (0.0-0.2); #Eosinophils 0.15 10x3/uL (0.0-0.7); #Monocytes 0.64 10x3/uL (0.11-0.59); #Neutrophils 3.99 10x3/uL (1.40-6.50); %Basophils 0.6 % (0.0-1.0); %Eosinophils 2.4 % (0.0-10.0); %Lymphocytes 23.2 % (21.0-51.0); %Monocytes 10.2 % (0.0-10.0); %Neutrophils 63.3 % (42.0-75.0); Hematocrit 40.1 % (42.0-52.0); Hemoglobin 13.3 g/dL (14.0-18.0); Mean Corpuscular Hemoglobin 30.1 pg (27.0-31.0); Mean Corpuscular Volume 90.7 fL (78.0-98.0); Platelet Count 250 10x3/uL (130-400); Red Blood Cell (RBC) Count 4.42 mill/uL (4.70-6.10); White Blood Cell (WBC) Count 6.30 10x3/uL (4.8-10.8)
== END 2025-04-26 00:43 | disposition home or self-care (01) ==
LOC: ERS 20:12
DX: R07.9 Chest pain, unspecified (principal); R06.02 Shortness of breath; I77.1 Stricture of artery; R91.1 Solitary pulmonary nodule; I25.2 Old myocardial infarction; I10 Essential (primary) hypertension; J43.9 Emphysema, unspecified; Z86.73 Personal history of transient ischemic attack (TIA), and cerebral infarction without residual deficits; Z87.891 Personal history of nicotine dependence; Z79.82 Long term (current) use of aspirin; Z79.899 Other long term (current) drug therapy
CPT/HCPCS: 71045; 71275; 74174; 80053; 83605; 83880; 84484; 85025; 93005; 96374; 96375; 96376; J2270; J3010